=== PATIENT | male | born 1950 | race Caucasian/White ===

== ENCOUNTER 2022-06-01 06:09 | Day surgery (SDC) | payer MEDICARE, BC, SELFPAY ==
[2022-06-01] MEDS: TETRACAINE 0.5% OPHTH 1 DROP EYE-RIGHT ×2 (06:30→06:35)
[2022-06-01] MEDS: KETOROLAC OPHTH 0.5% 1 DROP EYE-RIGHT ×3 (06:30→06:40)
[2022-06-01 06:50] VITALS: BP 130/83; PULSE 60; RESP 16; TEMP 36.6; O2SAT 95; BMI 28.4
[2022-06-01] MEDS: SODIUM CHLORIDE 0.9 % (FLUSH) 10 ML SYRINGE IVF (07:07)
[2022-06-01] MEDS: TETRACAINE 0.5% OPHTH 2 DROP EYE-RIGHT (07:10)
[2022-06-01] MEDS: BALANCED SALT IRRIG SOLN 15 ML EYE-RIGHT (07:21)
[2022-06-01 07:44] VITALS: BP 138/72; PULSE 54; RESP 16; TEMP 36.4; O2SAT 97
--- NOTE | 2022-06-01 07:48 | W.ANESCHARGE ---
Anesthesia Charges Start Date/Time Anesthesia Start Date: 06/01/22 Anesthesia Start Time: 07:12 Stop Date/Time Anesthesia Stop Date: 06/01/22 Anesthesia Stop Time: 07:45 Summary Emergency: No Extremes of Age: Over 69-CPT 40962
--- NOTE | 2022-06-01 08:05 | W.ANESCHARGE ---
Anesthesia Charges Start Date/Time Anesthesia Start Date: 06/01/22 Anesthesia Start Time: 07:12 Stop Date/Time Anesthesia Stop Date: 06/01/22 Anesthesia Stop Time: 07:45 Summary Emergency: No Extremes of Age: Over 69-CPT 24531
--- NOTE | 2022-06-01 08:35 | P.PCN_ITS ---
Procedure Note Date Seen: 06/01/22 Will [facility] bill your pro fee for this procedure?: Yes Procedure Description: SURGEON: Jonelle Puckett MD PREOPERATIVE DIAGNOSIS: Nuclear sclerotic cataract, right eye. POSTOPERATIVE DIAGNOSIS: Nuclear sclerotic cataract, right eye. NAME OF OPERATION: Phacoemulsification of cataract with posterior chamber intraocular lens implantation in the right eye. ANESTHESIA: Topical. ESTIMATED BLOOD LOSS: Less than 2 cc. COMPLICATIONS: None. PATHOLOGY SPECIMEN: None. INDICATIONS: See consult note for details. The risks, benefits and alternatives of the procedure were explained to the patient, who elected to proceed and signed informed consent to do so. PROCEDURE: The patient was brought to the pre-holding area where the right eye was identified as the operative eye. I placed my initials above this eye. The patient received eye drops consisting of 0.5% tetracaine, 1% tropicamide, 10% phenylephrine, and 0.5% ketorolac. The patient was then brought to the operating room where the left eye was again identified as the operative eye. The eye was prepped with Betadine and draped in the usual sterile ophthalmic fashion. A #15 super-sharp blade was used to create a paracentesis site. 1% non-preserved intracameral lidocaine was injected into the anterior chamber. Endocoat was injected into the anterior chamber. A 2.4 mm keratome was used to create a three-plane self-sealing incision 1 mm anterior to the temporal limbus. A cystotome was used to create an anterior capsular leaflet. The Utrata forceps were used to extend this to form a continuous curvilinear capsulorrhexis. Hydrodissection was performed. The cataract was removed with phacoemulsification using the xarwty-rgm-guztfcx technique. The irrigation and aspiration tip was used to remove the remaining cortex. Healon was injected into the capsular bag. An KENYON ZCB00 intraocular lens of 19.5 diopters was injected into the capsular bag. The irrigation and aspiration tip was used to remove the remaining viscoelastic. Balanced salt solution on a cannula was used to hydrate the wound, and the wound was found to be watertight. The pupil was noted to be round. DISPOSITION: The patient was taken to the recovery room and discharged to home in stable condition. The patient was instructed to call me or go to the emergency department with any sudden change, including dramatic loss of vision, severe pain in the eye or eyebrow region, nausea, or vomiting. The patient will follow up in the clinic tomorrow morning. Surgeon: Jonelle Puckett MD
--- NOTE | 2022-06-01 09:38 | SUR.PREOP ---
The eye drops brought by the patient (Ketorolac and Prednisolone) are examined and I have determined they are labeled by the patient's pharmacy for this patient as prescribed by the surgeon. The bottles are intact, recently obtained and appear to be correct prior to administration
== END 2022-06-01 08:13 | disposition home or self-care (01) ==
PROVIDERS: PCP Internal Medicine; Visit Provider Ophthalmology
PROC: (CPT 66984; principal; 2022-06-01 06:15)
DX: H25.11 Age-related nuclear cataract, right eye (principal)
CPT/HCPCS: 66984; 00142; 99100; A9270; J2250; J3010; V2632

== ENCOUNTER 2022-06-15 06:04 | Day surgery (SDC) | payer MEDICARE, BC, SELFPAY ==
[2022-06-15 06:15] VITALS: BP 140/80; PULSE 56; RESP 16; TEMP 36.3; O2SAT 96
[2022-06-15] MEDS: KETOROLAC OPHTH 0.5% 1 DROP EYE-LEFT ×3 (06:18→06:28)
[2022-06-15] MEDS: TETRACAINE 0.5% OPHTH 1 DROP EYE-LEFT ×2 (06:18→06:23)
[2022-06-15] MEDS: SODIUM CHLORIDE 0.9 % (FLUSH) 10 ML SYRINGE IVF (06:34)
[2022-06-15 06:36] VITALS: BMI 28.4
[2022-06-15] MEDS: BALANCED SALT IRRIG SOLN 15 ML EYE-LEFT (06:47)
[2022-06-15] MEDS: TETRACAINE 0.5% OPHTH 2 DROP EYE-LEFT (06:47)
--- NOTE | 2022-06-15 06:59 | SUR.PREOP ---
The eye drops brought by the patient (Ketorolac and Prednisolone) are examined and I have determined they are labeled by the patient's pharmacy for this patient as prescribed by the surgeon. The bottles are intact, recently obtained and appear to be correct.
--- NOTE | 2022-06-15 07:38 | W.ANESCHARGE ---
Anesthesia Charges Start Date/Time Anesthesia Start Date: 06/15/22 Anesthesia Start Time: 07:12 Stop Date/Time Anesthesia Stop Date: 06/15/22 Anesthesia Stop Time: 07:40 Summary Emergency: No Extremes of Age: Over 69-CPT 75744
[2022-06-15 07:39] VITALS: BP 133/74; PULSE 53; RESP 16; TEMP 36.4; O2SAT 97
--- NOTE | 2022-06-15 09:59 | P.PCN_ITS ---
Procedure Note Date Seen: 06/15/22 Will [facility] bill your pro fee for this procedure?: Yes Procedure Description: SURGEON: Jonelle Puckett MD PREOPERATIVE DIAGNOSIS: Nuclear sclerotic cataract, left eye. POSTOPERATIVE DIAGNOSIS: Nuclear sclerotic cataract, left eye. NAME OF OPERATION: Phacoemulsification of cataract with posterior chamber intraocular lens implantation in the left eye. ANESTHESIA: Topical. ESTIMATED BLOOD LOSS: Less than 2 cc. COMPLICATIONS: None. PATHOLOGY SPECIMEN: None. INDICATIONS: See consult note for details. The risks, benefits and alternatives of the procedure were explained to the patient, who elected to proceed and signed informed consent to do so. PROCEDURE: The patient was brought to the pre-holding area where the left eye was identified as the operative eye. I placed my initials above this eye. The patient received eye drops consisting of 0.5% tetracaine, 1% tropicamide, 10% phenylephrine, and 0.5% ketorolac. The patient was then brought to the operating room where the left eye was again identified as the operative eye. The eye was prepped with Betadine and draped in the usual sterile ophthalmic fashion. A #15 super-sharp blade was used to create a paracentesis site. 1% non-preserved intracameral lidocaine was injected into the anterior chamber. Endocoat was injected into the anterior chamber. A 2.4 mm keratome was used to create a three-plane self-sealing incision 1 mm anterior to the temporal limbus. A cystotome was used to create an anterior capsular leaflet. The Utrata forceps were used to extend this to form a continuous curvilinear capsulorrhexis. Hydrodissection was performed. The cataract was removed with phacoemulsification using the bnrqyn-rxa-irwojis technique. The irrigation and aspiration tip was used to remove the remaining cortex. Healon was injected into the capsular bag. An KENYON ZCB00 intraocular lens of 20.0 diopters was injected into the capsular bag. The irrigation and aspiration tip was used to remove the remaining viscoelastic. Balanced salt solution on a cannula was used to hydrate the wound, and the wound was found to be watertight. The pupil was noted to be round. DISPOSITION: The patient was taken to the recovery room and discharged to home in stable condition. The patient was instructed to call me or go to the emergency department with any sudden change, including dramatic loss of vision, severe pain in the eye or eyebrow region, nausea, or vomiting. The patient will follow up in the clinic tomorrow morning. Surgeon: Jonelle Puckett MD
== END 2022-06-15 08:05 | disposition home or self-care (01) ==
PROVIDERS: PCP Internal Medicine; Visit Provider Ophthalmology
PROC: (CPT 66984; principal; 2022-06-15 06:15)
DX: H25.12 Age-related nuclear cataract, left eye (principal)
CPT/HCPCS: 66984; 00142; 99100; A9270; J2250; J3010; V2632

== ENCOUNTER 2022-06-20 12:30 | Outpatient (RCR) | payer MEDICARE, BC, SELFPAY ==
--- NOTE | 2022-05-17 16:32 | PT.OPEX ---
PT [place] Outpatient Eval PT [facility] Outpatient Eval Start: 05/17/22 12:31 Freq: Status: Active Protocol: Document 05/17/22 12:31 MBB (Rec: 05/17/22 13:30 MBB [id number]) E-Signed By Mago Min DPT Physical Therapy Outpatient Evaluation Insurance Information Insurance Name Medicare B Medical Diagnosis low back pain Treating Diagnosis inhibition of lumbar paraspinals Referring MD Mary Johnson MD Subjective Subjective Instructions post back surgery were to walk. He had a complete reconstruction of lumbar spine which required incisions in anterior and lateral abdomin too. Surgery was very successful. Then starting in the spring 2021, the muscles in his back started to feel bruised. When he walks the muscles tighten up and are very uncomfortable. Walks 1 mile 4-5 days per week. Low back feels tender and sore all the times. Secondary issue is left hip lost all sensation after surgery then this spring started to feel a superficial burning sensation with certain hip movements. This sensation comes and goes quickly. PMH: lumbar spinal reconstruction surgery 06/22/20 ; PLOF: walking 1 mile per day without limitations Objective Strength complete inhibition of lumbar paraspinals, trace activation on right, no activation on left Palpation no paraspinal muscle tone Posture flat lumbar spine Assessment Assessment/Impression 72 yo who presents with inhibition of lumbar paraspinals after having a major lumbar spine surgery in 2019. He has low back pain and tightness when walking. This is due to lack of paraspinal muscle support in his back and the accessory muscles being overworked. He will benefit from skilled PT to help facilitate activation and strengthening of the lumbar paraspinals so he can return to walking without limitations . Primary Functional Limitations walking Plan of Care Rehabilitation Potential Good Physical Therapy Goals By 07/26/22 patient will... 1) Walk dog 1 mile without back soreness or tightness. 2) Demonstrate visible muscle activation of the lumbar paraspinals. Coordination/Communication With Referral Source Treatment Plan/Direct Interventions Electrical Stimulation,Manual Therapy,Therapeutic Exercises Frequency/Duration 1 x per week for 6-10 weeks Patient Will Be Discharged From Therapy Completion of LTG(s),Skills Plateau,Independent w/HEP, Independently Progressing Evaluation Billing Complexity Low Certification Information Initial Certification Date 05/17/22 Ending Certification Date 07/26/22
== END 2022-06-23 13:38 | disposition home or self-care (01) ==
PROVIDERS: PCP Internal Medicine; Visit Provider Internal Medicine
DX: M54.50 Low back pain, unspecified (principal); Z51.89 Encounter for other specified aftercare
CPT/HCPCS: 97110; 97140; 97161

== ENCOUNTER 2022-10-10 13:36 | Outpatient (CLI) | payer MEDICARE, BC, SELFPAY ==
--- OUTSIDE RECORDS SUMMARY | 2022-10-10 08:27 | XMS_ITS | Continuity of Care Document ---
:1950 Author Organization [facility] Address [address] [place] [address], [place] [address] Phone Care Team Providers Name Role Phone Jhonatan Jaramillo MD Unavailable Unavailable Allergies, Adverse Reactions, Alerts Substance Reaction Status Criticality DULOXETINE HCL Headache Active No Information ATORVASTATIN CALCIUM Active No Informat ion amoxicillin Active No Information Medications Medication Instructions Dosage Effective Dates Status Comment s (start - stop) ProAir HFA 90 inhale 1 puff by - Active mcg/actuation aerosol inhalation route inhaler every 4 - 6 hours as needed multivitamin tablet take 1 tablet by - Active oral route every day with food aspirin 81 mg chew 1 tablet by 81 MG - Active chewable tablet oral route every day Aspirin Low Dose 81 take 1 tablet by 81 MG - Active mg tablet,delayed oral route every release day flaxseed 1,000 mg - Active capsule Lidoderm 5 % (700 apply 2 patch by 2 patch - Active mg/patch) adhesive transdermal route patch every day (May wear up to 12hours.) tramadol 50 mg tablet - Active METRONIDAZOLE Not Available - Active (unknown strength) Cholestyramine Light - Active 4 gram oral powder tizanidine 4 mg take 1 capsule by 4 MG - Active capsule oral route 2 times every day gabapentin 600 mg take 2 tablet by 1200 MG - Active tablet oral route 2 times every day losartan 25 mg tablet take 1 tablet by 25 MG - Active oral route every day propranolol 40 mg take 1 tablet by 40 MG - Active tablet oral route 2 times every day Crestor 5 mg tablet take 1 Tablet by 5 MG - Active oral route every day Procedures Procedure Date Urinalysis, non-automated, w/scope OFFICE/OUTPATIENT VISIT, EST Cystourethroscopy OFFICE/OUTPATIENT VISIT, EST Urinalysis, non-automated, w/scope PVR Bladder Scan Urinalysis, non-automated, w/scope Office/outpatient visit,new, mod Advance Directives Directive Yes / No Effective Date File Name No Information Encounters Encounter Practice Location Reason(s) Diagnoses Date Provider Provide rs Description For Visit Copied on Encounter [facility] [place] No Information [facility] Jhonatan. [address], [address] [place], [place], [place], [id number], [place], tel: [phone] , [place]. tel: [phone] OFFICE/OUTPA [facility] HYPERTROPHY Clint CAUSEY VISIT, [facility], [facility] frequency (BENIGN) OF 2 Bradle y. Provider: EST [address] (chief PROSTATE WITH [address], complaint) URINARY OBST [address], [place], BPH (chief SE, mas, [id number], complaint) [place], [address] [place], [place], tel: [phone] [place], [id number] , [place]. [id number]. tel: tel: [phone] [place] HIE Default [facility]ERVICAL [facility], Location SPONDYLOSISCERVIC CHS. . [address] DISC DEGENNECK [address], DISORDER/SYMPT [place], [place], NOSCOMN MGRN W [id number], [facility] MGR US STDCHRONIC PAIN tel:[phone] SYNDROMERadiculit [id number] is, Thoracic or LumbarSynovial cyst of lumbar spineMortons neuroma of left footHeadacheLUMB/ LUMBOSAC DISC DEGENMYALGIA AND MYOSITIS NOSLUMBOSACRAL SPONDYLOSIS OFFICE/OUTPA [facility] BPH[facility]inary [facility]illo Re sandra CAUSEY VISIT, [facility]rology PC, [facility]rology PC frequency frequency - Jhonatan. Provider: EST [address] (chief [address], complaint) [address] [facility], [place], BPH (chief SE, mas, 2019 [id number], complaint) [place] [place], [place], tel: [phone] [place], [id number] , [place]. [id number]. tel: tel: [phone] Office/outpa [facility]PH (chief BPHUrinary Jun- [facility] Referring tient [facility], [facility] complaint) frequency - Jhonatan. Pro vider: visit,new, [address] [facility] [facility] [address], [facility], [place], SE, mas, [id number], [place] [place], [place], tel: [phone] [place], [address] , [place]. [id number]. tel: tel: [phone] David Ward Presbycusis of [facility], [facility] both earsDeviated [facility]. . [address] [facility] [address], septumREFRACTIVE [place], [place], ERRORHypertension [id number], , BenignSENILE [place] NUCLEAR SCLEROSIS tel: [phone] David Hernandez No Information [facility], [facility] [address], [address] [place], [place], [place], [id number], [place], tel: [phone] , [place]. tel: [phone] Family History Family Member Type Diagnosis Age At Onset Mother Problem (finding) 85 Father Problem (finding) 85 Problem (finding) Family history of Cancer, colo n Payers Payer name Insurance type Covered green party ID [facility]ization(s ) [id number] Social History Type Description Quantity Date Captured Comments Alcohol Use Details Unknown Caffeine Use Details Unknown Tobacco Use Status No Information Smoking Status No Information Sex Male Chief Complaint And Reason For Visit No Information Plan Of Treatment Date Type Action Status No Information History Of Present Illness Encounter Date Complaint History Of Present I llness Urinary frequency BPH The problem is impr oving. Associated symptoms include slow stream and urinary frequency (every 2 hours). Pertinent ne gatives include dysuria, fever, hematuria, nocturia, urgency and urinary incontinence. Additi onal information: stopped drinking soda. Feels symptoms are marginally improved. Takes slee ping pill and doesn't awaken to void. he has been ta susana Flomax 0.4 mg daily. He never did receive a prescription for Avodart. BPH It occurs daily. Th e problem is with no change. Associated symptoms include urgency and urinary frequency. Pertinent negatives include dysuria, fever, hematuria and nocturia. Urinary frequency BPH BPH (comments) he presents for eval uation of ongoing bladder symptoms for the las t few years worsening over the last several months. He reports urinary frequency about every one to 2 hours. he has intermittently worse and bladder ur gency as well. Urinary frequency effects his ability to travel, dissipated and entertainment and wo rk. He takes sleeping pills at nighttime and only a wakens infrequently to void. He has poor subjective bladder emptying with decreased urinary stream and o ccasional straining to void. He denies any hematuria . He did have a urinary tract infection about 15 y ears ago and saw urology at that time. He had a cysto scopy which reportedly normal at that time. He has no t had any further urinary tract infections. He has c hronic ongoing low back pain for which he has intermi ttent steroid injections which helped somewhat. Reg ards to his bladder symptoms he has tried Avodart year for about 3 months. This seemed to improve hi s symptoms somewhat but insurance would not cover the medication. He also tried Flomax which h e did not feel improved his symptoms. Currently not on any prostate medications. He noted some decrea sed libido while on prostate medications which geronimo s persisted even after stopping the medications. PSA from 01/10/14 was 1.15 Instructions Date Instruction Additional Informati on We discussed medical and surgical Relate d to HYPERTROPHY (BENIGN) OF treatment options. Since his symptoms [place] OSTATE WITH URINARY OBST have improved on flomax he would like to continue with monotherapy, and hold off on addition of Avodart. Patient to return for followup appointment in 6 months. previously failed trial of Flomax and Re lated to Urinary frequency Avodart individually. I would recommend trial combination therapy with Flomax and Avodart. I will see him back in 6 months PARQ discussion held. Patient to Related to Urinary frequency follow-up in 1 week for a cystoscopy. Assessments Type Assessment Date No Information
--- OUTSIDE RECORDS SUMMARY | 2022-10-10 08:27 | XMS_ITS | Continuity of Care Document ---
:1950 Author Organization [facility] Address [facility] [facility] [address] [place] [address] Phone Care Team Providers Name Role Phone Godwin Merchant MD Unavailable Unavailable Allergies, Adverse Reactions, Alerts Substance Reaction Status Criticality amoxicillin unknown Active No Information Medications Medication Instructions Dosage Effective Dates Status Comment s (start - stop) Fish Oil 500 mg - Active capsule aspirin 81 mg take 1 tablet by oral 81 MG - Active tablet,delayed route every day release Avodart 0.5 mg take 1 capsule by oral 0.5 MG - Active capsule route every day tramadol 50 mg tablet take 1 tablet by oral 50 MG - Act suzie route every 6 hours as needed cholestyramine-aspart take 1 scoop by oral 4 G - Acti ve mai 4 gram oral route 3 times every day powder dissolved in 2 to 6 ounces of water or noncarbonated beverage before meals tizanidine 4 mg take 1 tablet by oral - Active tablet route every 8 hours as needed not to exceed 3 doses in 24 hours gabapentin 600 mg take 1 tablet by oral 600 MG - Active tablet route 3 times every day propranolol 40 mg take 1 tablet by oral 40 MG - Active tablet route 2 times every day Procedures Procedure Date Office/outpatient visit,[facility] Comprehensive hearing test Advance Directives Directive Yes / No Effective Date File Name No Information Encounters Encounter Practice Location Reason(s) Diagnoses Date Provider Provide rs Description For Visit Copied on Encounter Office/outpat David Hernandez hearing Presbycusis [place] Referring ient [facility] and loss (chief of both Godwin. Provi yaquelin: visit,new, [facility] complaint) earsDeviated [address] [facility] nasal septum [address], [place], [address] [place], [place], [place], [place], [place], [id number] [place], [id number], , [place]. [id number]. [place] tel: tel: tel: [phone] [place] No [place] and Information Godwin. [facility] [address] [place] [facility] [address] [facility] [address] [place], [place], [place], [place], [id number], , [place]. [place] tel: tel:[phone] Family History Family Member Type Diagnosis Age At Onset Mother, Brother Problem (finding) [place] Payers Payer name Insurance type Covered constitution party ID Authorization(s ) [facility] [id number] Social History Type Description Quantity Date Captured Comments Alcohol Use Details Unknown Caffeine Use Details Unknown Tobacco Use Status No Information Smoking Status No Information Non-Smoking Tobacco : No Details Available : No Details Available J Use Details Sex Male Vital Signs Date / Height Weight BMI Pulse Blood Temperature Respiratory Body Head BMI Pulse Inhaled Time: Rate Pressure Rate Surface Circumference percenti le Ox Ox Area 72.00 82.826 24.7 68 128/82 97.8 in kg 6 /min mm[Hg] 7:52 (182.60 kg/m AM lbs) eter (2) Chief Complaint And Reason For Visit From encounter dated '11/07/2013 08:10'. hearing loss (chief complaint). Description: The patient presents with symptoms that began 6 years ago. The hearing loss is progressive. The hearing loss is worsening. Location includes ears bilaterally. The patient is experiencing headache. The patient denies ear drainage, nausea and vomiting. Additional information: New ptDaniel rashid.--MimiC. Plan Of Treatment Date Type Action Status No Information History Of Present Illness Encounter Date Complaint History Of Present Radha solis hearing loss The patient present s with symptoms that began 6 years ago. The hearing los s is progressive. The hearing loss is worsening. Location includes ears bilaterally. The patient is experienc ing headache. The patient denies ear drainage, nausea and vomiting. Additional information: New ptDaniel WILLIAMSON complete .--MimiC. Instructions Date Instruction Additional Informati on No Information Assessments Type Assessment Date No Information
--- OUTSIDE RECORDS SUMMARY | 2022-10-10 08:27 | XMS_ITS | Continuity of Care Document ---
:1950 Author Organization [facility] Address [address] [facility] [place] [address] Phone Care Team Providers Name Role Phone Jean Pierre Yost MD Unavailable Unavailable Allergies, Adverse Reactions, Alerts Substance Reaction Status Criticality amoxicillin Active No Information Medications Medication Instructions Dosage Effective Dates Status Comment s (start - stop) FLOMAX (unknown strength) Not Available - Active GABAPENTIN (unknown Not Available - Active strength) HYDROCHLOROTHIAZIDE Not Available - Active (unknown strength) LOSARTAN POTASSIUM Not Available - Active (unknown strength) QUESTRAN (unknown Not Available - Active strength) PROPRANOLOL HCL ER Not Available - Active (unknown strength) Procedures Procedure Date COMPREHENSIVE EYE EXAM, NEW PATIENT REFRACTION Advance Directives Directive Yes / No Effective Date File Name No Information Encounters Encounter Practice Location Reason(s) Diagnoses Date Provider Provide rs Description For Visit Copied on Encounter [facility] REFRACTIVE Priyank Referring Physicians Wendi Quintero -2013 Jean Pierre. Provi yaquelin: and ion, [address], BenignSENILE [address]- [address], [place], [address], [place]CL[place]IS [place] [place], [place], [id number], [id number] [place], [place] , [place]. [id number]. tel:[phone] tel: tel: [phone] Family History Family Member Type Diagnosis Age At Onset No Information Payers Payer name Insurance type Covered green party ID Authorization(s ) [facility] [id number] Social History Type Description Quantity Date Captured Comments Alcohol Use Details Unknown Caffeine Use Details Unknown Tobacco Use Status No Information Smoking Status Never smoker Sex Male Chief Complaint And Reason For Visit No Information Plan Of Treatment Date Type Action Status No Information History Of Present Illness Encounter Date Complaint History Of Present I llness No Information Instructions Date Instruction Additional Informati on Refractive Error OU - Refractive Related to Refractive Error Error. Patient given written spectacle Rx. Hypertension w/o Retinopathy - HTN Relat ed to Hypertension w/o without HTN Retinopathy: Educational Ret inopathy materials provided: verbal description & instruction of condition and its approach. Discussed risk of retinopathy in patients with hypertension. Nuclear Cataract OU - Cataract, mild. Re lated to Nuclear Cataract Current vision is adequate. Lens Rx optional. Educational materials provided: cataracts and surgery discussion. Assessments Type Assessment Date No Information
--- OUTSIDE RECORDS SUMMARY | 2022-10-10 08:27 | XMS_ITS ---
:1950 Author Care Team Providers Name Role Phone BETO HICKMAN MD Primary Care Provider [phone] Allergies Code Code System Name Reaction Severity Status Onset 723 RxNorm Amoxicillin ? ? Active 07/28/20 16 Medications Name Status Start Date Stop Date ? ? cholestyramine (bulk) Active ? Not availa ble gabapentin 600 mg tablet Active ? Not rakesh ilable TAKE 1 AND 1/2 TABLETS BY MOUTH THREE TIMES DAILY methylprednisolone 4 mg tablets in a dose pack Completed ? 03/17/2022 FOLLOW PACKAGE DIRECTIONS propranolol 40 mg tablet Active ? Not rakesh ilable TAKE 1 TABLET BY MOUTH TWICE DAILY rizatriptan 10 mg disintegrating tablet Completed ? 03/17/2022 sildenafil 25 mg tablet Completed ? 03/17/20 22 TAKE ONE TABLET BY MOUTH EVERY DAY tizanidine 2 mg capsule Active ? Not avai lable Take 1 capsule every 6 hours by oral route. triamcinolone acetonide 0.1 % topical cream Active ? Not available APPLY TOPICALLY TO THE AFFECTED AREA TWICE DAILY Problems Name Status Onset Date Source ? Malignant Tumor of Prostate Active 07/28/2016 Hist ory Procedures Date Name Performed by ? 06/22/2020 Lumbar Spinal Fusion Information not rakesh ilable 09/29/2018 Colonoscopy Information not avai lable Results Lab Results Date Name Specimen Result Interpretation Description Value Range Status Address ? 03/01/2022 PSA, Total, Serum or ? No observation recor ded. ? ? ? Plasma 05/05/2020 PSA, Serum or Plasma ? No observation recor ded. ? ? ? Past Encounters Encounter Date Diagnosis Provider 03/17/2022 Malignant Tumor of Prostate; Nikita Foote MD: [address]; Skin Tag Stefanie Echeverria, [place] [address], Ph. [phone] Social History Tobacco Smoking Status Never Smoker Vaccine List Vaccine Type pneumococcal polysaccharide PPV23 08/05/2020 Plan of Care Reminders Provider Appointments None recorded. ? ? Lab None recorded. ? ? Referral None recorded. ? ? Procedures None recorded. ? ? Surgeries None recorded. ? ? Imaging None recorded. ? ? Vitals 03/17/2022 11:30AM ESTABLISHED 10 Height Weight BMI 5 ft 11 in 195 lbs 27.2 kg/m2 05/13/2020 09:50AM ESTABLISHED VIDEO VISIT 20 Height Weight BMI 5 ft 11 in 195 lbs 27.2 kg/m2
[2022-10-10 10:51] LABS: Albumin* 4.3 g/dL (3.3-5.0); Chloride* 104 mmol/L (96-114); Sodium* 139 mmol/L (135-149)
[2022-10-10 10:52] LABS: Potassium* 4.7 mmol/L (3.6-5.1)
[2022-10-10 10:53] LABS: Cholesterol* 225 mg/dL (90-199)
[2022-10-10 10:54] LABS: Alkaline Phosphatase* 92 U/L (40-150); Aspartate Amino Transferase* 19 U/L (12-35); Bilirubin Total* 0.8 mg/dL (0.1-1.5); Blood Urea Nitrogen* 21 mg/dL (7-30); Carbon Dioxide* 29 mmol/L (20-32); Creatinine* 0.9 mg/dL (0.5-1.5); Estimated Glomerular Filt Rate 90 ml/min; Glucose* 86 mg/dL (60-115); Total Protein* 6.9 g/dL (6.0-8.3)
[2022-10-10 10:55] LABS: Alanine Aminotransferase* 15 U/L (4-50); Calcium* 9.4 mg/dL (8.4-10.6); HDL Cholesterol* 46 mg/dL (>=40); LDL Cholesterol Calculated 136 mg/dL (<100); Triglycerides* 214 mg/dL (40-149)
[2022-10-10 11:36] LABS: PSA Diagnostic* < 0.06 ng/mL (0.10-4.00)
== END 2022-10-10 13:37 | disposition home or self-care (01) ==
PROVIDERS: PCP Internal Medicine; Visit Provider Internal Medicine
DX: Z00.00 Encounter for general adult medical examination without abnormal findings (principal); I10 Essential (primary) hypertension; C61 Malignant neoplasm of prostate; Z13.6 Encounter for screening for cardiovascular disorders
CPT/HCPCS: 80053; 80061; 84153; 86316

== ENCOUNTER 2022-10-21 10:24 | Outpatient (CLI) | payer MEDICARE, BC, SELFPAY ==
--- OUTSIDE RECORDS SUMMARY | 2022-10-21 10:26 | XMS_ITS | Continuity of Care Document ---
:1950 Author Organization [facility] Address [address] [facility] [place] [address] Phone Care Team Providers Name Role Phone Jean Pierre Yost MD Unavailable Unavailable Allergies, Adverse Reactions, Alerts Substance Reaction Status Criticality amoxicillin Active No Information Medications Medication Instructions Dosage Effective Dates Status Comment s (start - stop) PROPRANOLOL HCL ER Not Available - Active (unknown strength) QUESTRAN (unknown Not Available - Active strength) LOSARTAN POTASSIUM Not Available - Active (unknown strength) HYDROCHLOROTHIAZIDE Not Available - Active (unknown strength) GABAPENTIN (unknown Not Available - Active strength) FLOMAX (unknown strength) Not Available - Active Procedures Procedure Date COMPREHENSIVE EYE EXAM, NEW PATIENT REFRACTION Advance Directives Directive Yes / No Effective Date File Name No Information Encounters Encounter Practice Location Reason(s) Diagnoses Date Provider Provide rs Description For Visit Copied on Encounter [facility] - REFRACTIVE Priyank Referring Physicians Wendi Quintero -2013 Jean Pierre. Provi yaquelin: and ion, [address] [facility], BenignSENILE [place] Stephanie- o [address], mas, [address], SCLEROSIS [place] [place], [place], [place], [id number], [id number] [place], [place] , [place]. [id number]. tel:[phone] tel: tel: [phone] Family History Family Member Type Diagnosis Age At Onset No Information Payers Payer name Insurance type Covered democrat ID Authorization(s ) [facility] [id number] Social History Type Description Quantity Date Captured [...]
--- OUTSIDE RECORDS SUMMARY | 2022-10-21 10:26 | XMS_ITS | Continuity of Care Document ---
:1950 Author Organization [facility] Address [address] [place] [address], [place] [address] Phone Care Team Providers Name Role Phone [...] 12th [address], [address] [place], [place], [place], [id number], [place], tel: [phone] , [place]. tel: [phone] OFFICE/OUTPA [facility] HYPERTROPHY Clint CAUSEY VISIT, [facility], [facility] frequency (BENIGN) OF 2 Bradle y. Provider: EST [address] (chief PROSTATE WITH [address], complaint) URINARY OBST [address] [facility] [facility] [place], [place], BPH (chief SE, mas, 2019 [id number], complaint) [place], [address] [place], [place], tel: [phone] [place], [address] , [place]. [id number]. tel: tel: [phone] [place] [facility] Default CERVICAL [facility]ER [facility], Location SPONDYLOSISCERVIC [facility]. . [address] DISC DEGENNECK [address], DISORDER/SYMPT [place], [place], NOSCOMN MGRN W [id number], [facility] MGR US STDCHRONIC PAIN tel:[phone] SYNDROMERadiculit [id number] is, Thoracic or LumbarSynovial cyst of lumbar spineMortons neuroma of left footHeadacheLUMB/ LUMBOSAC DISC DEGENMYALGIA AND MYOSITIS NOSLUMBOSACRAL SPONDYLOSIS OFFICE/OUTPA [facility] BPHUrinary Jaramillo Re sandra CAUSEY VISIT, Urology PC, Urology PC frequency frequency - Jhonatan. Provider: EST [address] (chief [address], complaint) Street [facility], [place], BPH (chief SE, mas, 2019 [id number], complaint) [place], [address] [place], [place], tel: [phone] [place], [id number] , [place]. [id number]. tel: tel: [phone] Office/outpa [place] [facility] BPH (chief BPHUrinary Jun- Jaramillo Referring tient [facility]rology [facility], Urology PC complaint) frequency 4- Jhonatan. Pro vider: visit,new, [address] [facility] [address] SE, Street [facility], [place], SE, mas, 2019 [id number], [place], [address] [place], [place], tel: [phone] [place], [id number] , [place]. [id number]. tel: tel: [phone] David Ward Presbycusis of PROVIDER [facility], [facility] both earsDeviated [facility]. . [address] [facility] nasal [address], septumREFRACTIVE [place], [place], ERRORHypertension [id number], , BenignSENILE [place] NUCLEAR SCLEROSIS tel: [phone] David Hernandez No Information [facility], [facility] [address], [address] [place], [place], [place], [id number], [place], tel: [phone] , [place]. tel: [phone] Family History Family Member Type Diagnosis Age At Onset Father Problem (finding) 85 Mother Problem (finding) 85 Problem (finding) Family history of Cancer, colo n Payers Payer name Insurance type Covered republican ID Authorization(s ) [id number] Social History Type Description Quantity Date Captured Comments Alcohol Use Details Unknown Caffeine Use Details Unknown Tobacco Use Status No Information Smoking Status No Information Sex Male Chief Complaint And Reason For Visit No Information Plan Of Treatment Date Type Action Status No Information History Of Present Illness Encounter Date Complaint History Of Present I llness BPH The problem is impr oving. Associated [...] never did receive a prescription for Avodart. Urinary frequency BPH It occurs daily. Th e problem [...] (BENIGN) OF treatment options. Since his symptoms [place] WITH URINARY OBST have improved on [...]
--- OUTSIDE RECORDS SUMMARY | 2022-10-21 10:26 | XMS_ITS | Continuity of Care Document ---
:1950 Author Organization [facility] Address [facility] [facility] [address] [place] [address] Phone Care Team Providers Name Role Phone Godwin Merchant MD Unavailable Unavailable Allergies, Adverse Reactions, Alerts Substance Reaction Status Criticality amoxicillin unknown Active No Information Medications Medication Instructions Dosage Effective Dates Status Comment s (start - stop) propranolol 40 mg take 1 tablet by oral 40 MG - Active tablet route 2 times every day gabapentin 600 mg take 1 tablet by oral 600 MG - Active tablet route 3 times every day tizanidine 4 mg take 1 tablet by oral - Active tablet route every 8 hours as needed not to exceed 3 doses in 24 hours cholestyramine-aspart take 1 scoop by oral 4 G - Acti ve mai 4 gram oral route 3 times every day powder dissolved in 2 to 6 ounces of water or noncarbonated beverage before meals tramadol 50 mg tablet take 1 tablet by oral 50 MG - Act suzie route every 6 hours as needed Avodart 0.5 mg take 1 capsule by oral 0.5 MG - Active capsule route every day aspirin 81 mg take 1 tablet by oral 81 MG - Active tablet,delayed route every day release Fish Oil 500 mg - Active capsule Procedures Procedure Date Office/outpatient visit,[facility] Comprehensive hearing test Advance Directives Directive Yes [...] [address] [place], [place], [place], [place], [place], [place], [id number] [place], [id number], , [place]. [id number]. [place] tel: tel: tel: [phone] [place] [facility] No [facility] Information [facility]. [facility] [address] [place] [facility], [facility] [address] [facility] [address] [place], [place], [place], [place], [id number], , [place]. [place] tel: tel:[phone] Family History Family Member Type Diagnosis Age At Onset Mother, Brother Problem (finding) [place] Payers Payer name Insurance type Covered green party ID Authorization(s ) [facility] CI [id number] Social History Type Description Quantity Date Captured [...]
--- NOTE | 2022-10-21 11:00 | CRLHL7_ITS ---
For Patients: As a result of the Century Cures Act, medical imaging exams and procedure reports are released immediately into your electronic medical record. You may view this report before your referring provider. If you have questions, please contact your health care provider. Indication: Carcinoid tumor Technique: Postcontrast CT abdomen and pelvis. 99 cc Isovue 370 intravenous contrast. Please note that all CT scans at this facility use dose modulation, iterative reconstruction, and/or weight-based dosing when appropriate to reduce radiation dose to as low as reasonably achievable. Comparison: 09/15/2021, 09/08/2020 Findings: The lung bases are clear. No pleural effusion or infiltrate. 2.3 x 2.2 cm lesion within the dome of the liver appears larger and more conspicuous when compared to prior studies. Multiple noncalcified gallstones in the gallbladder. Spleen is normal. Adrenal glands unremarkable. Exophytic cyst arises from the lower pole of the right kidney posteriorly. Small exophytic cyst posterior left kidney. No hydronephrosis. 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 Underlying fatty liver. Pancreas normal. No adenopathy. No bowel obstruction or free air. Postop changes to the right colon. Stable lymphocele along the right pelvic sidewall. This measures 2.9 cm. No suspicious lymph nodes. Ureters are normal. Postoperative changes of lumbar fusion with intact hardware. Degenerative joint disease of both hips. Impression: Subtle hypodense lesion in the dome of the liver appears more conspicuous when compared to prior studies and has increased in size now measuring 2.3 x 2.2 cm compared to 1.9 cm on the most recent exam. Dynamic MRI recommended for further evaluation. Stable right pelvic sidewall lymphocele. Chronic cholelithiasis. Please note that all CT scans at this facility use dose modulation, iterative reconstruction, and/or weight-based dosing when appropriate to reduce radiation dose to as low as reasonably achievable. Dictated by Bob Crooks MD @ 10/21/2022 12:46:45 PM (Electronically Signed)
== END 2022-10-21 10:25 | disposition home or self-care (01) ==
LOC: CT 10:25
PROVIDERS: PCP Internal Medicine; Visit Provider Internal Medicine
DX: D3A.00 Benign carcinoid tumor of unspecified site (principal); K76.9 Liver disease, unspecified; K80.20 Calculus of gallbladder without cholecystitis without obstruction; I89.8 Other specified noninfective disorders of lymphatic vessels and lymph nodes
CPT/HCPCS: 74177; Q9967

== ENCOUNTER 2022-11-09 11:40 | Outpatient (CLI) | payer MEDICARE, BC, SELFPAY ==
--- NOTE | 2022-11-09 13:00 | CRLHL7_ITS ---
For Patients: As a result of the Century Cures Act, medical imaging exams and procedure reports are released immediately into your electronic medical record. You may view this report before your referring provider. If you have questions, please contact your health care provider. Indication: Carcinoid tumor, indeterminate liver lesion. Comparison: CT abdomen and pelvis 10/21/2022, 09/15/2021, 08/28/2020 Technique: MRI/MRCP of the abdomen was performed with the following sequences: axial and coronal T2 weighted, axial T2 fat saturated, axial diffusion, axial T1 in and out of phase, axial and coronal 3D T1 weighted before and after intravenous contrast administration. Contrast: 20 mL Dotarem Findings: Liver: Noncirrhotic morphology. No steatosis or iron deposition. 2.6 cm lesion dome lesion at segment 4A/8 which demonstrates diffusion restriction as well as arterial phase enhancement and washout on portal venous phase imaging. This lesion was noted to measure 1.[address] of 08/28/2020. Gallbladder: Contains multiple stones. Biliary system: No biliary distention, filling defect, mass or stricture. Pancreas: Normal caliber main pancreatic duct.No suspicious pancreatic lesions. Other abdominal organs: Small bilateral renal cortical cysts. Spleen and adrenal glands are without focal nodule. Bone marrow signal: Susceptibility artifact from lumbosacral fixation hardware. Other findings: No lymphadenopathy or ascites Impression: 1. 2.6 cm right hepatic dome enhancing right hepatic lobe lesion concerning for metastasis in the provided history of carcinoid tumor. Dictated by Emmett Fulton MD @ 11/13/2022 12:39:11 PM (Electronically Signed)
--- NOTE | 2022-11-23 10:38 | ONC.NURNOTE ---
[employer] called patient to see when his biopsy is scheduled for. It is scheduled for tomorrow. Patient notes that he does not want to see a [place] provider, and wants to go to [facility]. Message left for Dr. Mejia to send to them instead.
== END 2022-11-09 11:41 | disposition home or self-care (01) ==
LOC: MRI 11:41
PROVIDERS: PCP Internal Medicine; Visit Provider Internal Medicine
DX: D3A.00 Benign carcinoid tumor of unspecified site (principal); K76.9 Liver disease, unspecified
CPT/HCPCS: 74183; A9575

== ENCOUNTER 2023-02-20 10:40 | Outpatient (CLI) | payer MEDICARE, BC, SELFPAY ==
--- OUTSIDE RECORDS SUMMARY | 2023-02-20 10:46 | XMS_ITS | Continuity of Care Document ---
Author Name Unknown Organization [facility] Address [address] [place] [address], [place] [address] Phone Care Team Providers Care Sas Architect Name Role Phone Jhonatan Jaramillo MD Unavailable Unavailable Allergies, Adverse Reactions, Alerts Substance Reaction Status Criticality DULOXETINE HCL Headache Active No Informatio n ATORVASTATIN CALCIUM Active No Info rmation amoxicillin Active No Information Medications Medication Instructions Dosage Effective Dates (start - stop) Status Comments aspirin 81 mg chewable tablet chew 1 tablet by oral route every day 81 MG - Active multivitamin tablet take 1 tablet by oral route every day with food - Active ProAir HFA 90 mcg/actuation aerosol inhaler inhale 1 puff by inhalation route every 4 - 6 hours as needed - Active Crestor 5 mg tablet take 1 Tablet by oral route every day 5 MG - Active propranolol 40 mg tablet take 1 tablet by oral route 2 times every day 40 MG - Active losartan 25 mg tablet take 1 tablet by oral route every day 25 MG - Active gabapentin 600 mg tablet take 2 tablet by oral route 2 times every day 1200 MG - Active tizanidine 4 mg capsule take 1 capsule by oral route 2 times every day 4 MG - Active Cholestyramine Light 4 gram oral powder - Active METRONIDAZOLE (unknown strength) Not Available - Active tramadol 50 mg tablet - Active Lidoderm 5 % (700 mg/patch) adhesive patch apply 2 patch by transdermal route every day (May wear up to 12hours.) 2 patch - Active flaxseed 1,000 mg capsule - Active Aspirin Low Dose 81 mg tablet,delayed release take 1 tablet by oral route every day 81 MG - Active Procedures Procedure Date Urinalysis, non-automated, w/scope OFFICE/OUTPATIENT VISIT, EST Cystourethroscopy OFFICE/OUTPATIENT VISIT, EST Urinalysis, non-automated, w/scope PVR Bladder Scan Urinalysis, non-automated, w/scope Office/outpatient visit,[facility] Advance Directives Directive Yes / No Effective Date File Name No Information Encounters Encounter Description Practice Location Reason(s) For Visit Diagnoses Date Provider Providers Copied on Encounter [facility], [address] [place] [address], [id number], [place] tel:[phone] [facility] No Information 5 Clint Israel. [address] [place] [address], [id number] , . tel:[phone] OFFICE/OUTPA TIENT VISIT, EST [facility], [address] [place] [address], [id number], [place] tel:[phone] [facility] Urinary frequency (chief complaint) BPH (chief complaint) HYPERTROPHY (BENIGN) OF PROSTATE WITH URINARY OBST 5 Clint Israel. [address] [place] [address], [id number] , [place]. tel:[phone] Referring Provider: Sanjeev perdomo, [address] [place] [address], [id number]. tel:[phone] [facility], [address] [place] [address], [id number], [place] tel:[phone] HIE Default Location CERVICAL SPONDYLOSISCERVIC AL DISC DEGENNECK DISORDER/SYMPT NOSCOMN MGRN W NTRC MGR STDCHRONIC PAIN SYNDROMERadiculit is, Thoracic or LumbarSynovial cyst of lumbar spineMortons neuroma of left footHeadacheLUMB/ LUMBOSAC DISC DEGENMYALGIA AND MYOSITIS NOSLUMBOSACRAL SPONDYLOSIS 5 PROVIDER [facility]. . OFFICE/OUTPA TIENT VISIT, EST [facility], [address] [place] [address], [id number], [place] tel:[phone] [facility] Urinary frequency (chief complaint) BPH (chief complaint) BPHUrinary frequency 4 Clint Israel. [address] [place] [address], [id number] , . tel: [phone] Referring Provider: Sanjeev perdomo, [address] [place], [place], [id number]. tel:[phone] Office/outpa tient visit,new, mod [facility], [address] [place] [address], [id number], tel:[phone] [facility] BPH (chief complaint) BPHUrinary frequency 4 Clint Israel. [address] [place] [address], [id number] , . tel: [phone] Referring Provider: Sanjeev perdomo, [address] [place], [place], [id number]. tel:[phone] [facility], [address] [place] [address], [id number], [place] tel:[phone] [facility] Presbycusis of both earsDeviated nasal septumREFRACTIVE ERRORHypertension , BenignSENILE NUCLEAR SCLEROSIS 4 PROVIDER [facility]. . [facility], [address] [place] [address], [id number], [place] tel:[phone] [facility] No Information 7 Roselia Magdaleno. [address] [place] [address], [id number] , [place]. [phone] Family History Family Member Type Diagnosis Age At Onset Father Problem (finding) 85 Problem (finding) Family history of Cance r, colon Mother Problem (finding) 85 Payers Payer name Insurance type Covered green party ID Authoriza tion(s) [place] [id number] Social History Type Description Quantity Date Captured Comments Alcohol Use Details Unknown Caffeine Use Details Unknown Tobacco Use Status No Information Smoking Status No Information Sex Male Chief Complaint And Reason For Visit No Information Plan Of Treatment Date Type Action Status No Information History Of Present Illness Encounter Date Complaint History Of Prese nt Illness BPH The problem is i mproving. Associated symptoms include slow stream and urinary frequency (every 2 hours). Pertinent negatives include dysuria, fever, hematuria, nocturia, urgency and urinary incontinence. Additional information: stopped drinking soda. Feels symptoms are marginally improved. Takes sleeping pill and doesn't awaken to void. he has been taking Flomax 0.4 mg daily. He never did receive a prescription for Avodart. Urinary frequency Urinary frequency BPH It occurs daily. The problem is with no change. Associated symptoms include urgency and urinary frequency. Pertinent negatives include dysuria, fever, hematuria and nocturia. BPH (comments) he presents for evaluation of ongoing bladder symptoms for the last few years worsening over the last several months. He reports urinary frequency about every one to 2 hours. he has intermittently worse and bladder urgency as well. Urinary frequency effects his ability to travel, dissipated and entertainment and work. He takes sleeping pills at nighttime and only awakens infrequently to void. He has poor subjective bladder emptying with decreased urinary stream and occasional straining to void. He denies any hematuria. He did have a urinary tract infection about 15 years ago and saw urology at that time. He had a cystoscopy which reportedly normal at that time. He has not had any further urinary tract infections. He has chronic ongoing low back pain for which he has intermittent steroid injections which helped somewhat. Regards to his bladder symptoms he has tried Avodart last year for about 3 months. This seemed to improve his symptoms somewhat but insurance would not cover the medication. He also tried Flomax which he did not feel improved his symptoms. Currently not on any prostate medications. He noted some decreased libido while on prostate medications which has persisted even after stopping the medications. PSA from 01/10/14 was 1.15 BPH Instructions Date Instruction Additional Infor rosa We discussed medical and surgical treatment options. Since his symptoms have improved on flomax he would like to continue with monotherapy, and hold off on addition of Avodart. Patient to return for followup appointment in 6 months. Related to HYPERTROPHY (BENIGN) OF PROSTATE WITH URINARY OBST previously failed tr ial of Flomax and Avodart individually. I would recommend trial combination therapy with Flomax and Avodart. I will see him back in 6 months Related to Urinary frequency PARQ discussion held . Patient to follow-up in 1 week for a cystoscopy. Related to Urinary frequency Assessments Type Assessment Date No Information
--- OUTSIDE RECORDS SUMMARY | 2023-02-20 10:46 | XMS_ITS | Continuity of Care Document ---
Author Name Unknown Organization [facility] Address [address] [place] [address] Phone Care Team Providers Care Head Insulation Board Saw Operator Name Role Phone Jean Pierre Yost MD Unavailable Unavailable Allergies, Adverse Reactions, Alerts Substance Reaction Status Criticality amoxicillin Active No Information Medications Medication Instructions Dosage Effective Dates (start - stop) Status Comments PROPRANOLOL HCL ER (unknown strength) Not Available - Active QUESTRAN (unknown strength) Not Available - Active LOSARTAN POTASSIUM (unknown strength) Not Available - Active HYDROCHLOROTHIAZIDE (unknown strength) Not Available - Active GABAPENTIN (unknown strength) Not Available - Active FLOMAX (unknown strength) Not Available - Active Procedures Procedure Date COMPREHENSIVE EYE EXAM, NEW PATIENT REFRACTION Advance Directives Directive Yes / No Effective Date File Name No Information Encounters Encounter Description Practice Location Reason(s) For Visit Diagnoses Date Provider Providers Copied on Encounter [facility], [address] [place], [place], [id number], tel:[phone] [facility] REFRACTIVE ERRORHypertens ion, BenignSENILE NUCLEAR SCLEROSIS Priyank Greenfield. [address] [place], [place], [id number] , [place]. tel:[phone] Referring Provider: Sanjeev perdomo, [address] [place], [id number]. tel:[phone] Family History Family Member Type Diagnosis Age At Onset No Information Payers Payer name Insurance type Covered democrat ID Authoriza tion(s) VSP CI [id number] Social History Type Description Quantity Date Captured Comments Alcohol Use Details Unknown Caffeine Use Details Unknown Tobacco Use Status No Information Smoking Status Never smoker Sex Male Chief Complaint And Reason For Visit No Information Plan Of Treatment Date Type Action Status No Information History Of Present Illness Encounter Date Complaint History Of Prese nt Illness No Information Instructions Date Instruction Additional Infor mation Refractive Error OU - Refractive Error. Patient given written spectacle Rx. Related to Refractive Error Hypertension w/o Ret inopathy - HTN without HTN Retinopathy: Educational materials provided: verbal description & instruction of condition and its approach. Discussed risk of retinopathy in patients with hypertension. Related to Hypertension w/o Retinopathy Nuclear Cataract OU - Cataract, mild. Current vision is adequate. Lens Rx optional. Educational materials provided: cataracts and surgery discussion. Related to Nuclear Cataract Assessments Type Assessment Date No Information
== END 2023-02-20 10:41 | disposition home or self-care (01) ==
PROVIDERS: PCP Internal Medicine; Visit Provider Internal Medicine
DX: I10 Essential (primary) hypertension (principal)
CPT/HCPCS: 80053; 85610

== ENCOUNTER 2023-04-06 11:04 | Outpatient (REF) | payer MEDICARE, BC, SELFPAY ==
[2023-04-06 13:32] LABS: Basophils Absolute Auto 0.07 K/uL (0.00-0.30); Basophils Percent Auto 0.7 % (0.0-3.0); Hematocrit 35.8 % (37.0-53.0); Hemoglobin* 10.9 gm/dL (13.5-17.5); Immature Granulocytes Abs Auto 0.02 K/uL (0.00-0.30); Immature Granulocytes Pct Auto 0.2 %; Lymphocytes Percent Auto 12.2 % (20-44); Mean Corpuscular HGB Conc 30 gm/dL (32-36); Mean Corpuscular Hemoglobin 28 pg (26-34); Mean Corpuscular Volume 93 fL (80-100); Monocytes Percent Auto 7.2 % (0.0-11.0); Neutrophils Absolute Auto 6.81 K/uL (1.7-7.0); Neutrophils Percent Auto 71.7 % (42.0-72.0); RDW Coefficient of Variation % 13.2 % (11.5-15.5); Red Blood Count 3.84 m/uL (4.30-5.90)
[2023-04-06 13:55] LABS: Platelet Count* 1210 K/uL (140-440); Slide Review Reflex Yes
[2023-04-06 13:56] LABS: Slide Review Acceptable Review (Acceptable)
== END 2023-04-06 11:05 | disposition home or self-care (01) ==
LOC: NPINS 11:04
PROVIDERS: PCP Internal Medicine
DX: D3A.8 Other benign neuroendocrine tumors (principal); R79.89 Other specified abnormal findings of blood chemistry
CPT/HCPCS: 85025

== ENCOUNTER 2023-04-18 20:26 | Outpatient (REF) | payer MEDICARE, BC, SELFPAY ==
--- OUTSIDE RECORDS SUMMARY | 2023-04-18 20:28 | XMS_ITS | Continuity of Care Document ---
Author Name Unknown Organization [facility] Address [address] [place] [address], [place] [address] Phone Care Team Providers Care Hydraulic Elevator Constructor Name Role Phone Jhonatan Jaramillo MD Unavailable [...] Bladder Scan Urinalysis, non-automated, w/scope [facility] [place] Advance Directives Directive Yes / No Effective Date File Name No Information Encounters Encounter Description Practice Location Reason(s) For Visit Diagnoses Date Provider Providers Copied on Encounter [facility], [address] [place] [address], [id number], [place] tel:[phone] [facility] No Information 5 Clint Israel. [address] [place] [address], [id number] , . tel:[phone] OFFICE/OUTPA TIENT VISIT, EST [facility], [address] [place] [address], [id number], [place] tel:[phone] [facility] Urinary frequency (chief complaint) BPH (chief complaint) HYPERTROPHY (BENIGN) OF PROSTATE WITH URINARY OBST 5 Clint Israel. [address] [place] [address], [id number] , [place]. tel:[phone] Referring Provider: Sanjeev perdomo, [address] [place] [address], [id number]. tel:[phone] [facility], [address] [place] [address], [id number], [place] tel:[phone] [facility] Default Location CERVICAL SPONDYLOSISCERVIC AL DISC DEGENNECK DISORDER/SYMPT NOSCOMN MGRN W NTRC MGR STDCHRONIC PAIN SYNDROMERadiculit is, Thoracic or LumbarSynovial cyst of lumbar spineMortons neuroma of left footHeadacheLUMB/ LUMBOSAC DISC DEGENMYALGIA AND MYOSITIS NOSLUMBOSACRAL SPONDYLOSIS 5 PROVIDER CHS. . OFFICE/OUTPA TIENT VISIT, EST [facility], [address] [place] [address], [id number], tel:[phone] [facility] Urinary frequency (chief complaint) BPH (chief complaint) BPHUrinary frequency 4 Clint Israel. [address] [place] [address], [id number] , . tel: [phone] Referring Provider: Sanjeev perdomo, [address] [place], [id number]. tel:[phone] Office/outpa tient visit,new, mod [facility], [address] [place] [address], [id number], tel:[phone] [facility] BPH (chief complaint) BPHUrinary frequency 4 Clint Israel. [address] [place] [address], [id number] , . tel: [phone] Referring Provider: Sanjeev perdomo, [address] [place], [id number]. tel:[phone] [facility], [address] [place] [address], [id number], [place] tel:[phone] [facility] Presbycusis of both earsDeviated nasal septumREFRACTIVE ERRORHypertension , BenignSENILE NUCLEAR SCLEROSIS 4 PROVIDER CHS. . [facility], [address] [place] [address], [id number], [place] tel:[phone] [facility] No Information 7 Roselia Magdaleno. [address] [place] [address], [id number] , [place]. tel:[phone] Family History Family Member Type Diagnosis Age At Onset Problem (finding) Family history of Cance r, colon Mother Problem (finding) 85 Father Problem (finding) 85 Payers Payer name Insurance type Covered republican ID Authoriza tion(s) Thu Solano [id number] Social History Type Description Quantity Date Captured [...]
--- OUTSIDE RECORDS SUMMARY | 2023-04-18 20:28 | XMS_ITS | Continuity of Care Document ---
Author Name Unknown Organization [facility] Address [address] [address] [place] [address] Phone Care Team Providers Care Information Systems Security Analyst Name Role Phone Sally ARCHULETA, Justo Unavailable Unavaila ble Allergies, Adverse Reactions, Alerts Substance Reaction Status Criticality No Known Allergies Active No Inform ation amoxicillin Unknown Active No Information onion NauseaHeadache Active No Informatio n Medications Medication Instructions Dosage Effective Dates (start - stop) Status Comments Imodium A-D 2 mg capsule take 2 capsule by oral route after 1st loose stool, followed by 1 capsule after each subsequent loose stool not to exceed 16 mg/day 4 MG - Active Excedrin Extra Strength 250 mg-250 mg-65 mg tablet take 2 by Oral route as needed as needed 2 - Active propranolol 40 mg tablet take 2 Tablet by oral route every day 80 MG - Active gabapentin 600 mg tablet take 1 tablet by ORAL route 3 times every day 600 MG - Active tizanidine 4 mg capsule take 2 capsule b y ORAL route every day 8 MG - Active cholestyramine (bulk) powder take 1 by Oral route 4 times every day 1 - Active hyoscyamine 0.125 mg sublingual tablet take as needed - Active tramadol 50 mg tablet take 1 - 2 tablet by oral route 4 times every day as needed 50 MG - Active hydrocodone 5 mg-acetaminophen 325 mg tablet take as needed - Active Lidoderm 5 % topical patch take as needed - Active Procedures Procedure Date Ugi Endo; W/us Guid Asp/bx Ugi Endo; W/us Guid Asp/bx Colonoscopy Flex; W/bx 1/mx Level Iv-surg Path Gross/micro 23 Colonoscopy Flex; W/bx 1/mx Level Iv-surg Path Gross/micro 18 Offic/outpt E&m New Mod-[facility] Advance Directives Directive Yes / No Effective Date File Name No Information Encounters Encounter Description Practice Location Reason(s) For Visit Diagnoses Date Provider Providers Copied on Encounter [facility], [address] [address], [place], [place], [id number], [place] tel:[phone] [facility] No Information 3 Sally Kemp. [address] [place] [address], [id number], [place]. tel:[phone] Bereket Garduno MD. tel:[phone] [facility], [address] [address], [place], [id number], [place] tel:[phone] [facility] No Information 3 Sally Kemp. [address] [place] [address], [id number], [place]. tel:[phone] Referring Provider: Justo Omer, [address] [place] [address], [id number]. tel:[phone] [facility], [address] [address], [place], [id number], [place] tel:[phone] [facility] No Information 3 Sally Kemp. [address] [place] [address], [id number], [place]. tel:[phone] [facility], [address] [address], [place], [id number], tel:[phone] [facility] No Information 3 Sally Kemp. [address] [place] [address], [address], [id number], . tel:[phone] Referring Provider: Justo Omer, [facility] [address], [address]. tel:[phone] [facility], [address] [address], [place], [place], [id number], tel:[phone] [facility] GI Symptoms or Concerns (chief complaint) Personal history of malignant carcinoid tumorNeuroend ocrine tumor of liverColorect al polypsOther specified diseases of intestinePers onal history of malignant neoplasm, unspecifiedOt her specified diseases of intestine 3 Saundra Charles. [address] [place] [address], [id number], . tel:[phone] Bereket Garduno MD. tel:[phone] ring Provider: Bereket Garduno MD E, [address], [place], [address]. tel:[phone] [facility], [address] [address], [place], [place], [id number], tel:[phone] No Information 3 No Information Referring Provider: Bereket Garduno MD E, [address], [place], [address]. tel:[phone] [facility], [address] [address], [place], [place], [id number], [place] tel:[phone] [facility] Change in bowel habitsPersona l history of colonic polypsPersona l history of malignant neoplasm, unspecifiedCh levon in bowel habit 0[address] [facility] [address], [place], [place], [id number], . tel:[phone] Referring Provider: Referral Self. Offic/outpt E&m [facility] [address] [address], [place], [place], [id number], [place] tel:[phone] [facility] GI Symptoms or Concerns (chief complaint) History of malignant carcinoid tumorDiarrhea due to malabsorption Diarrhea, unspecifiedDi etary counseling and surveillanceE ssential (primary) hypertension [address] [facility] [address], [place], [place], [id number], [place]. tel:[phone] Referring Provider: Referral Self. Family History Family Member Type Diagnosis Age At Onset Daughter Problem (finding) Alive and well Brother Problem (finding) brain tumor Father Problem (finding) Alcoholism Sister Problem (finding) Alive and well Brother Problem (finding) Alive and well Mother Problem (finding) cancer of colon Immunizations Vaccine Date Status Comments Haemophilus influenzae type b vaccine, PRP-OMP conjugate administered Note: [facility] bi -directional interface ; Source: Other Registry meningococcal polysaccharide (groups A, C, Y, W-135) tetanus toxoid conjugate vaccine 0.5mL dose, preservative free administered Note: [facility] bi-di rectional interface ; Source: Other Registry influenza, seasonal vaccine, quadrivalent, adjuvanted, 0.5mL dose, preservative free administered Note: [facility] bi-di rectional interface ; Source: Other Registry influenza, seasonal vaccine, quadrivalent, adjuvanted, .5mL dose, preservative free administered Note: [facility] bi-di rectional interface ; Source: Other Registry SARS-COV-2 (COVID-19) vaccin e, mRNA, spike protein, LNP, bivalent booster, preservative free, 50 mcg/0.5 mL or 25 mcg/0.25 mL dose administered Note: [facility] bi-direct ional interface ; Source: Other Registry SARS-COV-2 (COVID-19) vaccin e, mRNA, spike protein, LNP, preservative free, 100 mcg/0.5mL dose or 50 mcg/0.25mL dose administered Note: [facility] bi -directional interface ; Source: Other Registry SARS-COV-2 (COVID-19) vaccin e, mRNA, spike protein, LNP, preservative free, 100 mcg/0.5mL dose or 50 mcg/0.25mL dose administered Note: [facility] bi -directional interface ; Source: Other Registry influenza, seasonal vaccine, quadrivalent, adjuvanted, 0.5mL dose, preservative free administered Note: [facility] bi-di rectional interface ; Source: Other Registry influenza, seasonal vaccine, quadrivalent, adjuvanted, .5mL dose, preservative free administered Note: [facility] bi-di rectional interface ; Source: Other Registry SARS-COV-2 (COVID-19) vaccin e, mRNA, spike protein, LNP, preservative free, 100 mcg/0.5mL dose or 50 mcg/0.25mL dose administered Note: [facility] bi -directional interface ; Source: Other Registry SARS-COV-2 (COVID-19) vaccin e, mRNA, spike protein, LNP, preservative free, 100 mcg/0.5mL dose or 50 mcg/0.25mL dose administered Note: [facility] bi -directional interface ; Source: Other Registry Pneumovax 23 administered Note: [facility] bi-d irectional interface ; Source: Other Registry influenza, high-dose seasona l, quadrivalent, 0.7mL dose, preservative free administered Note: [facility] bi-direct ional interface ; Source: Other Registry influenza, high-dose seasona l, quadrivalent, .7mL dose, preservative free administered Note: [facility] bi-direct ional interface ; Source: Other Registry influenza, high dose seasona l, preservative-free administered Note: [facility] bi-direct ional interface ; Source: Other Registry influenza, high dose seasona l, preservative-free administered Note: [facility] bi-direct ional interface ; Source: Other Registry Influenza, injectable, quadrivalent, preservative free, 3 yrs or older administered Source: Other Provid er influenza, high dose seasona l, preservative-free administered Note: [facility] bi-direct ional interface ; Source: Other Registry tetanus toxoid, reduced diphtheria toxoid, and acellular pertussis vaccine, adsorbed administered Note: [facility] b i-directional interface ; Source: Other Registry influenza, high dose seasona l, preservative-free administered Note: [facility] bi-direct ional interface ; Source: Other Registry Influenza, injectable, quadrivalent, preservative free, 3 yrs or older administered Source: Other Provid er Prevnar administered Note: [facility] bi-d irectional interface ; Source: Other Registry Pneumococcal conjugate PCV administere d Source: Other Provider influenza, high dose seasona l, preservative-free administered Note: [facility] bi-direct ional interface ; Source: Other Registry Influenza, injectable, quadrivalent, preservative free, 3 yrs or older administered Source: Other Provid er zoster vaccine, live administered Note: [facility] bi-directional interface ; Source: Other Registry Zoster administered Source: Other P rovider seasonal influenza, intrader mal, preservative free administered Note: [facility] bi-direct ional interface ; Source: Other Registry Influenza, seasonal, injecta ble, preservative free administered Note: [facility] bi-direct ional interface ; Source: Other Registry Payers Payer name Insurance type Covered constitution party ID Authoriza tion(s) [employer] BL [id number] Social History Type Description Quantity Date Captured Comments Sex Male Smoking Status No Information Chief Complaint And Reason For Visit No Information Reason For Referral Reason For Referral No Information Plan Of Treatment Date Type Action Status Goal Lifestyle education regardin g diet completed Referral Ordered: Colonoscopy Appointment date/timeframe: 10/18/2018 ordered History Of Present Illness Encounter Date Complaint History Of Prese nt Illness GI Symptoms or Concerns GI Symptoms or Concerns This is a 68-year-old male who presents for consultation from Dr. Mejia for changes in bowel habits. 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 He has been having GI trouble ever since, but actually says that he had irregular bowel movements before the surgery and has always had some GI issues.Immediately after his surgery 1997, he began to have explosive diarrhea. He was placed on Questran and that definitely helped and he was no longer having explosive diarrhea, but would still have loose watery urgent stools after any food consumption. He says that for the past 5 years, he has not had a regular bowel movement. In the past, he was having constipation for 3 to 4 days and then 3 or 4 days of diarrhea. During the constipation, he would not have any bowel movements for several days. Then during days with diarrhea, he will have loose urgent small semi-liquid stools after every food or liquid intake. It vin Functional Status Date Functional Assessmen t No Information Instructions Date Instruction Additional Infor rosa Colon Cancer Prevention Related to Colorectal polyps Colon Polyps Related to Color ectal polyps Colon Cancer Prevention Related to Change in bowel habits If the cholestyramin e is not helping, he had tried stopping it and using fiber supplementation instead. I think he would benefit greatly from very small amounts of Imodium scheduled 1 to 3 times per day. He may have to play around with his dose as he is prone to constipation. We will then schedule his followup colonoscopy in the next few months and he can return to clinic as needed. Related to History of malignant carcinoid tumor Lifestyle education regarding di et Related to Dietary counseling and surveillance Assessments Type Assessment Date No Information Patient Care Teams Name Effective Dates (start - stop) Status Members No Information
--- OUTSIDE RECORDS SUMMARY | 2023-04-18 20:28 | XMS_ITS | Continuity of Care Document ---
Author Name Unknown Organization [facility] Address [address] [place] [address] Phone Care Team Providers Care Stripe Matcher Name Role Phone Jean Pierre Yost MD [...] Encounter [facility], [address] [place], [place], [id number], tel:[phone] [facility] REFRACTIVE ERRORHypertens ion, BenignSENILE NUCLEAR SCLEROSIS Priyank Greenfield. [address], [place], [id number] , [place]. tel:[phone] Referring Provider: Sanjeev perdomo, [address] [place], [place], [id number]. tel:[phone] Family History Family Member Type Diagnosis Age At Onset No Information Payers Payer name Insurance type Covered alliance party ID Authoriza tion(s) VSP CI [id number] Social History Type Description Quantity Date Captured [...]
--- OUTSIDE RECORDS SUMMARY | 2023-04-18 20:28 | XMS_ITS | Continuity of Care Document ---
Author Name Unknown Organization [facility] Address [address] [place] [address] Phone Care Team Providers Care Display Artist Name Role Phone Adan ARCHULETA, PhD, Joo Unavailable Unavai lable Allergies, Adverse Reactions, Alerts Substance Reaction Status Criticality amoxicillin Active No Information Medications Medication Instructions Dosage Effective Dates (start - stop) Status Comments TIZANIDINE HCL (unknown strength) Not Available - Active NORTRIPTYLINE HCL (unknown strength) Not Available - Active PROPRANOLOL HCL (unknown strength) Not Available - Active GABAPENTIN (unknown strength) Not Available - Active CHOLESTYRAMINE RESIN (unknown strength) Not Available - Active AMBIEN (unknown strength) Not Available - No Longer Active Procedures Procedure Date Office/Outpatient Visit,Est, Low 2022 X-Ray Exam Lower Spine 2-3 Views 2022 Office/Outpatient Visit,Est, Mod 2020 Office/Outpatient Visit,Est, Mod 2019 Postop Followup Visit PSF, Lumbar - PA PSF - Additional Level(s) - PA 20 Deirdre / Dewitt-Hdz Osteotomy, Lumbar - PA Deirdre / Dewitt-Hdz Osteotomy - Addit ional Level(s) - PA Posterior Instrumentation, 3-6 Segments - PA Iliac Bolts / Pelvic Fixation - PA PEEK/ Cage/ Implant, For Interbody Fusio n - PA PSF, Lumbar PSF - Additional Level(s) ALIF / OLIF Anterior Lumbar Interbody Fu charlotte - Cosurgeon Anterior Interbody Fusion - Additional L evel(s) Deirdre / Dewitt-Hdz Osteotomy, Lumbar Deirdre / Dewitt-Hdz Osteotomy - Addit ional Level(s) Posterior Instrumentation, 3-6 Segments Iliac Bolts / Pelvic Fixation 0 PEEK/ Cage/ Implant, For Interbody Fusio n Office/Outpatient Visit,Est, Mod 2019 X Ray Exam Entire Spine 2/3 VW 20 Office/Outpatient Visit,New, Mod 2019 X-Ray Exam Lwr Spine, Min 4 Views Advance Directives Directive Yes / No Effective Date File Name No Information Encounters Encounter Description Practice Location Reason(s) For Visit Diagnoses Date Provider Providers Copied on Encounter Office/Outpat ient Visit,Est, Low [facility], [address], [place], [id number], [place] tel:[phone] [facility] [place] Arthrodesis status 3 Adan Ge. [facility], [address], [place], [address], [place]. tel:[phone] Referring Provider: Joo Arellano, [facility] [address], [place], [address]. tel:[phone] Office/Outpat ient Visit,Est, Mod [facility], [address], [place], [place], [id number], [place] tel:[phone] [facility] [place] Spinal stenosis, cervical region 1 Adan Ge. [facility], [address], [place], [address], [place]. tel:[phone] Referring Provider: Joo Arellano, [facility] [address], [place], [address]. tel:[phone] Office/Outpat ient Visit,Est, Mod [facility], [address], [place], [id number], [place] tel:[phone] [facility] [place] Arthrodesis status 0 Adan Ge. [facility], [address], [place], [address], [place]. tel: [phone] Referring Provider: Joo Arellano, [facility] [address], [place], [address]. tel:[phone] [facility], [address], [place], [place], [id number], [place] tel:[phone] [facility] Arthrodesis status 0 Adan Ge. [facility] [place], [address], [place], [address], [place]. tel: [phone] Referring Provider: Joo Arellano, [facility] [place] [address], [place], [address]. tel:[phone] [facility], [address], [place], [id number], [place] tel:[phone] [facility] Arthrodesis status 0 Adan Ge. [facility] [place], [address], [place], [address], [place]. tel: [phone] [facility], [address], [place], [id number], [place] tel:[phone] [facility] No Information 0 Ramana Crane. [facility], [address], [place], [place], [id number] , [place]. tel: [phone] Referring Provider: Joo Arellano, [facility] [address], [place], [address]. tel:[phone] [facility], [address], [place], [id number], [place] tel:[phone] [facility] No Information 0 Adan Ge. [facility], [address], [place], [address], [place]. [phone] Referring Provider: Joo Arellano, [facility] [address], [place], [address]. tel:[phone] Office/Outpat ient Visit,Est, Mod [facility], [address], [place], [id number], [place] tel:[phone] [facility] [place] Spinal stenosis, lumbar region with neurogenic claudication 0 Adan Ge. [facility], [address], [place], [address], [place]. [phone] Referring Provider: Joo Arellano, [facility] [address], [facility] [place], [address]. tel:[phone] Office/Outpat ient Visit,New, Mod [facility], [address], [place], [place], [id number], [place] tel:[phone] [facility] [place] Deforming dorsopathy, unspecified Dec-0 0 Adan Ge. [facility], [address], [place], [address], [place]. [phone] Referring Provider: Joo Arellano, [facility] [address], [place], [address]. tel:[phone] Family History Family Member Type Diagnosis Age At Onset No Information Payers Payer name Insurance type Covered democrat ID Sanjuanita cole(s) [facility] [id number] Medicare [facility] [id number] 1 Social History Type Description Quantity Date Captured Comments Alcohol Use Details Unknown Caffeine Use Details Unknown Tobacco Use Status No Information Smoking Status No Information Sex Male Vital Signs Date / Time: Height Weight BMI Pulse Rate Blood Pressure Temperature Respiratory Rate Body Surface Area Head Circumference Head Circ. Percentile Wt./Dequan. Percentile BMI percentile Pulse Ox Inhaled Ox 11:33 AM 69.75 in 87.090 kg (192.00 lbs) 27.7 5 kg/m eter (2) Chief Complaint And Reason For Visit No Information Reason For Referral Reason For Referral No Information Plan Of Treatment Date Type Action Status Future Order: Radiology Order PA /Lateral Full Spine (PALatFS), Ordered on: Ordered History Of Present Illness Encounter Date Complaint History Of Prese nt Illness No Information Functional Status Date Functional Assessmen t No Information Instructions Date Instruction Additional Infor mation No Information Assessments Type Assessment Date No Information Patient Care Teams Name Effective Dates (start - stop) Status Members No Information
[2023-04-18 20:35] LABS: Basophils Absolute Auto 0.05 K/uL (0.00-0.30); Basophils Percent Auto 0.5 % (0.0-3.0); Eosinophils Absolute Auto 0.44 K/uL (0.00-0.50); Eosinophils Percent Auto 4.8 % (0.0-7.0); Hematocrit 36.8 % (37.0-53.0); Hemoglobin* 11.2 gm/dL (13.5-17.5); Immature Granulocytes Abs Auto 0.04 K/uL (0.00-0.30); Immature Granulocytes Pct Auto 0.4 %; Lymphocytes Percent Auto 14.5 % (20-44); Mean Corpuscular HGB Conc 30 gm/dL (32-36); Mean Corpuscular Hemoglobin 28 pg (26-34); Mean Corpuscular Volume 91 fL (80-100); Monocytes Percent Auto 8.1 % (0.0-11.0); Neutrophils Absolute Auto 6.61 K/uL (1.7-7.0); Neutrophils Percent Auto 71.7 % (42.0-72.0); Platelet Count* 828 K/uL (140-440); RDW Coefficient of Variation % 13.6 % (11.5-15.5); Red Blood Count 4.06 m/uL (4.30-5.90); White Blood Count* 9.23 K/uL (4.50-11.00)
[2023-04-18 20:36] LABS: Slide Review Reflex No
== END 2023-04-18 20:27 | disposition home or self-care (01) ==
LOC: NPINS 20:26
PROVIDERS: PCP Internal Medicine
DX: R53.83 Other fatigue (principal)
CPT/HCPCS: 85025

== ENCOUNTER 2023-05-03 11:51 | Outpatient (REF) | payer MEDICARE, BC, SELFPAY ==
--- OUTSIDE RECORDS SUMMARY | 2023-05-03 12:00 | XMS_ITS | Continuity of Care Document ---
Author Name Unknown Organization [facility] Address [address] [place] [address] Phone Care Team Providers Care Junior Accountant Bookkeeper Name Role Phone Jean Pierre Yost MD [...] Encounter [facility], [address] [place], [place], [id number], tel:[phone] [facility] REFRACTIVE ERRORHypertens ion, BenignSENILE NUCLEAR SCLEROSIS Priyank Greenfield. [address] [place], [place], [id number] , [place]. tel:[phone] Referring Provider: Sanjeev perdomo, [address] [place], [place], [id number]. tel:[phone] Family History Family Member Type Diagnosis Age At Onset No Information Payers Payer name Insurance type Covered green party ID Authoriza tion(s) VSP CI [id number] Social History Type Description Quantity Date Captured Comments Alcohol Use Details Unknown Caffeine Use Details Unknown Tobacco Use Status No Information Smoking Status Never smoker Sex Male Chief Complaint And Reason For Visit No Information Plan Of Treatment Date Type Action Status No Information History Of Present Illness Encounter Date Complaint History Of Prese nt Illness No Information Instructions Date Instruction Additional Infor crision Hypertension w/o Ret inopathy - HTN without HTN Retinopathy: Educational materials provided: verbal description & instruction of condition and its approach. Discussed risk of retinopathy in patients with hypertension. Related to Hypertension w/o Retinopathy Nuclear Cataract OU - Cataract, mild. Current vision is adequate. Lens Rx optional. Educational materials provided: cataracts and surgery discussion. Related to Nuclear Cataract Refractive Error OU - Refractive Error. Patient given written spectacle Rx. Related to Refractive Error Assessments Type Assessment Date No Information
--- OUTSIDE RECORDS SUMMARY | 2023-05-03 12:00 | XMS_ITS | Continuity of Care Document ---
Author Name Unknown Organization [facility] Address [address] [place] [address], [place] [address] Phone Care Team Providers Care Server Engineer Name Role Phone Jhonatan Jaramillo MD Unavailable [...] PVR Bladder Scan Urinalysis, non-automated, w/scope [facility] Advance Directives Directive Yes / No Effective Date File Name No Information Encounters Encounter Description Practice Location Reason(s) For Visit Diagnoses Date Provider Providers Copied on Encounter [facility], [address] [place] [address], [id number], [place] tel:[phone] [facility] No Information 5 Clint Israel. [address] [place] [address], [id number] , . tel:[phone] OFFICE/OUTPA TIENT VISIT, EST [facility], [address] [place] [address], [id number], [place] tel:[phone] [facility] Urinary frequency (chief complaint) BPH (chief complaint) HYPERTROPHY (BENIGN) OF PROSTATE WITH URINARY OBST 5 Clint Israel. [address] [place] [address], [id number] , [place]. tel:[phone] Referring Provider: Sanjeev perdomo, [address] [place] [address], [id number]. tel:[phone] [facility], [address] [place] [address], [id number], [place] tel:[phone] H[facility] Default Location CERVICAL SPONDYLOSISCERVIC AL DISC DEGENNECK DISORDER/SYMPT NOSCOMN MGRN W NTRC MGR STDCHRONIC PAIN SYNDROMERadiculit is, Thoracic or LumbarSynovial cyst of lumbar spineMortons neuroma of left footHeadacheLUMB/ LUMBOSAC DISC DEGENMYALGIA AND MYOSITIS NOSLUMBOSACRAL SPONDYLOSIS 5 PROVIDER CHS. . OFFICE/OUTPA TIENT VISIT, EST [facility], [address] [place] [address], [id number], [place] tel:[phone] [facility] Urinary frequency (chief complaint) BPH (chief complaint) BPHUrinary frequency 4 Clint Israel. [address] [place] [address], [id number] , . tel: [phone] Referring Provider: Sanjeev perdomo, [address] [place], [id number]. tel:[phone] Office/outpa tient visit,new, mod [facility], [address] [place] [address], [id number], tel:[phone] [facility] BPH (chief complaint) BPHUrinary frequency 4 Clint Israel. [address] [place] [address], [id number] , . tel: [phone] Referring Provider: Sanjeev perdomo, [address] [place], [id number]. tel:[phone] [facility], [address] [place] [address], [id number], [place] tel:[phone] [facility] Deviated nasal septumPresbycusis of both earsREFRACTIVE ERRORHypertension , BenignSENILE NUCLEAR SCLEROSIS 4 PROVIDER CHS. . [facility], [address] [place] [address], [id number], [place] tel:[phone] [facility] No Information 7 Roselia Magdaleno. [address] [place] [address], [id number] , [place]. tel:[phone] Family History Family Member Type Diagnosis Age At Onset Father Problem (finding) 85 Problem (finding) Family history of Cance r, colon Mother Problem (finding) 85 Payers Payer name Insurance type Covered republican ID Authoriza tion(s) Thu Solano [id number] Social History Type Description Quantity Date Captured [...]
--- OUTSIDE RECORDS SUMMARY | 2023-05-03 12:00 | XMS_ITS | Continuity of Care Document ---
Author Name Unknown Organization [facility] Address [address] [place] [address] Phone Care Team Providers Care Mainspring Former Arbor End Name Role Phone Adan ARCHULETA, PhD, Joo [...] Anterior Interbody Fusion - Additional L evel(s) Dierdre / Dewitt-Hdz Osteotomy, Lumbar Deirdre / Dewitt-Hdz [...] C, [address], [place], [place], [id number], [place] tel:[phone] [facility] [place] Arthrodesis status 3 Adan Ge. [facility], [address], [place], [address], [place]. tel:[phone] Referring Provider: Joo Arellano, [facility] [address], [place], [address]. tel:[phone] Office/Outpat ient Visit,Est, Mod [facility], [address], [place], [place], [id number], [place] tel:[phone] [facility] [place] Spinal stenosis, cervical region 1 Adan Ge. [facility], [address], [place], [address], [place]. tel:[phone] Referring Provider: Joo Arellano, [facility] [address], [place], [address]. tel:[phone] Office/Outpat ient Visit,Est, Mod [facility], [address], [place], [place], [id number], [place] tel:[phone] [facility] [place] Arthrodesis status 0 Adan Ge. [facility], [address], [place], [address], [place]. tel: [phone] Referring Provider: Joo Arellano, [facility] [address], [place], [address]. tel:[phone] [facility], [address], [place], [place], [id number], [place] tel:[phone] [facility] Arthrodesis status 0 Adan Ge. [facility] [place], [address], [place], [address], [place]. tel: [phone] Referring Provider: Joo Arellano, [facility] [place] [address], [place], [address]. tel:[phone] [facility], [address], [place], [id number], [place] tel:[phone] [facility] Arthrodesis status 0 Adan Ge. [facility] [place], [address], [place], [address], [place]. tel: [phone] [facility], [address], [place], [id number], [place] tel:[phone] [facility] No Information 0 Ramana Crane. [facility], [address], [place], [place], [id number] , [place]. tel: [phone] Referring Provider: Joo Arellano, [facility] [address], [place], [address]. tel:[phone] [facility], [address], [place], [place], [id number], [place] tel:[phone] [facility] No Information 0 Adan Ge. [facility], [address], [place], [address], [place]. [phone] Referring Provider: Joo Arellano, [facility] [address], [place], [address]. tel:[phone] Office/Outpat ient Visit,Est, Mod [facility], [address], [place], [id number], [place] tel:[phone] [facility] [place] Spinal stenosis, lumbar region with neurogenic claudication 0 Adan Ge. [facility], [address], [place], [address], [place]. [phone] Referring Provider: Joo Arellano, [facility] [address], [place], [address]. tel:[phone] Office/Outpat ient Visit,New, Mod [facility], [address], [place], [id number], [place] tel:[phone] [facility] [place] Deforming dorsopathy, unspecified Dec-0 0 Adan Ge. [facility], [address], [place], [address], [place]. [phone] Referring Provider: Joo Arellano, [facility] [address], [place], [address]. tel:[phone] Family History Family Member Type Diagnosis Age At Onset No Information Payers Payer name Insurance type Covered republican ID Sanjuanita cole(s) [facility] [id number] Medicare [facility] [id number] Social History Type Description Quantity Date [...]
[2023-05-03 13:09] LABS: Hematocrit 36.7 % (37.0-53.0); Mean Corpuscular HGB Conc 30 gm/dL (32-36); Mean Corpuscular Hemoglobin 27 pg (26-34); Mean Corpuscular Volume 89 fL (80-100); Platelet Count* 934 K/uL (140-440); Red Blood Count 4.14 m/uL (4.30-5.90); White Blood Count* 8.96 K/uL (4.50-11.00)
[2023-05-03 13:11] LABS: Slide Review Reflex No
== END 2023-05-03 11:52 | disposition home or self-care (01) ==
LOC: NPINS 11:51
PROVIDERS: PCP Internal Medicine
DX: R79.89 Other specified abnormal findings of blood chemistry (principal)
CPT/HCPCS: 85027

== ENCOUNTER 2023-05-04 15:38 | Emergency (ER) | payer MEDICARE, BC, SELFPAY ==
[2023-05-04 15:49] VITALS: BP 106/69; PULSE 90; RESP 22; TEMP 36.9; O2SAT 99; BMI 24.4
--- NOTE | 2023-05-04 15:53 | ED_ITS ---
HPI - General Adult General Time Seen by Provider: 15:53 Date Seen: 05/04/23 Chief complaint: Abdominal Pain Stated complaint: Needs CT for pancreas--vomiting, abdominal pain Time Seen by Provider: 05/04/23 15:40 Source: patient and RN notes reviewed Mode of arrival: ambulatory Limitations: no limitations History of Present Illness HPI narrative: Patient is a 73-year-old male coming in with significant abdominal cramping/abdominal pain associated with nausea vomiting. He started with abdominal cramping yesterday. Nausea vomiting did not start until today. He had a bowel movement about 9:00 a.m. this morning but that is the 1st 1 in about a week. He has been taking MiraLax and other [id number] medicines to try to treat constipation. He ate toast for breakfast in did keep that down. Had some lunch and actually started with the vomiting after that. Patient has had a history of prostate cancer and is status post robotic assisted laparoscopic rad ical prostatectomy. He has had a right hemicolectomy. He had a somewhat recent complex hepatobiliary surgery with partial liver and pancreas resection cholecystectomy and splenectomy. There are postoperative fever and infection complications reportedly with the OUMOU drain. He was actually even hospitalized here towards the end of February. They were wondering of about pancreatitis, did discuss with them concerns of bowel obstruction given his history, they state that the cancer facility also were concerned potentially about that. He denies any fevers or urinary symptoms. Related Data Home Medications Medication Instructions Recorded Confirmed cholestyramine (with sugar) 4 gram 1 ea PO DAILY PRN 05/10/22 04/18/23 oral powder acetaminophen 500 mg tablet 1,000 mg PO Q6H PRN 03/23/23 04/18/23 loperamide 2 mg capsule (Imodium 2 - 4 mg PO PRN 03/23/23 04/18/23 A-D) psyllium husk 3.4 gram/5.4 gram 1 tbsp PO DAILY PRN 03/23/23 04/18/23 oral powder (Metamucil) triamcinolone acetonide 0.1 % 1 applic topical BID PRN 03/23/23 04/18/23 topical cream aspirin 81 mg tablet,delayed 81 mg PO QDAY 04/18/23 04/18/23 release (Adult Low Dose Aspirin) Previous Rx's Medication Instructions Recorded gabapentin 600 mg tablet 900 mg (1.5 x 600 mg) PO TID 10/12/22 Occipital Neuralgia #250 tabs tramadol 50 mg tablet 50 mg PO Q8H PRN pain #30 tabs 10/12/22 propranolol 40 mg tablet 60 mg (1.5 x 40 mg) PO BID #270 04/07/23 tabs ondansetron 4 mg disintegrating 4 mg PO Q8H Nausea 5 days #30 tabs 04/18/23 tablet tizanidine 4 mg tablet 4 mg PO QHS PRN muscle spasticity 04/18/23 #30 tabs ondansetron 4 mg disintegrating 4 mg PO Q8H PRN nausea and 05/04/23 tablet vomiting #10 tabs Allergies Allergy/AdvReac Type Severity Reaction Status Date / Time amoxicillin Allergy Intermediate Unknown Verified 05/04/23 15:49 Review of Systems Status of ROS: Reports: 6 or more systems reviewed and unremarkable except as noted in History and below PFSH [facility] Medical History Fatigue ?R53.83 - Other fatigue (ICD-10) Nausea ?R11.0 - Nausea (ICD-10) Muscle pain ?M79.10 - Myalgia, unspecified site (ICD-10) Hypertension (1979) ?I10 - Essential (primary) hypertension (ICD-10) Chronic headaches ?R51.9 - Headache, unspecified (ICD-10) ?G89.29 - Other chronic pain (ICD-10) Rosacea (04/03/17) ?L71.9 - Rosacea, unspecified (ICD-10) Occipital neuralgia (2002) ?M54.81 - Occipital neuralgia (ICD-10) Chronic low back pain ?M54.50 - Low back pain, unspecified (ICD-10) ?G89.29 - Other chronic pain (ICD-10) Carcinoid tumor (1997) ?D3A.00 - Benign carcinoid tumor of unspecified site (ICD-10) Renal cyst ?N28.1 - Cyst of kidney, acquired (ICD-10) Malignant neoplasm of prostate (2015) ?C61 - Malignant neoplasm of prostate (ICD-10) Surgical History H/O resection of liver ?Z90.49 - Acquired absence of other specified parts of digestive tract (ICD- 10) 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) History of cholecystectomy ?Z90.49 - Acquired absence of other specified parts of digestive tract (ICD- 10) History of hip replacement ?Z96.649 - Presence of unspecified artificial hip joint (ICD-10) History of right hemicolectomy (1997) ?Z90.49 - Acquired absence of other specified parts of digestive tract (ICD- 10) History of SCC (squamous cell carcinoma) of skin (2017) ?Z85.828 - Personal history of other malignant neoplasm of skin (ICD-10) History of robot-assisted laparoscopic radical prostatectomy (09/27/16) ?Z90.79 - Acquired absence of other genital organ(s) (ICD-10) History of tonsillectomy ?Z90.89 - Acquired absence of other organs (ICD-10) History of knee surgery (1980) ?Z98.890 - Other specified postprocedural states (ICD-10) Social History Narrative: 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 Lives with locally. Nonsmoker, rare ETOH. Smoking Status: Never smoker How often do you have a drink containing alcohol: monthly or less How many standard drinks containing alcohol do you have on a typical day: 1 or 2 How often do you have six or more drinks on one occasion: Never AUDIT-C Alcohol total score: 1 Non-prescribed substance use: denies use Caffeine: Yes (3-4 xweek) Little interest or pleasure in doing things: not at all Feeling down, depressed, or hopeless: not at all Exam Const: Vital Signs, click to edit/add: Vital Signs - 24 hr 05/04/23 15:49 05/04/23 16:01 05/04/23 16:18 Temperature 98.4 F Pulse Rate 79 Pulse Rate [Pulse Oximeter] 90 Respiratory Rate 22 Blood Pressure 138/79 Blood Pressure [Le ft Upper Arm] 106/69 Pulse Oximetry 99 98 99 Oxygen Delivery Me thod Room Air 05/04/23 16:32 Temperature Pulse Rate 75 Pulse Rate [Pulse Oximeter] Respiratory Rate Blood Pressure 138/72 Blood Pressure [Le ft Upper Arm] Pulse Oximetry 96 Oxygen Delivery Me thod Documenting provider has reviewed patient's vital signs: yes Common normals: oriented x3 and alert General appearance: cooperative, well kempt, well developed, in distress and ill appearing Other: Appears pale, uncomfortable but certainly still attempting to be pleasant. HENMT: Common normals: normocephalic, head/scalp atraumatic, hearing grossly normal bilaterally, external ears normal, external nose normal, moist oral mucous membranes, oropharynx normal, dentition normal and gingiva normal Head and scalp: normocephalic and atraumatic Nose: external nose normal External ear: external ears normal Eye: Common normals: PERRL, EOMs intact bilaterally, conjunctivae normal and no scleral icterus Conjunctiva: conjunctiva(e) normal Pupil: PERRL Neck & C-Spine: Common normals: full ROM, no lymphadenopathy and supple Resp: Common normals: normal respiratory effort, no retractions, no use of accessory muscles and clear to auscultation bilaterally Effort & inspection: able to speak in complete sentences Auscultation: clear to auscultation bilaterally Cardio: Common normals: regular rate, regular rhythm, S1 normal heart sound, S2 normal heart sound, no gallops, no clicks and no murmurs Rate: regular rate Rhythm: regular rhythm Heart sounds: S1 normal and S2 normal GI: Other: Abdomen seems mildly distended, bowel sounds are present but more hypoactive. Has more left-sided abdominal tenderness without rebound or guarding. No specific central area of tenderness on examination. Neuro: Common normals: oriented x3 Sensorium/orientation: alert Psych: Appearance: well kempt Course Course Hospital Course: Patient certainly could have complications from recent surgery which does include potential for bowel obstruction. We will obtain a lipase to ensure no pancreatitis. There could be postoperative fluid collections/infections. Full complement of labs and CT imaging will be obtained. Will have patient monitored on pulse oximetry and start IV fluids with normal saline bolus, 1 L over 2 hours, 4 mg IV Zofran, 4 mg IV morphine. Reevaluation(s) Time of Reevaluation #1: 16:31 Reevaluation #1: Nursing staff reported patient complained of some chest heaviness or pressure after the morphine, very likely reaction of the morphine but will have EKG and point of care troponin done. Vital Signs Vital signs: Initial Vital Signs Temperature 98.4 F 05/04/23 15:49 Temperature Source Temporal Artery Scan 05/04/23 15:49 Pulse Rate 90 05/04/23 15:49 Respiratory Rate 22 05/04/23 15:49 Blood Pressure 106/69 05/04/23 15:49 Blood Pressure Mean 81 05/04/23 15:49 Blood Pressure Position Sitting 05/04/23 15:49 Pulse Oximetry 99 05/04/23 15:49 Oxygen Delivery Method Room Air 05/04/23 15:49 Vital Signs Temperature 98.4 F 05/04/23 15:49 Pulse Rate 90 05/04/23 15:49 Respiratory Rate 22 05/04/23 15:49 Blood Pressure 106/69 05/04/23 15:49 Pulse Oximetry 99 05/04/23 15:49 Oxygen Delivery Method Room Air 05/04/23 15:49 Temperature 98.4 F 05/04/23 15:49 Pulse Rate 75 05/04/23 16:32 Respiratory Rate 22 05/04/23 15:49 Blood Pressure 138/72 05/04/23 16:32 Pulse Oximetry 96 05/04/23 16:32 Oxygen Delivery Method Room Air 05/04/23 15:49 Medical Decision Making Lab Data Lab results reviewed: Yes I reviewed the patient's lab results Labs: Lab Results 05/04/23 05/04/23 Range/Units 16:00 16:25 WBC 9.44 (4.50-11.00) K/uL RBC 4.15 L (4.30-5.90) m/uL Hgb 11.1 L (13.5-17.5) gm/dL Hct 36.0 L (37.0-53.0) % MCV 87 (80-100) fL MCH 27 (26-34) pg MCHC 31 L (32-36) gm/dL RDW Coeff of Annika 14.2 (11.5-15.5) % Plt Count 890 H (140-440) K/uL Neut % (Auto) 79.5 H (42.0-72.0) % Lymph % (Auto) 11.8 L (20-44) % [place] % (Auto) 5.5 (0.0-11.0) % Eos % (Auto) 2.6 (0.0-7.0) % Baso % (Auto) 0.4 (0.0-3.0) % Neut # (Auto) 7.50 H (1.7-7.0) K/uL Lymph # (Auto) 1.10 (0.90-2.90) K/uL [place] # (Auto) 0.50 (0.00-0.90) K/UL Eos # (Auto) 0.25 (0.00-0.50) K/uL Baso # (Auto) 0.04 (0.00-0.30) K/uL Abs Immat Gran (auto) 0.02 (0.00-0.30) K/uL Imm/Tot Granulo (auto) 0.2 % Sodium 137 (135-149) mmol/L Potassium 3.6 (3.6-5.1) mmol/L Chloride 100 (96-114) mmol/L Carbon Dioxide 26 (20-32) mmol/L BUN 14 (7-30) mg/dL Creatinine 0.7 (0.5-1.5) mg/dL Estimated Creat Clear 69.03 Estimated GFR 97 ml/min Glucose 138 H (60-115) mg/dL Lactate 2.3 H (0.5-1.9) mmol/L Calcium 9.1 (8.4-10.6) mg/dL Total Bilirubin 0.5 (0.1-1.5) mg/dL AST 38 H (12-35) U/L ALT 37 (4-50) U/L Alkaline Phosphatase 142 (40-150) U/L C-Reactive Protein 2.9 H (0.5-1.0) mg/dL Total Protein 8.4 H (6.0-8.3) g/dL Albumin 3.6 (3.3-5.0) g/dL Lipase 143 (23-300) U/L POC Troponin I 0.00 L (0.01-0.04) ng/ml Imaging Data CT scan - abdomen: Attestation: I have reviewed the pertinent imaging results. Radiologist's impression: Patient: MUSTAPHA BRISCOE Facility:?[facility] Patient ID:?[id number] Site Patient ID:?[id number]. Site :?[id number] Study:?CT Abdomen/Pelvis W/ISOVUE 370 85CC-05/04/2023 5:04:26 PM Ordering Physician:Frederic Barnhart Final Report: INDICATION: Lower abdominal pain, vomiting. TECHNIQUE: CT abdomen and pelvis acquired with 85 cc Isovue 370 IV contrast. COMPARISON: April 07, 2023. FINDINGS: Lower chest: Trace left pleural effusion with compressive atelectasis. Liver: Similar resection cavity in the dome of the liver. Similar scattered areas of perihepatic fluid. Gallbladder and bile ducts: Surgically absent. Pancreas: Similar pancreatic tail resection. Tiny fluid collection about the pancreatic tail, not amenable for drain. Spleen: Splenectomy. Adrenal glands: Unremarkable. No nodules. Kidneys: Tiny hypodensities, too small to characterize. No hydronephrosis. GI tract: Moderate colonic stool burden. No bowel obstruction. Vasculature: Abdominal aorta is normal in caliber. Mesenteric arteries are patent. Lymph nodes: No lymphadenopathy. Peritoneum/Abdominal Wall: Unremarkable. No sign of mass or infiltration. No free air or significant free fluid. Pelvis: Prostatectomy. Bones: L2-S1 hardware fixation. Right hip arthroplasty causing streak artifact. Degenerative changes. IMPRESSION: No acute intra-abdominal/pelvic abnormality. Moderate colonic stool burden. Postsurgical changes of splenectomy and pancreatic tail resection with tiny pseudocyst, not amenable for drainage. Overall, similar appearance of the liver. Trace left pleural effusion with compressive atelectasis. Please note that all CT scans at this facility use dose modulation, iterative reconstruction, and/or weight-based dosing when appropriate to reduce radiation dose to as low as reasonably achievable. Dictated by Sammy Yao MD @ 05/04/2023 5:47:39 PM (Electronic Signature) ECG Data Attestation: I personally reviewed and interpreted this ECG as follows: (Left bundle branch block, sinus rhythm with first-degree AV block, 81 beats per minute.) Prior ECG tracings: available for review (Compared to 03/23/2023) Critical Care Time Critical Care Time Critical Care Time: No Discharge Plan Discharge Clinical Impression: Constipation Patient Disposition: Home, Self-Care Condition: Stable Instructions: Constipation (ED), High Fiber Diet (ED) Additional Instructions: Get GoLYTELY as soon you are able to, complete bottle as he would colonoscopy prep. Can resume MiraLax 1/2 capful to 1 capful daily to titrate to a formed but soft stool daily. Can use Zofran as prescribed to help with nausea so that you can get the GoLYTELY down and start moving the stool through the bowel. You may try 1 or 2 enemas but a lot of the stool seems to be in the more proximal colon. Expect cramping through this but if you have 2 severe of pain that you cannot tolerate or are unable to get the GoLYTELY down due to nausea vomiting and Zofran is not working, please seek re-evaluation. There is no CT evidence of any bowel obstruction at this time, no evidence of pancreatitis or complications from your surgery. I would recommend clear liquids until you start having stool production that is decent. Then you may start to resume a normal diet but would try to really increase the fiber and fluids in your diet. It is important with constipation that people are drinking enough so that the stool does not become to solid or firm. Activity Level: Activity as Tolerated Prescriptions: New ondansetron 4 mg tablet,disintegrating 4 mg PO Q8H PRN (Reason: nausea and vomiting) Qty: 10 0RF No Action gabapentin 600 mg tablet 900 mg PO TID Qty: 250 5RF tramadol 50 mg tablet 50 mg PO Q8H PRN (Reason: pain) Qty: 30 0RF cholestyramine (with sugar) 4 gram powder 1 ea PO DAILY PRN aspirin [Adult Low Dose Aspirin] 81 mg tablet,delayed release (DR/EC) 81 mg PO QDAY tizanidine 4 mg tablet 4 mg PO QHS PRN (Reason: muscle spasticity) Qty: 30 0RF ondansetron 4 mg tablet,disintegrating 4 mg PO Q8H 5 Days Qty: 30 3RF triamcinolone acetonide 0.1 % cream 1 applic topical BID PRN acetaminophen 500 mg tablet 1,000 mg PO Q6H PRN loperamide [Imodium A-D] 2 mg capsule 2 - 4 mg PO PRN Rx Instructions: take 2 capsule by oral route after 1st loose stool, followed by 1 capsule after each subsequent loose stool not to exceed 16 mg/day Metamucil 3.4 gram/5.4 gram powder 1 tbsp PO DAILY PRN Rx Instructions: mix into at least 8 oz of water or juice before administering propranolol 40 mg tablet 60 mg PO BID Qty: 270 0RF Follow Up/Referrals: Isrrael Mejia MD [Primary Care Provider] - Stand Alone Forms: [employer] Info Instructions
[2023-05-04 16:01] VITALS: O2SAT 98
--- NOTE | 2023-05-04 16:01 | CRLHL7_ITS ---
For Patients: As a result of the Century Cures Act, medical imaging exams and procedure reports are released immediately into your electronic medical record. You may view this report before your referring provider. If you have questions, please contact your health care provider. INDICATION: Lower abdominal pain, vomiting. TECHNIQUE: CT abdomen and pelvis acquired with 85 cc Isovue 370 IV contrast. COMPARISON: April 07, 2023. FINDINGS: Lower chest: Trace left pleural effusion with compressive atelectasis. Liver: Similar resection cavity in the dome of the liver. Similar scattered areas of perihepatic fluid. Gallbladder and bile ducts: Surgically absent. Pancreas: Similar pancreatic tail resection. Tiny fluid collection about the pancreatic tail, not amenable for drain. Spleen: Splenectomy. Adrenal glands: Unremarkable. No nodules. Kidneys: Tiny hypodensities, too small to characterize. No hydronephrosis. GI tract: Moderate colonic stool burden. No bowel obstruction. Vasculature: Abdominal aorta is normal in caliber. Mesenteric arteries are patent. Lymph nodes: No lymphadenopathy. Peritoneum/Abdominal Wall: Unremarkable. No sign of mass or infiltration. No free air or significant free fluid. Pelvis: Prostatectomy. Bones: L2-S1 hardware fixation. Right hip arthroplasty causing streak artifact. Degenerative changes. IMPRESSION: No acute intra-abdominal/pelvic abnormality. Moderate colonic stool burden. Postsurgical changes of splenectomy and pancreatic tail resection with tiny pseudocyst, not amenable for drainage. Overall, similar appearance of the liver. Trace left pleural effusion with compressive atelectasis. Please note that all CT scans at this facility use dose modulation, iterative reconstruction, and/or weight-based dosing when appropriate to reduce radiation dose to as low as reasonably achievable. Dictated by Sammy Yao MD @ 05/04/2023 5:47:39 PM (Electronically Signed)
[2023-05-04 16:09] LABS: Lactate* 2.3 mmol/L (0.5-1.9)
[2023-05-04 16:11] LABS: Basophils Absolute Auto 0.04 K/uL (0.00-0.30); Basophils Percent Auto 0.4 % (0.0-3.0); Eosinophils Absolute Auto 0.25 K/uL (0.00-0.50); Eosinophils Percent Auto 2.6 % (0.0-7.0); Hemoglobin* 11.1 gm/dL (13.5-17.5); Immature Granulocytes Abs Auto 0.02 K/uL (0.00-0.30); Immature Granulocytes Pct Auto 0.2 %; Lymphocytes Percent Auto 11.8 % (20-44); Mean Corpuscular HGB Conc 31 gm/dL (32-36); Mean Corpuscular Hemoglobin 27 pg (26-34); Mean Corpuscular Volume 87 fL (80-100); Monocytes Percent Auto 5.5 % (0.0-11.0); Neutrophils Percent Auto 79.5 % (42.0-72.0); Platelet Count* 890 K/uL (140-440); RDW Coefficient of Variation % 14.2 % (11.5-15.5); Red Blood Count 4.15 m/uL (4.30-5.90); White Blood Count* 9.44 K/uL (4.50-11.00)
[2023-05-04 16:12] LABS: Slide Review Reflex No
[2023-05-04] MEDS: 0.9 % SODIUM CHLORIDE 1000 ml 1,000 ML 500 ML IV (16:14)
[2023-05-04] MEDS: ONDANSETRON 2 MG/ML inj 4 MG IVP (16:14)
[2023-05-04] MEDS: MORPHINE 4 MG/ML INJ IVP (16:14)
[2023-05-04 16:18] VITALS: BP 138/79; PULSE 79; O2SAT 99
[2023-05-04 16:31] LABS: Albumin* 3.6 g/dL (3.3-5.0); Chloride* 100 mmol/L (96-114)
[2023-05-04 16:32] VITALS: BP 138/72; PULSE 75; O2SAT 96
[2023-05-04 16:32] LABS: Potassium* 3.6 mmol/L (3.6-5.1); Sodium* 137 mmol/L (135-149)
[2023-05-04 16:34] LABS: Creatinine* 0.7 mg/dL (0.5-1.5); Est. Creatinine Clearance* 69.03; Estimated Glomerular Filt Rate 97 ml/min
[2023-05-04 16:35] LABS: Alanine Aminotransferase* 37 U/L (4-50); Alkaline Phosphatase* 142 U/L (40-150); Aspartate Amino Transferase* 38 U/L (12-35); Bilirubin Total* 0.5 mg/dL (0.1-1.5); Blood Urea Nitrogen* 14 mg/dL (7-30); Calcium* 9.1 mg/dL (8.4-10.6); Carbon Dioxide* 26 mmol/L (20-32); Glucose* 138 mg/dL (60-115); Lipase* 143 U/L (23-300); Total Protein* 8.4 g/dL (6.0-8.3)
[2023-05-04 16:37] LABS: C Reactive Protein* 2.9 mg/dL (0.5-1.0)
[2023-05-04 19:02] VITALS: BP 106/69; PULSE 90; RESP 22; TEMP 36.9
--- NOTE | 2023-05-05 09:51 | ED.NURSE ---
called rx [facility] to [facility] pharmacy as this was needed to have it dispensed. had called and pharmacist would not dispense without an order. To take as he would if having a colonoscopy prep.
== END 2023-05-04 19:02 | disposition home or self-care (01) ==
PROVIDERS: Emergency Provider Family Medicine; PCP Internal Medicine
DX: K59.00 Constipation, unspecified (principal)
CPT/HCPCS: 36415; 74177; 80053; 83605; 83690; 84484; 85025; 86140; 93005; 94761; 96374; 96375; 99284; 99285; J2270; J2405; J7030; Q9967

== ENCOUNTER 2023-05-05 18:35 | Emergency (ER) | payer MEDICARE, BC, SELFPAY ==
[2023-05-05 18:50] VITALS: BP 125/78; PULSE 100; RESP 18; TEMP 36.4; O2SAT 100; BMI 24.4
[2023-05-05 19:40] LABS: Lactate* 2.4 mmol/L (0.5-1.9)
[2023-05-05 19:41] LABS: Basophils Absolute Auto 0.03 K/uL (0.00-0.30); Basophils Percent Auto 0.4 % (0.0-3.0); Eosinophils Absolute Auto 0.16 K/uL (0.00-0.50); Eosinophils Percent Auto 2.3 % (0.0-7.0); Hematocrit 35.5 % (37.0-53.0); Hemoglobin* 11.1 gm/dL (13.5-17.5); Immature Granulocytes Abs Auto 0.02 K/uL (0.00-0.30); Immature Granulocytes Pct Auto 0.3 %; Lymphocytes Absolute Auto 1.51 K/uL (0.90-2.90); Lymphocytes Percent Auto 21.5 % (20-44); Mean Corpuscular HGB Conc 31 gm/dL (32-36); Mean Corpuscular Hemoglobin 27 pg (26-34); Mean Corpuscular Volume 86 fL (80-100); Neutrophils Absolute Auto 4.66 K/uL (1.7-7.0); Neutrophils Percent Auto 66.5 % (42.0-72.0); Platelet Count* 817 K/uL (140-440); RDW Coefficient of Variation % 14.1 % (11.5-15.5); Red Blood Count 4.15 m/uL (4.30-5.90); White Blood Count* 7.01 K/uL (4.50-11.00)
[2023-05-05] MEDS: 0.9 % SODIUM CHLORIDE 1000 ml 1,000 ML IV (19:42)
[2023-05-05 19:47] LABS: Slide Review Reflex No
[2023-05-05] MEDS: ONDANSETRON 2 MG/ML inj 4 MG IVP (19:47)
[2023-05-05] MEDS: MORPHINE 2 MG/ML inj 4 MG IVP (19:47)
[2023-05-05 19:54] LABS: Albumin* 3.6 g/dL (3.3-5.0); Chloride* 102 mmol/L (96-114)
[2023-05-05 19:55] LABS: Potassium* 3.2 mmol/L (3.6-5.1); Sodium* 136 mmol/L (135-149)
[2023-05-05 19:57] LABS: Alkaline Phosphatase* 147 U/L (40-150); Aspartate Amino Transferase* 31 U/L (12-35); Bilirubin Direct* 0.2 mg/dL (0.0-0.5); Bilirubin Total* 0.8 mg/dL (0.1-1.5); Blood Urea Nitrogen* 13 mg/dL (7-30); Carbon Dioxide* 22 mmol/L (20-32); Creatinine* 0.7 mg/dL (0.5-1.5); Est. Creatinine Clearance* 69.03; Estimated Glomerular Filt Rate 97 ml/min; Glucose* 126 mg/dL (60-115); Lipase* 76 U/L (23-300)
[2023-05-05 19:58] LABS: Alanine Aminotransferase* 30 U/L (4-50); Calcium* 9.2 mg/dL (8.4-10.6)
--- NOTE | 2023-05-05 20:31 | ED_ITS ---
HPI - General Adult General Chief complaint: Abdominal Pain Stated complaint: Severe abdominal cramping Time Seen by Provider: 05/05/23 18:43 Source: patient and family Mode of arrival: ambulatory Limitations: no limitations History of Present Illness HPI narrative: Patient is a 73-year-old male coming in today concerned about abdominal cramping constipation. Patient was seen yesterday in the ER-please see yesterday's note for full past medical history details. He comes in today because he has not felt any relief as far as his abdominal discomfort. He started the day with an enema which did produce a bowel movement that was ?normal in size for him. However he continued having abdominal cramping throughout the day. He was instructed to drink GoLYTELY, he only got half of the GoLYTELY down before he s tarted having significant cramping again. He has not vomited but has felt significantly nauseated all day long with decreased p.o. intake. He returns today because of continuing cramping and what he feels is inadequate stool output. Denies fevers or chills. Related Data Home Medications Medication Instructions Recorded Confirmed cholestyramine (with sugar) 4 gram 1 ea PO DAILY PRN 05/10/22 04/18/23 oral powder acetaminophen 500 mg tablet 1,000 mg PO Q6H PRN 03/23/23 04/18/23 loperamide 2 mg capsule (Imodium 2 - 4 mg PO PRN 03/23/23 04/18/23 A-D) psyllium husk 3.4 gram/5.4 gram 1 tbsp PO DAILY PRN 03/23/23 04/18/23 oral powder (Metamucil) triamcinolone acetonide 0.1 % 1 applic topical BID PRN 03/23/23 04/18/23 topical cream aspirin 81 mg tablet,delayed 81 mg PO QDAY 04/18/23 04/18/23 release (Adult Low Dose Aspirin) Previous Rx's Medication Instructions Recorded gabapentin 600 mg tablet 900 mg (1.5 x 600 mg) PO TID 10/12/22 Occipital Neuralgia #250 tabs tramadol 50 mg tablet 50 mg PO Q8H PRN pain #30 tabs 10/12/22 propranolol 40 mg tablet 60 mg (1.5 x 40 mg) PO BID #270 04/07/23 tabs ondansetron 4 mg disintegrating 4 mg PO Q8H Nausea 5 days #30 tabs 04/18/23 tablet tizanidine 4 mg tablet 4 mg PO QHS PRN muscle spasticity 04/18/23 #30 tabs ondansetron 4 mg disintegrating 4 mg PO Q8H PRN nausea and 05/04/23 tablet vomiting #10 tabs Allergies Allergy/AdvReac Type Severity Reaction Status Date / Time amoxicillin Allergy Intermediate Unknown Verified 05/04/23 15:49 Review of Systems Status of ROS: Reports: 10 or more systems reviewed and unremarkable except as noted in History and below [facility] Medical History Fatigue ?R53.83 - Other fatigue (ICD-10) Nausea ?R11.0 - Nausea (ICD-10) Muscle pain ?M79.10 - Myalgia, unspecified site (ICD-10) Hypertension (1979) ?I10 - Essential (primary) hypertension (ICD-10) Chronic headaches ?R51.9 - Headache, unspecified (ICD-10) ?G89.29 - Other chronic pain (ICD-10) Rosacea (04/03/17) ?L71.9 - Rosacea, unspecified (ICD-10) Occipital neuralgia (2002) ?M54.81 - Occipital neuralgia (ICD-10) Chronic low back pain ?M54.50 - Low back pain, unspecified (ICD-10) ?G89.29 - Other chronic pain (ICD-10) Carcinoid tumor (1997) ?D3A.00 - Benign carcinoid tumor of unspecified site (ICD-10) Renal cyst ?N28.1 - Cyst of kidney, acquired (ICD-10) Malignant neoplasm of prostate (2016) ?C61 - Malignant neoplasm of prostate (ICD-10) Surgical History H/O resection of liver ?Z90.49 - Acquired absence of other specified parts of digestive tract (ICD- 10) 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) History of cholecystectomy ?Z90.49 - Acquired absence of other specified parts of digestive tract (ICD- 10) History of hip replacement ?Z96.649 - Presence of unspecified artificial hip joint (ICD-10) History of right hemicolectomy (1997) ?Z90.49 - Acquired absence of other specified parts of digestive tract (ICD-10) History of SCC (squamous cell carcinoma) of skin (2017) ?Z85.828 - Personal history of other malignant neoplasm of skin (ICD-10) History of robot-assisted laparoscopic radical prostatectomy (09/27/16) ?Z90.79 - Acquired absence of other genital organ(s) (ICD-10) History of tonsillectomy ?Z90.89 - Acquired absence of other organs (ICD-10) History of knee surgery (1980) ?Z98.890 - Other specified postprocedural states (ICD-10) Social History Narrative: 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 Lives with locally. Nonsmoker, rare ETOH. Smoking Status: Never smoker How often do you have a drink containing alcohol: monthly or less How many standard drinks containing alcohol do you have on a typical day: 1 or 2 How often do you have six or more drinks on one occasion: Never AUDIT-C Alcohol total score: 1 Non-prescribed substance use: denies use Caffeine: Yes (3-4 xweek) Little interest or pleasure in doing things: not at all Feeling down, depressed, or hopeless: not at all Exam Narrative: Exam Narrative: Well-nourished well-developed patient, appears uncomfortable. Alert and oriented x3. Answers questions appropriately. Mood and affect are appropriate. Thoughts are goal oriented and rational. No tangential or magical thinking noted. Patient speaks in full sentences without needing to catch his breath. HEENT: Normocephalic atraumatic. Pupils are equally round reactive to light. Extraocular muscles are intact. Conjunctivae are moist without any icterus noted. Dry mucous membranes. Cardiovascular: Heart is regular rate and rhythm S1 and S2 are present without any murmurs. Lungs: Clear to auscultation bilaterally no wheezes rhonchi or rales are appreciated. Patient takes deep breaths without any discomfort. Abdomen: Slightly distended but soft. He has diffuse abdominal discomfort on palpation but no obvious masses. He has normoactive bowel sounds. Extremities: Bilateral lower extremities are without edema. Normal DP and PT pulses. Skin: Well perfused without any obvious rashes. Const: Vital Signs, click to edit/add: Vital Signs - 24 hr 05/05/23 18:50 Temperature 97.5 F L Pulse Rate [Right Pulse Oximeter] 100 Respiratory Rate 18 Blood Pressure [Ri ght Upper Arm] 125/78 Pulse Oximetry 100 Oxygen Delivery Me thod Room Air Course Course Hospital Course: Recheck the lactate and CBC which were unchanged from yesterday. Lactate remained slightly elevated and patient continues to have thrombocytosis. Fleets enema was attempted the patient was not able to hold it in secondary to pain. He received IV morphine, 1 L of normal saline, Zofran. This was followed by IV Toradol. Enema was attempted again. Vital Signs Vital signs: Initial Vital Signs Temperature 97.5 F L 05/05/23 18:50 Temperature Source Temporal Artery Scan 05/05/23 18:50 Pulse Rate 100 05/05/23 18:50 Respiratory Rate 18 05/05/23 18:50 Blood Pressure 125/78 05/05/23 18:50 Blood Pressure Mean 93 05/05/23 18:50 Blood Pressure Position Sitting 05/05/23 18:50 Pulse Oximetry 100 05/05/23 18:50 Oxygen Delivery Method Room Air 05/05/23 18:50 Vital Signs Temperature 97.5 F L 05/05/23 18:50 Pulse Rate 100 05/05/23 18:50 Respiratory Rate 18 05/05/23 18:50 Blood Pressure 125/78 05/05/23 18:50 Pulse Oximetry 100 05/05/23 18:50 Oxygen Delivery Method Room Air 05/05/23 18:50 Temperature 97.5 F L 05/05/23 18:50 Pulse Rate 100 05/05/23 18:50 Respiratory Rate 18 05/05/23 18:50 Blood Pressure 125/78 05/05/23 18:50 Pulse Oximetry 100 05/05/23 18:50 Oxygen Delivery Method Room Air 05/05/23 18:50 Medical Decision Making MDM Narrative Medical decision making narrative: 73-year-old male with constipation. Recommend another enema in the morning. Recommend MiraLax 3 scoop full daily until bowel movements are regular then titrate down to 1 scoop per day for the next 3-4 weeks. Recommend Colace daily also. Medical Records Medical records reviewed: Yes I reviewed the patient's medical records Lab Data Lab results reviewed: Yes I reviewed the patient's lab results Labs: Lab Results 05/05/23 Range/Units 19:37 WBC 7.01 (4.50-11.00) K/uL RBC 4.15 L (4.30-5.90) m/uL Hgb 11.1 L (13.5-17.5) gm/dL Hct 35.5 L (37.0-53.0) % MCV 86 (80-100) fL MCH 27 (26-34) pg MCHC 31 L (32-36) gm/dL RDW Coeff of Annika 14.1 (11.5-15.5) % Plt Count 817 H (140-440) K/uL Neut % (Auto) 66.5 (42.0-72.0) % Lymph % (Auto) 21.5 (20-44) % Mcdonough % (Auto) 9.0 (0.0-11.0) % Eos % (Auto) 2.3 (0.0-7.0) % Baso % (Auto) 0.4 (0.0-3.0) % Neut # (Auto) 4.66 (1.7-7.0) K/uL Lymph # (Auto) 1.51 (0.90-2.90) K/uL Mcdonough # (Auto) 0.60 (0.00-0.90) K/UL Eos # (Auto) 0.16 (0.00-0.50) K/uL Baso # (Auto) 0.03 (0.00-0.30) K/uL Abs Immat Gran (auto) 0.02 (0.00-0.30) K/uL Imm/Tot Granulo (auto) 0.3 % Sodium 136 (135-149) mmol/L Potassium 3.2 L (3.6-5.1) mmol/L Chloride 102 (96-114) mmol/L Carbon Dioxide 22 (20-32) mmol/L BUN 13 (7-30) mg/dL Creatinine 0.7 (0.5-1.5) mg/dL Estimated Creat Clear 69.03 Estimated GFR 97 ml/min Glucose 126 H (60-115) mg/dL Lactate 2.4 H (0.5-1.9) mmol/L Calcium 9.2 (8.4-10.6) mg/dL Total Bilirubin 0.8 (0.1-1.5) mg/dL Direct Bilirubin 0.2 (0.0-0.5) mg/dL AST 31 (12-35) U/L ALT 30 (4-50) U/L Alkaline Phosphatase 147 (40-150) U/L Total Protein 8.0 (6.0-8.3) g/dL Albumin 3.6 (3.3-5.0) g/dL Lipase 76 (23-300) U/L Discharge Plan Discharge Clinical Impression: Constipation Patient Disposition: Home, Self-Care Condition: Stable Additional Instructions: Repeat enema in the morning. Recommend MiraLax 3 scoop fulls daily until bowel movements are regular then titrate down to 1 scoop per day for the next 3-4 weeks. Recommend Colace or Senna daily as directed. Both MiraLax and Colace can be picked up [id number]. Increase water intake. Prescriptions: No Action gabapentin 600 mg tablet 900 mg PO TID Qty: 250 5RF tramadol 50 mg tablet 50 mg PO Q8H PRN (Reason: pain) Qty: 30 0RF cholestyramine (with sugar) 4 gram powder 1 ea PO DAILY PRN aspirin [Adult Low Dose Aspirin] 81 mg tablet,delayed release (DR/EC) 81 mg PO QDAY tizanidine 4 mg tablet 4 mg PO QHS PRN (Reason: muscle spasticity) Qty: 30 0RF ondansetron 4 mg tablet,disintegrating 4 mg PO Q8H 5 Days Qty: 30 3RF triamcinolone acetonide 0.1 % cream 1 applic topical BID PRN acetaminophen 500 mg tablet 1,000 mg PO Q6H PRN loperamide [Imodium A-D] 2 mg capsule 2 - 4 mg PO PRN Rx Instructions: take 2 capsule by oral route after 1st loose stool, followed by 1 capsule after each subsequent loose stool not to exceed 16 mg/day Metamucil 3.4 gram/5.4 gram powder 1 tbsp PO DAILY PRN Rx Instructions: mix into at least 8 oz of water or juice before administering ondansetron 4 mg tablet,disintegrating 4 mg PO Q8H PRN (Reason: nausea and vomiting) Qty: 10 0RF propranolol 40 mg tablet 60 mg PO BID Qty: 270 0RF Follow Up/Referrals: Reister,Arcos J, MD [Primary Care Provider] - Stand Alone Forms: ESTmob Info Instructions
[2023-05-05] MEDS: KETOROLAC 30 MG/ML inj IVP (20:32)
== END 2023-05-05 22:01 | disposition home or self-care (01) ==
PROVIDERS: Emergency Provider Family Medicine; PCP Internal Medicine
DX: K59.00 Constipation, unspecified (principal)
CPT/HCPCS: 36415; 80048; 80076; 83605; 83690; 85025; 96374; 96375; 99283; 99284; J1885; J2270; J2405; J7030

== ENCOUNTER 2023-06-13 11:52 | Outpatient (REF) | payer MEDICARE, BC, SELFPAY ==
[2023-06-13 12:40] LABS: Hematocrit 39.8 % (37.0-53.0); Hemoglobin* 12.2 gm/dL (13.5-17.5); Mean Corpuscular HGB Conc 31 gm/dL (32-36); Mean Corpuscular Hemoglobin 27 pg (26-34); Mean Corpuscular Volume 89 fL (80-100); Platelet Count* 540 K/uL (140-440); Red Blood Count 4.46 m/uL (4.30-5.90); White Blood Count* 7.04 K/uL (4.50-11.00)
[2023-06-13 13:10] LABS: Slide Review Reflex No
== END 2023-06-13 11:53 | disposition home or self-care (01) ==
LOC: NPINS 11:52
PROVIDERS: PCP Internal Medicine; Visit Provider Physician Assistant Surgical
DX: R79.89 Other specified abnormal findings of blood chemistry (principal)
CPT/HCPCS: 85027

== ENCOUNTER 2023-06-23 13:30 | Outpatient (RCR) | payer MEDICARE, BC, SELFPAY ==
--- NOTE | 2023-06-09 16:03 | PT.OPEX ---
PT [place] Outpatient Eval PT [facility] Outpatient Eval Start: 06/07/23 16:17 Freq: Status: Active Protocol: Document 06/09/23 11:16 HAYDEE (Rec: 06/09/23 16:00 HAYDEE [id number]) E-signed By Christi Washington PT Physical Therapy Outpatient Evaluation Insurance Information Recert Due Date 09/04/23 Insurance Name Medicare B,Blue Cross/Blue Shield Medical Diagnosis LOW BACK PAIN M54.50 Treating Diagnosis BACK WEAKNESS M62.81 Referring MD BETO HICKMAN Subjective Subjective PATIENT REPORTS LONGSTANDING BACK PAIN THAT HAS BEEN PUT ON THE BACKBURNER FOR QUITE SOME D/T OTHER MEDICAL ISSUES INVOLVING ABDOMINAL SURGERY AND R ASCENCION. HE STATES, I HAVE HAD MY BACK BASICALLY RECONSTRUCTED AND NEVER REALLY GOT THERAPY EXCEPT TO BE TOLD TO WALK, ALOT. HE REPORTS PAIN TO THE MID->LOWER THORACIC, UPPER LUMBAR REGION THAT JUST TWISTS HE USES HIS HANDS IN A WRINGING MOTION . HE STATES, I CAN ONLY WALK ABOUT 2.5 BLOCKS BEFORE I HAVE TO RETURN D/T BACK PAIN. I WANT TO BE ABLE TO WALK LONGER THAN THAT AND WALK MY DOGS WITH MY . Pain Comments VARIES RANGING FROM 4-8/10 DEPENDING ON THE DURATION AND TYPE OF ACTIVITY Date of Last Physician Visit 05/16/23 Current Work Status Retired Occupation RETIRED Preferred Name [employer] Precautions Treatment Precautions/Contraindications RECENT ABDOMINAL SURGERY D/T MALIGNANT ENDOCRINE/ PANCREAS / PROSTATE CANCER Therapy Limitations/Systems Review Not Limited Objective Other/Pertinent Objective Posture Assessment: MIN FWD HEAD POSTURING, DECREAESED THORACIC AND LORDOTIC CURVATURE LUMBAR ROM Flexion:25% *PAIN repeated flexion: *PAIN Extension: %50 repeated ext: STIFF Right Sidebend: WFL Left Sidebend: WFL LE MMT Hip flexion: R/L 4+/5 Hip Extension: R/L 3+/5 Hip abduction: R/L 3+/5 knee extension: R/L 4+/5 Knee Flexion: R/L 4+/5 Dorsiflexion/heel walk: WFL Plantarflexion/toe walk: WFL JOINT MOBILITY/PALPATION: RIGHT LOWER THORACIC/UPPER LUMBAR POINT TENDERNESS SPECIAL TESTS Straight leg raise: (-) Crossed straight leg raise: (- ) Slump test: (-) SI/HIPI tests NEO (+) FADIR (+) SCOUR (-) Gillet Test: (-) Standing forward bend Test: (- ) Gapping and Compression test: (-) TX: PRONE ALT R/L HIP EXT X 10 HOLD 3 ALT UE/LE X 10 3 SEC SUPINE TRUNK ROTATION 3 X 15 SUPINE DKTC 3 X 15 SUPINE FIGURE 4 3 X 15 Assessment Assessment/Impression PATIENT IS A 73 YO REFERRED TO PHYSICAL THERAPY BY DR. HICKMAN FOR LOW BACK PAIN TO EVAL AND TX. PATIENT IS S/P ABDOMINAL EXPLORATION (02/2023) W/EXTENSIVE LYSIS OF ADHESIONS AND SEVERAL LESIONS REMOVED, CHOLECYSTECTOMY, EXCISION OF RIGHT UPPER ABDOMEN RETROPERITONEAL MASS, DISTAL PANCREATECTOMY AND SPLENECTOMY. HIS SURGERY WAS COMPLICATED BY DRAINAGE AND SENT HOME WITH A J TUBE. HIS INCISION HAS HEALED COMPLETELY ALONG WITH HEALED INCISION FOR DRAIN TUBE. ADDITIONALLY, HE HAS HAD EXTENSIVE BACK RECONSTRUCTION SURGERY (05/2020 ) INCLUDING MULTILEVEL FUSION FROM LOWER THORACIC TO LOWER LUMBAR. HE C/O R>L LOWER THORACIC/UPPER BACK PAIN THAT IS WORSE WHEN AMB >2.5 BLOCKS AND BETTER WITH REST IN SUPINE POSITION. HE HAS LIMITED TRUNK EXT AND FLEX LACKING 75% FLEX AND 50% EXT WITH RIGHT/ LEFT SB WFL. HE HAS LIMITED RIGHT >LEFT HIP IR<ER ROTATION WITH PAIN. UPON VISUAL AND MANUAL MUSCLE ASSESSMENT HE LACKS SIGNIFICANT AMOUNT PARASPINAL MUSCLE STRENGTH WITH SIGNIFICANT DIFFICULT RAISING HIS LEGS IN PRONE POSITION. HIS PATIENT CENTERED GOAL IS TO BE ABLE TO RETURN TO WALKING 30-40 MIN / DAY TO WALK HIS DOG AND FOR EXERCISE W/ HIS . HE IS APPROPRIATE FOR SKILLED PHYSICAL THERAPY TO ADDRESS SYMPTOM MGMT, CORE/ BLE STRENGTHENING, AND ENDURANCE TRAINING. PATIENT PROVIDED AN INITIAL HEP FOR PRONE STRENGTHENING AND SUPINE STRETCHING OF HIS TRUNK AND POSTERIOR HIP. HE VERBALIZED UNDERSTANDING OF ALL SKILLED INSTRUCTION AND AGREEABLE TO POC AND FREQ. Primary Functional Limitations PROLONGED POSITIONS PROLONG AMB SQUATTING PAIN WITH STDG >5 MIN Plan of Care Rehabilitation Potential Good Physical Therapy Goals IN 8-10 VISIT: 1. PATIENT WILL BE ABLE TO AMB 1MILE INDEPENDENTLY WITH MIN (<3/10) PAIN 2. 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 PATIENT WILL BE INDEPENDENT WITH HIS HEP AND THE ABILITY TO PROGRESS. Coordination/Communication With Referral Source Treatment Plan/Direct Interventions Gait Training,Joint Mobilization,Manual Therapy, Neuromuscular Re-ed,Self-Care/ Home Management,Therapeutic Activities Frequency/Duration [id number] Patient Will Be Discharged From Therapy Completion of LTG(s), Independently Progressing Discharge Plan Comments DC TO SELF WHEN GOALS MET OR MAX POTENTIAL ACHIEVED Evaluation Billing Untimed Code Treatment Minutes 20 PT Eval No Charge No Complexity Moderate Certification Information Initial Certification Date 06/07/23 Ending Certification Date 09/04/23 Provider Signature Shows Agreement With POC & Medical Necessity Physician Signature & Date Requested Please Sign/Date Here Physician Comment/Change : Physician NPI Number #
== END 2023-08-07 09:14 | disposition home or self-care (01) ==
PROVIDERS: PCP Internal Medicine; Visit Provider Internal Medicine
DX: M54.50 Low back pain, unspecified (principal); M62.81 Muscle weakness (generalized); Z51.89 Encounter for other specified aftercare
CPT/HCPCS: 97110; 97140; 97162; 97163

== ENCOUNTER 2023-09-06 10:07 | Outpatient (CLI) | payer MEDICARE, BC, SELFPAY ==
--- OUTSIDE RECORDS SUMMARY | 2023-09-06 10:09 | XMS_ITS | Continuity of Care Document ---
Author Name Unknown Organization [facility] Address [address] [place] [address] Phone Care Team Providers Care Children'S Aide Name Role Phone Adan ARCHULETA, PhD, Joo [...] C, [address], [place], [place], [id number], [place] tel:[phone] [facility] [place]per Arthrodesis status 3 Adan Ge. [facility], [address], [place], [address], [place]. tel:[phone] Referring Provider: Joo Arellano, [facility] [address], [place], [address]. tel:[phone] Office/Outpat ient Visit,Est, Mod [facility], [address], [place], [place], [id number], [place] tel:[phone] [facility] [place] Spinal stenosis, cervical region 1 Adan Ge. [facility], [address], [place], [address], [place]. tel:[phone] Referring Provider: Joo Arellano, [facility] [address], [place], [address]. tel:[phone] Office/Outpat ient Visit,Est, Mod [facility], [address], [place], [place], [id number], [place] tel:[phone] [facility] [place] Arthrodesis status 0 Adan Ge. [facility], [address], [place], [address], [place]. tel: [phone] Referring Provider: Joo Arellano, [facility] [address], [place], [address]. tel:[phone] [facility], [address], [place], [place], [id number], [place] tel:[phone] [facility] Arthrodesis status 0 Adan Ge. [facility], [address], [place], [address], [place]. tel: [phone] Referring Provider: Joo Arellano, [facility] [address], [place], [address]. tel:[phone] [facility], [address], [place], [place], [id number], [place] tel:[phone] [facility] Arthrodesis status 0 Adan Ge. [facility], [address], [place], [address], [place]. tel: [phone] [facility], [address], [place], [place], [id number], [place] tel:[phone] [facility] No Information 0 Ramana Crane. [facility], [address], [place], [place], [id number] , [place]. tel: [phone] Referring Provider: Joo Arellano, [facility] [address], [place], [address]. tel:[phone] [facility], [address], [place], [place], [id number], [place] tel:[phone] [facility] No Information 0 Adan Ge. [facility], [address], [place], [address], [place]. [phone] Referring Provider: Joo Arellano, [facility] [address], [place], [address]. tel:[phone] Office/Outpat ient Visit,Est, Mod [facility], [address], [place], [place], [id number], [place] tel:[phone] [facility] [place] Spinal stenosis, lumbar region with neurogenic claudication 0 Adan Ge. [facility], [address], [place], [address], [place]. [phone] Referring Provider: Joo Arellano, [facility] [address], [place], [address]. tel:[phone] Office/Outpat ient Visit,New, Mod [facility], [address], [place], [place], [id number], [place] tel:[phone] [facility] [place] Deforming dorsopathy, unspecified Dec-0 0 Adan Ge. [facility], [address], [place], [address], [place]. [phone] Referring Provider: Joo Arellano, [facility] [address], [place], [address]. tel:[phone] Family History Family Member Type Diagnosis Age At Onset No Information Payers Payer name Insurance type Covered republican ID Sanjuanita cole(s) [facility] [id number] Medicare [facility] [id number] 1 Social History Type Description Quantity Date [...]
--- OUTSIDE RECORDS SUMMARY | 2023-09-06 10:10 | XMS_ITS | Continuity of Care Document ---
Author Name Unknown Organization [facility] Address [address] [place] [address], [place] [address] Phone Care Team Providers Care Market Research Interviewer Name Role Phone Jhonatan Jaramillo MD Unavailable Unavailable Allergies, Adverse Reactions, Alerts Substance Reaction Status Criticality DULOXETINE HCL Headache Active No Informatio n ATORVASTATIN CALCIUM Active No Info rmation amoxicillin Active No Information Medications Medication Instructions Dosage Effective Dates (start - stop) Status Comments ProAir HFA 90 mcg/actuation aerosol inhaler inhale 1 puff by inhalation route every 4 - 6 hours as needed - Active multivitamin tablet take 1 tablet by oral route every day with food - Active aspirin 81 mg chewable tablet chew 1 tablet by oral route every day 81 MG - Active gabapentin 600 mg tablet take 2 tablet by oral route 2 times every day 1200 MG - Active tizanidine 4 mg capsule take 1 capsule by oral route 2 times every day 4 MG - Active Aspirin Low Dose 81 mg tablet,delayed release take 1 tablet by oral route every day 81 MG - Active flaxseed 1,000 mg capsule - Active Lidoderm 5 % (700 mg/patch) adhesive patch apply 2 patch by transdermal route every day (May wear up to 12hours.) 2 patch - Active tramadol 50 mg tablet - Active METRONIDAZOLE (unknown strength) Not Available - Active Cholestyramine Light 4 gram oral powder - Active losartan 25 mg tablet take 1 tablet by oral route every day 25 MG - Active propranolol 40 mg tablet take 1 tablet by oral route 2 times every day 40 MG - Active Crestor 5 mg tablet take 1 Tablet by oral route every day 5 MG - Active Procedures Procedure Date Urinalysis, non-automated, w/scope OFFICE/OUTPATIENT VISIT, EST Cystourethroscopy OFFICE/OUTPATIENT VISIT, EST Urinalysis, non-automated, w/scope PVR Bladder Scan Urinalysis, non-automated, w/scope Office/outpatient visit,[facility] [place] Advance Directives Directive Yes / No Effective Date File Name No Information Encounters Encounter Description Practice Location Reason(s) For Visit Diagnoses Date Provider [facility], [address] [place] [address], [id number], tel:[phone] [facility] No Information Clint Israel. [address] [place] [address], [id number], [place]. tel:[phone] OFFICE/OUTPAT IENT VISIT, EST [facility], [address] [place] [address], [id number], tel:[phone] [facility] Urinary frequency (chief complaint)B PH (chief complaint) HYPERTROPHY (BENIGN) OF PROSTATE WITH URINARY OBST Clint Israel. [address] [place] [address], [id number], [place]. tel:[phone] [facility], [address] [place] [address], [id number], tel:[phone] HIE Default Location CERVICAL SPONDYLOSISCERVICAL DISC DEGENNECK DISORDER/SYMPT NOSCOMN MGRN W NTRC MGR STDCHRONIC PAIN SYNDROMERadiculitis, Thoracic or LumbarSynovial cyst of lumbar spineMortons neuroma of left footHeadacheLUMB/LUMB OSAC DISC DEGENMYALGIA AND MYOSITIS NOSLUMBOSACRAL SPONDYLOSIS PROVIDER CHS. . OFFICE/OUTPAT IENT VISIT, EST [facility], [address] [place] [address], [id number], [place] tel:[phone] [facility] Urinary frequency (chief complaint)B PH (chief complaint) BPHUrinary frequency Clint Israel. [address] [place] [address] [place], [id number], [place]. tel:[phone] Office/outpat ient visit,new, mod [facility], [address] [place] [address] [place], [id number], [place] tel:[phone] [facility] BPH (chief complaint) BPHUrinary frequency Clint Israel. [address] [place] [address], [id number], [place]. tel:[phone] [facility], [address] [place] [address], [id number], tel:[phone] [facility] Presbycusis of both earsDeviated nasal septumREFRACTIVE ERRORHypertension, BenignSENILE NUCLEAR SCLEROSIS PROVIDER CHS. . [facility], [address] [place] [address], [id number], [place] tel:[phone] [facility] No Information Roselia Magdaleno. [address] [place] [address], [id number], . tel:[phone] Family History Family Member Type Diagnosis Age At Onset Mother Problem (finding) 85 Father Problem (finding) 85 Problem (finding) Family history of cance r of colon Payers Payer name Insurance type Covered constitution party ID Authorwendya tisandra(s) [facility]iroslava [facility] [id number] Social History Type Description Quantity Date Captured Comments Alcohol Use Details Unknown Caffeine Use Details Unknown Tobacco Use Status No Information Smoking Status No Information Sex Male Chief Complaint And Reason For Visit No Information History Of Present Illness Encounter Date Complaint History Of Prese nt Illness Urinary frequency BPH The problem is i mproving. Associated [...] prescription for Avodart. BPH It occurs daily. The problem is with no change. Associated symptoms include urgency and urinary frequency. Pertinent negatives include dysuria, fever, hematuria and nocturia. Urinary frequency BPH BPH (comments) he presents for evaluation of [...] 01/10/14 was 1.15 Instructions Date Instruction Additional Infor rosa We [...]
--- OUTSIDE RECORDS SUMMARY | 2023-09-06 10:10 | XMS_ITS | Continuity of Care Document ---
Author Name Unknown Organization [facility] Address [address] [place] [address] Phone Care Team Providers Care Process Helper Name Role Phone Jean Pierre Yost MD Unavailable Unavailable Allergies, Adverse Reactions, Alerts Substance Reaction Status Criticality amoxicillin Active No Information Medications Medication Instructions Dosage Effective Dates (start - stop) Status Comments FLOMAX (unknown strength) Not Available - Active GABAPENTIN (unknown strength) Not Available - Active HYDROCHLOROTHIAZIDE (unknown strength) Not Available - Active LOSARTAN POTASSIUM (unknown strength) Not Available - Active QUESTRAN (unknown strength) Not Available - Active PROPRANOLOL HCL ER (unknown strength) Not Available - Active Procedures Procedure Date COMPREHENSIVE EYE EXAM, NEW PATIENT REFRACTION Advance Directives Directive Yes / No Effective Date File Name No Information Encounters Encounter Description Practice Location Reason(s) For Visit Diagnoses Date Provider [facility], [address] [facility], [place], [id number], [place] tel:[phone] [facility] [place] REFRACTIVE ERRORHypertensi on, BenignSENILE NUCLEAR SCLEROSIS 2013 Priyank Greenfield. [address] [facility], [place], [id number], [place]. tel:[phone] Family History Family Member Type Diagnosis Age At Onset No Information Payers Payer name Insurance type Covered democrat ID Authoriza tion(s) [facility] [id number] Social History Type Description Quantity Date Captured [...]
[2023-09-06 10:52] LABS: Creatinine* 0.8 mg/dL (0.5-1.5); Estimated Glomerular Filt Rate 93 ml/min
[2023-09-06 10:56] LABS: Basophils Absolute Auto 0.07 K/uL (0.00-0.30); Basophils Percent Auto 1.1 % (0.0-3.0); Eosinophils Absolute Auto 0.16 K/uL (0.00-0.50); Eosinophils Percent Auto 2.5 % (0.0-7.0); Hematocrit 44.4 % (37.0-53.0); Hemoglobin* 14.1 gm/dL (13.5-17.5); Lymphocytes Percent Auto 28.1 % (20-44); Mean Corpuscular HGB Conc 32 gm/dL (32-36); Mean Corpuscular Hemoglobin 29 pg (26-34); Mean Corpuscular Volume 92 fL (80-100); Monocytes Percent Auto 9.2 % (0.0-11.0); Neutrophils Absolute Auto 3.78 K/uL (1.7-7.0); Neutrophils Percent Auto 59.1 % (42.0-72.0); Platelet Count* 409 K/uL (140-440); RDW Coefficient of Variation % 14.2 % (11.5-15.5); Red Blood Count 4.82 m/uL (4.30-5.90)
--- NOTE | 2023-09-06 11:00 | CRLHL7_ITS ---
For Patients: As a result of the Century Cures Act, medical imaging exams and procedure reports are released immediately into your electronic medical record. You may view this report before your referring provider. If you have questions, please contact your health care provider. 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 According to the prior CT report dated 03/22/2023, a right hepatic dome mass was resected which is presumably the metastatic lesion referenced in the indication for this study. TECHNIQUE: CT abdomen and pelvis acquired with 88 cc Isovue 370 IV contrast. COMPARISON: 05/04/2023, 04/07/2023 and 03/22/2023. The abdominal CT dated 10/21/2022 is not available for comparison. FINDINGS: Lower chest: Unremarkable. Liver: Interval decrease in the greatest dimension of a circumscribed homogeneous low-density focus in the surgical bed of the right hepatic dome which measures 2.7 cm (series 2; image 19) on the current study compared to 3.9 cm on the most recent prior exam dated 05/04/2023. 1.4 cm anterior subcapsular right hepatic lobe lesion (2; 33), previously measuring 1.6 cm on 05/04/2023 and 3.0 cm on 03/22/2023. There are 2 hypoattenuating lesions close to one another in the central right hepatic/caudate lobe (series 2; image 34), both measuring 1.5 cm in greatest dimension, decreased in size compared to the most recent prior study where the larger measured 2.1 cm and the smaller 1.6 cm (series 2; image 32 of that exam). The more anterior lesion, which was larger on the most recent prior exam, is notable for peripheral hemostatic surgical clips. Gallbladder and bile ducts: Cholecystectomy. Pancreas: Unremarkable. No mass or inflammation. Spleen: Splenectomy. Adrenal glands: Unremarkable. No nodules. Kidneys: No significant interval findings. Bilateral circumscribed homogeneous low-attenuation findings consistent with uncomplicated renal cortical cysts. GI tract: Partial right colectomy. Right upper quadrant enterocolic anastomosis. Apparent short segmental narrowing of the proximal transverse colon in the right upper quadrant is most likely due to normal large bowel peristalsis. No wall thickening/focal lesion is seen in this region. Vasculature: Abdominal aorta is normal in caliber. Mesenteric arteries are patent. Lymph nodes: No lymphadenopathy. Peritoneum/Abdominal Wall: Small left paramedian supraumbilical anterior abdominal wall fat containing hernia (2; 53). Pelvis: Unremarkable. Bones: Bilateral pedicle screws and vertical rods from L2 through S1. Streak artifact associated with the surgical hardware limits interpretation of the regional anatomy about the lumbosacral spine. A screw traverses the right sacroiliac joint. Moderate L1-L2 disc degeneration. The patient is status post right hip arthroplasty. IMPRESSION: There are no new findings to indicate progression of disease compared to recent prior examinations from February, March in April of this year. Multiple hypoattenuating liver findings described in the body of the report, two of which are clearly postsurgical in nature as they are associated with peripheral hemostatic surgical clips, are all smaller in the interval since the recent prior study of 05/04/2023. Incidental findings described above. Ongoing imaging surveillance according to the oncologic protocol is recommended. Please note that all CT scans at this facility use dose modulation, iterative reconstruction, and/or weight-based dosing when appropriate to reduce radiation dose to as low as reasonably achievable. Dictated by Estrada Nazario MD @ 09/07/2023 10:10:40 AM (Electronically Signed)
[2023-09-06 11:01] LABS: Albumin* 4.4 g/dL (3.3-5.0); Chloride* 105 mmol/L (96-114); Potassium* 4.5 mmol/L (3.6-5.1); Sodium* 138 mmol/L (135-149)
[2023-09-06 11:03] LABS: Anion Gap 6 mEq/L (7-15); Aspartate Amino Transferase* 29 U/L (12-35); Bilirubin Total* 1.3 mg/dL (0.1-1.5); Carbon Dioxide* 27 mmol/L (20-32); Slide Review Reflex No
[2023-09-06 11:04] LABS: Alanine Aminotransferase* 23 U/L (4-50); Alkaline Phosphatase* 138 U/L (40-150); Blood Urea Nitrogen* 14 mg/dL (7-30); Calcium* 9.4 mg/dL (8.4-10.6); Glucose* 96 mg/dL (60-115)
[2023-09-09 11:13] LABS: Serotonin, Serum 122 ng/mL (50-220)
== END 2023-09-06 10:08 | disposition home or self-care (01) ==
LOC: CT 10:07
PROVIDERS: PCP Internal Medicine; Visit Provider Internal Medicine Hematology & Oncology
DX: C78.02 Secondary malignant neoplasm of left lung; C7B.02 Secondary carcinoid tumors of liver
CPT/HCPCS: 36415; 74177; 80053; 82565; 84260; 85025; 86316; Q9967

== ENCOUNTER 2023-10-12 09:00 | Outpatient (CLI) | payer MEDICARE, BC, SELFPAY ==
--- OUTSIDE RECORDS SUMMARY | 2023-10-13 14:49 | XMS_ITS | Continuity of Care Document ---
Author Name Unknown Organization [facility] Address [address] [place] [address] Phone Care Team Providers Care Court Administrator Name Role Phone Adan ARCHULETA, PhD, Joo Unavailable Unavai lable Allergies, Adverse Reactions, Alerts Substance Reaction Status Criticality amoxicillin Active No Information Medications Medication Instructions Dosage Effective Dates (start - stop) Status Comments TIZANIDINE HCL (unknown strength) Not Available - Active NORTRIPTYLINE HCL (unknown strength) Not Available - Active CHOLESTYRAMINE RESIN (unknown strength) Not Available - Active GABAPENTIN (unknown strength) Not Available - Active PROPRANOLOL HCL (unknown strength) Not Available - Active AMBIEN [...] C, [address], [place], [place], [id number], [place] tel:[phone] [facility] [place] Arthrodesis status 3 Adan Ge. [facility], [address], [place], [address], [place]. tel:[phone] Referring Provider: Joo Arellano, [facility] [address], [place], [address]. tel:[phone] Office/Outpat ient Visit,Est, Mod [facility], [address], [place], [place], [id number], [place] tel:[phone] [facility] [place] Spinal stenosis, cervical region 1 Adan Ge. [facility], [address], [place], [address], [place]. tel:[phone] Referring Provider: Joo Arellano, [facility] [address], [place], [address]. tel:[phone] Office/Outpat ient Visit,Est, Mod [facility], [address], [place], [id number], [place] tel:[phone] [facility] [place] Arthrodesis status 0 Adan Ge. [facility], [address], [place], [address], [place]. tel: [phone] Referring Provider: Joo Arellano, [facility] [address], [place], [address]. tel:[phone] [facility], [address], [place], [place], [id number], [place] tel:[phone] [facility] Arthrodesis status 0 Adan Ge. [facility] [place], [address], [place], [address], [place]. tel: [phone] Referring Provider: Joo Arellano, [facility] [address], [place], [address]. tel:[phone] [facility], [address], [place], [place], [id number], [place] tel:[phone] [facility] Arthrodesis status 0 Adan Ge. [facility] [place], [address], [place], [address], [place]. tel: [phone] [facility], [address], [place], [place], [id number], [place] tel:[phone] [facility] No Information 0 Ramana Crane. [facility], [address], [place], [place], [id number] , [place]. tel: [phone] Referring Provider: Joo Arellano, [facility] [address], [place], [address]. tel:[phone] [facility], [address], [place], [place], [id number], [place] tel:[phone] [facility] No Information 0 Adan Ge. [facility], [address], [place], [address], [place]. [phone] Referring Provider: Joo Arellano, [facility] [address], [place], [address]. tel:[phone] Office/Outpat ient Visit,Est, Mod [facility], [address], [place], [id number], [place] tel:[phone] [facility] [place] Spinal stenosis, lumbar region with neurogenic claudication 0 Adan Ge. [facility], [address], [place], [address], [place]. [phone] Referring Provider: Joo Arellano, [facility] [address], [place], [address]. tel:[phone] Office/Outpat ient Visit,New, Mod [facility], [address], [place], [place], [id number], [place] tel:[phone] [facility] [place] Deforming dorsopathy, unspecified Dec-0 0 Adan Ge. [facility], [address], [place], [address], [place]. [phone] Referring Provider: Joo Arellano, [facility] [address], [place], [address]. tel:[phone] Family History Family Member Type Diagnosis Age At Onset No Information Payers Payer name Insurance type Covered libertarian ID Sanjuanita cole(s) [facility] [id number] Medicare [facility] [id number] Social History Type Description Quantity Date [...]
--- OUTSIDE RECORDS SUMMARY | 2023-10-13 14:49 | XMS_ITS | Continuity of Care Document ---
Author Name Unknown Organization [facility] Address [address] [place] [address], [place] [address] Phone Care Team Providers Care Reading Efficiency Course Director Name Role Phone Jhonatan Jaramillo MD Unavailable [...] PVR Bladder Scan Urinalysis, non-automated, w/scope [facility]patient [facility] [place] Advance Directives Directive Yes / No Effective Date File Name No Information Encounters Encounter Description Practice Location Reason(s) For Visit Diagnoses Date Provider [facility], [address] [place] [address], [id number], tel:[phone] [facility] No Information Clint Israel. [address] [place] [address], [id number], [place]. tel:[phone] OFFICE/OUTPAT IENT VISIT, EST [facility], [address] [place] [address], [id number], tel:[phone] [facility] Urinary frequency (chief complaint)B PH (chief complaint) HYPERTROPHY (BENIGN) OF PROSTATE WITH URINARY OBST Clint Israel. [address] [place] [address], [id number], [place]. tel:[phone] [facility], [address] [place] [address], [id number], tel:[phone] HIE Default Location CERVICAL SPONDYLOSISCERVICAL DISC DEGENNECK DISORDER/SYMPT NOSCOMN MGRN W NTRC MGR STDCHRONIC PAIN SYNDROMERadiculitis, Thoracic or LumbarSynovial cyst of lumbar spineMortons neuroma of left footHeadacheLUMB/LUMB OSAC DISC DEGENMYALGIA AND MYOSITIS NOSLUMBOSACRAL SPONDYLOSIS PROVIDER CHS. . OFFICE/OUTPAT IENT VISIT, EST [facility], [address] [place] [address], [id number], [place] tel:[phone] [facility] Urinary frequency (chief complaint)B PH (chief complaint) BPHUrinary frequency Clint Israel. [address] [place] [address] [place], [id number], [place]. tel:[phone] Office/outpat ient visit,new, mod [facility], [address] [place] [address] [place], [id number], [place] tel:[phone] [facility] BPH (chief complaint) BPHUrinary frequency Clint Israel. [address] [place] [address], [id number], [place]. tel:[phone] [facility], [address] [place] [address], [id number], tel:[phone] [facility] Deviated nasal septumPresbycusis of both earsHypertension, BenignREFRACTIVE ERRORSENILE NUCLEAR SCLEROSIS PROVIDER CHS. . [facility], [address] [place] [address], [id number], [place] tel:[phone] [facility] No Information Roselia Magdaleno. [address] [place] [address], [id number], . tel:[phone] Family History Family Member Type Diagnosis Age At Onset Problem (finding) Family history of cance r of colon Mother Problem (finding) 85 Father Problem (finding) 85 Payers Payer name Insurance type Covered libertarian ID Authorwendya tisandra(s) [facility]ormiroslava [facility] [id number] Social History Type Description Quantity Date Captured [...]
--- OUTSIDE RECORDS SUMMARY | 2023-10-13 14:49 | XMS_ITS | Continuity of Care Document ---
Author Name Unknown Organization [facility] Address [address] [facility] [place] [address] Phone Care Team Providers Care Vice President Quality Assurance Name Role Phone Jean Pierre Yost MD [...] Provider [facility], [address] [facility], [place], [id number], [place] tel:[phone] [facility] [place] REFRACTIVE ERRORHypertensi on, BenignSENILE NUCLEAR SCLEROSIS 2013 Priyank [place]. [address] [facility], [place], [id number], [place]. tel:[phone] Family History Family Member Type Diagnosis Age At Onset No Information Payers Payer name Insurance type Covered alliance party ID Authoriza tion(s) [facility] [id number] Social History Type Description Quantity Date Captured [...]
== END 2023-10-12 09:01 | disposition home or self-care (01) ==
LOC: NFLDREF 10-13 14:46
PROVIDERS: PCP Internal Medicine; Referring Provider Internal Medicine; Visit Provider Internal Medicine
DX: Z00.00 Encounter for general adult medical examination without abnormal findings (principal); I10 Essential (primary) hypertension; R53.83 Other fatigue; Z12.5 Encounter for screening for malignant neoplasm of prostate; M79.10 Myalgia, unspecified site; C61 Malignant neoplasm of prostate
CPT/HCPCS: 80053; 80061; 84153

== ENCOUNTER 2024-03-20 09:32 | Outpatient (CLI) | payer MEDICARE, BC, SELFPAY ==
--- OUTSIDE RECORDS SUMMARY | 2024-03-20 09:36 | XMS_ITS | Data Portability ---
Author Organization [facility], [facility] Address [address] [place] [address] Care Team Providers Care Hairspring Vibrator Name Role Phone PREMBETO MONTOYA Primary Care Provider Assessment Encounter Date Assessment Date Assessment LastModified by Organization Details LastModified Time 05/13/2020 05/13/2020 Of note a total of 25 minutes was spent reviewing records and in discussion with patient, >50 % of which was in coordination and counseling. [email or web address] Not available 05/13/2020 12:10:46 Plan of Treatment Reminders Order Date Submit Date Provider Last Modified By Organization Details Last Modified Time Details Appointments None record ed. Lab None record ed. Referral None record ed. Procedures None record ed. Surgeries None record ed. Imaging None record ed. Medication Orders None record ed. Patient TargetsNo targets recorded. Patient Instructions Encounter Date Encounter Id Patient Instructions Last Modified By Organization Details Last Modified Time 05/13/2020 [id number] PSA remains undetectable as he approaches 3 yrs s/p RALP for intermediate risk disease. He is dry. No erectile function and NOT a concern re: a remedy. Not interested in pursuing. Patient does mention nocturia 3-4 times at night; we discussed possible etiologies of this problem for him. I have asked Hector to record the volumes voided, per void, at night and will [place] back with him regarding the nocturia once he has this information available. [email or web address] Not available 05/13/2020 12:10:31 Reason for Referral None Reported. Results Created Date Observation Date Name Description Value Unit Range Abnormal Flag LastModifiedBy Organization Detail LastModifiedTime Result Notes None recorded. Problems Name Status Onset Date Resolution Date Notes Provider Name and Address Organization Details Recorded Time Malignant tumor of prostate Active 07/28/20 16 09-27-16 s/p RALP for pT2c 3/4 Most recent PSA = <0.06 He is dry and wears NO pads. Has noted some occ drips; Nikita Foote MD [address] [place] [address],[address], [phone], [facility] 03/17/2022 12:24:31 Problem Notes None recorded. Procedures Surgical History Date Name Laterality Status Provider Name and Address Organization Details Recorded Time 0 lumbar spinal fusion completed Nikita Foote MD [address] [place] [address],[address], [phone], [facility] 03/17/2022 12:21:32 8 Colonoscopy completed Nikita Foote MD [address] [place] [address], [phone], [facility] 03/17/2022 12:20:07 Imaging Results None recorded. Procedure Notes None recorded. Medical Equipment None Reported. Allergies Allergen ID Allergen Name Allergen Category Reaction Reaction Severity Criticality Documentation Date Start Date Code Code System Note Provider Name and Address Organization Details Recorded Time 481108 amoxicill in medicatio n Not available Not available Not available 04/16/20202015 723 RxNorm Not Available [facility] 0 00:47:35 Medications Name Sig Start Date Stop Date Status Note LastModified by Organization Details LastModified Time gabapentin 600 mg tablet TAKE 1 AND 1/2 TABLETS BY MOUTH THREE TIMES DAILY active Not Available Not Available No t Available sildenafil 25 mg tablet TAKE ONE TABLET BY MOUTH EVERY DAY 03/17 completed Not Available Not Available Not Available triamcinolo ne acetonide 0.1 % topical cream APPLY TOPICALLY TO THE AFFECTED AREA TWICE DAILY active Not Available Not Available No t Available propranolol 40 mg tablet TAKE 1 TABLET BY MOUTH TWICE DAILY active Not Available Not Available No t Available rizatriptan 10 mg disintegrat ing tablet 03/17 completed Not Available Not Available Not Available methylpredn isolone 4 mg tablets in a dose pack FOLLOW PACKAGE DIRECTION S 03/17 completed Not Available Not Available Not Available tizanidine 2 mg capsule Take 1 capsule every 6 hours by oral route. active Not Available Not Available No t Available cholestyram ine (bulk) active Not Available Not Available N ot Available Vitals Date Recorded Body height Body mass index (BMI) Body weight Provider Name and Address Organization Details Last Updated DateTime 05/13/2020 180.34 cm 27.2 kg/m2 61325.51 g Joyce Weaver [facility] 05/13/2020 10:07:37 Date Recorded Body height Body mass index (BMI) Body weight Provider Name and Address Organization Details Last Updated DateTime 03/17/2022 180.34 cm 27.2 kg/m2 89323.51 g Nikita Foote MD [address] [facility] [address], [place], [address] 03/17/2022 12:18:26 Social History Question Answer Notes LastModified by Organizat ion Details LastModified Time Tobacco Smoking Status Never Smoker Joyce mederos [facility] 05/13/2020 09:45:00 What Was The Date Of Your Most Recent Tobacco Screening? 03/17/2022 [email or web address] Information not available 03/17/2022 Sex: Male Functional Status None recorded. Mental Status None recorded. Family History Relationship Description Onset Age of this Age Resolved Age Notes Mother Malignant tumor of colon Medical History Condition Response Diabetes N High Blood Pressure Y Cancer Y Kidney Stones N Immunizations Vaccine Type Date Status Provider Name and Address Organization Details Recorded Time pneumococcal polysaccharide PPV23 08/05/2020 completed Nena mederos [facility] 10/26/2020 16:18:41 Past Encounters Encounter ID Performer Location Encounter Start Date Encounter Closed Date Diagnosis/Indication Diagnosis SNOMED-CT Code [id number] [facility] [address] [id number] 05/13/2020 09:31:49 05/14/2020 13:31:10 Malignant tumor of prostate [id number] Nocturia [id number] Nikita Foote MD [facility] [address] [id number] 03/17/2022 11:47:05 03/18/2022 10:45:37 Malignant tumor of prostate 569536793 Nocturia [id number] Skin tag [id number] Health Concerns Section Related Observation LastModified by Organization Detai ls LastModified Time None Recorded Concern Status LastModified by Organization Details LastModified Time None Recorded Advance Directives Directive None Recorded Payers Encounter Date Sequence Insurance Name Policy Number Policy Hay Covered Member ID Hay Member ID Guarantor Name 03/17/2022 1 [facility] [id number] Hector Nathan [id number] Hector Nathan 05/13/2020 1 [facility] [id number] Hector Nathan [id number] Hector Nathan Notes Date Note Type Note Provider Name and Address Organization Details Recorded Time 05/13/2020 text/html HPI Notes: 09-27 s/p RALP for pT2c 3/4 Most recent PSA = <0.06 He is dry and wears NO pads. Has noted some occ drips; nocturia 3-4x; not sure what the volumes of urine he is producing No erections, not interested in pursuing. Having back surgery in 30 days at [facility] This visit was conducted using [employer] video conferencing technology due to the COVID-19 crisis. Prior to conducting our video e-health visit, the patient was apprised of the risks, benefits and alternatives to video visits including but not limited to inadequate image resolution, interrupted video visits due to technological limitations, delays in medical evaluation and treatment due to deficiencies or failures of equipment, failure of security protocols resulting in a breach of privacy of personal medical information and a lack of access to complete medical records resulting in not fully informed decisions. Also, because of the COVID-19 pandemic, it was not possible for the patient to sign the privacy regulations, HIPAA release and assignment of benefits forms. The patient was given the opportunity to ask questions about these policies and gave verbal acknowledgement and approval of these policies as well as to hold this meeting using video technology. Lastly, the patient agreed to allowing their medication history to be pulled from a national pharmacy database to facilitate and coordinate their care. URI[place] Carlson - [facility] 05/13/2020 12:11:08 03/17/2022 text/html HPI Notes: 1) 5 years s/p prostatectomy; PSA in Feb, 2022 was 0.06ng/ml. This has been stable the entire time and likely represents some residual BPH cells. Sexual health is poor. This stems from low libido. 2) Nocturia: He does wake 2-3x to void. 3) Intermittent irritable abd pains. This can be low and testicular. It is associated with burning. This led to dysuria. 4) small skin lesion at the base of the penis. Nikita Foote MD [address] [facility] [address], [place], [address], [facility] 03/17/2022 12:38:26
--- OUTSIDE RECORDS SUMMARY | 2024-03-20 09:36 | XMS_ITS | Clinical Summary ---
Author Organization [email or web address] Address [place], [place] [address] Care Team Providers Care Wireless Internet Installer Name Role Phone Isrrael Mejia MD Primary Care Provider [facility] Care, Munday Unavailable February, Traci Sneed RN, BSN Unavailable [phone] Allergies Active Allergy Reactions Criticality Noted Date Comments Amoxicillin *Unknown - Childhood Rxn,Other - Describe In Comment Field,*Unknown - Follow up needed High 07/10/2009 ##No similarities in side chains, very low to no risk of cross-sensitivity to ANCEF. ANW Antimicrobial Stewardship Team 07/2019 Other reaction(s): Unknown Clavulanic Acid Other - Describe In Comment Field 06/01/2017 Other reaction(s): Unknown Other reaction(s): Unknown Medications Medication Sig Dispensed Refills Start Date End Date Status gabapentin (NEURONTIN) 600 mg tablet Take 900 mg by mouth three times daily. Active cholestyramine-aspar tame (CHOLESTYRAMINE LIGHT) 4 gram powder Take 4 g by mouth once daily if needed for Other (Specify). Active tiZANidine (ZANAFLEX) 4 mg tablet Take 4 mg by mouth at bedtime if needed for Muscle Spasm. Active loperamide (IMODIUM) 2 mg tablet Take 2 mg by mouth 2 times daily if needed for Diarrhea. Active psyllium husk, with sugar, (METAMUCIL) 3.4 gram packet Mix 1 Packet in liquid then take by mouth once daily if needed. Active ketoconazole 2% topical (NIZORAL) cream Apply topically to affected area(s) once daily if needed. Active multivitamin (MVI) tablet Take 1 Tablet by mouth once daily. 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 Max acetaminophen dose: 4000mg in 24 hrs. Use home supply. OTC medication. 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 Don't take if using oxycodone 03/17/2023 Active propranoloL (INDERAL) 10 mg tabletIndications:HT N (hypertension) Take 1 Tablet (10 mg) by mouth two times daily. 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 30 Tablet 03/17/2023 Active ondansetron (ZOFRAN ODT) 4 mg disintegrating tabletIndications:Na usea and vomiting, unspecified vomiting type Place 1 Tablet (4 mg) on the tongue every 8 hours if needed for Nausea/Vomiting. 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 03/14/2023 Cancer Staging:Pathologic: Unsigned Neuroendocrine carcinoma of pancreas 03/14/2023 Cancer Staging:Pathologic stage from 03/14/2023:Stage IV(pT2, pN0, pM1a) - Signed by Soraya Bonilla PA on 03/31/2023 Left bundle branch block (LBBB) 06/26/2020 Overview: Intermittent HTN (hypertension) 06/24/2020 Flat back syndrome 06/22/2020 Spinal stenosis of lumbar region with radiculopa thy DDD (degenerative disc disease), lumbosacral Urethral stricture Resolved Problems Problem Noted Date Diagnosed Date Resolved Date 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 03/28/2023 Neuroendocrine tumor of pancreas 03/14/2023 03/28/2023 Delirium 06/24/2020 06/24/2020 Agitation 06/24/2020 06/24/2020 Encounters Date Type Department Care Team Description 12/28/2023 Lab Requisition [facility] [phone] Marito Cabrera MD from Last 3 Months Immunizations Name Administration Dates Next Due COVID-19 vaccine (Moderna 100mcg/0.5mL) DEIDRE COONEY 02/02/2022,08/20/2021,01/12/2021, 0 21 COVID-19 vaccine (Moderna 50mcg/0.5mL) 12YO+ BIVALENT DEIDRE COONEY 07/18/2022 HIB PRP-OMP (PedvaxHIB) 02/23/2023 Family History Medical History Relation Name Comments Cancer Mother Relation Name Status Comments Mother Social History Tobacco Use Types Packs/Day Years Used Date Smoking Tobacco: Never Smokeless Tobacco: Never Alcohol Use Standard Drinks/Week Comments Yes 0 (1 standard drink = 0.6 oz pur e alcohol) 1 beer a month Social Connections Answer Date Recorded Frequency of Communication with Friends and Fami ly Not on file 03/14/2023 Financial Resource Strain Answer Date R ecorded Difficulty of Paying Living Expenses Not on file 10/30/2021 Difficulty of Paying Living Expenses Not on file 10/30/2021 Sex and Gender Information Value Date Recorded Sex Assigned at Not on file Gender Identity Not on file Sexual Orientation Not on file Obstetrics History Last Filed Vital Signs Vital Sign Reading Time Taken Comments Blood Pressure 103/65 03/30/2023 12:30 PM CDT Pulse 78 03/30/2023 12:30 PM CDT Temperature 36.4 ??C (97.6 ??F) 03/30/2023 1 2:30 PM CDT Respiratory Rate 18 03/30/2023 12:3 0 PM CDT Oxygen Saturation 95% 03/30/2023 12: 30 PM CDT Inhaled Oxygen Concentration - - Weight 87.5 kg (192 lb 12.8 oz) 023 12:30 PM CDT Height 180.3 cm (5' 11) 03/30/2023 12: 30 PM CDT Body Mass Index 26.89 03/30/2023 12:30 PM CDT Plan of Treatment Health Maintenance Due Date Last Done Comments Pneumococcal series for age 65+ (1 of 2 - PCV) 1955 Tdap 1960 Depression screening for age 12+ 1961 Hepatitis C screening for ag e 18-79 1967 Zoster (shingles) series for age 50+ (1 of 2) 1968 Tetanus booster 1969 Colonoscopy through age 75 1994 Lipids for age 45-75 1994 Medicare Wellness for age 65+ 2014 COVID-19 vaccine series ( season) 2023 07/18/2022, 02/02/2022, 08/20/2021, Additional history exists BMI (ht and wt on same day) for age 18+ 03/30/2024 03/30/2023, 03/20/2023, 02/09/2023, Additional history exists Influenza for age 65+ 06/30/2024 Medical Devices Implanted Type Area Professional Driver Device Identifier Shelf Expiration Date Model / Serial / Lot [id number] 1-4mm 60cc Medtronic Fine Canclls Freeze Dried Implanted:Qty: 1 on 06/22/2020 by Joo Arellano MD at [facility] Explanted:at [facility] (Quantity not on file) Spine Medtronic Spine/Ortho 11/06/2024 [id number] / [id number] / Screw Lmbr Post 7.5x45mm Solera 5.5/6 Va Cocr - [id number] Implanted:Qty: 3 on 06/22/2020 by Joo Arellano MD at [facility] Spine Medtronic Spine/Ortho [id number] 45# / / Screw Lmbr Post 7.5x50mm Solera 5.5/6 Va Cocr - [id number] Implanted:Qty: 4 on 06/22/2020 by Joo Arellano MD at [facility] Spine Medtronic Spine/Ortho [id number] 50# / / Screw Lmbr Post 7.5x55mm Solera 5.5/6 Va Cocr - [id number] Implanted:Qty: 3 on 06/22/2020 by Joo Arellano MD at [facility] Spine Medtronic Spine/Ortho [id number] 55# / / Adan Lmbr 500x5.5mm Solera 5.5/6 Cvd Co Cr - [id number] Implanted:Qty: 1 on 06/22/2020 by Joo Arellano MD at [facility] Spine Medtronic Spine/Ortho [id number]# / / Screw Lmbr 8.5x90mm Cd Horizon - [id number] Implanted:Qty: 1 on 06/22/2020 by Joo Arellano MD at [facility] Spine Medtronic Spine/Ortho [id number] 90# / / [id number] 1-4mm 60cc Medtronic Fine Canclls Freeze Dried Implanted:Qty: 1 on 06/22/2020 by Joo Arellano MD at [facility] Explanted:at [facility] (Quantity not on file) Spine Medtronic Spine/Ortho 11/07/2024 [id number]# / [id number] / [id number] 1-4mm 90cc Medtronic Chips Canclls Freeze Dried Implanted:Qty: 1 on 06/22/2020 by Joo Arellano MD at [facility] Explanted:at [facility] (Quantity not on file) Spine Medtronic Spine/Ortho 10/28/2024 [id number]# / [id number] / [id number] 6cc Rosas Dbf Putty Dbm Implanted:Qty: 1 on 06/22/2020 by Joo Arellano MD at [facility] Explanted:at [facility] (Quantity not on file) N/A: Spine Medtronic Spine/Ortho 09/17/2021 [id number] / [id number] / Spacer Lmbr Lg 14mm 8deg Perimeter Alif Peek - [id number] Implanted:Qty: 1 on 06/22/2020 by Joo Arellano MD at [facility] Spine Medtronic Spine/Ortho 04/15/2027 [id number]# / / 26JG Washer 17mm - [id number] Implanted:Qty: 1 on 06/22/2020 by Joo Arellano MD at [facility] Spine Medtronic Spine/Ortho [id number]# / / Screw Lmbr Ant 6.5x20mm Pyramid Plus Va - [id number] Implanted:Qty: 1 on 06/22/2020 by Joo Arellano MD at [facility] Spine Medtronic Spine/Ortho [id number]# / / Spacer Lmbr Md 35iv86tnw 10deg [employer]ental - [id number] Implanted:Qty: 3 on 06/22/2020 by Joo Arellano MD at [facility] Spine [employer] [id number]# / / Set Screw Lmbr Ant 5.5mm Solera Break Off - [id number] Implanted:Qty: 11 on 06/22/2020 by Joo Arellano MD at [facility] Spine Medtronic Spine/Ortho [id number]# / / Adhesion Barrier 5x6in Seprafilm Absorb - [id number] Implanted:Qty: 1 on 03/14/2023 by Wilber Zhang MBBS at [facility] N/A: Abdomen [employer] 04/30/2025 [id number] / / [id number] Adhesion Barrier 3x5in Seprafilm Absorb Procedure Packs - [id number] Implanted:Qty: 2 on 03/14/2023 by Wilber Zhang MBBS at [facility] N/A: Abdomen [employer] 07/26/2025 [id number] / / [id number] Mesh Ventral 60 Seamguard Endo Meri Tri Blk - [id number] Implanted:Qty: 1 on 03/14/2023 by Wilber Zhang MBBS at [facility] N/A: Abdomen [employer] 01/17/2025 [id number] / / [id number] Procedures Procedure Name Priority Date/Time Associated Diagnosis Comments LAB TRACKING EVENT Routine 12/28/2023 12 :05 PM MIXER OPERATOR RAW SALT PATH TISSUE EXAM Routine 12/28/2023 12:0 5 PM MIXER OPERATOR RAW SALT from Last 3 Months Results * LAB TRACKING EVENT (12/28/2023 12:05 PM MIXER OPERATOR RAW SALT) Other (Other) Client Collect / Unknown 12/28/2023 12:05 PM MIXER OPERATOR RAW SALT 12/28/2023 5:00 PM MIXER OPERATOR RAW SALT Marito Cabrera MD LAB BILL ONLY [facility] [address] [place] [address], * PATH TISSUE EXAM (12/28/2023 12:05 PM MIXER OPERATOR RAW SALT) Case Report Pathology Report ?Case: [id number] ? Authorizing Provider: ??Marito Cabrera MD ?? Collected: ? 12/28/2023 1205 ? Ordering Location: ? [facility] ?Received: ?12/28/2023 1817 ? Pathologist: ? Karlos Merino MD ? Specimen: ?Left Arm ? 01/01/2024 9:[address] [facility] Final Diagnosis A) SKIN, LEFT TRICEPS, RE-SHAVE: 1. Biopsy site change consistent with prior procedure 2. No residual atypical nevus identified in the planes examined 01/01/2024 9:[address] [facility] Clinical Information Reshave of atypical mphng-njibky-p eed negative margins 01/01/2024 9:[address] [facility] Gross Description A) Received in formalin, labeled with the patient's name and left tricep, is a 1.1 x 0.8 ??cm skin biopsy. There is a 0.7 x 0.6 cm flat brown-hurst lesion. The specimen is inked red, serially sectioned and entirely submitted in one cassette. TMO 12/28/2023 ?? 01/01/2024 9:[address] [facility] Microscopic Description The final diagnosis is based on microscopic examination of appropriate sections of all specimens. A) Sections reveal skin with central biopsy site change. No residual atypical nevus identified. The presence of ??red ink is confirmed on tissue sections. 01/01/2024 9:[address] [facility] Additional Information Interpreted at [facility] - [address] [facility] [address] [address] 01/01/2024 9:[address] [facility] Other (Left Arm) 12/28/2023 12:05 PM MIXER OPERATOR RAW SALT 12/28/2023 6:17 PM MIXER OPERATOR RAW SALT Marito Cabrera MD PATHOLOGY/CYTOLOG Y [facility] [address] [place] [address], from Last 3 Months Advance Directives * Full Code (Latest Code Status on File) Date Activated Date Inactivated Comments 03/14/2023 5:53 AM 03/18/2023 6:15 PM Question Answer Comments Code Status Discussion: Reviewed Preferences * Full Code Date Activated Date Inactivated Comments 02/28/2023 7:32 AM 02/28/2023 12:38 PM Question Answer Comments Code Status Discussion: Reviewed Preferences * Full Code Date Activated Date Inactivated Comments 01/05/2023 10:29 AM 01/05/2023 5:17 PM Question Answer Comments Code Status Discussion: Reviewed Preferences * Full Code Date Activated Date Inactivated Comments 06/23/2020 12:12 AM 06/27/2020 2:46 PM Question Answer Comments Code Status Discussion: Not Discussed Care Teams Wireless Internet Installer Relationship Specialty Start Date End Date Isrrael Mejia MD [address] [place] [address] PCP - General Internal Medicine 06/09/[address] [address] 03/18/23February, Traci Sneed RN, BSN [address] [address] Nurse Navigator - Oncology Oncology 05/23/23
--- OUTSIDE RECORDS SUMMARY | 2024-03-20 09:36 | XMS_ITS | Continuity of Care Document ---
Author Organization [facility] Address [address] [place] [address] Phone Care Team Providers Care Chute Greaser Name Role Phone Adan ARCHULETA, PhD, Joo [...] OLIF Anterior Lumbar Interbody Fu charlotte - Jasonon Anterior Interbody Fusion - Additional L evel(s) [...] C, [address], [place], [place], [id number], [place] tel:[phone] [facility] Arthrodesis status 3 Adan Ge. [facility], [address], [place], [address], [place]. tel:[phone] Referring Provider: Joo Arellano, [facility] [address], [place], [address]. tel:[phone] Office/Outpat ient Visit,Est, Mod [facility], [address], [place], [place], [id number], [place] tel:[phone] [facility] Spinal stenosis, cervical region 1 Adan Ge. [facility], [address], [place], [address], [place]. tel:[phone] Referring Provider: Joo Arellano, [facility] [address], [place], [address]. tel:[phone] Office/Outpat ient Visit,Est, Mod [facility], [address], [place], [place], [id number], [place] tel:[phone] [facility] Arthrodesis status 0 Adan Ge. [facility], [address], [place], [address], [place]. tel: [phone] Referring Provider: Joo Arellano, [facility] [address], [place], [address]. tel:[phone] [facility], [address], [place], [id number], [place] tel:[phone] [facility] Arthrodesis status 0 Adan Ge. [facility] [place], [address], [place], [address], [place]. tel: [phone] Referring Provider: Joo Arellano, [facility] [address], [place], [address]. tel:[phone] [facility], [address], [place], [id number], [place] tel:[phone] [facility] Arthrodesis status 0 Adan Ge. [facility], [address], [place], [address], [place]. tel: [phone] [facility], [address], [place], [id number], [place] tel:[phone] [facility] No Information 0 Ramana Crane. [facility], [address], [place], [place], [id number] , [place]. tel: [phone] Referring Provider: Joo Arellano, [facility] [address], [place], [address]. tel:[phone] [facility], [address], [place], [id number], [place] tel:[phone] [facility] No Information 0 Adan Ge. [facility], [address], [facility] [place], [address], [place]. [phone] Referring Provider: Joo Arellano, [facility] [address], [facility] [place], [address]. tel:[phone] Office/Outpat ient Visit,Est, Mod [facility], [address], [place], [id number], [place] tel:[phone] [facility] Spinal stenosis, lumbar region with neurogenic claudication 0 Adan Ge. [facility], [address], [facility] [place], [address], [place]. [phone] Referring Provider: Joo Arellano, [facility] [address], [place], [address]. tel:[phone] Office/Outpat ient Visit,New, Mod [facility], [address], [facility] [place], [id number], [place] tel:[phone] [facility] Deforming dorsopathy, unspecified 0 Adan Ge. [facility], [address], [place], [address], [place]. [phone] Referring Provider: Joo Arellano, [facility] [address], [facility] [place], [address]. tel:[phone] Family History Family Member Type Diagnosis Age At Onset No Information Payers Payer name Insurance type Covered alliance party ID Sanjuanita cole(s) [facility] [id number] Medicare [facility] [id number] Social History Type Description Quantity Date [...]
--- OUTSIDE RECORDS SUMMARY | 2024-03-20 09:36 | XMS_ITS | Continuity of Care Document ---
Author Organization [facility] Address [address] [place] [address], [place] [address] Phone Care Team Providers Care Hydrographer Name Role Phone Jhonatan Jaramillo MD Unavailable [...] route every day 81 MG - Active Aspirin Low Dose 81 [...] Light 4 gram oral powder - Active tizanidine 4 mg capsule take 1 capsule by oral route 2 times every day 4 MG - Active gabapentin 600 mg tablet take 2 tablet by oral route 2 times every day 1200 MG - Active losartan 25 mg tablet [...] Bladder Scan Urinalysis, non-automated, w/scope Office/outpatient visit,[facility] 2013 Advance Directives Directive Yes / No Effective Date File Name No Information Encounters Encounter Description Practice Location Reason(s) For Visit Diagnoses Date Provider [facility], [address] [place] [address], [id number], tel:[phone] [facility] No Information Clint Israel. [address] [place] [address], [id number], [place]. tel:[phone] OFFICE/OUTPAT IENT VISIT, EST [facility], [address] [place] [address], [id number], [place] tel:[phone] [facility] Urinary frequency (chief complaint)B PH (chief complaint) HYPERTROPHY (BENIGN) OF PROSTATE WITH URINARY OBST Clint Israel. [address] [place] [address], [id number], [place]. tel:[phone] [facility], [address] [place] [address], [id number], tel:[phone] HIE Default Location CERVICAL SPONDYLOSISCERVICAL DISC DEGENNECK DISORDER/SYMPT NOSCOMN MGRN W NTRC MGR STDCHRONIC PAIN SYNDROMERadiculitis, Thoracic or LumbarSynovial cyst of lumbar spineMortons neuroma of left footHeadacheLUMB/LUMB OSAC DISC DEGENMYALGIA AND MYOSITIS NOSLUMBOSACRAL SPONDYLOSIS PROVIDER CHS. . OFFICE/OUTPAT IENT VISIT, EST [facility], [address] [place] [address], [id number], [place] tel:[phone] [facility] Urinary frequency (chief complaint)B PH (chief complaint) BPHUrinary frequency Clint Israel. [address] [place] [address], [id number], . tel:[phone] Office/outpat ient visit,[facility], [address] [place] [address] [place], [id number], [place] tel:[phone] [facility] BPH (chief complaint) BPHUrinary frequency Clint Israel. [address] [place] [address], [id number], [place]. tel:[phone] [facility], [address] [place] [address], [id number], tel:[phone] [facility] Presbycusis of both earsDeviated nasal septumREFRACTIVE ERRORHypertension, BenignSENILE NUCLEAR SCLEROSIS PROVIDER CHS. . [facility], [address] [place] [address], [id number], tel:[phone] [facility] No Information Roselia Magdaleno. [address] [place] [address], [id number], . tel:[phone] Family History Family Member Type Diagnosis Age At Onset Mother Problem (finding) 85 Father Problem (finding) 85 Problem (finding) Family history of cance r of colon Payers Payer name Insurance type Covered democrat ID Authoriza tion(s) Mainorm[employer]ros[employer] [facility] [id number] Social History Type Description Quantity Date Captured [...]
--- OUTSIDE RECORDS SUMMARY | 2024-03-20 09:37 | XMS_ITS | Encounter Summary ---
Author Organization [facility] Address [address] [place] [address] Care Team Providers Care Day Care Worker Name Role Phone Regina Vizcaino APRN SLICING MACHINE FEEDER Unavaila ble Rebeka Lomeli RN Unavailable [phone] Isrrael Mejia MD Primary Care Provider Candido Arzola MD Unavailable [phone] Jonelle Puckett MD Unavailable [phone] Burton Gastelum MD Unavailable [phone] Encounter Details Date Type Department Care Team (Late st Contact Info) Description 07/06/2018 [facility] [address] [place] [address] [address] [place] [address] Candido Arzola MD [address] [place] [address] Social History Tobacco Use Types Packs/Day Years Used Date Smoking Tobacco: Never Smokeless Tobacco: Never Alcohol Use Standard Drinks/Week Comments Yes 0 (1 standard drink = 0.6 oz pur e alcohol) 1-2 beers a month Sex and Gender Information Value Date Recorded Sex Assigned at Male 12/18/2021 3:52 PM AIR TRANSPORTATION PROVIDER Gender Identity Male 12/18/2021 3:52 PM AIR TRANSPORTATION PROVIDER Sexual Orientation Straight 12/18/2021 3: 52 PM AIR TRANSPORTATION PROVIDER documented as of this encounter Plan of Treatment Not on file documented as of this encounter Visit Diagnoses Not on filedocumented in this encounter Additional Health Concerns Assessment Noted Time PHQ-9 Depression Total Score: 9 02/11/20 18 7:37 AM CDT documented as of this encounter Care Teams Day Care Worker Relationship Specialty Start Date End Date Isrrael Mejia MD [facility] [address] [place] [address] PCP - General Emergency Medicine 09/27/16 Regina Vizcaino APRN SLICING MACHINE FEEDER [address] [facility] [id number] [place] [address] Nurse Practitioner Nurse Practitioner 06/23/16 Rebeka Lomeli RN Nurse Coordinator Neurology 07/28/16 04/17/19 Candido Arzola MD [facility] [address] [place] [address] Anesthesiology 08/15/17 Jonelle Puckett MD [facility] [address] [place] [address] Referring Physician 06/08/18 Burton Gastelum MD [facility] [address] [place] [address] Ophthalmology 06/08/18 documented as of this encounter
--- OUTSIDE RECORDS SUMMARY | 2024-03-20 09:37 | XMS_ITS | Encounter Summary ---
Author Organization [facility] Address [address] [place] [address] Care Team Providers Care Academic Support Coordinator Name Role Phone Regina Vizcaino APRN GLACING MACHINE TENDER Unavaila ble Bette Fowler RN Unavailable Rebeka Lomeli RN Unavailable [phone] Isrrael Mejia MD Primary Care Provider Candido Arzola MD Unavailable [phone] Jonelle Puckett MD Unavailable [phone] Burton Gastelum MD Unavailable [phone] Encounter Details Date Type Department Care Team (Late st Contact Info) Description 12/25/2017 [facility] [address] [place] [address] Candido Arzola MD [address] [place] [address] Social History Tobacco Use Types Packs/Day Years Used Date Smoking Tobacco: Never Smokeless Tobacco: Never Alcohol Use Standard Drinks/Week Comments Yes 0 (1 standard drink = 0.6 oz pur e alcohol) 1-2 beers a month Sex and Gender Information Value Date Recorded Sex Assigned at Male 12/18/2021 3:52 PM SEWING SUPERVISOR Gender Identity Male 12/18/2021 3:52 PM SEWING SUPERVISOR Sexual Orientation Straight 12/18/2021 3: 52 PM SEWING SUPERVISOR documented as of this encounter Plan of Treatment Not on file documented as of this encounter Visit Diagnoses Not on filedocumented in this encounter Care Teams Academic Support Coordinator Relationship Specialty Start Date End Date Isrrael Mejia MD [facility] [address] [place] [address] PCP - General Emergency Medicine 09/27/16 Regina Vizcaino APRN GLACING MACHINE TENDER [address] [facility] [place] [id number] [place] [address] Nurse Practitioner Nurse Practitioner 06/23/16 Bette Fowler, INDIRA Nurse Coordinator Neurology 07/26/16 06/10/18 Rebeka Lomeli RN Nurse Coordinator Neurology 07/28/16 04/17/19 Candido Arzola MD [facility] [address] [place] [address] Anesthesiology 08/15/17 Jonelle Puckett MD [facility] [address] [place] [address] Referring Physician 06/08/18 Burton Gastelum MD [facility] [address] [place] [address] Ophthalmology 06/08/18 documented as of this encounter
--- OUTSIDE RECORDS SUMMARY | 2024-03-20 09:37 | XMS_ITS | Encounter Summary ---
Author Organization [facility] Address [address] [place] [address] Care Team Providers Care Propellant Charge Loader Name Role Phone Regina Vizcaino APRN COMMUNITY BOARD MEMBER Unavaila ble Isrrael Mejia MD Primary Care Provider Candido Arzola MD Unavailable [phone] Jonelle Puckett MD Unavailable Burton Gastelum MD Unavailable [phone] Encounter Details Date Type Department Care Team (Late st Contact Info) Description 12/10/2019 [facility] [facility] [address] [place] [address] Candido Arzola MD [address] [place] [address] Social History Tobacco Use Types Packs/Day Years Used Date Smoking Tobacco: Never Smokeless Tobacco: Never Alcohol Use Standard Drinks/Week Comments Yes 0 (1 standard drink = 0.6 oz pur e alcohol) one drink per month PHQ-2 Answer Date Recorded PHQ-2 Score 4 11/26/2019 Sex and Gender Information Value Date Recorded Sex Assigned at Male 12/18/2021 3:52 PM COMMERCIAL REVIEW APPRAISER Gender Identity Male 12/18/2021 3:52 PM COMMERCIAL REVIEW APPRAISER Sexual Orientation Straight 12/18/2021 3: 52 PM COMMERCIAL REVIEW APPRAISER documented as of this encounter Plan of Treatment Not on file documented as of this encounter Visit Diagnoses Not on filedocumented in this encounter Additional Health Concerns Assessment Noted Time PHQ-9 Depression Total Score: 10 020 1:39 PM COMMERCIAL REVIEW APPRAISER documented as of this encounter Care Teams Propellant Charge Loader Relationship Specialty Start Date End Date Isrrael Mejia MD [facility] [address] [place] [address] PCP - General Emergency Medicine 09/27/16 Regina Vizcaino APRN COMMUNITY BOARD MEMBER [address] [facility] [place] [id number] [place] [address] Nurse Practitioner Nurse Practitioner 06/23/16 Candido Arzola MD [facility] [address] [place] [address] Anesthesiology 08/15/17 Jonelle Puckett MD [facility] [address] [place] [address] Referring Physician 06/08/18 Burton Gastelum MD [facility] [address] [place] [address] Ophthalmology 06/08/18 documented as of this encounter
--- OUTSIDE RECORDS SUMMARY | 2024-03-20 09:37 | XMS_ITS | Encounter Summary ---
Author Organization [facility] Address [address] [place] [address] Care Team Providers Care Reed Or Wind Instrument Tuner Name Role Phone Regina Vizcaino APRN FLIGHT/TRANSPORT NURSE Unavaila ble Bette Fowler RN Unavailable Rebeka Lomeli RN Unavailable [phone] Isrrael Mejia MD Primary Care Provider Candido Arzola MD Unavailable [phone] Jonelle Puckett MD Unavailable [phone] Burton Gastelum MD Unavailable [phone] Encounter Details Date Type Department Care Team (Late st Contact Info) Description 07/24/2017 [facility] [address] [place] [address] Candido Arzola MD [address] [place] [address] Social History Tobacco Use Types Packs/Day Years Used Date Smoking Tobacco: Never Smokeless Tobacco: Never Alcohol Use Standard Drinks/Week Comments Yes 0 (1 standard drink = 0.6 oz pur e alcohol) 1-2 beers a month Sex and Gender Information Value Date Recorded Sex Assigned at Male 12/18/2021 3:52 PM GEOTHERMAL OPERATIONS MANAGER Gender Identity Male 12/18/2021 3:52 PM GEOTHERMAL OPERATIONS MANAGER Sexual Orientation Straight 12/18/2021 3: 52 PM GEOTHERMAL OPERATIONS MANAGER documented as of this encounter Plan of Treatment Not on file documented as of this encounter Visit Diagnoses Not on filedocumented in this encounter Care Teams Reed Or Wind Instrument Tuner Relationship Specialty Start Date End Date Isrrael Mejia MD [facility] [address] [place] [address] PCP - General Emergency Medicine 09/27/16 Regina Vizcaino APRN FLIGHT/TRANSPORT NURSE [address] [facility] [id number] [place] [address] Nurse Practitioner Nurse Practitioner 06/23/16 Bette Fowler, INDIRA Nurse Coordinator Neurology 07/26/16 06/10/18 Rebeka Lomeli RN Nurse Coordinator Neurology 07/28/16 04/17/19 Candido Arzola MD [facility] N[facility] [address] [place] [address] Anesthesiology 08/15/17 Jonelle Puckett MD [facility] [address] [place] [address] Referring Physician 06/08/18 Burton Gastelum MD [facility] [address] [place] [address] Ophthalmology 06/08/18 documented as of this encounter
--- OUTSIDE RECORDS SUMMARY | 2024-03-20 09:37 | XMS_ITS | Encounter Summary ---
Author Organization [facility] Address [address] [place] [address] Care Team Providers Care Joinery Machinist Name Role Phone Regina Vizcaino APRN CAFETERIA OPERATOR Unavaila ble Bette Fowler RN Unavailable Rebeka Lomeli RN Unavailable [phone] Isrrael Mejia MD Primary Care Provider Candido Arzola MD Unavailable [phone] Jonelle Puckett MD Unavailable [phone] Burton Gastelum MD Unavailable [phone] Encounter Details Date Type Department Care Team (Late st Contact Info) Description 06/29/2017 [facility] [address] [place] [address] Candido Arzola MD [address] [place] [address] Social History Tobacco Use Types Packs/Day Years Used Date Smoking Tobacco: Never Smokeless Tobacco: Never Alcohol Use Standard Drinks/Week Comments Yes 0 (1 standard drink = 0.6 oz pur e alcohol) 1-2 beers a month Sex and Gender Information Value Date Recorded Sex Assigned at Male 12/18/2021 3:52 PM VICE PRESIDENT Gender Identity Male 12/18/2021 3:52 PM VICE PRESIDENT Sexual Orientation Straight 12/18/2021 3: 52 PM VICE PRESIDENT documented as of this encounter Plan of Treatment Not on file documented as of this encounter Visit Diagnoses Not on filedocumented in this encounter Care Teams Joinery Machinist Relationship Specialty Start Date End Date Isrrael Mejia MD [facility] [address] [place] [address] PCP - General Emergency Medicine 09/27/16 Regina Vizcaino APRN CAFETERIA OPERATOR [address] [facility] [id number] [place] [address] Nurse Practitioner Nurse Practitioner 06/23/16 Bette Fowler, INDIRA Nurse Coordinator Neurology 07/26/16 06/10/18 Rebeka Lomeli RN Nurse Coordinator Neurology 07/28/16 04/17/19 Candido Arzola MD [facility] [address] [place] [address] Anesthesiology 08/15/17 Jonelle Puckett MD [facility] [address] [place] [address] Referring Physician 06/08/18 Burton Gastelum MD [facility] [address] [place] [address] Ophthalmology 06/08/18 documented as of this encounter
--- OUTSIDE RECORDS SUMMARY | 2024-03-20 09:37 | XMS_ITS | Encounter Summary ---
Author Organization [facility] Address [address] [place] [address] Care Team Providers Care Geotechnicial Properties Technician Name Role Phone Regina Vizcaino APRN DRUG ABUSE PROGRAM COORDINATOR Unavaila ble Isrrael Mejia MD Primary Care Provider Candido Arzola MD Unavailable [phone] Jonelle Puckett MD Unavailable [phone] Burton Gastelum MD Unavailable Encounter Details Date Type Department Care Team (Late st Contact Info) Description 12/19/2019 [facility] [address] [place] [address] Candido Arzola MD [address] [place] [address] Social History Tobacco Use Types Packs/Day Years Used Date Smoking Tobacco: Never Smokeless Tobacco: Never Alcohol Use Standard Drinks/Week Comments Yes 0 (1 standard drink = 0.6 oz pur e alcohol) one drink per month PHQ-2 Answer Date Recorded PHQ-2 Score 4 11/26/2019 Sex and Gender Information Value Date Recorded Sex Assigned at Male 12/18/2021 3:52 PM LOGISTICS INTERN Gender Identity Male 12/18/2021 3:52 PM LOGISTICS INTERN Sexual Orientation Straight 12/18/2021 3: 52 PM LOGISTICS INTERN documented as of this encounter Plan of Treatment Not on file documented as of this encounter Visit Diagnoses Not on filedocumented in this encounter Additional Health Concerns Assessment Noted Time PHQ-9 Depression Total Score: 10 020 1:39 PM LOGISTICS INTERN documented as of this encounter Care Teams Geotechnicial Properties Technician Relationship Specialty Start Date End Date Isrrael Mejia MD [facility] [address] [place] [address] PCP - General Emergency Medicine 09/27/16 Regina Vizcaino APRN DRUG ABUSE PROGRAM COORDINATOR [address] [facility] [place] [id number] [place] [address] Nurse Practitioner Nurse Practitioner 06/23/16 Candido Arzola MD [facility] [address] [place] [address] Anesthesiology 08/15/17 Jonelle Puckett MD [facility] [address] [place] [address] Referring Physician 06/08/18 Burton Gastelum MD [facility] [address] [place] [address] Ophthalmology 06/08/18 documented as of this encounter
--- OUTSIDE RECORDS SUMMARY | 2024-03-20 09:37 | XMS_ITS | Encounter Summary ---
Author Organization [place] Address [address] [place] [address] Care Team Providers Care Software Development Advisor Name Role Phone Regina Vizcaino APRN FERRIS WHEEL OPERATOR Unavaila ble Bette Fowler RN Unavailable Rebeka Lomeli RN Unavailable [phone] Isrrael Mejia MD Primary Care Provider Candido Arzola MD Unavailable [phone] Jonelle Puckett MD Unavailable [phone] Burton Gastelum MD Unavailable [phone] Encounter Details Date Type Department Care Team (Late st Contact Info) Description 07/25/2017 [facility] [address] [place] [address] Candido Arzola MD [address] [place] [address] Social History Tobacco Use Types Packs/Day Years Used Date Smoking Tobacco: Never Smokeless Tobacco: Never Alcohol Use Standard Drinks/Week Comments Yes 0 (1 standard drink = 0.6 oz pur e alcohol) 1-2 beers a month Sex and Gender Information Value Date Recorded Sex Assigned at Male 12/18/2021 3:52 PM THEATRE ARTS PROFESSOR Gender Identity Male 12/18/2021 3:52 PM THEATRE ARTS PROFESSOR Sexual Orientation Straight 12/18/2021 3: 52 PM THEATRE ARTS PROFESSOR documented as of this encounter Plan of Treatment Not on file documented as of this encounter Visit Diagnoses Not on filedocumented in this encounter Care Teams Software Development Advisor Relationship Specialty Start Date End Date Isrrael Mejia MD [facility] [address] [place] [address] PCP - General Emergency Medicine 09/27/16 Regina Vizcaino APRN FERRIS WHEEL OPERATOR [address] [facility] [id number] [place] [address] Nurse Practitioner Nurse Practitioner 06/23/16 Bette Fowler, INDIRA Nurse Coordinator Neurology 07/26/16 06/10/18 Rebeka Lomeli RN Nurse Coordinator Neurology 07/28/16 04/17/19 Candido Arzola MD [facility] [address] [place] [address] Anesthesiology 08/15/17 Jonelle Puckett MD [facility] [address] [place] [address] Referring Physician 06/08/18 Burton Gastelum MD [facility] [address] [place] [address] Ophthalmology 06/08/18 documented as of this encounter
--- OUTSIDE RECORDS SUMMARY | 2024-03-20 09:37 | XMS_ITS | Clinical Summary ---
Author Organization [facility] Address [address] [place] [address] Care Team Providers Care Cable Television Access Coordinator Name Role Phone Regina Vizcaino APRN SOCIAL SERVICE AGENCY DIRECTOR Unavaila ble Isrrael Mejia MD Primary Care Provider Candido Arzola MD Unavailable [phone] Jonelle Puckett MD Unavailable [phone] Burton Gastelum MD Unavailable [phone] Allergies Active Allergy Reactions Criticality Noted Date Comments Amoxicillin Unknown 07/28/2016 Other reaction(s): Unknown Clavulanic Acid 06/01/2017 Other reaction(s): Unknown Onion Headache,Nausea 12/14/2022 Medications Medication Sig Dispensed Refills Start Date End Date Status gabapentin (NEURONTIN) 600 MG tablet Take 900 mg by mouth 3 times daily Active tiZANidine (ZANAFLEX) 2 MG tablet Take 4 mg by mouth nightly as needed for muscle spasms (for sleeping) Active psyllium (METAMUCIL/KONSYL) Packet Take 1 packet by mouth daily as needed for constipation Active Multiple Vitamin (MULTIVITAMIN ADULT PO) Take by mouth daily Active cholestyramine (QUESTRAN) 4 GM/DOSE powder Take 4 g by mouth 2 times daily as needed Active senna-docusate (SENOKOT-S/PERICOLA CE) 8.6-50 MG tabletIndications: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 Take 1 tablet (10 mg) by mouth every 6 hours as needed for itching or anxiety (with pain, moderate pain) 30 tablet 01/09/2023 Active apixaban ANTICOAGULANT (ELIQUIS) 5 MG tabletIndications:O rtho post-op DVT Prophylaxis Take 1 tablet (5 mg) by mouth 2 times daily 60 tablet 01/10/2023 Active Active Problems Problem Noted Date Diagnosed Date Prostate cancer 09/27/2016 Resolved Problems Problem Noted Date Diagnosed Date Resolved Date Cervicalgia 06/25/2018 09/28/2018 Tension headache 06/25/2018 09/28/2018 Family History Medical History Relation Comments Other Cancer Brother brain Colon Cancer Mother colon Relation Status Comments Brother Mother Social History Tobacco Use Types Packs/Day Years Used Date Smoking Tobacco: Never Smokeless Tobacco: Never Tobacco Cessation:Counseling Given: Not Answered Alcohol Use Standard Drinks/Week Comments Yes 0 (1 standard drink = 0.6 oz pur e alcohol) one drink per month PHQ-2 Answer Date Recorded PHQ-2 Score 4 11/26/2019 Adolescent Education Answer Date Record ed Getting School Help Needed Not on file 07/31 Sex and Gender Information Value Date Recorded Sex Assigned at Male 12/18/2021 3:52 PM BONER MEAT Gender Identity Male 12/18/2021 3:52 PM BONER MEAT Sexual Orientation Straight 12/18/2021 3: 52 PM BONER MEAT Last Filed Vital Signs Vital Sign Reading Time Taken Comments Blood Pressure 103/53 01/10/2023 7:49 AM CDT Pulse 62 01/10/2023 7:49 AM CDT Temperature 37.2 ??C (98.9 ??F) 01/10/2023 7:49 AM CD T Respiratory Rate 14 01/10/2023 7:49 AM CDT Oxygen Saturation 94% 01/10/2023 7:49 AM CDT Inhaled Oxygen Concentration - - Weight 87.5 kg (192 lb 12.8 oz) 01/09/2023 5:36 AM CDT Height 180 cm (5' 10.87) 01/09/2023 5:36 AM CDT Body Mass Index 26.99 01/09/2023 5:36 AM CDT Plan of Treatment Health Maintenance Due Date Last Done Comments ADVANCE CARE PLANNING 1950 ANNUAL REVIEW OF HM ORDERS 1949 CT COLONOGRAPHY 1949 FIT 1949 FLEX SIG 1949 sDNA (Cologuard) 1949 COLONOSCOPY 1959 COLORECTAL CANCER SCREENING 1959 HEPATITIS C SCREENING 1967 LIPID 1989 RSV VACCINE ( & 60+) (1 - 1-dose 60+ series) 2009 MEDICARE ANNUAL WELLNESS VISIT 2014 ZOSTER IMMUNIZATION (3 of 3) 08/11/2015 06/16/2015, 06/16/2015 FALL RISK ASSESSMENT 06/20/2019 06/20/2018 IPV IMMUNIZATION (2 of 3 - Adult catch-up series) 03/23/2023 02/23/2023 COVID-19 Vaccine ( season) 2023 07/18/2022, 07/18/2022, 02/02/2022, Additional history exists PHQ-2 (once per calendar year) 2023 11/26/2019, 11/26/2019, 02/12/2018, Additional history exists INFLUENZA VACCINE (Season Ended) 2024 07/18/2022, 07/18/2022, 07/13/2021, Additional history exists GLUCOSE 01/10/2026 01/10/2023, 12/28, 09/28/2016 DTAP/TDAP/TD IMMUNIZATION (3 - Td or Tdap) 02/23/2033 02/23/2023, 09/08/2016 Pneumococcal Vaccine: 65+ Years Completed 08/05/2020, 11/19/2015 MENINGITIS IMMUNIZATION Aged Out 04/21/2023, 02/20 No longer eligible based on patient's age to complete this topic HPV IMMUNIZATION Aged Out No longer e ligible based on patient's age to complete this topic RSV MONOCLONAL ANTIBODY Aged Out No l onger eligible based on patient's age to complete this topic Goals Goal Patient Goal Type Associated Problems Recent Progress Patient-Stated? Author Total Joint Replacement Hip Pathway Care Plan Total Joint Replacement Hip Pathway No Dinora [employer] Devices Implanted Type Area Division Plant Engineer Device Identifier Shelf Expiration Date Model / Serial / Lot Bone Cement Simplex Full Dose 6191-1-001 - [id number] Implanted:Qty: 2 on 01/09/2023 by Prasad Sousa MD at [facility] Cement, Bone Right: Hip PER ORTHOPEDICS [id number] 03/29/2025 6191-1-001 / / [id number] Bone Cement Restrictor Gavin Femoral 18.5mm [id number] - [id number] Implanted:Qty: 1 on 01/09/2023 by Prasad Sousa MD at [facility] Cement, Bone Right: Hip [employer]-R [id number] 09/15/2032 [id number] / / [id number] Imp Scr Zim 6.5x35mm Acet Cup Self Tap 68-5426-654-35 - [id number] Implanted:Qty: 1 on 01/09/2023 by Prasad Sousa MD at [facility] Metallic Hardware/An chor Right: Hip [employer] [id number] 09/03/20326250-065 -35 / / [id number] Screw Bone Self Tap 6.5 X 25 57-5111-390-25 - [id number] Implanted:Qty: 1 on 01/09/2023 by Prasad Sousa MD at [facility] Metallic Hardware/An chor Right: Hip [employer] [id number] 03/08/2031-6250-065 -25 / / [id number] Imp Shell Biom G7 Acetab Pps Vines Hole 58mm Sz G [id number] - [id number] Implanted:Qty: 1 on 01/09/2023 by Prasad Sousa MD at [facility] Total Joint Component/I nsert Right: Hip [employer] [id number] 01/12/2032 [id number] / / [id number] Liner G7 Dual Mobility 46mm G - [id number] Implanted:Qty: 1 on 01/09/2023 by Prasad Sousa MD at [facility] Total Joint Component/I nsert Right: Hip [employer] [id number] 09/30/2032 [id number] / / [id number] Imp Stem Femoral Zim Versys Heritage 11-8186-223-00 - [id number] Implanted:Qty: 1 on 01/09/2023 by Praasd Sousa MD at [facility] Total Joint Component/I nsert Right: Hip [employer] [id number] 07/09/20327857-013 - / / [id number] Imp Centralizer Distal Zim Versys [id number] Implanted:Qty: 1 on 01/09/2023 by Prasad Sousa MD at [facility] Total Joint Component/I nsert Right: Hip [employer] [id number] 11/01/2027-7859-011 - / / [id number] Bearing Hip 46mm 28mm G Vivacit-E Lum Strl Lf [id number] - [id number] Implanted:Qty: 1 on 01/09/2023 by Prasad Sousa MD at [facility] Total Joint Component/I nsert Right: Hip [employer] [id number] 10/06/2027 [id number] / / [id number] Biolox?? Head, 28/+7??, Taper12/14 Implanted:Qty: 1 on 01/09/2023 by Prasad Sousa MD at [facility] Right: Hip [id number] 09/22/2031 00-8777-028 -04 / / [id number] Procedures Procedure Name Priority Date/Time Associated Diagnosis Comments GLUCOSE Timed 01/10/2023 2:56 AM CDT from Last 3 Months or Most Recently Relevant to Health Maintenance Results * (ABNORMAL) Glucose (01/10/2023 2:56 AM CDT) Glucose 135(H) 70 - 99 mg/dL 01/10/2023 3:32 AM CDT [facility] Patient Fasting > 8hrs? Unknown 01/10/2023 3:32 AM CDT [facility] Blood STRUCTURE OF LEFT UPPER LIMB / Unknown Venipuncture / Unknown 01/10/2023 2:56 AM CDT 01/10/2023 3:12 AM CDT Huy Johnson MD LAB - BLOOD [facility] [address] Lab (1st floor, no room number) [place] [address] [phone] from Last 3 Months or Most Recently Relevant to Health Maintenance Additional Health Concerns Active Problems Noted Date Diagnosed Date 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 Advance Directives For more information, please contact: [phone] * Full Code (Latest Code Status on File) Date Activated Date Inactivated Comments 01/09/2023 10:52 AM 01/10/2023 12:37 PM All basic and advanced life-sustaining interventions are performed as appropriate Question Answer Comments Code status determined by: Unable to dis cuss and no AD/POLST on file; continue PREVIOUSLY ORDERED code status * Full Code Date Activated Date Inactivated Comments 09/27/2016 7:53 PM 09/28/2016 5:53 PM Care Teams Cable Television Access Coordinator Relationship Specialty Start Date End Date Isrrael Mejia MD [facility] [address] [place] [address] PCP - General Emergency Medicine 09/27/16 Regina Vizcaino APRN SOCIAL SERVICE AGENCY DIRECTOR [address] [place], [place] [address] [address] Nurse Practitioner Nurse Practitioner 06/23/16 Candido Arzola MD [facility] [address] [place] [address] Anesthesiology 08/15/17 Jonelle Puckett MD [facility] [address] [place] [address] Referring Physician 06/08/18 Burton Gastelum MD [facility] [address] [place] [address] Ophthalmology 06/08/18
--- OUTSIDE RECORDS SUMMARY | 2024-03-20 09:37 | XMS_ITS | Encounter Summary ---
Author Organization [facility] Address [address] [place] [address] Care Team Providers Care Senior Executive Compensation Analyst Name Role Phone Regina Vizcaino APRN SCIENCE CONSULTANT Unavaila ble Isrrael Mejia MD Primary Care Provider Candido Arzola MD Unavailable Jonelle Puckett MD Unavailable [phone] Burton Gastelum MD Unavailable [phone] Encounter Details Date Type Department Care Team (Late st Contact Info) Description 12/03/2019 MyC Medical Advice [facility] [address] [place] [address] Candido Arzola MD [address] [place] [address] Social History Tobacco Use Types Packs/Day Years Used Date Smoking Tobacco: Never Smokeless Tobacco: Never Alcohol Use Standard Drinks/Week Comments Yes 0 (1 standard drink = 0.6 oz pur e alcohol) one drink per month PHQ-2 Answer Date Recorded PHQ-2 Score 4 11/26/2019 Sex and Gender Information Value Date Recorded Sex Assigned at Male 12/18/2021 3:52 PM PACKING SUPERVISOR Gender Identity Male 12/18/2021 3:52 PM PACKING SUPERVISOR Sexual Orientation Straight 12/18/2021 3: 52 PM PACKING SUPERVISOR documented as of this encounter Plan of Treatment Not on file documented as of this encounter Visit Diagnoses Not on filedocumented in this encounter Additional Health Concerns Assessment Noted Time PHQ-9 Depression Total Score: 10 020 1:39 PM PACKING SUPERVISOR documented as of this encounter Care Teams Senior Executive Compensation Analyst Relationship Specialty Start Date End Date Isrrael Mejia MD [facility] [address] [place] [address] PCP - General Emergency Medicine 09/27/16 Regina Vizcaino APRN SCIENCE CONSULTANT [address] [facility] [id number] [place] [address] Nurse Practitioner Nurse Practitioner 06/23/16 Candido Arzola MD [facility] [address] [place] [address] Anesthesiology 08/15/17 Jonelle Puckett MD [facility] [address] [place] [address] Referring Physician 06/08/18 Burton Gastelum MD [facility] [address] [place] [address] Ophthalmology 06/08/18 documented as of this encounter
--- OUTSIDE RECORDS SUMMARY | 2024-03-20 09:37 | XMS_ITS | Encounter Summary ---
Author Organization [facility] Address [address] [place] [address]. [place] [address] Care Team Providers Care Cancellation Clerk Name Role Phone Regina Vizcaino APRN MANUFACTURING ENGINEER CHIEF Unavaila ble Rebeka Lomeli RN Unavailable [phone] Isrrael Mejia MD Primary Care Provider Candido Arzola MD Unavailable [phone] Jonelle Puckett MD Unavailable [phone] Burton Gastelum MD Unavailable [phone] Reason for Visit * Reason Onset Date Comments Call Back 06/25/2018 Occipital Nerve Block Injection Encounter Details Date Type Department Care Team (Late st Contact Info) Description 06/25/2018 Telephone [facility] [address] 9[facility] [address] [place] [id number] Burton Gastelum MD [address] [place] [id number] Call Back (Occipital Nerve Block Injection) Social History Tobacco Use Types Packs/Day Years Used Date Smoking Tobacco: Never Smokeless Tobacco: Never Alcohol Use Standard Drinks/Week Comments Yes 0 (1 standard drink = 0.6 oz pur e alcohol) 1-2 beers a month Sex and Gender Information Value Date Recorded Sex Assigned at Male 12/18/2021 3:52 PM CHIEF INFORMATION SECURITY OFFICER Gender Identity Male 12/18/2021 3:52 PM CHIEF INFORMATION SECURITY OFFICER Sexual Orientation Straight 12/18/2021 3: 52 PM CHIEF INFORMATION SECURITY OFFICER documented as of this encounter Miscellaneous Notes * Telephone Encounter - Leilani Yun - 06/25/2018 9:28 AM CDT [facility] Phone Message May a detailed message be left on voicemail: yes Reason for Call: Other: Patient decided to cancel 06/27 visit for Occipital Nerve Block Injection. Patient needs a call to reschedule as Injection Type is not listed as one Call Center can reschedule.Please follow-up with patient. Patient hoping to be seen late June. Action Taken: Message routed to: [facility] eye documented in this encounter Plan of Treatment Not on file documented as of this encounter Visit Diagnoses Not on filedocumented in this encounter Additional Health Concerns Assessment Noted Time PHQ-9 Depression Total Score: 9 02/11/20 18 7:37 AM CDT documented as of this encounter Care Teams Cancellation Clerk Relationship Specialty Start Date End Date Isrrael Mejia MD [facility] [address] [place] [address] PCP - General Emergency Medicine 09/27/16 Regina Vizcaino APRN MANUFACTURING ENGINEER CHIEF 9 [facility], [place] [address] Nurse Practitioner Nurse Practitioner 06/23/16 Rebeka Lomeli, INDIRA Nurse Coordinator Neurology 07/28/16 04/17/19 Candido Arzola MD [facility] [address] [place] [address] Anesthesiology 08/15/17 Jonelle Puckett MD [facility] [address] [place] [address] Referring Physician 06/08/18 Burton Gastelum MD [facility] [address] [place] [address] Ophthalmology 06/08/18 documented as of this encounter
--- OUTSIDE RECORDS SUMMARY | 2024-03-20 09:37 | XMS_ITS | Referral Summary ---
Author Organization [facility] Address [address] [place] [address] Care Team Providers Care Supervisor Electron Tube Processing Name Role Phone Regina Vizcaino APRN INFORMATION ENGINEER Unavaila ble Isrrael Mejia MD Primary Care Provider Candido Arzola MD Unavailable [phone] Jonelle Puckett MD Unavailable [phone] Burton Gastelum MD Unavailable [phone] Allergies Active Allergy Reactions Criticality Noted [...] Cervicalgia 06/25/2018 09/28/2018 Tension headache 06/25/2018 09/28/2018 Social History Tobacco Use Types Packs/Day Years [...] Sex Assigned at Male 12/18/2021 3:52 PM PSYCHIATRIC ASSISTANT Gender Identity Male 12/18/2021 3:52 PM PSYCHIATRIC ASSISTANT Sexual Orientation Straight 12/18/2021 3: 52 PM PSYCHIATRIC ASSISTANT Last Filed Vital Signs Vital Sign Reading [...] 01/09/2023 5:36 AM CDT Plan of Treatment Not on file Goals Goal Patient Goal Type Associated Problems Recent Progress Patient-Stated? Author Total Joint Replacement Hip Pathway Care Plan Total Joint Replacement Hip Pathway No Crawford [employer] M Medical Devices Implanted Type Area Cloud Administrator Device Identifier Shelf Expiration Date Model / Serial / Lot Bone Cement Simplex Full Dose 6191-1-001 - [id number] Implanted:Qty: 2 on 01/09/2023 by Prasad Sousa MD at [facility] Cement, Bone Right: Hip PER ORTHOPEDICS [id number] 03/29/2025 6191-1-001 / / [id number] Bone Cement Restrictor Gavin Femoral 18.5mm [id number] - [id number] Implanted:Qty: 1 on 01/09/2023 by Prasad Sousa MD at [facility] Cement, Bone Right: Hip [employer]-R [id number] 09/15/2032 [id number] / / [id number] Imp Scr Zim 6.5x35mm Acet Cup Self Tap 03-0250-105-35 - [id number] Implanted:Qty: 1 on 01/09/2023 by Prasad Sousa MD at [facility] Metallic Hardware/An chor Right: Hip [employer] [id number] 09/03/2032-6250-065 -35 / / [id number] Screw Bone Self Tap 6.5 X 25 06-9915-098-25 - [id number] Implanted:Qty: 1 on 01/09/2023 by Prasad Sousa MD at [facility] Metallic Hardware/An chor Right: Hip [employer] [id number] 03/08/20316250-065 -25 / / [id number] Imp Shell Biom G7 Acetab Pps Vines Hole 58mm Sz G [id number] - [id number] Implanted:Qty: 1 on 01/09/2023 by Prasad Sousa MD at [facility] Total Joint Component/I nsert Right: Hip [employer] [id number] 01/12/2032 [id number] / / [id number] Liner G7 Dual Mobility 46mm G - [id number] Implanted:Qty: 1 on 01/09/2023 by Prasad Sousa MD at [facility] Total Joint Component/I nsert Right: Hip [employer] [id number] 09/30/2032 [id number] / / [id number] Imp Stem Femoral Zim Versys Heritage 15-9699-257-00 - [id number] Implanted:Qty: 1 on 01/09/2023 by Prasad Sousa MD at [facility] Total Joint Component/I nsert Right: Hip [employer] [id number] 07/09/2032-7857-013 -00 / / [id number] Imp Centralizer Distal Zim Versys [id number] Implanted:Qty: 1 on 01/09/2023 by Prasad Sousa MD at [facility] Total Joint Component/I nsert Right: Hip [employer] [id number] 11/01/2027-7859-011 -00 / / [id number] Bearing Hip 46mm 28mm G Vivacit-E Lum Strl Lf [id number] - [id number] Implanted:Qty: 1 on 01/09/2023 by Prasad Sousa MD at [facility] Total Joint Component/I nsert Right: Hip [employer] [id number] 10/06/2027 [id number] / / [id number] Biolox?? Head, 28/+7??, Taper12/14 Implanted:Qty: 1 on 01/09/2023 by Prasad Sousa MD at [facility] Right: Hip [id number] 09/22/2031 00-8777-028 -04 [id number] Procedures Procedure Name Priority Date/Time Associated Diagnosis Comments GLUCOSE Timed 01/10/2023 2:56 AM CDT from Last 3 Months or Most Recently Relevant to Health Maintenance Results * (ABNORMAL) Glucose (01/10/2023 2:56 AM CDT) Glucose 135(H) 70 - 99 mg/dL 01/10/2023 3:32 AM CDT [facility] Patient Fasting > 8hrs? Unknown 01/10/2023 3:32 AM CDT LABORATORY Blood STRUCTURE OF LEFT UPPER LIMB / Unknown Venipuncture / Unknown 01/10/2023 2:56 AM CDT 01/10/2023 3:12 AM CDT Huy Johnson MD LAB - BLOOD [facility] Address City/State/ZIP Co de Phone Number [facility] Acute Care Lab [address] Lab (1st floor, no room number) [place] [address], [facility] [phone] from Last 3 Months or Most Recently Relevant to Health Maintenance Additional Health Concerns Active Problems Noted Date Diagnosed Date 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 Advance Directives For more information, please contact: [phone] * Full Code (Latest Code Status on [...] 7:53 PM 09/28/2016 5:53 PM Care Teams Supervisor Electron Tube Processing Relationship Specialty Start Date End Date Isrrael Mejia MD [facility] [address] [place] [address] PCP - General Emergency Medicine 09/27/16 Regina Vizcaino APRN INFORMATION ENGINEER [address] [place], [place] [address] [address] Nurse Practitioner Nurse Practitioner 06/23/16 Candido Arzola MD [facility] [address] [place] [address] Anesthesiology 08/15/17 Jonelle Puckett MD [facility] [address] [place] [address] Referring Physician 06/08/18 Burton Gastelum MD [facility] [address] [place] [address] Ophthalmology 06/08/18
--- OUTSIDE RECORDS SUMMARY | 2024-03-20 09:37 | XMS_ITS | Encounter Summary ---
Author Organization [place] Address [address] [place] [address] Care Team Providers Care General Claims Agent Name Role Phone Regina Vizcaino APRN REPRODUCTIVE SURGEON Unavaila ble Bette Fowler RN Unavailable Rebeka Lomeli RN Unavailable [phone] Isrrael Mejia MD Primary Care Provider Candido Arzola MD Unavailable [phone] Jonelle Puckett MD Unavailable [phone] Burton Gastelum MD Unavailable [phone] Encounter Details Date Type Department Care Team (Late st Contact Info) Description 03/06/2018 MyC Medical Advice Initial Department [facility] Social History Tobacco Use Types Packs/Day Years Used Date Smoking Tobacco: Never Smokeless Tobacco: Never Alcohol Use Standard Drinks/Week Comments Yes 0 (1 standard drink = 0.6 oz pur e alcohol) 1-2 beers a month Sex and Gender Information Value Date Recorded Sex Assigned at Male 12/18/2021 3:52 PM ELECTRONIC COMPONENTS ASSEMBLER Gender Identity Male 12/18/2021 3:52 PM ELECTRONIC COMPONENTS ASSEMBLER Sexual Orientation Straight 12/18/2021 3: 52 PM ELECTRONIC COMPONENTS ASSEMBLER documented as of this encounter Plan of Treatment Not on file documented as of this encounter Visit Diagnoses Not on filedocumented in this encounter Additional Health Concerns Assessment Noted Time PHQ-9 Depression Total Score: 9 02/11/20 18 7:37 AM CDT documented as of this encounter Care Teams General Claims Agent Relationship Specialty Start Date End Date Isrrael Mejia MD [facility] [address] [place] [address] PCP - General Emergency Medicine 09/27/16 Regina Vizcaino APRN REPRODUCTIVE SURGEON [address] [facility] [address] Nurse Practitioner Nurse Practitioner 06/23/16 Bette Fowler, RN Nurse Coordinator Neurology 07/26/16 06/10/18 Rebeka Lomeli, RN Nurse Coordinator Neurology 07/28/16 04/17/19 Candido Arzola MD [facility] [address] [place] [address] Anesthesiology 08/15/17 Jonelle Puckett MD [facility] [address] [place] [address] Referring Physician 06/08/18 Burton Gastelum MD [facility] [address] [place] [address] Ophthalmology 06/08/18 documented as of this encounter
[2024-03-20 09:53] LABS: Basophils Absolute Auto 0.09 K/uL (0.00-0.30); Basophils Percent Auto 1.5 % (0.0-3.0); Eosinophils Absolute Auto 0.19 K/uL (0.00-0.50); Eosinophils Percent Auto 3.1 % (0.0-7.0); Hematocrit 47.5 % (37.0-53.0); Hemoglobin* 15.1 gm/dL (13.5-17.5); Lymphocytes Absolute Auto 1.77 K/uL (0.90-2.90); Lymphocytes Percent Auto 29.1 % (20-44); Mean Corpuscular HGB Conc 32 gm/dL (32-36); Mean Corpuscular Hemoglobin 31 pg (26-34); Mean Corpuscular Volume 96 fL (80-100); Neutrophils Absolute Auto 3.48 K/uL (1.7-7.0); Neutrophils Percent Auto 57.3 % (42.0-72.0); Platelet Count* 384 K/uL (140-440); RDW Coefficient of Variation % 13.5 % (11.5-15.5); Red Blood Count 4.94 m/uL (4.30-5.90); White Blood Count* 6.08 K/uL (4.50-11.00)
[2024-03-20 09:57] LABS: Slide Review Reflex No
[2024-03-20 10:10] LABS: Albumin* 4.9 g/dL (3.3-5.0); Chloride* 105 mmol/L (96-114)
[2024-03-20 10:11] LABS: Potassium* 4.2 mmol/L (3.6-5.1); Sodium* 139 mmol/L (135-149)
[2024-03-20 10:13] LABS: Anion Gap 6 mEq/L (7-15); Bilirubin Total* 1.8 mg/dL (0.1-1.5); Carbon Dioxide* 28 mmol/L (20-32); Estimated Glomerular Filt Rate 79 ml/min
[2024-03-20 10:14] LABS: Alanine Aminotransferase* 27 U/L (4-50); Alkaline Phosphatase* 114 U/L (40-150); Aspartate Amino Transferase* 31 U/L (12-35); Blood Urea Nitrogen* 16 mg/dL (7-30); Calcium* 9.4 mg/dL (8.4-10.6); Glucose* 89 mg/dL (60-115); Total Protein* 8.6 g/dL (6.0-8.3)
[2024-03-23 10:09] LABS: Serotonin, Serum 232 ng/mL (50-220)
== END 2024-03-20 09:33 | disposition home or self-care (01) ==
LOC: LAB 09:33
PROVIDERS: PCP Internal Medicine; Visit Provider Internal Medicine Hematology & Oncology
DX: C7B.02 Secondary carcinoid tumors of liver (principal)
CPT/HCPCS: 36415; 80053; 84260; 85025; 86316

== ENCOUNTER 2024-04-01 09:14 | Outpatient (CLI) | payer MEDICARE, BC, SELFPAY ==
--- OUTSIDE RECORDS SUMMARY | 2024-04-01 09:17 | XMS_ITS | Data Portability ---
Author Organization [facility], [facility] Address [address] [facility] [address] [place] [address] Care Team Providers Care Marine Fireman Name Role Phone PREMBETO MONTOYA Primary Care [...] voided, per void, at night and will [place] back with him regarding the nocturia once [...] noted some occ drips; Nikita Foote MD [address] [place] [address],[address], [address], [facility] 03/17/2022 12:24:31 Problem Notes None recorded. Procedures Surgical History Date Name Laterality Status Provider Name and Address Organization Details Recorded Time 0 lumbar spinal fusion completed Nikita Foote MD [address] [place] [address],[address], [address], [facility] 03/17/2022 12:21:32 8 Colonoscopy completed Nikita Foote MD [address] [place] [address], [phone], [facility] 03/17/2022 12:20:07 Imaging Results None recorded. Procedure Notes None recorded. Medical Equipment None Reported. Allergies Allergen ID Allergen Name Allergen Category Reaction Reaction Severity Criticality Documentation Date Start Date Code Code System Note Provider Name and Address Organization Details Recorded Time 139484 amoxicill in medicatio n Not available Not available Not available 04/16/20202015 723 RxNorm Not Available [facility] 0 00:47:35 Medications Name Sig [...] Updated DateTime 05/13/2020 180.34 cm 27.2 kg/m2 92051.51 g Joyce Weaver [facility] 05/13/2020 10:07:37 Date Recorded Body height Body mass index (BMI) Body weight Provider Name and Address Organization Details Last Updated DateTime 03/17/2022 180.34 cm 27.2 kg/m2 79113.51 g Nikita Foote MD [address] [facility] [address] [place], [address] 03/17/2022 12:18:26 Social History Question Answer Notes LastModified by Organizat ion Details LastModified Time Tobacco Smoking Status Never Smoker Joyce mederos [facility] 05/13/2020 09:45:00 What Was The Date Of [...] pneumococcal polysaccharide PPV23 08/05/2020 completed Nena mederos [facility] 10/26/2020 16:18:41 Past Encounters Encounter ID Performer Location Encounter Start Date Encounter Closed Date Diagnosis/Indication Diagnosis SNOMED-CT Code [id number] [facility] [address] [place] [id number] 05/13/2020 09:31:49 05/14/2020 13:31:10 Malignant tumor of prostate 805535993 Nocturia [id number] Nikita Foote MD [facility] [address] [id number] 03/17/2022 11:47:05 03/18/2022 10:45:37 Malignant tumor of prostate 638709001 Nocturia 741282456 Skin tag [id number] Health Concerns Section Related Observation LastModified by Organization Detai ls LastModified Time None Recorded Concern Status LastModified by Organization Details LastModified Time None Recorded Advance Directives Directive None Recorded Payers Encounter Date Sequence Insurance Name Policy Number Policy Hay Covered Member ID Hay Member ID Guarantor Name 03/17/2022 1 [facility] [id number] Hector Nathan [id number] Hector Nathan 05/13/2020 1 [facility] [id number] Hector Nathan [id number] Hector Nathan Notes Date Note Type Note [...] Having back surgery in 30 days at [facility] This visit was conducted using [employer] video conferencing technology due to the COVID-19 [...] and coordinate their care. [place] [facility] 05/13/2020 12:11:08 03/17/2022 text/html HPI Notes: [...] of the penis. Nikita Foote MD [address] [facility], [place], [address], [facility] 03/17/2022 12:38:26
--- OUTSIDE RECORDS SUMMARY | 2024-04-01 09:17 | XMS_ITS | Clinical Summary ---
Author Organization [facility] Address [place], [place] [address] Care Team Providers Care Ticketing Clerk Name Role Phone Isrrael Mejia MD Primary Care Provider [facility] [place] Unavailable February, Traci Sneed RN, BSN Unavailable [phone] Allergies Active Allergy Reactions Criticality Noted [...] 03/28/2023 Delirium 06/24/2020 06/24/2020 Agitation 06/24/2020 06/24/2020 Immunizations Name Administration Dates Next Due COVID-19 vaccine (Moderna 100mcg/0.5mL) PF, MDV 02/02/2022,08/20/2021,01/12/2021, 0 21 COVID-19 vaccine (Moderna 50mcg/0.5mL) 12YO+ BIVALENT PF, MDV 07/18/2022 HIB PRP-OMP (PedvaxHIB) 02/23/2023 Family History [...] 1961 Hepatitis C screening for ag e 18-04/16/1967 Zoster (shingles) series for age 50+ (1 [...] 65+ 06/30/2024 Medical Devices Implanted Type Area Adult High School Instructor Device Identifier Shelf Expiration Date Model / Serial / Lot [id number] 1-4mm 60cc Medtronic Fine Canclls Freeze Dried Implanted:Qty: 1 on 06/22/2020 by Joo Arellano MD at [facility] Explanted:at [facility] (Quantity not on file) Spine Medtronic Spine/Ortho 11/06/2024 [id number]# / [id number] / Screw Lmbr Post 7.5x45mm Solera 5.5/6 Va Cocr - [id number] Implanted:Qty: 3 on 06/22/2020 by Joo Arellano MD at [facility] Spine Medtronic Spine/Ortho [id number] 45# / / Screw Lmbr Post 7.5x50mm Solera 5.5/6 Va Cocr - [id number] Implanted:Qty: 4 on 06/22/2020 by Joo Arellano MD at [facility] Spine Medtronic Spine/Ortho [id number] 50# / / Screw Lmbr Post 7.5x55mm Solera 5.5/6 Va Cocr - [id number] Implanted:Qty: 3 on 06/22/2020 by Joo Arellano MD at [facility] Spine Medtronic Spine/Ortho [id number] 55# / / Adan Lmbr 500x5.5mm Solera 5.5/6 Cvd Co Cr - [id number] Implanted:Qty: 1 on 06/22/2020 by Joo Arellano MD at [facility] Spine Medtronic Spine/Ortho [id number]# / / Screw Lmbr 8.5x90mm Cd Horizon - [id number] Implanted:Qty: 1 on 06/22/2020 by Joo Arellano MD at [facility] Spine Medtronic Spine/Ortho [id number] 90# / / [id number] 1-4mm 60cc Medtronic Fine Canclls Freeze Dried Implanted:Qty: 1 on 06/22/2020 by Joo Arellano MD at [facility] Explanted:at [facility] (Quantity not on file) Spine Medtronic Spine/Ortho 11/07/2024 [id number]# / [id number] / [id number] 1-4mm 90cc Medtronic Chips Canclls Freeze Dried Implanted:Qty: 1 on 06/22/2020 by Joo Arellano MD at [facility] Explanted:at [facility] (Quantity not on file) Spine Medtronic Spine/Ortho 10/28/2024 [id number]# / [id number] / [id number] 6cc Dixon Dbf Putty Dbm Implanted:Qty: 1 on 06/22/2020 by Joo Arellano MD at [facility] Explanted:at [facility] (Quantity not on file) N/A: Spine Medtronic Spine/Ortho 09/17/2021 [id number] / [id number] / Spacer Lmbr Lg 14mm 8deg Perimeter Alif Peek - [id number] Implanted:Qty: 1 on 06/22/2020 by Joo Arellano MD at [facility] Spine Medtronic Spine/Ortho 04/15/2027 [id number]# / / [id number] Washer 17mm - [id number] Implanted:Qty: 1 on 06/22/2020 by Joo Arellano MD at [facility] Spine Medtronic Spine/Ortho [id number]# / / Screw Lmbr Ant 6.5x20mm Pyramid Plus Va - [id number] Implanted:Qty: 1 on 06/22/2020 by Joo Arellano MD at [facility] Spine Medtronic Spine/Ortho [id number]# / / Spacer Lmbr [id number] 10deg Transcontinental - [id number] Implanted:Qty: 3 on 06/22/2020 by Joo Arellano MD at [facility] Spine [employer] 375.271# / / Set Screw Lmbr Ant 5.5mm Solera Break Off - [id number] Implanted:Qty: 11 on 06/22/2020 by Joo Arellano MD at [facility] Spine Medtronic Spine/Ortho [id number]# / / Adhesion Barrier 5x6in Seprafilm Absorb - [id number] Implanted:Qty: 1 on 03/14/2023 by Wilber Zhang MBBS at [facility] N/A: Abdomen [employer] Inc 04/30/2025 [id number] / / [id number] Adhesion Barrier 3x5in Seprafilm Absorb Procedure Packs - [id number] Implanted:Qty: 2 on 03/14/2023 by Wilber Zhang MBBS at [facility] N/A: Abdomen [employer] 07/26/2025 [id number] / / [id number] Mesh Ventral 60 Seamguard Endo Meri Tri Blk - [id number] Implanted:Qty: 1 on 03/14/2023 by Wilber Zhang MBBS at [facility] N/A: Abdomen [employer] 01/17/2025 [id number] / / [id number] Advance Directives * Full Code (Latest Code [...] Code Status Discussion: Not Discussed Care Teams Ticketing Clerk Relationship Specialty Start Date End Date Isrrael Mejia MD [address] [place] [address] PCP - General Internal Medicine 06/09/[address] [address] 03/18/23February, Traci Sneed RN, BSN [address] [id number] Nurse Navigator - Oncology Oncology 05/23/23
--- OUTSIDE RECORDS SUMMARY | 2024-04-01 09:18 | XMS_ITS | Encounter Summary ---
Author Organization [place] Address [address] [place] [address] Care Team Providers Care Puffer Tender Name Role Phone Regina Vizcaino APRN HOT WALKER Unavaila ble Bette Fowler RN Unavailable Rebeka Lomeli RN Unavailable [phone] Isrrael Mejia MD Primary Care Provider Candido Arzola MD Unavailable [phone] Jonelle Puckett MD Unavailable [phone] Burton Gastelum MD Unavailable [phone] Encounter Details Date Type Department Care Team (Late st Contact Info) Description 03/06/2018 MyC Medical Advice Initial Department [facility] Social History Tobacco Use Types Packs/Day Years Used Date Smoking Tobacco: Never Smokeless Tobacco: Never Alcohol Use Standard Drinks/Week Comments Yes 0 (1 standard drink = 0.6 oz pur e alcohol) 1-2 beers a month Sex and Gender Information Value Date Recorded Sex Assigned at Male 12/18/2021 3:52 PM BIOMEDICAL INSTRUMENT TECHNICIAN Gender Identity Male 12/18/2021 3:52 PM BIOMEDICAL INSTRUMENT TECHNICIAN Sexual Orientation Straight 12/18/2021 3: 52 PM BIOMEDICAL INSTRUMENT TECHNICIAN documented as of this encounter Plan of Treatment Not on file documented as of this encounter Visit Diagnoses Not on filedocumented in this encounter Additional Health Concerns Assessment Noted Time PHQ-9 Depression Total Score: 9 02/11/20 18 7:37 AM CDT documented as of this encounter Care Teams Puffer Tender Relationship Specialty Start Date End Date Isrrael Mejia MD [facility] [address] [place] [address] PCP - General Emergency Medicine 09/27/16 Regina Vizcaino APRN HOT WALKER [address] [facility] [address] Nurse Practitioner Nurse Practitioner 06/23/16 Bette Fowler, RN Nurse Coordinator Neurology 07/26/16 06/10/18 Rebeka Lomeli, RN Nurse Coordinator Neurology 07/28/16 04/17/19 Candido Arzola MD [facility] [address] [place] [address] Anesthesiology 08/15/17 Jonelle Puckett MD [facility] [address] [place] [address] Referring Physician 06/08/18 Burton Gastelum MD [facility] [address] [place] [address] Ophthalmology 06/08/18 documented as of this encounter
--- OUTSIDE RECORDS SUMMARY | 2024-04-01 09:18 | XMS_ITS | Encounter Summary ---
Author Organization [facility] Address [address] [place] [address] Care Team Providers Care Jack Winder Name Role Phone Regina Vizcaino APRN ELECTRICAL ESTIMATOR Unavaila ble Bette Fowler RN Unavailable Rebeka Lomeli RN Unavailable [phone] Isrrael Mejia MD Primary Care Provider Candido Arzola MD Unavailable [phone] Jonelle Puckett MD Unavailable [phone] Burton Gastelum MD Unavailable [phone] Encounter Details Date Type Department Care Team (Late st Contact Info) Description 12/25/2017 [facility] [address] [place] [address] Candido Arzola MD [address] [place] [address] Social History Tobacco Use Types Packs/Day Years Used Date Smoking Tobacco: Never Smokeless Tobacco: Never Alcohol Use Standard Drinks/Week Comments Yes 0 (1 standard drink = 0.6 oz pur e alcohol) 1-2 beers a month Sex and Gender Information Value Date Recorded Sex Assigned at Male 12/18/2021 3:52 PM ORGANIC LAB WORKER Gender Identity Male 12/18/2021 3:52 PM ORGANIC LAB WORKER Sexual Orientation Straight 12/18/2021 3: 52 PM ORGANIC LAB WORKER documented as of this encounter Plan of Treatment Not on file documented as of this encounter Visit Diagnoses Not on filedocumented in this encounter Care Teams Jack Winder Relationship Specialty Start Date End Date Isrrael Mejia MD [facility] [address] [place] [address] PCP - General Emergency Medicine 09/27/16 Regina Vizcaino APRN ELECTRICAL ESTIMATOR [address] [facility] [id number] [place] [address] Nurse Practitioner Nurse Practitioner 06/23/16 Bette Fowler, INDIRA Nurse Coordinator Neurology 07/26/16 06/10/18 Rebeka Lomeli RN Nurse Coordinator Neurology 07/28/16 04/17/19 Candido Arzola MD [facility] [address] [place] [address] Anesthesiology 08/15/17 Jonelle Puckett MD [facility] [address] [place] [address] Referring Physician 06/08/18 Burton Gastelum MD [facility] [address] [place] [address] Ophthalmology 06/08/18 documented as of this encounter
--- OUTSIDE RECORDS SUMMARY | 2024-04-01 09:18 | XMS_ITS | Encounter Summary ---
Author Organization [place] [facility] Address [address] [place] [address] Care Team Providers Care Bonderite Operator Name Role Phone Regina Vizcaino APRN SUPERVISOR CONTINGENTS Unavaila ble Isrrael Mejia MD Primary Care Provider Candido Arzola MD Unavailable [phone] Jonelle Puckett MD Unavailable [phone] Burton Gastelum MD Unavailable [phone] Encounter Details Date Type Department Care Team (Late st Contact Info) Description 12/03/2019 MyC Medical Advice [facility] [address] [place] [address] Candido Arzola MD [address] [place] [address] Social History Tobacco Use Types Packs/Day Years Used Date Smoking Tobacco: Never Smokeless Tobacco: Never Alcohol Use Standard Drinks/Week Comments Yes 0 (1 standard drink = 0.6 oz pur e alcohol) one drink per month PHQ-2 Answer Date Recorded PHQ-2 Score 4 11/26/2019 Sex and Gender Information Value Date Recorded Sex Assigned at Male 12/18/2021 3:52 PM CORPORATE BOND TRADER Gender Identity Male 12/18/2021 3:52 PM CORPORATE BOND TRADER Sexual Orientation Straight 12/18/2021 3: 52 PM CORPORATE BOND TRADER documented as of this encounter Plan of Treatment Not on file documented as of this encounter Visit Diagnoses Not on filedocumented in this encounter Additional Health Concerns Assessment Noted Time PHQ-9 Depression Total Score: 10 020 1:39 PM CORPORATE BOND TRADER documented as of this encounter Care Teams Bonderite Operator Relationship Specialty Start Date End Date Isrrael Mejia MD [facility] [address] [place] [address] PCP - General Emergency Medicine 09/27/16 Regina Vizcaino APRN SUPERVISOR CONTINGENTS [address] [facility] [id number] [address] Nurse Practitioner Nurse Practitioner 06/23/16 Candido Arzola MD [facility] [address] [place] [address] Anesthesiology 08/15/17 Jonelle Puckett MD [facility] [address] [place] [address] Referring Physician 06/08/18 Burton Gastelum MD [facility] [address] [place] [address] Ophthalmology 06/08/18 documented as of this encounter
--- OUTSIDE RECORDS SUMMARY | 2024-04-01 09:18 | XMS_ITS | Encounter Summary ---
Author Organization [facility] Address [address] [place] [address] Care Team Providers Care Siebel Administrator Name Role Phone Regina Vizcaino APRN CALCINE FURNACE TENDER Unavaila ble Isrrael Mejia MD Primary Care Provider Candido Arzola MD Unavailable [phone] Jonelle Puckett MD Unavailable Burton Gastelum MD Unavailable [phone] Encounter Details Date Type Department Care Team (Late st Contact Info) Description 12/19/2019 [facility] [address] [place] [address] Candido Arzola MD [address] [place] [address] Social History Tobacco Use Types Packs/Day Years Used Date Smoking Tobacco: Never Smokeless Tobacco: Never Alcohol Use Standard Drinks/Week Comments Yes 0 (1 standard drink = 0.6 oz pur e alcohol) one drink per month PHQ-2 Answer Date Recorded PHQ-2 Score 4 11/26/2019 Sex and Gender Information Value Date Recorded Sex Assigned at Male 12/18/2021 3:52 PM HEAD OF HOUSEKEEPING Gender Identity Male 12/18/2021 3:52 PM HEAD OF HOUSEKEEPING Sexual Orientation Straight 12/18/2021 3: 52 PM HEAD OF HOUSEKEEPING documented as of this encounter Plan of Treatment Not on file documented as of this encounter Visit Diagnoses Not on filedocumented in this encounter Additional Health Concerns Assessment Noted Time PHQ-9 Depression Total Score: 10 020 1:39 PM HEAD OF HOUSEKEEPING documented as of this encounter Care Teams Siebel Administrator Relationship Specialty Start Date End Date Isrrael Mejia MD [facility] [address] [place] [address] PCP - General Emergency Medicine 09/27/16 Regina Vizcaino APRN CALCINE FURNACE TENDER [address] [facility] [id number] [place] [address] Nurse Practitioner Nurse Practitioner 06/23/16 Candido Arzola MD [facility] [address] [place] [address] Anesthesiology 08/15/17 Jonelle Puckett MD [facility] [address] [place] [address] Referring Physician 06/08/18 Burton Gastelum MD [facility] [address] [place] [address] Ophthalmology 06/08/18 documented as of this encounter
--- OUTSIDE RECORDS SUMMARY | 2024-04-01 09:18 | XMS_ITS | Encounter Summary ---
Author Organization [facility] Address [address] [place] [address] Care Team Providers Care Model And Mold Maker Name Role Phone Regina Vizcaino APRN FRONT FACER Unavaila ble Bette Fowler RN Unavailable Rebeka Lomeli RN Unavailable [phone] Isrrael Mejia MD Primary Care Provider Candido Arzola MD Unavailable [phone] Jonelle Puckett MD Unavailable [phone] Burton Gastelum MD Unavailable [phone] Encounter Details Date Type Department Care Team (Late st Contact Info) Description 06/29/2017 [facility] [address] [place] [address] Candido Arzola MD [address] [place] [address] Social History Tobacco Use Types Packs/Day Years Used Date Smoking Tobacco: Never Smokeless Tobacco: Never Alcohol Use Standard Drinks/Week Comments Yes 0 (1 standard drink = 0.6 oz pur e alcohol) 1-2 beers a month Sex and Gender Information Value Date Recorded Sex Assigned at Male 12/18/2021 3:52 PM BRIDGE WELDER Gender Identity Male 12/18/2021 3:52 PM BRIDGE WELDER Sexual Orientation Straight 12/18/2021 3: 52 PM BRIDGE WELDER documented as of this encounter Plan of Treatment Not on file documented as of this encounter Visit Diagnoses Not on filedocumented in this encounter Care Teams Model And Mold Maker Relationship Specialty Start Date End Date Isrrael Mejia MD [facility] [address] [place] [address] PCP - General Emergency Medicine 09/27/16 Regina Vizcaino APRN FRONT FACER 909 [facility] [id number] [place] [address] Nurse Practitioner Nurse Practitioner 06/23/16 Bette Fowler, INDIRA Nurse Coordinator Neurology 07/26/16 06/10/18 Rebeka Lomeli RN Nurse Coordinator Neurology 07/28/16 04/17/19 Candido Arzola MD [facility] [address] [place] [address] Anesthesiology 08/15/17 Jonelle Puckett MD [facility] [address] [place] [address] Referring Physician 06/08/18 Burton Gastelum MD [facility] [address] [place] [address] Ophthalmology 06/08/18 documented as of this encounter
--- OUTSIDE RECORDS SUMMARY | 2024-04-01 09:18 | XMS_ITS | Encounter Summary ---
Author Organization [place] Address [address] [place] [address] Care Team Providers Care Tile Ditcher Name Role Phone Regina Vizcaino APRN CONDOMINIUM ASSOCIATION MANAGER Unavaila ble Bette Fowler RN Unavailable Rebeka Lomeli RN Unavailable [phone] Isrrael Mejia MD Primary Care Provider Candido Arzola MD Unavailable [phone] Jonelle Puckett MD Unavailable [phone] Burton Gastelum MD Unavailable [phone] Encounter Details Date Type Department Care Team (Late st Contact Info) Description 07/24/2017 [facility] [address] [place] [address] Candido Arzola MD [address] [place] [address] Social History Tobacco Use Types Packs/Day Years Used Date Smoking Tobacco: Never Smokeless Tobacco: Never Alcohol Use Standard Drinks/Week Comments Yes 0 (1 standard drink = 0.6 oz pur e alcohol) 1-2 beers a month Sex and Gender Information Value Date Recorded Sex Assigned at Male 12/18/2021 3:52 PM RADIO INSTALLER AUTOMOBILE Gender Identity Male 12/18/2021 3:52 PM RADIO INSTALLER AUTOMOBILE Sexual Orientation Straight 12/18/2021 3: 52 PM RADIO INSTALLER AUTOMOBILE documented as of this encounter Plan of Treatment Not on file documented as of this encounter Visit Diagnoses Not on filedocumented in this encounter Care Teams Tile Ditcher Relationship Specialty Start Date End Date Isrrael Mejia MD FORMERLY NAMED [facility] [address] [place] [address] PCP - General Emergency Medicine 09/27/16 Regina Vizcaino APRN CONDOMINIUM ASSOCIATION MANAGER 909 [facility] [id number] [place] [address] Nurse Practitioner Nurse Practitioner 06/23/16 Bette Fowler, INDIRA Nurse Coordinator Neurology 07/26/16 06/10/18 Rebeka Lomeli RN Nurse Coordinator Neurology 07/28/16 04/17/19 Candido Arzola MD FORMERLY NAMED [facility] [address] [place] [address] Anesthesiology 08/15/17 Jonelle Puckett MD [facility] [address] [place] [address] Referring Physician 06/08/18 Burton Gastelum MD [facility] [address] [place] [address] Ophthalmology 06/08/18 documented as of this encounter
--- OUTSIDE RECORDS SUMMARY | 2024-04-01 09:18 | XMS_ITS | Encounter Summary ---
Author Organization [place] Address [address] [place] [address] Care Team Providers Care Nurse'S Assistant Name Role Phone Regina Vizcaino APRN MEDICATION NURSE Unavaila ble Rebeka Lomeli RN Unavailable [phone] Isrrael Mejia MD Primary Care Provider Candido Arzola MD Unavailable [phone] Jonelle Puckett MD Unavailable [phone] Burton Gastelum MD Unavailable [phone] Encounter Details Date Type Department Care Team (Late st Contact Info) Description 07/06/2018 [facility] [facility] [place] [address] [place] [address] [address] [place] [address] Candido Arzola MD [address] [place] [address] Social History Tobacco Use Types Packs/Day Years Used Date Smoking Tobacco: Never Smokeless Tobacco: Never Alcohol Use Standard Drinks/Week Comments Yes 0 (1 standard drink = 0.6 oz pur e alcohol) 1-2 beers a month Sex and Gender Information Value Date Recorded Sex Assigned at Male 12/18/2021 3:52 PM LIQUIFIED NATURAL GAS SPECIALIST Gender Identity Male 12/18/2021 3:52 PM LIQUIFIED NATURAL GAS SPECIALIST Sexual Orientation Straight 12/18/2021 3: 52 PM LIQUIFIED NATURAL GAS SPECIALIST documented as of this encounter Plan of Treatment Not on file documented as of this encounter Visit Diagnoses Not on filedocumented in this encounter Additional Health Concerns Assessment Noted Time PHQ-9 Depression Total Score: 9 02/11/20 18 7:37 AM CDT documented as of this encounter Care Teams Nurse'S Assistant Relationship Specialty Start Date End Date Isrrael Mejia MD [facility] [address] [place] [address] PCP - General Emergency Medicine 09/27/16 Regina Vizcaino APRN MEDICATION NURSE 909 [facility] [id number] [place] [address] Nurse Practitioner Nurse Practitioner 06/23/16 Rebeka Lomeli RN Nurse Coordinator Neurology 07/28/16 04/17/19 Candido Arzola MD [facility] [address] [place] [address] Anesthesiology 08/15/17 Jonelle Puckett MD [facility] [address] [place] [address] Referring Physician 06/08/18 Burton Gastelum MD [facility] [address] [place] [address] Ophthalmology 06/08/18 documented as of this encounter
--- OUTSIDE RECORDS SUMMARY | 2024-04-01 09:18 | XMS_ITS | Encounter Summary ---
Author Organization [place] Address [address] [place] [address] Care Team Providers Care Adjunct Faculty For Medical Terminology Name Role Phone Regina Vizcaino APRN ACQUISITION COST ESTIMATOR Unavaila ble Bette Fowler RN Unavailable Rebeka Lomeli RN Unavailable [phone] Isrrael Mejia MD Primary Care Provider Candido Arzola MD Unavailable [phone] Jonelle Puckett MD Unavailable [phone] Burton Gastelum MD Unavailable [phone] Encounter Details Date Type Department Care Team (Late st Contact Info) Description 07/25/2017 [facility] [address] [place] [address] Candido Arzola MD [address] [place] [address] Social History Tobacco Use Types Packs/Day Years Used Date Smoking Tobacco: Never Smokeless Tobacco: Never Alcohol Use Standard Drinks/Week Comments Yes 0 (1 standard drink = 0.6 oz pur e alcohol) 1-2 beers a month Sex and Gender Information Value Date Recorded Sex Assigned at Male 12/18/2021 3:52 PM PROFESSIONAL ORGANIZER Gender Identity Male 12/18/2021 3:52 PM PROFESSIONAL ORGANIZER Sexual Orientation Straight 12/18/2021 3: 52 PM PROFESSIONAL ORGANIZER documented as of this encounter Plan of Treatment Not on file documented as of this encounter Visit Diagnoses Not on filedocumented in this encounter Care Teams Adjunct Faculty For Medical Terminology Relationship Specialty Start Date End Date Isrrael Mejia MD [facility] [address] [place] [address] PCP - General Emergency Medicine 09/27/16 Regina Vizcaino APRN ACQUISITION COST ESTIMATOR 909 [facility] [id number] [place] [address] Nurse Practitioner Nurse Practitioner 06/23/16 Bette Fowler, INDIRA Nurse Coordinator Neurology 07/26/16 06/10/18 Rebeka Lomeli RN Nurse Coordinator Neurology 07/28/16 04/17/19 Candido Arzola MD [facility] [address] [place] [address] Anesthesiology 08/15/17 Jonelle Puckett MD [facility] [address] [place] [address] Referring Physician 06/08/18 Burton Gastelum MD [facility] [address] [place] [address] Ophthalmology 06/08/18 documented as of this encounter
--- OUTSIDE RECORDS SUMMARY | 2024-04-01 09:18 | XMS_ITS | Clinical Summary ---
Author Organization [facility] Address [address] [place] [address] Care Team Providers Care Hospitality Host Name Role Phone Regina Vizcaino APRN ADJUSTER PIANO ACTION Unavaila ble Isrrael Mejia MD Primary Care Provider Candido Arzola MD Unavailable [phone] Jonelle Puckett MD Unavailable [phone] Burton Gastelum MD Unavailable [phone] Allergies Active Allergy Reactions Criticality Noted [...] Sex Assigned at Male 12/18/2021 3:52 PM WOODWORKING MACHINE OFFBEARER Gender Identity Male 12/18/2021 3:52 PM WOODWORKING MACHINE OFFBEARER Sexual Orientation Straight 12/18/2021 3: 52 PM WOODWORKING MACHINE OFFBEARER Last Filed Vital Signs Vital Sign Reading [...] Dinora [employer] Medical Devices Implanted Type Area Residential Mental Health Worker Device Identifier Shelf Expiration Date Model / Serial / Lot Bone Cement Simplex Full Dose 6191-1-001 - [id number] Implanted:Qty: 2 on 01/09/2023 by Prasad Sousa MD at [facility] Cement, Bone Right: Hip PER ORTHOPEDICS [id number] 03/29/2025 6191-1-001 / / [id number] Bone Cement Restrictor Gavin Femoral 18.5mm [id number] - [id number] Implanted:Qty: 1 on 01/09/2023 by Prasad Sousa MD at [facility] Cement, Bone Right: Hip [employer]-R [id number] 09/15/2032 [id number] / / [id number] Imp Scr Zim 6.5x35mm Acet Cup Self Tap 09-2436-213-35 - [id number] Implanted:Qty: 1 on 01/09/2023 by Prasad Sousa MD at [facility] Metallic Hardware/An chor Right: Hip [employer] [id number] 09/03/20326250-065 -35 / / [id number] Screw Bone Self Tap 6.5 X 25 11-2902-050-25 - [id number] Implanted:Qty: 1 on 01/09/2023 by Prasad Sousa MD at [facility] Metallic Hardware/An chor Right: Hip [employer] [id number] 03/08/2031-6250-065 -25 / / [id number] Imp Shell Biom G7 Acetab Pps Vines Hole 58mm Sz G [id number] - [id number] Implanted:Qty: 1 on 01/09/2023 by Prasad Sousa MD at [facility] Total Joint Component/I nsert Right: Hip [employer] [id number] 01/12/2032 [id number] / / [id number] Liner G7 Dual Mobility 46mm G - [id number] Implanted:Qty: 1 on 01/09/2023 by Prasad Sousa MD at [facility] Total Joint Component/I nsert Right: Hip [employer] [id number] 09/30/2032 [id number] / / [id number] Imp Stem Femoral Zim Versys Heritage 00-8647-268-00 - [id number] Implanted:Qty: 1 on 01/09/2023 by Prasad Sousa MD at [facility] Total Joint Component/I nsert Right: Hip [employer] [id number] 07/09/20327857-013 - / / [id number] Imp Centralizer Distal Zim Versys [id number] Implanted:Qty: 1 on 01/09/2023 by Prasad Sousa MD at [facility] Total Joint Component/I nsert Right: Hip [employer] [id number] 11/01/2027-7859-011 - / / [id number] Bearing Hip 46mm 28mm G Vivacit-E Lum Strl Lf [id number] - [id number] Implanted:Qty: 1 on 01/09/2023 by Prasad Sousa MD at [facility] Total Joint Component/I nsert Right: Hip [employer] [id number] 10/06/2027 [id number] / / [id number] Biolox?? 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 Advance Directives For more information, please contact: [phone] * Full Code (Latest Code Status on [...] 7:53 PM 09/28/2016 5:53 PM Care Teams Hospitality Host Relationship Specialty Start Date End Date Israrel Mejia MD [facility] [address] [place] [address] PCP - General Emergency Medicine 09/27/16 Regina Vizcaino APRN ADJUSTER [employer] [address] [place] [address] [address] Nurse Practitioner Nurse Practitioner 06/23/16 Candido Arzola MD [facility] [address] [place] [address] Anesthesiology 08/15/17 Jonelle Puckett MD [facility] [address] [place] [address] Referring Physician 06/08/18 Burton Gastelum MD [facility] [address] [place] [address] Ophthalmology 06/08/18
--- OUTSIDE RECORDS SUMMARY | 2024-04-01 09:18 | XMS_ITS | Encounter Summary ---
Author Organization [place] Address [address] [place] [address]. [place] [address] Care Team Providers Care Supervisor Files Name Role Phone Regina Vizcaino APRN FIRE SYSTEMS INSPECTOR Unavaila ble Rebeka Lomeli RN Unavailable [phone] Isrrael Mejia MD Primary Care Provider Candido Arzola MD Unavailable [phone] Jonelle Puckett MD Unavailable [phone] Burton Gastelum MD Unavailable [phone] Reason for Visit * Reason Onset Date Comments Call Back 06/25/2018 Occipital Nerve Block Injection Encounter Details Date Type Department Care Team (Late st Contact Info) Description 06/25/2018 Telephone [facility] [address] 9[facility] [address] [place] [phone] Burton Gastelum MD [address] [place] [id number] Call Back (Occipital Nerve Block Injection) Social History Tobacco Use Types Packs/Day Years Used Date Smoking Tobacco: Never Smokeless Tobacco: Never Alcohol Use Standard Drinks/Week Comments Yes 0 (1 standard drink = 0.6 oz pur e alcohol) 1-2 beers a month Sex and Gender Information Value Date Recorded Sex Assigned at Male 12/18/2021 3:52 PM ENTERTAINMENT CENTRE MANAGER Gender Identity Male 12/18/2021 3:52 PM ENTERTAINMENT CENTRE MANAGER Sexual Orientation Straight 12/18/2021 3: 52 PM ENTERTAINMENT CENTRE MANAGER documented as of this encounter Miscellaneous Notes [...] documented as of this encounter Care Teams Supervisor Files Relationship Specialty Start Date End Date Isrrael Mejia MD [facility] [address] [place] [address] PCP - General Emergency Medicine 09/27/16 Regina Vizcaino APRN FIRE SYSTEMS INSPECTOR 9 [facility] [address] Nurse Practitioner Nurse Practitioner 06/23/16 Rebeka Lomeli, INDIRA Nurse Coordinator Neurology 07/28/16 04/17/19 Candido Arzola MD [facility] [address] [place] [address] Anesthesiology 08/15/17 Jonelle Puckett MD [facility] [address] [place] [address] Referring Physician 06/08/18 Burton Gastelum MD [facility] [address] [place] [address] Ophthalmology 06/08/18 documented as of this encounter
--- OUTSIDE RECORDS SUMMARY | 2024-04-01 09:18 | XMS_ITS | Encounter Summary ---
Author Organization [place] Address [address] [place] [address] Care Team Providers Care Metal Cut Off Saw Tender Name Role Phone Regina Vizcaino APRN SKEIN STRAIGHTENER Unavaila ble Isrrael Mejia MD Primary Care Provider Candido Arzola MD Unavailable [phone] Jonelle Puckett MD Unavailable [phone] Burton Gastelum MD Unavailable [phone] Encounter Details Date Type Department Care Team (Late st Contact Info) Description 12/10/2019 [facility] Adv[facility] [address] [place] [address] Candido Arzola MD [address] [place] [address] Social History Tobacco Use Types Packs/Day Years Used Date Smoking Tobacco: Never Smokeless Tobacco: Never Alcohol Use Standard Drinks/Week Comments Yes 0 (1 standard drink = 0.6 oz pur e alcohol) one drink per month PHQ-2 Answer Date Recorded PHQ-2 Score 4 11/26/2019 Sex and Gender Information Value Date Recorded Sex Assigned at Male 12/18/2021 3:52 PM INSULATION BLANKET MAKER Gender Identity Male 12/18/2021 3:52 PM INSULATION BLANKET MAKER Sexual Orientation Straight 12/18/2021 3: 52 PM INSULATION BLANKET MAKER documented as of this encounter Plan of Treatment Not on file documented as of this encounter Visit Diagnoses Not on filedocumented in this encounter Additional Health Concerns Assessment Noted Time PHQ-9 Depression Total Score: 10 020 1:39 PM INSULATION BLANKET MAKER documented as of this encounter Care Teams Metal Cut Off Saw Tender Relationship Specialty Start Date End Date Isrrael Mejia MD [facility] [address] [place] [address] PCP - General Emergency Medicine 09/27/16 Regina Vizcaino APRN SKEIN STRAIGHTENER 909 [facility] [id number] [place] [address] Nurse Practitioner Nurse Practitioner 06/23/16 Candido Arzola MD [facility] [address] [place] [address] Anesthesiology 08/15/17 Jonelle Puckett MD [facility] [address] [place] [address] Referring Physician 06/08/18 Burton Gastelum MD [facility] [address] [place] [address] Ophthalmology 06/08/18 documented as of this encounter
--- OUTSIDE RECORDS SUMMARY | 2024-04-01 09:18 | XMS_ITS | Referral Summary ---
Author Organization [place] Address [address] [place] [address] Care Team Providers Care Pullman Car Clerk Name Role Phone Regina Vizcaino APRN JOB PRESS OPERATOR Unavaila ble Isrrael Mejia MD Primary Care Provider Candido Arzola MD Unavailable [phone] Jonelle Puckett MD Unavailable [phone] Burton Gastelum MD Unavailable [phone] Allergies Active Allergy Reactions Criticality Noted [...] Sex Assigned at Male 12/18/2021 3:52 PM POWER SCREWDRIVER OPERATOR Gender Identity Male 12/18/2021 3:52 PM POWER SCREWDRIVER OPERATOR Sexual Orientation Straight 12/18/2021 3: 52 PM POWER SCREWDRIVER OPERATOR Last Filed Vital Signs Vital Sign Reading [...] Dinora M Medical Devices Implanted Type Area Aggregate Conveyor Operator Device Identifier Shelf Expiration Date Model / Serial / Lot Bone Cement Simplex Full Dose 6191-1-001 - [id number] Implanted:Qty: 2 on 01/09/2023 by Prasad Sousa MD at [facility] Cement, Bone Right: Hip PER ORTHOPEDICS [id number] 03/29/2025 6191-1-001 / / [id number] Bone Cement Restrictor Gavin Femoral 18.5mm [id number] - [id number] Implanted:Qty: 1 on 01/09/2023 by Prasad Sousa MD at [facility] Cement, Bone Right: Hip [employer]-R [id number] 09/15/2032 [id number] / / [id number] Imp Scr Zim 6.5x35mm Acet Cup Self Tap 90-5109-527-35 - [id number] Implanted:Qty: 1 on 01/09/2023 by Prasad Sousa MD at [facility] Metallic Hardware/An chor Right: Hip [employer] [id number] 09/03/2032-6250-065 -35 / / [id number] Screw Bone Self Tap 6.5 X 25 27-6774-212-25 - [id number] Implanted:Qty: 1 on 01/09/2023 by Prasad Sousa MD at [facility] Metallic Hardware/An chor Right: Hip [employer] [id number] 03/08/20316250-065 -25 / / [id number] Imp Shell Biom G7 Acetab Pps Vines Hole 58mm Sz G [id number] - [id number] Implanted:Qty: 1 on 01/09/2023 by Prasad Sousa MD at [facility] Total Joint Component/I nsert Right: Hip [employer] [id number] 01/12/2032 [id number] / / [id number] Liner G7 Dual Mobility 46mm G - [id number] Implanted:Qty: 1 on 01/09/2023 by Prasad Sousa MD at [facility] Total Joint Component/I nsert Right: Hip [employer] [id number] 09/30/2032 [id number] / / [id number] Imp Stem Femoral Zim Versys Heritage 54-5725-506-00 - [id number] Implanted:Qty: 1 on 01/09/2023 by Prasad Sousa MD at [facility] Total Joint Component/I nsert Right: Hip [employer] [id number] 07/09/2032-7857-013 -00 / / [id number] Imp Centralizer Distal Zim Versys [id number] Implanted:Qty: 1 on 01/09/2023 by Prasad Sousa MD at [facility] Total Joint Component/I nsert Right: Hip [employer] [id number] 11/01/2027-7859-011 -00 / / [id number] Bearing Hip 46mm 28mm G Vivacit-E Lum Strl Lf [id number] - [id number] Implanted:Qty: 1 on 01/09/2023 by Prasad Sousa MD at [facility] Total Joint Component/I nsert Right: Hip [employer] [id number] 10/06/2027 [id number] / / [id number] Biolox?? Head, 28/+7??, Taper12/14 Implanted:Qty: 1 on 01/09/2023 by Prasad Sousa MD at [facility] Right: Hip [id number] 09/22/2031 00-8777-028 -04 [id number] Procedures Procedure Name Priority Date/Time Associated Diagnosis [...] Johnson MD LAB - BLOOD [facility] Organization Address City/State/ZIP Co de Phone Number [facility] Acute Care Lab [address] Lab (1st floor, no room number) [place] [address], [facility] [phone] from Last 3 Months or Most Recently Relevant to Health Maintenance Additional Health Concerns Active Problems Noted Date Diagnosed Date 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 Advance Directives For more information, please contact: [phone] * Full Code (Latest Code Status on [...] 7:53 PM 09/28/2016 5:53 PM Care Teams Pullman Car Clerk Relationship Specialty Start Date End Date Isrrael Mejia MD [facility] [address] [place] [address] PCP - General Emergency Medicine 09/27/16 Regina Vizcaino APRN JOB PRESS OPERATOR [address] [place] [address] [address] Nurse Practitioner Nurse Practitioner 06/23/16 Candido Arzola MD [facility] [address] [place] [address] Anesthesiology 08/15/17 Jonelle Puckett MD [facility] [address] [place] [address] Referring Physician 06/08/18 Burton Gastelum MD [facility] [address] [place] [address] Ophthalmology 06/08/18
--- NOTE | 2024-04-01 10:00 | CRLHL7_ITS ---
For Patients: As a result of the Century Cures Act, medical imaging exams and procedure reports are released immediately into your electronic medical record. You may view this report before your referring provider. If you have questions, please contact your health care provider. 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 Right hemicolectomy. TECHNIQUE: Intravenous contrast enhanced CT of the chest, pelvis. 85 mL Isovue 370 intravenous contrast was administered. COMPARISON: 09/06/2023. FINDINGS: Chest: Mild atherosclerotic changes of the thoracic aorta aneurysm. Coronary artery calcifications are present. No significant pericardial effusion. No incidental acute pulmonary embolism. No enlarged mediastinal or hilar lymph nodes. No enlarged axillary lymph nodes. Mild subpleural atelectasis within the lungs. No lung consolidation. No suspicious lung nodule. No pleural effusion or pneumothorax. Degenerative changes of the thoracic spine. Probable bone island within T6. Abdomen and pelvis: Postsurgical changes of focal hepatic resections. The area of low density within the superior liver adjacent to surgical clips on image number 135 series 2 has decreased in size as compared to the prior examination now measuring approximately 1.7 cm compared to 2.3 cm previously when measured in a comparable manner. Subtle area of low-density adjacent to surgical clips along the posterior margin of the liver on image number 151 of series 2 is stable. No new or enlarging liver lesion. Prior cholecystectomy. No biliary ductal dilatation. Spleen is absent. The adrenal glands are normal. There is no focal pancreatic abnormality. There are a few renal cysts as before. No hydronephrosis. No obstructive calculus. Urinary bladder is nondistended. Findings of prostatectomy, without mass in the prostatectomy bed. Postsurgical changes of right hemicolectomy. No mass at the resection margin is apparent. There is no obstruction. No small bowel wall thickening seen. No new or enlarging mesenteric mass. No abdominal aortic aneurysm. Ovoid low-density lesion along the right pelvic sidewall on image number 240 of series 3 measures 1.3 cm in short axis compared to 1.5 centimeters in short axis previously, slightly decreased in size. Considerations include decrease in size of lymph node, decreased in size of small seroma or decreased in size a small lymphocele. No new or enlarging lymph nodes. Small bilateral fat containing inguinal hernias are unchanged. Right total hip arthroplasty. Degenerative changes of the left hip. Findings of L2 through iliac level fusion. 1.2 centimeter lytic lesion within L1 on sagittal image number 104 of series 10 is unchanged. IMPRESSION: 1. Postsurgical changes of partial hepatic resections. Decrease in size of area of low-density within the superior liver adjacent to surgical clips which may reflect evolution of postsurgical change. No new or enlarged liver lesion. 2. Postsurgical changes of right hemicolectomy. No mass at the resection margin. 3. Postsurgical changes of prostatectomy. No mass within the prostatectomy bed. 4. Ovoid low-density lesion along the right pelvic sidewall has decreased in size. Considerations include decrease in size of small lymph node, small seroma or small lymphocele. No new or enlarging lymph nodes. 5. Stable 1.2 cm lytic lesion within L1. No new or enlarging osseous lesion. Please note that all CT scans at this facility use dose modulation, iterative reconstruction, and/or weight-based dosing when appropriate to reduce radiation dose to as low as reasonably achievable. Dictated by Geo Hedrick MD @ 04/02/2024 6:51:54 AM (Electronically Signed)
== END 2024-04-01 09:15 | disposition home or self-care (01) ==
PROVIDERS: PCP Internal Medicine; Visit Provider Internal Medicine Hematology & Oncology
DX: C7B.02 Secondary carcinoid tumors of liver (principal); M89.9 Disorder of bone, unspecified
CPT/HCPCS: 71260; 74177; Q9967

== ENCOUNTER 2024-06-06 10:30 | Outpatient (RCR) | payer MEDICARE, BC, SELFPAY | END 2024-10-04 23:59 | disposition home or self-care (01) | PROVIDERS: PCP Internal Medicine; Visit Provider Orthopaedic Surgery | DX: M16.12 Unilateral primary osteoarthritis, left hip (principal); Z98.890 Other specified postprocedural states; M25.552 Pain in left hip; M25.652 Stiffness of left hip, not elsewhere classified; R29.3 Abnormal posture; Z51.89 Encounter for other specified aftercare | CPT/HCPCS: 97110; 97140; 97162; 97530 ==

== ENCOUNTER 2024-09-19 11:59 | Outpatient (CLI) | payer MEDICARE, BC, SELFPAY ==
[2024-09-19 11:37] LABS: Albumin* 4.6 g/dL (3.3-5.0); Chloride* 102 mmol/L (96-114)
[2024-09-19 11:38] LABS: Potassium* 5.1 mmol/L (3.6-5.1); Sodium* 138 mmol/L (135-149)
[2024-09-19 11:40] LABS: Anion Gap 9 mEq/L (7-15); Bilirubin Total* 1.2 mg/dL (0.1-1.5); Carbon Dioxide* 27 mmol/L (20-32); Creatinine* 1.1 mg/dL (0.5-1.5); Estimated Glomerular Filt Rate 70 ml/min; Total Protein* 7.9 g/dL (6.0-8.3)
[2024-09-19 11:41] LABS: Alanine Aminotransferase* 23 U/L (4-50); Alkaline Phosphatase* 111 U/L (40-150); Aspartate Amino Transferase* 29 U/L (12-35); Blood Urea Nitrogen* 18 mg/dL (7-30); Calcium* 9.8 mg/dL (8.4-10.6); Glucose* 99 mg/dL (60-115)
[2024-09-19 12:04] LABS: Basophils Absolute Auto 0.08 K/uL (0.00-0.30); Eosinophils Absolute Auto 0.18 K/uL (0.00-0.50); Eosinophils Percent Auto 2.3 % (0.0-7.0); Hematocrit 45.6 % (37.0-53.0); Hemoglobin* 14.7 gm/dL (13.5-17.5); Immature Granulocytes Abs Auto 0.01 K/uL (0.00-0.30); Immature Granulocytes Pct Auto 0.1 %; Lymphocytes Absolute Auto 2.02 K/uL (0.90-2.90); Lymphocytes Percent Auto 25.5 % (20-44); Mean Corpuscular HGB Conc 32 gm/dL (32-36); Mean Corpuscular Hemoglobin 31 pg (26-34); Mean Corpuscular Volume 97 fL (80-100); Monocytes Percent Auto 7.1 % (0.0-11.0); Neutrophils Absolute Auto 5.07 K/uL (1.7-7.0); Platelet Count* 256 K/uL (140-440); RDW Coefficient of Variation % 13.2 % (11.5-15.5); Red Blood Count 4.71 m/uL (4.30-5.90); White Blood Count* 7.92 K/uL (4.50-11.00)
[2024-09-19 12:10] LABS: Slide Review Reflex No
--- OUTSIDE RECORDS SUMMARY | 2024-09-23 12:47 | XMS_ITS | Clinical Summary ---
Author Organization [employer] [facility] Address [place], [place] [address] Care Team Providers Care Poured Pipe Maker Name Role Phone Isrrael Mejia MD Primary Care Provider [facility], [place] Unavailable [phone] February, Traci Sneed RN, BSN Unavailable [phone] Allergies Active Allergy Reactions Criticality Noted [...] 03/31/2023 Left bundle branch block (LBBB) 06/26/2020 Overview (06/26/2020): Intermittent HTN (hypertension) 06/24/2020 Flat back syndrome [...] 78 03/30/2023 12:30 PM CDT Temperature 36.4 C (97.6 F) 03/30/2023 12:30 PM CDT Respiratory Rate 18 03/30/2023 12:3 [...] 1994 Medicare Wellness for age 65+ 2014 BMI (ht and wt on same day) for age 18+ 03/30/2024 03/30/2023, 03/20/2023, 02/09/2023, Additional history exists RSV vaccine for adults or (1 - 1-dose 75+ series) 2024 COVID-19 vaccine series ( season) 2024 07/18/2022, 02/02/2022, 08/20/2021, Additional history exists Influenza for age 65+ 06/30/2024 Medical Devices Implanted Type Area Food Mobile Driver Device Identifier Shelf Expiration Date Model / Serial / Lot [id number] 1-4mm 60cc Medtronic Fine Canclls Freeze Dried Implanted:Qty: 1 on 06/22/2020 by Joo Arellano MD at [facility] Explanted:at [facility] (Quantity not on file) Spine Medtronic Spine/Ortho 11/06/2024 [id number] / [id number] / Screw Lmbr Post 7.5x45mm Solera 5.5/6 Va Cocr - [id number] Implanted:Qty: 3 on 06/22/2020 by Joo Arellano MD at [facility] Spine Medtronic Spine/Ortho [id number] 45# / / Screw Lmbr Post 7.5x50mm Solera 5.5/6 Va Cocr - [id number] Implanted:Qty: 4 on 06/22/2020 by Joo Arellano MD at [facility] Spine Medtronic Spine/Ortho [id number] 50# / / Screw Lmbr Post 7.5x55mm Solera 5.5/6 Va Cocr - [id number] Implanted:Qty: 3 on 06/22/2020 by Joo Arellano MD at [facility] Spine Medtronic Spine/Ortho [id number] 55# / / Adan Lmbr 500x5.5mm Solera 5.5/6 Cvd Co Cr - [id number] Implanted:Qty: 1 on 06/22/2020 by Joo Arellano MD at [facility] Spine Medtronic Spine/Ortho [id number] 0# / / Screw Lmbr 8.5x90mm Cd Horizon - [id number] Implanted:Qty: 1 on 06/22/2020 by Joo Arellano MD at [facility] Spine Medtronic Spine/Ortho [id number] 90# / / [id number] 1-4mm 60cc Medtronic Fine Canclls Freeze Dried Implanted:Qty: 1 on 06/22/2020 by Joo Arellano MD at [facility] Explanted:at [facility] (Quantity not on file) Spine Medtronic Spine/Ortho 11/07/2024 [id number]# / [id number] / [id number] 1-4mm 90cc Medtronic Chips Canclls Freeze Dried Implanted:Qty: 1 on 06/22/2020 by Joo Arellano MD at [facility] Explanted:at [facility] (Quantity not on file) Spine Medtronic Spine/Ortho 10/28/2024 [id number]# / [id number] / [id number] 6cc Fairburn Dbf Putty Dbm Implanted:Qty: 1 on 06/22/2020 by Joo Arellano MD at [facility] Explanted:at [facility] (Quantity not on file) N/A: Spine Medtronic Spine/Ortho 09/17/2021 [id number] / [id number] / Spacer Lmbr Lg 14mm 8deg Perimeter Alif Peek - [id number] Implanted:Qty: 1 on 06/22/2020 by Joo Arellano MD at [facility] Spine Medtronic Spine/Ortho 04/15/2027 [id number]# / / 26JG Washer 17mm - [id number] Implanted:Qty: 1 on 06/22/2020 by Joo Arellano MD at [facility] Spine Medtronic Spine/Ortho [id number]# / / Screw Lmbr Ant 6.5x20mm Pyramid Plus Va - [id number] Implanted:Qty: 1 on 06/22/2020 by Joo Arellano MD at [facility] Spine Medtronic Spine/Ortho [id number]# / / Spacer Lmbr Md 88al23zsp 10deg [employer]ental - [id number] Implanted:Qty: 3 on 06/22/2020 by Joo Arellano MD at [facility] Spine [employer] 375.271# / / Set Screw Lmbr Ant 5.5mm Solera Break Off - [id number] Implanted:Qty: 11 on 06/22/2020 by Joo Arellano MD at [facility] Spine Medtronic Spine/Ortho [id number]# / / Adhesion Barrier 5x6in Seprafilm Absorb - [id number] Implanted:Qty: 1 on 03/14/2023 by Wilber Zhang MBBS at [facility] N/A: Abdomen [employer] Inc 04/30/2025 [id number] / / [id number] Adhesion Barrier 3x5in Seprafilm Absorb Procedure Packs - [id number] Implanted:Qty: 2 on 03/14/2023 by Wilber Zhang MBBS at [facility] N/A: Abdomen [employer] 07/26/2025 [id number] / / [id number] Mesh Ventral 60 Seamguard Endo Meri Tri Blk - [id number] Implanted:Qty: 1 on 03/14/2023 by Wilber Zhang MBBS at [facility] N/A: Abdomen [employer] 01/17/2025 [id number] / / [id number] Advance Directives * Full Code (Latest Code [...] Code Status Discussion: Not Discussed Care Teams Poured Pipe Maker Relationship Specialty Start Date End Date Isrrael Mejia MD [address] [place] [address] PCP - General Internal Medicine 06/09/[address] [address] 03/18/23February, Traci Sneed RN, BSN [address] [phone] Nurse Navigator - Oncology Oncology 05/23/23
--- OUTSIDE RECORDS SUMMARY | 2024-09-23 12:48 | XMS_ITS | Referral Summary ---
Author Organization [facility] Address [address] [place] [address] Care Team Providers Care Cheesemaking Laborer Name Role Phone Regina Vizcaino APRN METHODS TIME ANALYST Unavaila ble Isrrael Mejia MD Primary Care Provider Candido Arzola MD Unavailable [phone] Jonelle Puckett MD Unavailable Burton Gastelum MD Unavailable [phone] Allergies Active Allergy Reactions Criticality Noted Date Comments Amoxicillin Unknown 07/28/2016 Other reaction(s): Unknown Clavulanic Acid 06/01/2017 Other reaction(s): Unknown Onion Headache,Nausea 12/14/2022 Medications gabapentin (NEURONTIN) 600 MG tablet Take 900 mg by mouth 3 times daily Active tiZANidine (ZANAFLEX) 2 MG tablet Take 4 mg by mouth nightly as needed for muscle spasms (for sleeping) Active psyllium (METAMUCIL/KONSYL ) Packet Take 1 packet by mouth daily as needed for constipation Active Multiple Vitamin (MULTIVITAMIN ADULT PO) Take by mouth daily Active cholestyramine (QUESTRAN) 4 GM/DOSE powder Take 4 g by mouth 2 times daily as needed Active senna-docusate (SENOKOT-S/FREDERIC LACE) 8.6-50 MG tabletIndications :Status post total replacement of right hip Take 1-2 tablets by mouth 2 times daily Take while on oral narcotics to prevent or treat constipation. 30 tablet 01/10/20 23 Active acetaminophen (TYLENOL) 325 MG tabletIndications :Status post total replacement of right hip Take 2 tablets (650 mg) by mouth every 4 hours as needed for other (mild pain) May take regular strength over the counter (325mg) Acetaminophen, when rx runs out. 100 tablet 01/10/20 Active oxyCODONE (ROXICODONE) 5 MG tabletIndications :Status post total replacement of right hip Take 1-2 tablets (5-10 mg) by mouth every 4 hours as needed for moderate to severe pain or severe pain (7-10) Begin to wean on POD3 25 tablet 01/10/20 Active hydrOXYzine (ATARAX) 10 MG tabletIndications :Status post total replacement of right hip Take 1 tablet (10 mg) by mouth every 6 hours as needed for itching or anxiety (with pain, moderate pain) 30 tablet 01/10/20 Active apixaban ANTICOAGULANT (ELIQUIS) 5 MG tabletIndications :Ortho post-op DVT Prophylaxis Take 1 tablet (5 mg) by mouth 2 times daily 60 tablet 01/11/20 Active Active Problems Problem Noted Date Diagnosed [...] Sex Assigned at Male 12/18/2021 3:52 PM GROUP ROOMS COORDINATOR Legal Sex Male 3:33 AM GROUP ROOMS COORDINATOR Gender Identity Male 12/18/2021 3:52 PM GROUP ROOMS COORDINATOR Sexual Orientation Straight 12/18/2021 3: 52 PM GROUP ROOMS COORDINATOR Last Filed Vital Signs Vital Sign Reading Time Taken Comments Blood Pressure 103/53 01/10/2023 7:49 AM CDT Pulse 62 01/10/2023 7:49 AM CDT Temperature 37.2 C (98.9 F) 01/10/2023 7:49 AM CDT Respiratory Rate 14 01/10/2023 7:49 AM CDT [...] Plan Total Joint Replacement Hip Pathway No Debora Crawfordarinjose Alvarez Medical Devices Implanted Type Area Family Services Manager Device Identifier Shelf Expiration Date Model / Serial / Lot Bone Cement Simplex Full Dose 6191-1-001 - [id number] Implanted:Qty: 2 on 01/09/2023 by Prasad Sousa MD at [facility] Cement, Bone Right: Hip PER ORTHOPEDICS [id number] 03/29/2025 6191-1-001 / / [id number] Bone Cement Restrictor Gavin Femoral 18.5mm [id number] - [id number] Implanted:Qty: 1 on 01/09/2023 by Prasad Sousa MD at [facility] Cement, Bone Right: Hip BLOCK & NEPHEW INC-R [id number] 09/15/2032 [id number] / / [id number] Imp Scr Zim 6.5x35mm Acet Cup Self Tap 72-9274-312-35 - [id number] Implanted:Qty: 1 on 01/09/2023 by Prasad Sousa MD at [facility] Metallic Hardware/An chor Right: Hip BRY[employer] [id number] 09/03/2032-6250-065 -35 / / [id number] Screw Bone Self Tap 6.5 X 25 13-8500-492-25 - [id number] Implanted:Qty: 1 on 01/09/2023 by Prasad Sousa MD at [facility] Metallic Hardware/An chor Right: Hip [employer] [id number] 03/08/2031625-065 -25 / / [id number] Imp Shell Biom G7 Acetab Pps Vines Hole 58mm Sz G [id number] - [id number] Implanted:Qty: 1 on 01/09/2023 by Prasad Sousa MD at [facility] Total Joint Component/I nsert Right: Hip [employer] [id number] 01/12/2032 [id number] / / [id number] Liner G7 Dual Mobility 46mm G - [id number] Implanted:Qty: 1 on 01/09/2023 by Prasad Sousa MD at [facility] Total Joint Component/I nsert Right: Hip [employer] [id number] 09/30/2032 [id number] / / [id number] Imp Stem Femoral Zim Versys Heritage 32-5610-021- - [id number] Implanted:Qty: 1 on 01/09/2023 by Prasad Sousa MD at [facility] Total Joint Component/I nsert Right: Hip [employer] [id number] 07/09/2032-7857-013 - / / [id number] Imp Centralizer Distal Zim Versys - [id number] Implanted:Qty: 1 on 01/09/2023 by Prasad Sousa MD at [facility] Total Joint Component/I nsert Right: Hip [employer] [id number] 11/01/2027-7859-011 -00 / / [id number] Bearing Hip 46mm 28mm G Vivacit-E Lum Strl Lf [id number] - [id number] Implanted:Qty: 1 on 01/09/2023 by Prasad Sousa MD at [facility] Total Joint Component/I nsert Right: Hip [employer] [id number] 10/06/2027 [id number] / / [id number] Biolox Head, 28/+7 , Taper12/14 Implanted:Qty: 1 on 01/09/2023 by Prasad Sousa MD at [facility] Right: Hip [id number] 09/22/2031 00-8777-028 -04 / [id number] Procedures Procedure Name Priority Date/Time Associated Diagnosis Comments GLUCOSE Routine 01/10/2023 7:48 AM CDT from Last 3 Months or Most Recently Relevant to Health Maintenance Results * (ABNORMAL) Glucose (01/10/2023 7:48 AM CDT) Glucose 110(H) 70 - 99 mg/dL 01/10/2023 8:36 AM CDT LABORATORY Patient Fasting > 8hrs? Yes 01/10/2023 8:36 AM CDT LABORATORY Blood STRUCTURE OF LEFT UPPER LIMB / Unknown Venipuncture / Unknown 01/10/2023 7:48 AM CDT 01/10/2023 8:10 AM CDT Prasad Sousa MD LAB - BLOOD ORDERABLES F inal Result [facility] [address] [facility] (1st floor, no room number) [place] [address], [facility] [phone] from Last 3 Months or Most Recently Relevant to Health Maintenance Additional Health Concerns Active Problems Noted Date Diagnosed Date 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 Insurance MEDICARE [facility] [place] MEDICARE [facility] [place] [facility] MEDICARE MEDICARE Advance Directives For more information, please contact: [phone] * Full Code (Latest Code Status on [...] 7:53 PM 09/28/2016 5:53 PM Care Teams Cheesemaking Laborer Relationship Specialty Start Date End Date Isrrael Mejia MD [facility] [address] [place] [address] PCP - General Emergency Medicine 09/27/16 Regnia Vizcaino APRN METHODS TIME ANALYST [address] [place] [id number] [address] Nurse Practitioner Nurse Practitioner 06/23/16 Candido Arzola MD [facility] [address] [place] [address] Anesthesiology 08/15/17 Jonelle Puckett MD [facility] [address] [place] [address] Referring Physician 06/08/18 Burton Gastelum MD [facility] [address] [place] [address] Ophthalmology 06/08/18
--- OUTSIDE RECORDS SUMMARY | 2024-09-23 12:48 | XMS_ITS | Encounter Summary ---
Author Organization [facility] Address [address] [place] [address] Care Team Providers Care Checkman Name Role Phone Regina Vizcaino APRN CONTROL OPERATOR FLOW COAT Unavaila ble Isrrael Mejia MD Primary Care Provider Candido Arzola MD Unavailable [phone] Jonelle Puckett MD Unavailable [phone] Burton Gastelum MD Unavailable [phone] Encounter Details Date Type Department Care Team (Late st Contact Info) Description 12/19/2019 [facility] Medical Advice [facility] [address] [place] [id number] Candido Arzola MD [address] [place] [address] Social History Tobacco Use Types Packs/Day Years Used Date Smoking Tobacco: Never Smokeless Tobacco: Never Alcohol Use Standard Drinks/Week Comments Yes 0 (1 standard drink = 0.6 oz pur e alcohol) one drink per month PHQ-2 Answer Date Recorded PHQ-2 Score 4 11/26/2019 Sex and Gender Information Value Date Recorded Sex Assigned at Male 12/18/2021 3:52 PM LOOM DOFFER Legal Sex Male 3:33 AM LOOM DOFFER Gender Identity Male 12/18/2021 3:52 PM LOOM DOFFER Sexual Orientation Straight 12/18/2021 3: 52 PM LOOM DOFFER documented as of this encounter Plan of Treatment Not on file documented as of this encounter Visit Diagnoses Not on filedocumented in this encounter Additional Health Concerns Assessment Noted Time PHQ-9 Depression Total Score: 10 020 1:39 PM LOOM DOFFER documented as of this encounter Care Teams Checkman Relationship Specialty Start Date End Date Isrrael Mejia MD [facility] [address] [place] [address] PCP - General Emergency Medicine 09/27/16 Regina Vizcaino APRN CONTROL OPERATOR FLOW COAT [address] [id number] [place] [address] Nurse Practitioner Nurse Practitioner 06/23/16 Candido Arzola MD [facility] [address] [place] [address] Anesthesiology 08/15/17 Jonelle Puckett MD [facility] [address] [place] [address] Referring Physician 06/08/18 Burton Gastelum MD [facility] [address] [place] [address] Ophthalmology 06/08/18 documented as of this encounter
--- OUTSIDE RECORDS SUMMARY | 2024-09-23 12:48 | XMS_ITS | Clinical Summary ---
Author Organization [facility] Address [address] [place] [address] Care Team Providers Care Traveling Secretary Name Role Phone Regina Vizcaino APRN WEB APPLICATION DEVELOPER Unavaila ble Isrrael Mejia MD Primary Care Provider Candido Arzola MD Unavailable [phone] Jonelle Puckett MD Unavailable [phone] Burton Gastelum MD Unavailable [phone] Allergies Active Allergy Reactions Criticality Noted [...] Sex Assigned at Male 12/18/2021 3:52 PM INFRASTRUCTURE DIRECTOR Legal Sex Male 3:33 AM INFRASTRUCTURE DIRECTOR Gender Identity Male 12/18/2021 3:52 PM INFRASTRUCTURE DIRECTOR Sexual Orientation Straight 12/18/2021 3: 52 PM INFRASTRUCTURE DIRECTOR Last Filed Vital Signs Vital Sign Reading [...] 1959 HEPATITIS C SCREENING 1967 LIPID 1989 MEDICARE ANNUAL WELLNESS VISIT 2014 ZOSTER IMMUNIZATION (2 of 3) 08/11/2015 06/16/2015 FALL RISK ASSESSMENT 06/20/2019 06/20/2018 PHQ-2 (once per calendar year) 2023 11/26/2019, 11/26/2019, 02/12/2018, Additional history exists RSV VACCINE (1 - 1-dose 75+ series) 2024 COVID-19 Vaccine ( season) 2024 07/18/2022, 02/02/2022, 08/20/2021, Additional history exists INFLUENZA VACCINE (#1) 2024 , 07/18/2022, 07/13/2021, Additional history exists GLUCOSE 01/10/2026 [...] Dinora Crawford Medical Devices Implanted Type Area Laborer Car Barn Device Identifier Shelf Expiration Date Model / Serial / Lot Bone Cement Simplex Full Dose 6191-1-001 - [id number] Implanted:Qty: 2 on 01/09/2023 by Prasad Sousa MD at [facility] Cement, Bone Right: Hip PER ORTHOPEDICS [id number] 03/29/2025 6191-1-001 / / [id number] Bone Cement Restrictor Gavin Femoral 18.5mm 693539 - [id number] Implanted:Qty: 1 on 01/09/2023 by Prasad Sousa MD at [facility] Cement, Bone Right: Hip BLOCK [employer] INC-R [id number] 09/15/2032 [id number] / / [id number] Imp Scr Zim 6.5x35mm Acet Cup Self Tap 17-8353-037-35 - [id number] Implanted:Qty: 1 on 01/09/2023 by Prasad Sousa MD at [facility] Metallic Hardware/An chor Right: Hip [employer] [id number] 09/03/2032-6250-065 -35 / / [id number] Screw Bone Self Tap 6.5 X 25 62-2639-939-25 - [id number] Implanted:Qty: 1 on 01/09/2023 by Prasad Sousa MD at [facility] Metallic Hardware/An chor Right: Hip [employer] [id number] 03/08/2031-6250-065 -25 / / [id number] Imp Shell Biom G7 Acetab Pps Vines Hole 58mm Sz G [id number] - [id number] Implanted:Qty: 1 on 01/09/2023 by Prasad Sousa MD at [facility] Total Joint Component/I nsert Right: Hip [employer] [id number] 01/12/2032 792617815 / / [id number] Liner G7 Dual Mobility 46mm G - [id number] Implanted:Qty: 1 on 01/09/2023 by Prasad Sousa MD at [facility] Total Joint Component/I nsert Right: Hip [employer] [id number] 09/30/2032 [id number] / / [id number] Imp Stem Femoral Zim Versys Heritage 41-8529-120-00 - [id number] Implanted:Qty: 1 on 01/09/2023 by Prasad Sousa MD at [facility] Total Joint Component/I nsert Right: Hip [employer] [id number] 07/09/2032-7857-013 -00 / [id number] Imp Centralizer Distal Zim Versys [id number] Implanted:Qty: 1 on 01/09/2023 by Prasad Sousa MD at [facility] Total Joint Component/I nsert Right: Hip [employer] [id number] 11/01/2027-7859-011 -00 / / [id number] Bearing Hip 46mm 28mm G Vivacit-E Lum Strl Lf [id number] - [id number] Implanted:Qty: 1 on 01/09/2023 by Prasad Sousa MD at [facility] Total Joint Component/I nsert Right: Hip [employer] [id number] 10/06/2027 [id number] / / [id number] Biolox Head, 28/+7 , Taper/14 Implanted:Qty: 1 on 01/09/2023 by Prasad Sousa MD at [facility] Right: Hip [id number] 09/22/2031 00-8777-028 -04 / / [id number] Procedures Procedure Name Priority Date/Time Associated Diagnosis Comments GLUCOSE Routine 01/10/2023 7:48 AM CDT from Last 3 Months or Most Recently Relevant to Health Maintenance Results * (ABNORMAL) Glucose (01/10/2023 7:48 AM CDT) Glucose 110(H) 70 - 99 mg/dL 01/10/2023 8:36 AM CDT [facility] LABORATORY Patient Fasting > 8hrs? Yes 01/10/2023 8:36 AM CDT [facility] LABORATORY Blood STRUCTURE OF LEFT UPPER LIMB / Unknown Venipuncture / Unknown 01/10/2023 7:48 AM CDT 01/10/2023 8:10 AM CDT us Prasad Sousa MD LAB - BLOOD ORDERABLES F inal Result LABORATORY [facility] [address] (1st floor, no room number) [place] [address], [facility] [phone] from Last 3 Months or Most Recently Relevant to Health Maintenance Additional Health Concerns Active Problems Noted Date Diagnosed Date 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 Insurance MEDICARE [facility] [place] MEDICARE [facility] [place] [facility] [place] MEDICARE MEDICARE Advance Directives For more information, please contact: [phone] * Full Code (Latest Code Status on [...] 7:53 PM 09/28/2016 5:53 PM Care Teams Traveling Secretary Relationship Specialty Start Date End Date Isrrael Mejia MD [facility] [address] [place] [address] PCP - General Emergency Medicine 09/27/16 Regina Vizcaino APRN WEB APPLICATION DEVELOPER [address] [place], [place] [address] [address] Nurse Practitioner Nurse Practitioner 06/23/16 Candido Arzola MD [facility] [address] [place] [address] Anesthesiology 08/15/17 Jonelle Puckett MD [facility] [address] [place] [address] Referring Physician 06/08/18 Burton Gastelum MD [facility] [address] [place] [address] Ophthalmology 06/08/18
--- OUTSIDE RECORDS SUMMARY | 2024-09-23 12:48 | XMS_ITS | Continuity of Care Document ---
Author Organization [facility] Address [address] [place] [address], [place] [address] Phone Care Team Providers Care Seismic Engineer Name Role Phone Jhonatan Jaramillo MD [...] Bladder Scan Urinalysis, non-automated, w/scope Office/outpatient visit,new, [facility] 2013 Advance Directives Directive Yes / No Effective Date File Name No Information Encounters Encounter Description Practice Location Reason(s) For Visit Diagnoses Date Provider [facility], [address] [place] [address], [id number], tel:[phone] [facility] No Information Clint Israel. [address] [place] [address], [id number], [place]. tel:[phone] OFFICE/OUTPAT IENT VISIT, EST [facility], [address] [place] [address], [id number], [place] tel:[phone] [facility] Urinary frequency (chief complaint)B PH (chief complaint) HYPERTROPHY (BENIGN) OF PROSTATE WITH URINARY OBST Clint Israel. [address] [place] [address], [id number], [place]. tel:[phone] [facility], [address] [place] [address], [id number], tel:[phone] HIE Default Location CERVICAL SPONDYLOSISCERVICAL DISC DEGENNECK DISORDER/SYMPT NOSCOMN MGRN W NTRC MGR STDCHRONIC PAIN SYNDROMERadiculitis, Thoracic or LumbarSynovial cyst of lumbar spineMortons neuroma of left footHeadacheLUMB/LUMB OSAC DISC DEGENMYALGIA AND MYOSITIS NOSLUMBOSACRAL SPONDYLOSIS PROVIDER [facility]. . OFFICE/OUTPAT IENT VISIT, EST [facility], [address] [place] [address], [id number], [place] tel:[phone] [facility] Urinary frequency (chief complaint)B PH (chief complaint) BPHUrinary frequency Clint Israel. [address] [place] [address], [id number], [place]. tel:[phone] Office/outpat ient visit,[facility], [facility], [address] [place] [address] [place], [id number], [place] tel:[phone] [facility] BPH (chief complaint) BPHUrinary frequency Clint Israel. [address] [place] [address], [id number], [place]. tel:[phone] [facility], [address] [place] [address], [id number], tel:[phone] [facility] Deviated nasal septumPresbycusis of both earsHypertension, BenignREFRACTIVE ERRORSENILE NUCLEAR SCLEROSIS PROVIDER [facility]. . [facility], [address] [place] [address] [place], [id number], tel:[phone] [facility] No Information Roselia Magdaleno. [address] [place] [address], [id number], . tel:[phone] Family History Family Member Type Diagnosis Age At Onset Mother Problem (finding) 85 Problem (finding) Family history of cance r of colon Father Problem (finding) 85 Payers Payer name Insurance type Covered republican ID Authoriza tion(s) Mainormiroslava [facility] [id number] Social History Type Description Quantity Date Captured [...] in 6 months Related to Urinary frequency Sep-24-2014 PARQ discussion held . Patient to follow-up in 1 week for a cystoscopy. Related to Urinary frequency Assessments Type Assessment Date No Information
--- OUTSIDE RECORDS SUMMARY | 2024-09-23 12:48 | XMS_ITS | Continuity of Care Document ---
Author Organization [facility] Address [address] [place] [address] Phone Care Team Providers Care Lead Radiologic Technologist Name Role Phone Adan ARCHULETA, PhD, Joo [...] C, [address], [place], [place], [id number], [place] tel:[phone] [facility] Arthrodesis status 3 Adan Ge. [facility], [address], [place], [address], [place]. tel:[phone] Referring Provider: Joo Arellano, [facility] [address], [place], [address]. tel:[phone] Office/Outpat ient Visit,Est, Mod [facility], [address], [place], [place], [id number], [place] tel:[phone] [facility] Spinal stenosis, cervical region 1 Adan Ge. [facility], [address], [place], [address], [place]. tel:[phone] Referring Provider: Joo Arellano, [facility] [address], [place], [address]. tel:[phone] Office/Outpat ient Visit,Est, Mod [facility], [address], [place], [place], [id number], [place] tel:[phone] [facility] Arthrodesis status 0 Adan Ge. [facility], [address], [place], [address], [place]. tel: [phone] Referring Provider: Joo Arellano, [facility] [address], [place], [address]. tel:[phone] [facility], [address], [place], [place], [id number], [place] tel:[phone] [facility] Arthrodesis status 0 Adan Ge. [facility], [address], [place], [address], [place]. tel: [phone] Referring Provider: Joo Arellano, [facility] [address], [place], [address]. tel:[phone] [facility], [address], [place], [id number], [place] tel:[phone] [facility] Arthrodesis status 0 Adan Ge. [facility], [address], [place], [address], [place]. tel: [phone] [facility], [address], [place], [id number], [place] tel:[phone] [facility] No Information 0 Ramana Crane. [facility], [address], [place], [place], [id number] , [place]. tel: [phone] Referring Provider: Joo Arellano, [facility] [address], [place], [address]. tel:[phone] [facility], [address], [place], [place], [id number], [place] tel:[phone] [facility] No Information 0 Adan Ge. [facility], [address], [place], [address], [place]. [phone] Referring Provider: Joo Arellano, [facility] [address], [facility] [place], [address]. tel:[phone] Office/Outpat ient Visit,Est, Mod [facility], [address], [place], [id number], [place] tel:[phone] [facility] Spinal stenosis, lumbar region with neurogenic claudication 0 Adan Ge. [facility], [address], [place], [address], [place]. [phone] Referring Provider: Joo Arellano, [facility] [address], [facility] [place], [address]. tel:[phone] Office/Outpat ient Visit,New, Mod [facility], [address], [facility] [place], [id number], [place] tel:[phone] [facility] Deforming dorsopathy, unspecified 0 Adan Ge. [facility], [address], [place], [address], [place]. [phone] Referring Provider: Joo Arellano, [facility] [address], [facility] [place], [address]. tel:[phone] Family History Family Member Type Diagnosis Age At Onset No Information Payers Payer name Insurance type Covered constitution party ID Sanjuanita cole(s) [facility] [id number] Medicare [facility] [id number] 1 Social History Type Description Quantity Date [...]
--- OUTSIDE RECORDS SUMMARY | 2024-09-23 12:49 | XMS_ITS | Encounter Summary ---
Author Organization [facility] Address [address] [place] [address] Care Team Providers Care Film Writer Name Role Phone Regina Vizcaino APRN EQUIP MAINT ENG Unavaila ble Bette Fowler RN Unavailable Rebeka Lomeli RN Unavailable [phone] Isrrael Mejia MD Primary Care Provider Candido Arzola MD Unavailable [phone] Jonelle Puckett MD Unavailable [phone] Burton Gastelum MD Unavailable [phone] Encounter Details Date Type Department Care Team (Late st Contact Info) Description 12/25/2017 [facility] Medical Advice [facility] [address] [place] [address] Candido Arzola MD [address] [place] [id number] Social History Tobacco Use Types Packs/Day Years Used Date Smoking Tobacco: Never Smokeless Tobacco: Never Alcohol Use Standard Drinks/Week Comments Yes 0 (1 standard drink = 0.6 oz pur e alcohol) 1-2 beers a month Sex and Gender Information Value Date Recorded Sex Assigned at Male 12/18/2021 3:52 PM SCROLL SHEAR OPERATOR Legal Sex Male 3:33 AM SCROLL SHEAR OPERATOR Gender Identity Male 12/18/2021 3:52 PM SCROLL SHEAR OPERATOR Sexual Orientation Straight 12/18/2021 3: 52 PM SCROLL SHEAR OPERATOR documented as of this encounter Plan of Treatment Not on file documented as of this encounter Visit Diagnoses Not on filedocumented in this encounter Care Teams Film Writer Relationship Specialty Start Date End Date Isrrael Mejia MD [facility] [address] [place] [address] PCP - General Emergency Medicine 09/27/16 Regina Vizcaino, MINISTERIO EQUIP MAINT ENG [address] [facility] [id number] [address] Nurse Practitioner Nurse Practitioner 06/23/16 Bette Fowler, INDIRA Nurse Coordinator Neurology 07/26/16 06/10/18 Rebeka Lomeli RN Nurse Coordinator Neurology 07/28/16 04/17/19 Candido Arzola MD [facility] [address] [place] [address] Anesthesiology 08/15/17 Jonelle Puckett MD [facility] [address] [place] [address] Referring Physician 06/08/18 Burton Gastelum MD [facility] [address] [place] [address] Ophthalmology 06/08/18 documented as of this encounter
--- OUTSIDE RECORDS SUMMARY | 2024-09-23 12:49 | XMS_ITS | Encounter Summary ---
Author Organization [facility] Address [address] [place] [address] Care Team Providers Care Supervisory Air Intercept Controller Name Role Phone Kenna Choi M.D. Primary Care Provider [phone] Reason for Visit * Reason Comments Skin Check * Appointment Request (Routine) - Closed Specialty Diagnoses / Procedures Referred By Contac t Referred To Contact Dermatology Referral ID Status Reason Start Date Expiration Date Visits Re quested Visits Authorized [id number] Closed 02/28/2024 02/27/2025 1 1 Encounter Details Date Type Department Care Team (Late st Contact Info) Description 08/26/2024 11:00 AM CDT Office Visit Department of Dermatology in [address] [address] Julio Cesar Epps M.D. [address] [place] [address] Keratosis Actinic (Primary Dx); Nevi Multiple; Keratosis Seborrheic; Cancer Skin Squamous Cell Personal History Discharge Disposition: Home or Self Care Social History Tobacco Use Types Packs/Day Years Used Date Smoking Tobacco: Never Smokeless Tobacco: Never Alcohol Use Standard Drinks/Week Comments Yes 2 (1 standard drink = 0.6 oz pur e alcohol) [facility] Utilities Answer Date Recorded In the past 12 months has th e electric, gas, oil, or water company threatened to shut off services in your home? No 08/19/2024 Exercise Vital Sign Answer Date Recorde d On average, how many days pe r week do you engage in moderate to strenuous exercise (like a brisk walk)? 3 days 08/19/2024 On average, how many minutes do you engage in exercise at this level? 40 min 08/19/2024 Hunger Vital Sign Answer Date Recorded Within the past 12 months, y ou worried that your food would run out before you got the money to buy more. Never true 08/19/20 Within the past 12 months, t he food you bought just didn't last and you didn't have money to get more. Never true 08/19/2024 PRAPARE - Transportation Answer Date Re corded In the past 12 months, has l ack of transportation kept you from medical appointments or from getting medications? No 07/31 In the past 12 months, has l ack of transportation kept you from meetings, work, or from getting things needed for daily living? No 08/19/2024 Nutrition Answer Date Recorded On average, how many serving s of fruits and vegetables do you eat per day (serving size is equal to 1 cup or approximately the size of a tennis ball)? 0-2 08/19/2024 Dental Answer Date Recorded Dental: Regular Dentist Yes 08/19/20 Employment Answer Date Recorded Employment status Retired 08/19/2024 Housing Stability Answer Date Recorded What is your living situation today? I have a [facility] place to live 08/19/2024 Sex and Gender Information Value Date Recorded Sex Assigned at Male 08/19/2024 3:40 PM CDT Legal Sex Male 11:33 PM SECURITY PATROL DRIVER Gender Identity Male 08/19/2024 3:40 PM CDT Sexual Orientation Straight 08/19/2024 3: 40 PM CDT documented as of this encounter Consult Notes * Julio Cesar Epps M.D. - 08/26/2024 11:00 AM CDT CHIEF COMPLAINT/REASON FOR VISIT History of nonmelanoma skin cancer History of severely atypical nevus HISTORY OF PRESENT ILLNESS Mr. Hector Nathan is a pleasant 74 y.o. male who presents today for a full skin cancer screening examination. 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 The patient denies a personal or family history of melanoma. I last evaluated Mr. Nathan on 04/19/2021, at which time there was no clinical evidence of recurrence of skin cancer. An actinic keratosis on the left upper forehead was treated with liquid nitrogen cryotherapy. All remaining skin findings were benign in nature and required no treatment. 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 Originally, his carcinoid occurred in 1996, and part of his colon was removed. Today, he reports that on December 28, 2023, he had a skin lesion removed by shave excision at a clinic in [place], which was a severely atypical nevus left triceps. Mr. Nathan reports some scabby lesions on the scalp sometimes. Allergies Allergen Reactions Amoxicillin Other (see comments) Clavulanic Acid Other (see comments) Other reaction(s): Unknown PAST DERMATOLOGIC HISTORY Left upper arm: squamous cell carcinoma arising in actinic keratosis, status post curettage and cryotherapy on 01/08/18, at [facility] by Dr. 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 Eyes: No scleral injection or icterus. No eyelid abnormalities. Lymph: No lower extremity edema. Skin: I have examined the scalp, face, neck, chest, abdomen, back, buttocks, bilateral upper extremities, and bilateral lower extremities. Involving the left upper arm is a well-healed surgical scar without evidence of repigmentation, nodularity, or tenderness on exam. Examination of the shave excision scar on the left triceps reveals a slightly hypertrophic scar with no recurrence of the severely atypical nevus. Examination of the right quaker (x3), right sideburn (x2), right forehead (x1), left forehead (x1),and left medial cheek (x3) are red macules with overlying adherent scale. Examination of the bilateral upper extremities are multiple benign-appearing nevi. Examination of the trunk and extremities are waxy brown, stuck-on appearing papules consistent withseborrheic keratoses. Examination of the right axilla reveals skin colored to light brown pedunculated papules. No suspicious lesions for skin cancer on today's exam. IMPRESSION/REPORT/PLAN #1 Right quaker, right sideburn, right forehead, left forehead, left medial cheek: Actinic keratoses x10 Actinic keratoses are pre-cancerous skin growths caused by sun exposure. Treatment is recommended. A total of 10 actinic keratoses were treated with liquid nitrogen. CONSENT Discussed the risks, benefits, alternatives, and the necessity of other members of the healthcare team participating in the procedure. All questions answered and consent given. PROCEDURE INFORMATION Given the precancerous nature of this lesion(s), treatment is medically indicated. After discussionof the risks, benefits and alternatives to treatment with cryotherapy, informed consent was obtained. We treated a total of 10 lesion(s) with two 10-second freeze-thaw cycles of liquid nitrogen cryotherapy. The patient tolerated the procedure well. Aftercare instructions were provided in written and verbal form to the patient. Should any of these lesions recur, the patient should return for biopsy or further evaluation. Follow up in 1-2 months for recheck if these areas do not complete resolve. #2 Left upper arm: History of squamous cell carcinoma arising in actinic keratosis, status post curettage and cryotherapy on 01/08/18 at [facility], no recurrence Examination today reveals no clinical evidence of recurrence of non-melanoma skin cancer. Follow upimmediately if changes are noticed during monthly self examination. Otherwise followup in 6-12 months. Sun protection and sun avoidance were reviewed with the patient. Educational materials were provided regarding skin self-examination, the warning signs and symptoms of skin cancer, and the proper useof sunscreens. I would recommend a full skin cancer screening examination with an appropriately trained clinician every year or sooner for any concerns. #3 Left triceps: History of severely atypical nevus, no evidence of recurrence The ABCDE criteria for melanoma was reviewed with the patient. None of the patient's nevi reach theclinical threshold for biopsy. I recommend continued sun protection, self-skin examinations, and observation. Should any of the patient's nevi change in size, color, texture, or shape or develop symptoms such as itching or bleeding, I recommend an immediate return visit for reassessment. #4 Face, trunk, and extremities: Multiple benign appearing nevi and lentigines The ABCDE criteria for melanoma was reviewed with the patient. None of the patient's nevi reach theclinical threshold for biopsy. I recommend continued sun protection, self-skin examinations, and observation. Should any of the patient's nevi change in size, color, texture, or shape or develop symptoms such as itching or bleeding, I recommend an immediate return visit for reassessment. #5 Trunk and extremities: Occasional seborrheic keratoses The benign nature of the skin lesion(s) was discussed with the patient. No treatment is required. Irecommend continued observation. Should symptoms or changes develop related to this condition, I would recommend a return visit for reassessment. PATIENT EDUCATION Ready to learn. No apparent learning barriers were identified. Learning preferences include listening. Explained diagnosis and treatment plan; patient/guardian of patient expressed understanding of the content. This document serves as a record of services personally performed by Dr. Epps. It was created ontheir behalf by Nicole South, a trained medical laboratory technical officer. The creation of this record is based on the scribe remotely listening to the visit and the provider's statements to them. This document has beenchecked and approved by the attending provider. Scribed for Julio Cesar Epps M.D. by Nicole South, on 08/26/2024, 11:05 AM CDT. documented in this encounter Plan of Treatment Not on file documented as of this encounter Visit Diagnoses Diagnosis Keratosis Actinic- Primary Nevi Multiple Keratosis Seborrheic Cancer Skin Squamous Cell Personal History documented in this encounter Care Teams Supervisory Air Intercept Controller Relationship Specialty Start Date End Date Kenna Choi M.D. PCP - General 04/13/17 documented as of this encounter
--- OUTSIDE RECORDS SUMMARY | 2024-09-23 12:49 | XMS_ITS | Encounter Summary ---
Author Organization [facility] Address [address] [place] [address] Care Team Providers Care Patient Financial Rep Name Role Phone Regina Vizcaino APRN CHIEF EXECUTIVE Unavaila ble Bette Fowler RN Unavailable Rebeka Lomeli RN Unavailable [phone] Isrrael Mejia MD Primary Care Provider Candido Arzola MD Unavailable [phone] Jonelle Puckett MD Unavailable [phone] Burton Gastelum MD Unavailable [phone] Encounter Details Date Type Department Care Team (Late st Contact Info) Description 06/29/2017 [facility] Medical Advice [facility] [address] [place] [address] Candido Arzola MD [address] [place] [id number] Social History Tobacco Use Types Packs/Day Years Used Date Smoking Tobacco: Never Smokeless Tobacco: Never Alcohol Use Standard Drinks/Week Comments Yes 0 (1 standard drink = 0.6 oz pur e alcohol) 1-2 beers a month Sex and Gender Information Value Date Recorded Sex Assigned at Male 12/18/2021 3:52 PM PAYROLL SERVICES ANALYST Legal Sex Male 3:33 AM PAYROLL SERVICES ANALYST Gender Identity Male 12/18/2021 3:52 PM PAYROLL SERVICES ANALYST Sexual Orientation Straight 12/18/2021 3: 52 PM PAYROLL SERVICES ANALYST documented as of this encounter Plan of Treatment Not on file documented as of this encounter Visit Diagnoses Not on filedocumented in this encounter Care Teams Patient Financial Rep Relationship Specialty Start Date End Date Isrrael Mejia MD [facility] [address] [place] [address] PCP - General Emergency Medicine 09/27/16 Regina Vizcaino, MINISTERIO CHIEF EXECUTIVE [address] [facility] [id number] [place] [address] Nurse Practitioner Nurse Practitioner 06/23/16 Bette Fowler, INDIRA Nurse Coordinator Neurology 07/26/16 06/10/18 Rebeka Lomeli RN Nurse Coordinator Neurology 07/28/16 04/17/19 Candido Arzola MD [facility] [address] [place] [address] Anesthesiology 08/15/17 Jonelle Puckett MD [facility] [address] [place] [address] Referring Physician 06/08/18 Burton Gastelum MD [facility] [address] [place] [address] Ophthalmology 06/08/18 documented as of this encounter
--- OUTSIDE RECORDS SUMMARY | 2024-09-23 12:49 | XMS_ITS | Encounter Summary ---
Author Organization [facility] Address [address] [place] [address] Care Team Providers Care Malted Milk Mixer Name Role Phone Regina Vizcaino APRN FIRESETTER Unavaila ble Bette Fowler RN Unavailable Rebeka Lomeli RN Unavailable [phone] Isrrael Mejia MD Primary Care Provider Candido Arzola MD Unavailable [phone] Jonelle Puckett MD Unavailable [phone] Burton Gastelum MD Unavailable [phone] Encounter Details Date Type Department Care Team (Late st Contact Info) Description 07/24/2017 [facility] Medical Advice [facility] [address] [place] [phone] Candido Arzola MD [address] [place] [address] [id number] Social History Tobacco Use Types Packs/Day Years Used Date Smoking Tobacco: Never Smokeless Tobacco: Never Alcohol Use Standard Drinks/Week Comments Yes 0 (1 standard drink = 0.6 oz pur e alcohol) 1-2 beers a month Sex and Gender Information Value Date Recorded Sex Assigned at Male 12/18/2021 3:52 PM SENIOR HARDWARE ENGINEER Legal Sex Male 3:33 AM SENIOR HARDWARE ENGINEER Gender Identity Male 12/18/2021 3:52 PM SENIOR HARDWARE ENGINEER Sexual Orientation Straight 12/18/2021 3: 52 PM SENIOR HARDWARE ENGINEER documented as of this encounter Plan of Treatment Not on file documented as of this encounter Visit Diagnoses Not on filedocumented in this encounter Care Teams Malted Milk Mixer Relationship Specialty Start Date End Date Isrrael Mejia MD [facility] [address] [place] [address] PCP - General Emergency Medicine 09/27/16 Regina Vizcaino, MINISTERIO FIRESETTER [address] [facility] [id number] [place] [address] Nurse Practitioner Nurse Practitioner 06/23/16 Bette Fowler, INDIRA Nurse Coordinator Neurology 07/26/16 06/10/18 Rebeka Lomeli RN Nurse Coordinator Neurology 07/28/16 04/17/19 Candido Arzola MD [facility] [address] [place] [address] Anesthesiology 08/15/17 Jonelle Puckett MD [facility] [address] [place] [address] Referring Physician 06/08/18 Burton Gastelum MD [facility] [address] [place] [address] Ophthalmology 06/08/18 documented as of this encounter
--- OUTSIDE RECORDS SUMMARY | 2024-09-23 12:49 | XMS_ITS | Encounter Summary ---
Author Organization [facility] Address [address] [place] [address]. [place] [address] Care Team Providers Care Travel Consultant Name Role Phone Regina Vizcaino APRN LABEL DRIER Unavaila ble Rebeka Lomeli RN Unavailable [phone] Isrrael Mejia MD Primary Care Provider Candido Arzola MD Unavailable [phone] Jonelle Puckett MD Unavailable [phone] Burton Gastelum MD Unavailable [phone] Reason for Visit * Reason Onset Date Comments Call Back 06/25/2018 Occipital Nerve Block Injection Encounter Details Date Type Department Care Team (Late st Contact Info) Description 06/25/2018 Telephone [place] [id number] [facility] [address] [place] [phone] Burton Gastelum MD [address] [place] [address], CLINIC [address] [place] [address] Call Back (Occipital Nerve Block Injection) Social History Tobacco Use Types Packs/Day Years Used Date Smoking Tobacco: Never Smokeless Tobacco: Never Alcohol Use Standard Drinks/Week Comments Yes 0 (1 standard drink = 0.6 oz pur e alcohol) 1-2 beers a month Sex and Gender Information Value Date Recorded Sex Assigned at Male 12/18/2021 3:52 PM INTERACTIVE ACCOUNT MANAGER Legal Sex Male 3:33 AM INTERACTIVE ACCOUNT MANAGER Gender Identity Male 12/18/2021 3:52 PM INTERACTIVE ACCOUNT MANAGER Sexual Orientation Straight 12/18/2021 3: 52 PM INTERACTIVE ACCOUNT MANAGER documented as of this encounter Miscellaneous [...] documented as of this encounter Care Teams Travel Consultant Relationship Specialty Start Date End Date Isrrael Mejia MD [facility] [address] [place] [address] PCP - General Emergency Medicine 09/27/16 Regina Vizcaino APRN LABEL DRIER [address] [place] [address] [place] [address] Nurse Practitioner Nurse Practitioner 06/23/16 Rebeka Lomeli, INDIRA Nurse Coordinator Neurology 07/28/16 04/17/19 Candido Arzola MD [facility] [address] [place] [address] Anesthesiology 08/15/17 Jonelle Puckett MD [facility] [address] [place] [address] Referring Physician 06/08/18 Burton Gastelum MD [facility] [address] [place] [address] Ophthalmology 06/08/18 documented as of this encounter
--- OUTSIDE RECORDS SUMMARY | 2024-09-23 12:49 | XMS_ITS | Referral Summary ---
Author Organization [facility] Address [address] [place] [address] Care Team Providers Care Resident Buyer Name Role Phone Kenna Choi M.D. Primary Care Provider Source Comments Patient records contain information from all sites at [facility]. For routine questions regarding patient records, call [phone] during business hours, M-F 8:00 AM - 5:00 PM Central Time. Record requests for emergency care only can be directed to [phone] at any time.[facility] Encounters Date Type Department Care Team Description 08/26/2024 11:00 AM CDT Office Visit Department of Dermatology in [address] [phone] Julio Cesar Epps M.D. Keratosis Actinic (Primary Dx); Nevi Multiple; Keratosis Seborrheic; Cancer Skin Squamous Cell Personal History Discharge Disposition: Home or Self Care from Last 3 Months Allergies Active Allergy Reactions Criticality Noted Date Comments Amoxicillin Other (see comments) 07/10/2009 Clavulanic Acid Other (see comments) 06/01/2017 Other reaction(s): Unknown Medications cholestyramine, bulk, powder Take by mouth daily. 07/10/2009 Active gabapentin (for_NEURONTIN) 600 mg tablet Take 1.5 tablets by mouth 3 (three) times a day. 07/10/2009 Active propranolol (for_INDERAL) 40 mg tablet Take by mouth 2 (two) times a day. 07/10/2009 Active tiZANidine (Zanaflex) 4 mg tablet Take 4 mg by mouth at bedtime. 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 Never true 08/19/20 24 Within the past 12 months, t he [...] your living situation today? I have a [facility] place to live 08/19/2024 Sex and Gender Information Value Date Recorded Sex Assigned at Male 08/19/2024 3:40 PM CDT Legal Sex Male 11:33 PM DEHYDRATOR OPERATOR Gender Identity Male 08/19/2024 3:40 PM CDT Sexual Orientation Straight 08/19/2024 3: 40 PM CDT Last Filed Vital Signs Vital Sign Reading Time Taken Comments Blood Pressure 110/60 08/23/2019 2:27 PM CDT Pulse 80 08/23/2019 2:27 PM CDT Temperature 35.9 C (96.6 F) 08/23/2019 2:27 PM CDT Respiratory Rate 20 01/31/2017 2:57 PM CDT Oxygen Saturation - - Inhaled Oxygen Concentration - - Weight 91.9 kg (202 lb 9.6 oz) 08/23/2019 2:27 P M CDT Height 180 cm (5' 10.87) 01/31/2017 2:57 PM CDT Body Mass Index 28.36 01/31/2017 2:57 PM CDT Plan of Treatment Not on file Medical Devices Implanted Type Area Movable Bulkhead Installer Device Identifier Shelf Expiration Date Model / Serial / Lot Hip Implant-12/29/19 23 Implanted:030 10/2022 (Quantity not on file) Hip Implant Right: Hip Spine Implant-05/30/20 22 Implanted:10/2021 (Quantity not on file) Spine Implant Back Procedures Procedure Name Priority Date/Time Associated Diagnosis Comments COMPREHENSIVE METABOLIC PANEL, S/P Routine 08/23/2019 9:00 AM CDT Carcinoid Syndrome (HCC) from Last 3 Months or Most Recently Relevant to Health Maintenance Results * (ABNORMAL) Comprehensive Metabolic Panel (08/23/2019 9:00 AM CDT) Potassium, S 4.7 3.6 - 5.2 mmol/L 08/23/2019 9:54 AM CDT MKTO Sodium, S 137 135 - 145 mmol/L 08/23/2019 9:54 AM CDT MKTO Chloride, S 100 98 - 107 mmol/L 08/23/2019 9:54 AM CDT MKTO Bicarbonate, S 30(H) 22 - 29 mmol/L 08/23/2019 9:54 AM CDT MKTO Anion Gap 7 7 - 15 08/23/2019 9:54 AM CDT MK[facility] BUN (Blood Urea Nitrogen), S 14 8 - 24 mg/dL 08/23/2019 9:54 AM CDT MKTO Creatinine 1.06 0.74 - 1.35 mg/dL 08/23/2019 9:54 AM CDT MKTO eGFR-Non Black/ 71 >=60 mL/min/BS A 08/23/2019 9:54 AM CDT MKTO Comment: ----ADDITIONAL INFORMATION---- Estimated GFR calculated using the 2009 CKD_EPI creatinine equation. eGFR-Black/ 82 >=60 mL/min/BS A 08/23/2019 9:54 AM CDT MKTO Comment: ----ADDITIONAL INFORMATION---- Estimated GFR calculated using the 2009 CKD_EPI creatinine equation. Calcium, Total, S 9.8 8.8 - 10.2 mg/dL 08/23/2019 9:54 AM CDT MKTO Glucose, S 98 70 - 140 mg/dL 08/23/2019 9:54 AM CDT MKTO Protein, Total, S 7.4 6.3 - 7.9 g/dL 08/23/2019 9:54 AM CDT MKTO Albumin, S 4.4 3.5 - 5.0 g/dL 08/23/2019 9:54 AM CDT MKTO Aspartate Aminotransferase (AST), S 22 8 - 48 U/L 08/23/2019 9:54 AM CDT MKTO Alkaline Phosphatase, S 108 40 - 129 U/L 08/23/2019 9:54 AM CDT MKTO Alanine Aminotransferase (ALT), S 23 7 - 55 U/L 08/23/2019 9:54 AM CDT MKTO Bilirubin, Total, S 1.1 <=1.2 mg/dL 08/23/2019 9:54 AM CDT MKTO Blood (Blood, Venous) 08/23/2019 9:00 AM CDT 08/23/2019 9:06 AM CDT us Jt Phelps M.D. LAB BLOOD ADD-ON Final Re sult [facility] [address] [place] [address], [place] MKTO [facility] [address] [place] [address] from Last 3 Months or Most Recently Relevant to Health Maintenance Insurance MEDICARE [facility] Care Teams Resident Buyer Relationship Specialty Start Date End Date Kenna Choi M.D. PCP - General 04/13/17
--- OUTSIDE RECORDS SUMMARY | 2024-09-23 12:49 | XMS_ITS | Encounter Summary ---
Author Organization [facility] Address [address] [place] [address] Care Team Providers Care Sld Teacher Name Role Phone Regina Vizcaino APRN YOUTH DEVELOPMENT PROFESSIONAL Unavaila ble Rebeka Lomeli RN Unavailable [phone] Isrrael Mejia MD Primary Care Provider Candido Arzola MD Unavailable [phone] Jonelle Puckett MD Unavailable [phone] Burton Gastelum MD Unavailable [phone] Encounter Details Date Type Department Care Team (Late st Contact Info) Description 07/06/2018 [facility] Medical [facility] [address] [place] [address] [address] [place] [address] Candido Arzola MD [address] [place] [address] Social History Tobacco Use Types Packs/Day Years Used Date Smoking Tobacco: Never Smokeless Tobacco: Never Alcohol Use Standard Drinks/Week Comments Yes 0 (1 standard drink = 0.6 oz pur e alcohol) 1-2 beers a month Sex and Gender Information Value Date Recorded Sex Assigned at Male 12/18/2021 3:52 PM INTERMODAL CUSTOMER SERVICE Legal Sex Male 3:33 AM INTERMODAL CUSTOMER SERVICE Gender Identity Male 12/18/2021 3:52 PM INTERMODAL CUSTOMER SERVICE Sexual Orientation Straight 12/18/2021 3: 52 PM INTERMODAL CUSTOMER SERVICE documented as of this encounter Plan of Treatment Not on file documented as of this encounter Visit Diagnoses Not on filedocumented in this encounter Additional Health Concerns Assessment Noted Time PHQ-9 Depression Total Score: 9 02/11/20 18 7:37 AM CDT documented as of this encounter Care Teams Sld Teacher Relationship Specialty Start Date End Date Isrrael Mejia MD [facility] [address] [place] [address] PCP - General Emergency Medicine 09/27/16 Regina Vizcaino APRN YOUTH DEVELOPMENT PROFESSIONAL [address] [facility], [place] [address] Nurse Practitioner Nurse Practitioner 06/23/16 Rebeka Lomeli RN Nurse Coordinator Neurology 07/28/16 04/17/19 Candido Arzola MD [facility] [address] [place] [address] Anesthesiology 08/15/17 Jonelle Puckett MD [facility] [address] [place] [address] Referring Physician 06/08/18 Burton Gastelum MD [facility] [address] [place] [address] Ophthalmology 06/08/18 documented as of this encounter
--- OUTSIDE RECORDS SUMMARY | 2024-09-23 12:49 | XMS_ITS ---
Author Organization [facility] Address [address] [place] [address] Care Team Providers Care Road Grader Operator Name Role Phone Unavailable Unavailable Unavailable Surgery Details Not on file Complications Check Surgery Details section. Procedure Estimated Blood Loss Check Surgery Details section. Procedure Findings Check Surgery Details section. Procedure Specimens Taken Check Surgery Details section.
--- OUTSIDE RECORDS SUMMARY | 2024-09-23 12:49 | XMS_ITS | Clinical Summary ---
Author Organization [facility] Address [address] [place] [address] Care Team Providers Care Manager Interface Name Role Phone Kenna Choi M.D. Primary Care Provider [phone] Source Comments Patient records contain information from all sites at [facility]. For routine questions regarding patient records, call [phone] during business hours, M-F 8:00 AM - 5:00 PM Central Time. 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 Keratosis Actinic (Primary Dx); Nevi Multiple; Keratosis Seborrheic; Cancer Skin Squamous Cell Personal History Discharge Disposition: Home or Self Care from Last 3 Months Immunizations Name Administration Dates Next Due Influenza, Unspecified 08/19/2015 PCV13 11/19/2015 Family History Medical History Relation Name Comments Brain cancer Brother Colon cancer Mother Relation Name Status Comments Brother Mother Social History Tobacco Use Types Packs/Day Years Used Date Smoking Tobacco: Never Smokeless Tobacco: Never Alcohol Use Standard Drinks/Week Comments Yes 2 (1 standard drink = 0.6 oz pur e alcohol) [facility] Utilities Answer Date Recorded In the past 12 months has [employer], [employer], oil, or water [employer] threatened to shut off services in your [...] Date Recorded Dental: Regular Dentist Yes 08/19/20 24 Employment Answer Date Recorded Employment status Retired 08/19/2024 Housing Stability Answer Date Recorded What is your living situation today? I have a [facility] place to live 08/19/2024 Sex and Gender Information Value Date Recorded Sex Assigned at Male 08/19/2024 3:40 PM CDT Legal Sex Male 11:33 PM BUSINESS RELATIONSHIP MANAGER Gender Identity Male 08/19/2024 3:40 PM CDT [...] 01/31/2017 2:57 PM CDT Plan of Treatment Health Maintenance Due Date Last Done Comments CT Colonography 1949 Cologuard 1950 Colonoscopy 1950 Colorectal Cancer Surveillance 1950 Hepatitis C Screening 1950 Office Visit for Blood Press ure Check / Re-check 1950 Zoster Vaccines (2 of 3) 08/11/2015 06/16/2015 IPV Vaccines (2 of 3 - Adult catch-up series) 03/23/2023 02/23/2023 Depression Screening (Annual PHQ-2) 10/30/2023 Fall Risk Screen (Annual) 10/30/2023 Fasting Glucose for Diabetes Screening 03/30/2026 03/30/2023, 03/18/2023, 03/17/2023, Additional history exists DTaP,Tdap,and Td Vaccines (3 - Td or Tdap) 02/23/2033 02/23/2023, 09/08/2016 Pneumococcal vaccine (65+ years) Completed 08/05/20, 11/19/2015 RSV vaccine - (32-3 6 weeks) or 60+ years Completed 08/07/2023 COVID-19 Vaccine Completed 08/02/2024, , 07/27/2023, Additional history exists Influenza Vaccine Completed 08/02/2024, , 07/18/2022, Additional history exists Medical Devices Implanted Type Area Respiratory Support Technician Device Identifier Shelf Expiration Date Model / Serial / Lot Hip Implant-12/29/19 23 Implanted:10/2022 (Quantity not on file) Hip Implant Right: [...] M.D. LAB BLOOD ADD-ON Final Re sult [facility] [address] [place] [address], [facility] MKTO [facility] [address] [place] [address] from Last 3 Months or Most Recently Relevant to Health Maintenance Insurance MEDICARE [facility] Care Teams Manager Interface Relationship Specialty Start Date End Date Kenna Choi M.D. PCP - General 04/13/17
--- OUTSIDE RECORDS SUMMARY | 2024-09-23 12:49 | XMS_ITS | Encounter Summary ---
Author Organization [facility] Address [address] [place] [address] Care Team Providers Care Curriculum Advisory Teacher Name Role Phone Regina Vizcaino APRN LINE ASSEMBLER Unavaila ble Isrrael Mejia MD Primary Care Provider Candido Arzola MD Unavailable [phone] Jonelle Puckett MD Unavailable Burton Gastelum MD Unavailable [phone] Encounter Details Date Type Department Care Team (Late st Contact Info) Description 12/10/2019 [facility] Medical Advice [facility] [address] [place] [address] Candido Arzola MD [address] [place] [address] Social History Tobacco Use Types Packs/Day Years Used Date Smoking Tobacco: Never Smokeless Tobacco: Never Alcohol Use Standard Drinks/Week Comments Yes 0 (1 standard drink = 0.6 oz pur e alcohol) one drink per month PHQ-2 Answer Date Recorded PHQ-2 Score 4 11/26/2019 Sex and Gender Information Value Date Recorded Sex Assigned at Male 12/18/2021 3:52 PM NUTRITION PROGRAM INSTRUCTOR Legal Sex Male 3:33 AM NUTRITION PROGRAM INSTRUCTOR Gender Identity Male 12/18/2021 3:52 PM NUTRITION PROGRAM INSTRUCTOR Sexual Orientation Straight 12/18/2021 3: 52 PM NUTRITION PROGRAM INSTRUCTOR documented as of this encounter Plan of Treatment Not on file documented as of this encounter Visit Diagnoses Not on filedocumented in this encounter Additional Health Concerns Assessment Noted Time PHQ-9 Depression Total Score: 10 020 1:39 PM NUTRITION PROGRAM INSTRUCTOR documented as of this encounter Care Teams Curriculum Advisory Teacher Relationship Specialty Start Date End Date Isrrael Mejia MD [facility] [address] [place] [address] PCP - General Emergency Medicine 09/27/16 Regina Vizcaino APRN LINE ASSEMBLER 9 [id number] [address] Nurse Practitioner Nurse Practitioner 06/23/16 Candido Arzola MD [facility] [address] [place] [address] Anesthesiology 08/15/17 Jonelle Puckett MD [facility] [address] [place] [address] Referring Physician 06/08/18 Burton Gastelum MD [facility] [address] [place] [address] Ophthalmology 06/08/18 documented as of this encounter
--- OUTSIDE RECORDS SUMMARY | 2024-09-23 12:49 | XMS_ITS | Encounter Summary ---
Author Organization [facility] Address [address] [place] [address] Care Team Providers Care Door To Door Salesman Name Role Phone Regina Vizcaino APRN ENVIRONMENTAL HEALTH INSPECTOR Unavaila ble Isrrael Mejia MD Primary Care Provider Candido Arzola MD Unavailable [phone] Jonelle Puckett MD Unavailable Burton Gastelum MD Unavailable [phone] Encounter Details Date Type Department Care Team (Late st Contact Info) Description 12/03/2019 [facility] Medical Advice [facility] [address] [place] [phone] Candido Arzola MD [address] [place] [address] Social History Tobacco Use Types Packs/Day Years Used Date Smoking Tobacco: Never Smokeless Tobacco: Never Alcohol Use Standard Drinks/Week Comments Yes 0 (1 standard drink = 0.6 oz pur e alcohol) one drink per month PHQ-2 Answer Date Recorded PHQ-2 Score 4 11/26/2019 Sex and Gender Information Value Date Recorded Sex Assigned at Male 12/18/2021 3:52 PM CORPORATE RELATIONS DIRECTOR Legal Sex Male 3:33 AM CORPORATE RELATIONS DIRECTOR Gender Identity Male 12/18/2021 3:52 PM CORPORATE RELATIONS DIRECTOR Sexual Orientation Straight 12/18/2021 3: 52 PM CORPORATE RELATIONS DIRECTOR documented as of this encounter Plan of Treatment Not on file documented as of this encounter Visit Diagnoses Not on filedocumented in this encounter Additional Health Concerns Assessment Noted Time PHQ-9 Depression Total Score: 10 020 1:39 PM CORPORATE RELATIONS DIRECTOR documented as of this encounter Care Teams Door To Door Salesman Relationship Specialty Start Date End Date Isrrael Mejia MD [facility] [address] [place] [address] PCP - General Emergency Medicine 09/27/16 Regina Vizcaino APRN ENVIRONMENTAL HEALTH INSPECTOR 9 [id number] [address] Nurse Practitioner Nurse Practitioner 06/23/16 Candido Arzola MD [facility] [address] [place] [address] Anesthesiology 08/15/17 Jonelle Puckett MD [facility] [address] [place] [address] Referring Physician 06/08/18 Burton Gastelum MD [facility] [address] [place] [address] Ophthalmology 06/08/18 documented as of this encounter
--- OUTSIDE RECORDS SUMMARY | 2024-09-23 12:49 | XMS_ITS | Encounter Summary ---
Author Organization [facility] Address [address] [place] [address] Care Team Providers Care Beach Patrol Lieutenant Name Role Phone Regina Vizcaino APRN FINANCE AND ADMINISTRATION MANAGER Unavaila ble Bette Fowler RN Unavailable Rebeka Lomeli RN Unavailable [phone] Isrrael Mejia MD Primary Care Provider Candido Arzola MD Unavailable [phone] Jonelle Puckett MD Unavailable [phone] Burton Gastelum MD Unavailable [phone] Encounter Details Date Type Department Care Team (Late st Contact Info) Description 07/25/2017 [facility] Medical Advice [facility] [address] [place] [address] Candido Arzola MD [address] [place] [phone] Social History Tobacco Use Types Packs/Day Years Used Date Smoking Tobacco: Never Smokeless Tobacco: Never Alcohol Use Standard Drinks/Week Comments Yes 0 (1 standard drink = 0.6 oz pur e alcohol) 1-2 beers a month Sex and Gender Information Value Date Recorded Sex Assigned at Male 12/18/2021 3:52 PM SEWER INSPECTOR Legal Sex Male 3:33 AM SEWER INSPECTOR Gender Identity Male 12/18/2021 3:52 PM SEWER INSPECTOR Sexual Orientation Straight 12/18/2021 3: 52 PM SEWER INSPECTOR documented as of this encounter Plan of Treatment Not on file documented as of this encounter Visit Diagnoses Not on filedocumented in this encounter Care Teams Beach Patrol Lieutenant Relationship Specialty Start Date End Date Isrrael Mejia MD [facility] [address] [place] [address] PCP - General Emergency Medicine 09/27/16 Regina Vizcaino, MINISTERIO FINANCE AND ADMINISTRATION MANAGER [address] [facility] [id number] [place] [address] Nurse Practitioner Nurse Practitioner 06/23/16 Bette Fowler, INDIRA Nurse Coordinator Neurology 07/26/16 06/10/18 Rebeka Lomeli RN Nurse Coordinator Neurology 07/28/16 04/17/19 Candido Arzola MD [facility] [address] [place] [address] Anesthesiology 08/15/17 Jonelle Puckett MD [facility] [address] [place] [address] Referring Physician 06/08/18 Burton Gastelum MD [facility] [address] [place] [address] Ophthalmology 06/08/18 documented as of this encounter
--- OUTSIDE RECORDS SUMMARY | 2024-09-23 12:49 | XMS_ITS | Encounter Summary ---
Author Organization [facility] Address [address] [place] [address] Care Team Providers Care English Language Learner Teacher Name Role Phone Regina Vizcaino APRN CRIB TENDER Unavaila ble Bette Fowler RN Unavailable Rebeka Lomeli RN Unavailable [phone] Isrrael Mejia MD Primary Care Provider Candido Arzola MD Unavailable [phone] Jonelle Puckett MD Unavailable [phone] Burton Gastelum MD Unavailable [phone] Encounter Details Date Type Department Care Team (Late st Contact Info) Description 03/06/2018 MyC Medical Advice Initial Department [facility] Social History Tobacco Use Types Packs/Day Years Used Date Smoking Tobacco: Never Smokeless Tobacco: Never Alcohol Use Standard Drinks/Week Comments Yes 0 (1 standard drink = 0.6 oz pur e alcohol) 1-2 beers a month Sex and Gender Information Value Date Recorded Sex Assigned at Male 12/18/2021 3:52 PM RAG PRODUCTION WORKER Legal Sex Male 3:33 AM RAG PRODUCTION WORKER Gender Identity Male 12/18/2021 3:52 PM RAG PRODUCTION WORKER Sexual Orientation Straight 12/18/2021 3: 52 PM RAG PRODUCTION WORKER documented as of this encounter Plan of Treatment Not on file documented as of this encounter Visit Diagnoses Not on filedocumented in this encounter Additional Health Concerns Assessment Noted Time PHQ-9 Depression Total Score: 9 02/11/20 18 7:37 AM CDT documented as of this encounter Care Teams English Language Learner Teacher Relationship Specialty Start Date End Date Isrrael Mejia MD [facility] [address] [place] [address] PCP - General Emergency Medicine 09/27/16 Regina Vizcaino APRN CRIB TENDER 9 [facility] [id number] [place] [address] Nurse Practitioner Nurse Practitioner 06/23/16 Bette Fowler, RN Nurse Coordinator Neurology 07/26/16 06/10/18 Rebeka Lomeli, RN Nurse Coordinator Neurology 07/28/16 04/17/19 Candido Arzola MD [facility] [address] [place] [address] Anesthesiology 08/15/17 Jonelle Puckett MD [facility] [address] [place] [address] Referring Physician 06/08/18 Burton Gastelum MD [facility] [address] [place] [address] Ophthalmology 06/08/18 documented as of this encounter
== END 2024-09-19 12:00 | disposition home or self-care (01) ==
LOC: LAB 09-23 12:46
PROVIDERS: PCP Internal Medicine; Visit Provider Internal Medicine Hematology & Oncology
DX: C78.02 Secondary malignant neoplasm of left lung (principal)
CPT/HCPCS: 36415; 80053; 84260; 85025; 86316

== ENCOUNTER 2024-10-01 09:21 | Outpatient (CLI) | payer MEDICARE, BC, SELFPAY ==
--- OUTSIDE RECORDS SUMMARY | 2024-10-01 09:24 | XMS_ITS | Clinical Summary ---
Author Organization [facility] Address [address] [place] [address] Care Team Providers Care Ammonia Nitrate Operator Name Role Phone Regina Vizcaino APRN OFFBEARER SEWER PIPE Unavaila ble Isrrael Mejia MD Primary Care Provider Candido Arzola MD Unavailable [phone] Jonelle Puckett MD Unavailable [phone] Burton Gastelum MD Unavailable Allergies Active Allergy Reactions Criticality Noted Date [...] Sex Assigned at Male 12/18/2021 3:52 PM GRAPHITE MILL OPERATOR Legal Sex Male 3:33 AM GRAPHITE MILL OPERATOR Gender Identity Male 12/18/2021 3:52 PM GRAPHITE MILL OPERATOR Sexual Orientation Straight 12/18/2021 3: 52 PM GRAPHITE MILL OPERATOR Last Filed Vital Signs Vital Sign [...] Dinora Crawford Medical Devices Implanted Type Area Registered Veterinary Technician Device Identifier Shelf Expiration Date Model / Serial / Lot Bone Cement Simplex Full Dose 6191-1-001 - [id number] Implanted:Qty: 2 on 01/09/2023 by Prasad Sousa MD at [facility] Cement, Bone Right: Hip PER ORTHOPEDICS [id number] 03/29/2025 6191-1-001 / / [id number] Bone Cement Restrictor Gavin Femoral 18.5mm [id number] - [id number] Implanted:Qty: 1 on 01/09/2023 by Prasad Sousa MD at [facility] Cement, Bone Right: Hip BLOCK [employer] INC-R [id number] 09/15/2032 [id number] / / [id number] Imp Scr Zim 6.5x35mm Acet Cup Self Tap 07-8087-264-35 - [id number] Implanted:Qty: 1 on 01/09/2023 by Prasad Sousa MD at [facility] Metallic Hardware/An chor Right: Hip [employer] [id number] 09/03/2032-6250-065 -35 / / [id number] Screw Bone Self Tap 6.5 X 25 34-6042-826-25 - [id number] Implanted:Qty: 1 on 01/09/2023 by Prasad Sousa MD at [facility] Metallic Hardware/An chor Right: Hip [employer] [id number] 03/08/2031-6250-065 -25 / / [id number] Imp Shell Biom G7 Acetab Pps Vines Hole 58mm Sz G [id number] - [id number] Implanted:Qty: 1 on 01/09/2023 by Prasad Sousa MD at [facility] Total Joint Component/I nsert Right: Hip [employer] [id number] 01/12/2032 [id number] / / [id number] Liner G7 Dual Mobility 46mm G - [id number] Implanted:Qty: 1 on 01/09/2023 by Prasad Sousa MD at [facility] Total Joint Component/I nsert Right: Hip [employer] [id number] 09/30/2032 [id number] / / [id number] Imp Stem Femoral Zim Versys Heritage 15-0695-117-00 - [id number] Implanted:Qty: 1 on 01/09/2023 by Prasad Sousa MD at [facility] Total Joint Component/I nsert Right: Hip [employer] [id number] 07/09/2032-7857-013 -00 / [id number] Imp Centralizer Distal Zim Versys [id number] Implanted:Qty: 1 on 01/09/2023 by Prasad Sousa MD at [facility] Total Joint Component/I nsert Right: Hip [employer] [id number] 11/01/2027-7859-011 -00 / / [id number] Bearing Hip 46mm 28mm G Vivacit-E Lum Strl Lf [id number] - [id number] Implanted:Qty: 1 on 01/09/2023 by Prasad Sousa MD at [facility] Total Joint Component/I nsert Right: Hip [employer] [id number] 10/06/2027 [id number] / / [id number] Biolox Head, 28/+7 , Taper/14 Implanted:Qty: 1 on 01/09/2023 by Prasad Sousa MD at [facility] Right: Hip [id number] 09/22/2031 00-8777-028 -04 / / [id number] Procedures Procedure Name Priority Date/Time Associated Diagnosis [...] - BLOOD ORDERABLES F inal Result LABORATORY [facility] Lab [address] (1st floor, no room number) [place] [address], [facility] [phone] from Last 3 Months or Most Recently Relevant to Health Maintenance Additional Health Concerns Active Problems Noted Date Diagnosed Date 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 Insurance MEDICARE [facility] [place] MEDICARE [facility] BLUE [facility] BLUE MEDICARE MEDICARE Advance Directives For more information, please contact: [phone] * Full Code (Latest Code Status on [...] 7:53 PM 09/28/2016 5:53 PM Care Teams Ammonia Nitrate Operator Relationship Specialty Start Date End Date Isrrael Mejia MD [facility] [address] [place] [address] PCP - General Emergency Medicine 09/27/16 Regina Vizcaino APRN OFFBEARER SEWER PIPE [address] [place] [address] [address] Nurse Practitioner Nurse Practitioner 06/23/16 Candido Arzola MD [facility] [address] [place] [address] Anesthesiology 08/15/17 Jonelle Puckett MD [facility] [address] [place] [address] Referring Physician 06/08/18 Burton Gastelum MD [facility] [address] [place] [address] Ophthalmology 06/08/18
--- OUTSIDE RECORDS SUMMARY | 2024-10-01 09:24 | XMS_ITS | Clinical Summary ---
Author Organization [facility] Address [place], [place] [address] Care Team Providers Care Forest Examiner Name Role Phone Isrrael Mejia MD Primary Care Provider [facility] [place] Unavailable [phone] February, Traci Sneed RN, BSN Unavailable [phone] Allergies Active Allergy Reactions Criticality Noted [...] 65+ 06/30/2024 Medical Devices Implanted Type Area First Assistant Manager Device Identifier Shelf Expiration Date Model / Serial / Lot [id number] 1-4mm 60cc Medtronic Fine Canclls Freeze Dried Implanted:Qty: 1 on 06/22/2020 by Joo Arellano MD at [facility] Explanted:at [facility] (Quantity not on file) Spine Medtronic Spine/Ortho 11/06/2024 [id number]# / [id number] / Screw Lmbr Post 7.5x45mm Solera 5.5/6 Va Cocr - [id number] Implanted:Qty: 3 on 06/22/2020 by Joo Arellano MD at [facility] Spine Medtronic Spine/Ortho [id number] 45# / / Screw Lmbr Post 7.5x50mm Solera 5.5/6 Va Cocr - [id number] Implanted:Qty: 4 on 06/22/2020 by Joo Arellano MD at [facility] Spine Medtronic Spine/Ortho [id number] 50# / / Screw Lmbr Post 7.5x55mm Solera 5.5/6 Va Cocr - [id number] Implanted:Qty: 3 on 06/22/2020 by Joo Arellano MD at [facility] Spine Medtronic Spine/Ortho [id number] 55# / / Adan Lmbr 500x5.5mm Solera 5.5/6 Cvd Co Cr - [id number] Implanted:Qty: 1 on 06/22/2020 by Joo Arellano MD at [facility] Spine Medtronic Spine/Ortho [id number] 0# / / Screw Lmbr 8.5x90mm Cd Horizon - [id number] Implanted:Qty: 1 on 06/22/2020 by Joo Arellano MD at [facility] Spine Medtronic Spine/Ortho [id number] 90# / / [id number] 1-4mm 60cc Medtronic Fine Canclls Freeze Dried Implanted:Qty: 1 on 06/22/2020 by Joo Arellano MD at [facility] Explanted:at [facility] (Quantity not on file) Spine Medtronic Spine/Ortho 11/07/2024 [id number]# / [id number] / [id number] 1-4mm 90cc Medtronic Chips Canclls Freeze Dried Implanted:Qty: 1 on 06/22/2020 by Joo Arellano MD at [facility] Explanted:at [facility] (Quantity not on file) Spine Medtronic Spine/Ortho 10/28/2024 [id number]# / [id number] / [id number] 6cc Cullman Dbf Putty Dbm Implanted:Qty: 1 on 06/22/2020 by Joo Arellano MD at [facility] Explanted:at [facility] (Quantity not on file) N/A: Spine Medtronic Spine/Ortho 09/17/2021 [id number]# / [id number] / Spacer Lmbr Lg 14mm 8deg Perimeter Alif Peek - [id number] Implanted:Qty: 1 on 06/22/2020 by Joo Arellano MD at [facility] Spine Medtronic Spine/Ortho 04/15/2027 [id number]# / / 26JG Washer 17mm - [id number] Implanted:Qty: 1 on 06/22/2020 by Joo Arellano MD at [facility] Spine Medtronic Spine/Ortho [id number]# / / Screw Lmbr Ant 6.5x20mm Pyramid Plus Va - [id number] Implanted:Qty: 1 on 06/22/2020 by Joo Arellano MD at [facility] Spine Medtronic Spine/Ortho [id number]# / / Spacer Lmbr Md 26cu00iwg 10deg Transcontinental - [id number] Implanted:Qty: 3 on 06/22/2020 by Joo Arellano MD at [facility] Spine [employer] Inc 375.271# / / Set Screw Lmbr Ant 5.5mm Solera Break Off - [id number] Implanted:Qty: 11 on 06/22/2020 by Joo Arellano MD at [facility] Spine Medtronic Spine/Ortho [id number]# / / Adhesion Barrier 5x6in Seprafilm Absorb - [id number] Implanted:Qty: 1 on 03/14/2023 by Wilber Zhang MBBS at [facility] N/A: Abdomen [employer] International Inc 04/30/2025 [id number] / / [id number] Adhesion Barrier 3x5in Seprafilm Absorb Procedure Packs - [id number] Implanted:Qty: 2 on 03/14/2023 by Wilber Zhang MBBS at [facility] N/A: Abdomen [employer] Inc 07/26/2025 [id number] / / [id number] Mesh Ventral 60 Seamguard Endo Meri Tri Blk - [id number] Implanted:Qty: 1 on 03/14/2023 by Wilber Zhang MBBS at [facility] N/A: Abdomen [employer] 01/17/2025 [id number] / / [id number] Advance Directives * Full Code (Latest Code [...] Code Status Discussion: Not Discussed Care Teams Forest Examiner Relationship Specialty Start Date End Date Isrrael Mejia MD [address] [place] [address] PCP - General Internal Medicine 06/09/[address] [address] 03/18/23February, Traci Sneed RN, BSN [address] [id number] Nurse Navigator - Oncology Oncology 05/23/23
--- OUTSIDE RECORDS SUMMARY | 2024-10-01 09:25 | XMS_ITS | Encounter Summary ---
Author Organization [facility] Address [address] [place] [address] Care Team Providers Care Chief Clerk Shelter Name Role Phone Regina Vizcaino APRN ADVERTISING LAYOUT WORKER Unavaila ble Isrrael Mejia MD Primary Care Provider Candido Arzola MD Unavailable [phone] Jonelle Puckett MD Unavailable Burton Gastelum MD Unavailable [phone] Encounter Details Date Type Department Care Team (Late st Contact Info) Description 12/10/2019 [facility] [place] Adv[place] [facility] [address] [place] [address] Candido Arzola MD [address] [place] [address] Social History Tobacco Use Types Packs/Day Years Used Date Smoking Tobacco: Never Smokeless Tobacco: Never Alcohol Use Standard Drinks/Week Comments Yes 0 (1 standard drink = 0.6 oz pur e alcohol) one drink per month PHQ-2 Answer Date Recorded PHQ-2 Score 4 11/26/2019 Sex and Gender Information Value Date Recorded Sex Assigned at Male 12/18/2021 3:52 PM GRAIN CLEANER Legal Sex Male 3:33 AM GRAIN CLEANER Gender Identity Male 12/18/2021 3:52 PM GRAIN CLEANER Sexual Orientation Straight 12/18/2021 3: 52 PM GRAIN CLEANER documented as of this encounter Plan of Treatment Not on file documented as of this encounter Visit Diagnoses Not on filedocumented in this encounter Additional Health Concerns Assessment Noted Time PHQ-9 Depression Total Score: 10 020 1:39 PM GRAIN CLEANER documented as of this encounter Care Teams Chief Clerk Shelter Relationship Specialty Start Date End Date Isrrael Mejia MD [facility] [address] [place] [address] PCP - General Emergency Medicine 09/27/16 Regina Vizcaino APRN ADVERTISING LAYOUT WORKER 9 [id number] [place] [address] Nurse Practitioner Nurse Practitioner 06/23/16 Candido Arzola MD [facility] 3[facility] [address] [place] [address] Anesthesiology 08/15/17 Jonelle Puckett MD [facility] [address] [place] [address] Referring Physician 06/08/18 Burton Gastelum MD [facility] [address] [place] [address] Ophthalmology 06/08/18 documented as of this encounter
--- OUTSIDE RECORDS SUMMARY | 2024-10-01 09:25 | XMS_ITS | Encounter Summary ---
Author Organization [facility] Address [address] [place] [address] Care Team Providers Care General Operator Name Role Phone Regina Vizcaino APRN ORGANIZATIONAL DEVELOPMENT MANAGER Unavaila ble Bette Fowler RN Unavailable Rebeka Lomeli RN Unavailable [phone] Isrrael Mejia MD Primary Care Provider Candido Arzola MD Unavailable [phone] Jonelle Puckett MD Unavailable [phone] Burton Gastelum MD Unavailable [phone] Encounter Details Date Type Department Care Team (Late st Contact Info) Description 03/06/2018 MyC Medical Advice Initial Department [facility] Social History Tobacco Use Types Packs/Day Years Used Date Smoking Tobacco: Never Smokeless Tobacco: Never Alcohol Use Standard Drinks/Week Comments Yes 0 (1 standard drink = 0.6 oz pur e alcohol) 1-2 beers a month Sex and Gender Information Value Date Recorded Sex Assigned at Male 12/18/2021 3:52 PM VEIN ACCESS TECHNICIAN Legal Sex Male 3:33 AM VEIN ACCESS TECHNICIAN Gender Identity Male 12/18/2021 3:52 PM VEIN ACCESS TECHNICIAN Sexual Orientation Straight 12/18/2021 3: 52 PM VEIN ACCESS TECHNICIAN documented as of this encounter Plan of Treatment Not on file documented as of this encounter Visit Diagnoses Not on filedocumented in this encounter Additional Health Concerns Assessment Noted Time PHQ-9 Depression Total Score: 9 02/11/20 18 7:37 AM CDT documented as of this encounter Care Teams General Operator Relationship Specialty Start Date End Date Isrrael Mejia MD [facility] [address] [place] [address] PCP - General Emergency Medicine 09/27/16 Regina Vizcaino APRN ORGANIZATIONAL DEVELOPMENT MANAGER 9 [facility] [id number] [place] [address] Nurse Practitioner Nurse Practitioner 06/23/16 Bette Fowler, RN Nurse Coordinator Neurology 07/26/16 06/10/18 Rebeka Lomeli, RN Nurse Coordinator Neurology 07/28/16 04/17/19 Candido Arzola MD [facility] [address] [place] [address] Anesthesiology 08/15/17 Jonelle Puckett MD [facility] [address] [place] [address] Referring Physician 06/08/18 Burton Gastelum MD [facility] [address] [place] [address] Ophthalmology 06/08/18 documented as of this encounter
--- OUTSIDE RECORDS SUMMARY | 2024-10-01 09:25 | XMS_ITS ---
Author Organization [facility] Address [address] [place] [address] Care Team Providers Care Produce Team Member Name Role Phone Unavailable Unavailable Unavailable Surgery Details Not on file Complications Check Surgery Details section. Procedure Estimated Blood Loss Check Surgery Details section. Procedure Findings Check Surgery Details section. Procedure Specimens Taken Check Surgery Details section.
--- OUTSIDE RECORDS SUMMARY | 2024-10-01 09:25 | XMS_ITS | Encounter Summary ---
Author Organization [facility] Address [address] [place] [address] Care Team Providers Care Air Traffic Supervisor Name Role Phone Regina Vizcaino APRN SUPERVISOR ALTERATION WORKROOM Unavaila ble Isrrael Mejia MD Primary Care Provider Candido Arzola MD Unavailable [phone] Jonelle Puckett MD Unavailable Burton Gastelum MD Unavailable [phone] Encounter Details Date Type Department Care Team (Late st Contact Info) Description 12/19/2019 [facility] Medical Advice [facility] [address] [place] [phone] Candido Arzola MD [address] [place] [address] Social History Tobacco Use Types Packs/Day Years Used Date Smoking Tobacco: Never Smokeless Tobacco: Never Alcohol Use Standard Drinks/Week Comments Yes 0 (1 standard drink = 0.6 oz pur e alcohol) one drink per month PHQ-2 Answer Date Recorded PHQ-2 Score 4 11/26/2019 Sex and Gender Information Value Date Recorded Sex Assigned at Male 12/18/2021 3:52 PM SOLAR ENERGY SYSTEMS ENGINEER Legal Sex Male 3:33 AM SOLAR ENERGY SYSTEMS ENGINEER Gender Identity Male 12/18/2021 3:52 PM SOLAR ENERGY SYSTEMS ENGINEER Sexual Orientation Straight 12/18/2021 3: 52 PM SOLAR ENERGY SYSTEMS ENGINEER documented as of this encounter Plan of Treatment Not on file documented as of this encounter Visit Diagnoses Not on filedocumented in this encounter Additional Health Concerns Assessment Noted Time PHQ-9 Depression Total Score: 10 020 1:39 PM SOLAR ENERGY SYSTEMS ENGINEER documented as of this encounter Care Teams Air Traffic Supervisor Relationship Specialty Start Date End Date Isrrael Mejia MD [facility] [address] [place] [address] PCP - General Emergency Medicine 09/27/16 Regina Vizcaino APRN SUPERVISOR ALTERATION WORKROOM 9 [id number] [place] [address] Nurse Practitioner Nurse Practitioner 06/23/16 Candido Arzola MD [facility] [address] [place] [address] Anesthesiology 08/15/17 Jonelle Puckett MD [facility] [address] [place] [address] Referring Physician 06/08/18 Burton Gastelum MD [facility] [address] [place] [address] Ophthalmology 06/08/18 documented as of this encounter
--- OUTSIDE RECORDS SUMMARY | 2024-10-01 09:25 | XMS_ITS | Referral Summary ---
Author Organization [facility] Address [address] [place] [address] Care Team Providers Care Parts Lister Name Role Phone Regina Vizcaino APRN ORACLE PL SQL DEVELOPER Unavaila ble Isrrael Mejia MD Primary Care Provider Candido Arzola MD Unavailable [phone] Jonelle Puckett MD Unavailable [phone] Burton Gastelum MD Unavailable [phone] Allergies Active Allergy Reactions Criticality Noted [...] Sex Assigned at Male 12/18/2021 3:52 PM CLAY TEMPERER Legal Sex Male 3:33 AM CLAY TEMPERER Gender Identity Male 12/18/2021 3:52 PM CLAY TEMPERER Sexual Orientation Straight 12/18/2021 3: 52 PM CLAY TEMPERER Last Filed Vital Signs Vital Sign Reading [...] Crawfordarinjose Alvarez Medical Devices Implanted Type Area Metal Tile Lather Device Identifier Shelf Expiration Date Model / Serial / Lot Bone Cement Simplex Full Dose 6191-1-001 - [id number] Implanted:Qty: 2 on 01/09/2023 by Prasad Sousa MD at [facility] Cement, Bone Right: Hip PER ORTHOPEDICS [id number] 03/29/2025 6191-1-001 / / [id number] Bone Cement Restrictor Gavin Femoral 18.5mm [id number] - [id number] Implanted:Qty: 1 on 01/09/2023 by Prasad Sousa MD at [facility] Cement, Bone Right: Hip [employer]-R [id number] 09/15/2032 [id number] / / [id number] Imp Scr Zim 6.5x35mm Acet Cup Self Tap 22-3303-590-35 - [id number] Implanted:Qty: 1 on 01/09/2023 by Prasad Sousa MD at [facility] Metallic Hardware/An chor Right: Hip [employer] [id number] 09/03/2032-6250-065 -35 / / [id number] Screw Bone Self Tap 6.5 X 25 50-1194-313-25 - [id number] Implanted:Qty: 1 on 01/09/2023 by Prasad Sousa MD at [facility] Metallic Hardware/An chor Right: Hip [employer] [id number] 03/08/2031625-065 -25 / / [id number] Imp Shell Biom G7 Acetab Pps Vines Hole 58mm Sz G [id number] - [id number] Implanted:Qty: 1 on 01/09/2023 by Prasad Sousa MD at [facility] Total Joint Component/I nsert Right: Hip [employer] [id number] 01/12/2032 [id number] / / [id number] Liner G7 Dual Mobility 46mm G - [id number] Implanted:Qty: 1 on 01/09/2023 by Prasad Sousa MD at [facility] Total Joint Component/I nsert Right: Hip [employer] [id number] 09/30/2032 [id number] / / [id number] Imp Stem Femoral Zim Versys Heritage 90-6674-638- - [id number] Implanted:Qty: 1 on 01/09/2023 by Prasad Sousa MD at [facility] Total Joint Component/I nsert Right: Hip [employer] [id number] 07/09/2032-7857-013 - / / [id number] Imp Centralizer Distal Zim Versys - [id number] Implanted:Qty: 1 on 01/09/2023 by Prasad Sousa MD at [facility] Total Joint Component/I nsert Right: Hip [employer] [id number] 11/01/2027-7859-011 -00 / / [id number] Bearing Hip 46mm 28mm G Vivacit-E Lum Strl Lf [id number] - [id number] Implanted:Qty: 1 on 01/09/2023 by Prasad Sousa MD at [facility] Total Joint Component/I nsert Right: Hip [employer] [id number] 10/06/2027 [id number] / / [id number] Biolox Head, 28/+7 , Taper12/14 Implanted:Qty: 1 on 01/09/2023 by Prasad Sousa MD at [facility] Right: Hip [id number] 09/22/2031 00-8777-028 -04 / [id number] Procedures Procedure Name Priority Date/Time Associated Diagnosis [...] LAB - BLOOD ORDERABLES F inal Result [facility] [address] [facility] (1st floor, no room number) [place] [address], [facility] [phone] from Last 3 Months or Most Recently Relevant to Health Maintenance Additional Health Concerns Active Problems Noted Date Diagnosed Date 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 Insurance MEDICARE [facility] [place] [employer] MEDICARE [facility] [place] [employer] [facility] [place] [employer] MEDICARE MEDICARE Advance Directives For more information, please contact: [phone] * Full Code (Latest Code Status on [...] 7:53 PM 09/28/2016 5:53 PM Care Teams Parts Lister Relationship Specialty Start Date End Date Isrrael Mejia MD [facility] [address] [place] [address] PCP - General Emergency Medicine 09/27/16 Regina Vizcaino APRN ORACLE PL SQL DEVELOPER [address] [place] [address] [address] Nurse Practitioner Nurse Practitioner 06/23/16 Candido Arzola MD [facility] [address] [place] [address] Anesthesiology 08/15/17 Jonelle Puckett MD [facility] [address] [place] [address] Referring Physician 06/08/18 Burton Gastelum MD [facility] [address] [place] [address] Ophthalmology 06/08/18
--- OUTSIDE RECORDS SUMMARY | 2024-10-01 09:25 | XMS_ITS | Encounter Summary ---
Author Organization [facility] Address [address] [place] [address] Care Team Providers Care Separator Tender Name Role Phone Regina Vizcaino APRN DIRECTOR OF OPERATIONS HOME HEALTH Unavaila ble Isrrael Mejia MD Primary Care Provider Candido Arzola MD Unavailable [phone] Jonelle Puckett MD Unavailable Burton Gastelum MD Unavailable [phone] Encounter Details Date Type Department Care Team (Late st Contact Info) Description 12/03/2019 [facility] Medical Advice [facility] [address] [place] [address] Candido Arzola MD [address] [place] [address] Social History Tobacco Use Types Packs/Day Years Used Date Smoking Tobacco: Never Smokeless Tobacco: Never Alcohol Use Standard Drinks/Week Comments Yes 0 (1 standard drink = 0.6 oz pur e alcohol) one drink per month PHQ-2 Answer Date Recorded PHQ-2 Score 4 11/26/2019 Sex and Gender Information Value Date Recorded Sex Assigned at Male 12/18/2021 3:52 PM TRUCK PACKER Legal Sex Male 3:33 AM TRUCK PACKER Gender Identity Male 12/18/2021 3:52 PM TRUCK PACKER Sexual Orientation Straight 12/18/2021 3: 52 PM TRUCK PACKER documented as of this encounter Plan of Treatment Not on file documented as of this encounter Visit Diagnoses Not on filedocumented in this encounter Additional Health Concerns Assessment Noted Time PHQ-9 Depression Total Score: 10 020 1:39 PM TRUCK PACKER documented as of this encounter Care Teams Separator Tender Relationship Specialty Start Date End Date Isrrael Mejia MD [facility] [address] [place] [address] PCP - General Emergency Medicine 09/27/16 Regina Vizcaino APRN DIRECTOR OF OPERATIONS HOME HEALTH [address] [facility] [place] [address] Nurse Practitioner Nurse Practitioner 06/23/16 Candido Arzola MD [facility] [address] [place] [address] Anesthesiology 08/15/17 Jonelle Puckett MD [facility] [address] [place] [address] Referring Physician 06/08/18 Burton Gastelum MD [facility] [address] [place] [address] Ophthalmology 06/08/18 documented as of this encounter
--- OUTSIDE RECORDS SUMMARY | 2024-10-01 09:25 | XMS_ITS | Encounter Summary ---
Author Organization [facility] Address [address] [place] [address] Care Team Providers Care Construction Site Manager Name Role Phone Regina Vizcaino APRN CONTINUOUS MINING MACHINE LODE MINER Unavaila ble Bette Fowler RN Unavailable Rebeka Lomeli RN Unavailable [phone] Isrrael Mejia MD Primary Care Provider Candido Arzola MD Unavailable [phone] Jonelle Puckett MD Unavailable [phone] Burton Gastelum MD Unavailable [phone] Encounter Details Date Type Department Care Team (Late st Contact Info) Description 07/24/2017 [facility] [place] [facility] [address] [place] [address] Candido Arzola MD [address] [place] [id number] Social History Tobacco Use Types Packs/Day Years Used Date Smoking Tobacco: Never Smokeless Tobacco: Never Alcohol Use Standard Drinks/Week Comments Yes 0 (1 standard drink = 0.6 oz pur e alcohol) 1-2 beers a month Sex and Gender Information Value Date Recorded Sex Assigned at Male 12/18/2021 3:52 PM DUBBING MACHINE OPERATOR Legal Sex Male 3:33 AM DUBBING MACHINE OPERATOR Gender Identity Male 12/18/2021 3:52 PM DUBBING MACHINE OPERATOR Sexual Orientation Straight 12/18/2021 3: 52 PM DUBBING MACHINE OPERATOR documented as of this encounter Plan of Treatment Not on file documented as of this encounter Visit Diagnoses Not on filedocumented in this encounter Care Teams Construction Site Manager Relationship Specialty Start Date End Date Isrrael Mejia MD [facility] [address] [place] [address] PCP - General Emergency Medicine 09/27/16 Regina Vizcaino, MINISTERIO CONTINUOUS MINING MACHINE LODE MINER [address] [facility] [id number] [place] [address] Nurse Practitioner Nurse Practitioner 06/23/16 Bette Fowler, INDIRA Nurse Coordinator Neurology 07/26/16 06/10/18 Rebeka Lomeli RN Nurse Coordinator Neurology 07/28/16 04/17/19 Candido Arzola MD [facility] [address] [place] [address] Anesthesiology 08/15/17 Jonelle Puckett MD [facility] [address] [place] [address] Referring Physician 06/08/18 Burton Gastelum MD [facility] [address] [place] [address] Ophthalmology 06/08/18 documented as of this encounter
--- OUTSIDE RECORDS SUMMARY | 2024-10-01 09:25 | XMS_ITS | Encounter Summary ---
Author Organization [facility] Address [address] [place] [address] Care Team Providers Care Quality System Manager Name Role Phone Kenna Choi M.D. Primary Care Provider [phone] Reason for Visit * Reason Comments Skin Check * Appointment Request (Routine) - Closed Specialty Diagnoses / Procedures Referred By Contac t Referred To Contact Dermatology Referral ID Status Reason Start Date Expiration Date Visits Re quested Visits Authorized [id number] Closed 02/28/2024 02/27/2025 1 1 Encounter Details Date Type Department Care Team (Late st Contact Info) Description 08/26/2024 11:00 AM CDT Office Visit Department of Dermatology in [address] [address] Julio Cesar Epps M.D. [address] [place] [phone] Keratosis Actinic (Primary Dx); Nevi Multiple; Keratosis Seborrheic; Cancer Skin Squamous Cell Personal History Discharge Disposition: Home or Self Care Social History Tobacco Use Types Packs/Day Years Used Date Smoking Tobacco: Never Smokeless Tobacco: Never Alcohol Use Standard Drinks/Week Comments Yes 2 (1 standard drink = 0.6 oz pur e alcohol) [facility] Utilities Answer Date Recorded In the [...] your living situation today? I have a [facility] place to live 08/19/2024 Sex and Gender Information Value Date Recorded Sex Assigned at Male 08/19/2024 3:40 PM CDT Legal Sex Male 11:33 PM OFFLINE EDITOR Gender Identity Male 08/19/2024 3:40 PM CDT [...] status post curettage and cryotherapy, 01/08/2018 at [facility]. The patient denies a personal or family [...] by shave excision at a clinic in [place], which was a severely atypical nevus left triceps. Mr. Nathan reports some scabby lesions on the scalp sometimes. 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 by Dr. Epps Left triceps, severely atypical nevus, removed in [facility], 12/28/2023 Negative for melanoma Carcinoid tumor 27+ [...] severely atypical nevus. Examination of the right buddhism (x3), right sideburn (x2), right forehead (x1), [...] cancer on today's exam. IMPRESSION/REPORT/PLAN #1 Right buddhism, right sideburn, right forehead, left forehead, left [...] post curettage and cryotherapy on 01/08/18 at [facility], no recurrence Examination today reveals no clinical [...] behalf by Nicole South, a trained medical grade shoemaker. The creation of this record is based [...] History documented in this encounter Care Teams Quality System Manager Relationship Specialty Start Date End Date Kenna Choi M.D. PCP - General 04/13/17 documented as of this encounter
--- OUTSIDE RECORDS SUMMARY | 2024-10-01 09:25 | XMS_ITS | Encounter Summary ---
Author Organization [facility] Address [address] [place] [address] Care Team Providers Care Synthetic Gem Press Operator Name Role Phone Regina Vizcaino APRN NEONATAL DOCTOR Unavaila ble Rebeka Lomeli RN Unavailable [phone] Isrrael Mejia MD Primary Care Provider Candido Arzola MD Unavailable [phone] Jonelle Puckett MD Unavailable [phone] Burton Gastelum MD Unavailable [phone] Reason for Visit * Reason Onset Date Comments Call Back 06/25/2018 Occipital Nerve Block Injection Encounter Details Date Type Department Care Team (Late st Contact Info) Description 06/25/2018 Telephone [place] [id number] [facility] [address] [place] [phone] Burton Gastelum MD [address] [place] [address], CLINIC [address] [place] [address] Call Back (Occipital Nerve Block Injection) Social History Tobacco Use Types Packs/Day Years Used Date Smoking Tobacco: Never Smokeless Tobacco: Never Alcohol Use Standard Drinks/Week Comments Yes 0 (1 standard drink = 0.6 oz pur e alcohol) 1-2 beers a month Sex and Gender Information Value Date Recorded Sex Assigned at Male 12/18/2021 3:52 PM REAL ESTATE LEGAL ASSISTANT Legal Sex Male 3:33 AM REAL ESTATE LEGAL ASSISTANT Gender Identity Male 12/18/2021 3:52 PM REAL ESTATE LEGAL ASSISTANT Sexual Orientation Straight 12/18/2021 3: 52 PM REAL ESTATE LEGAL ASSISTANT documented as of this encounter Miscellaneous Notes [...] documented as of this encounter Care Teams Synthetic Gem Press Operator Relationship Specialty Start Date End Date Isrrael Mejia MD [facility] [address] [place] [address] PCP - General Emergency Medicine 09/27/16 Regina Vizcaino APRN NEONATAL DOCTOR [address] [place] [address] [place] [address] Nurse Practitioner Nurse Practitioner 06/23/16 Rebeka Lomeli, INDIRA Nurse Coordinator Neurology 07/28/16 04/17/19 Candido Arzola MD [facility] [address] [place] [address] Anesthesiology 08/15/17 Jonelle Puckett MD [facility] [address] [place] [address] Referring Physician 06/08/18 Burton Gastelum MD [facility] [address] [place] [address] Ophthalmology 06/08/18 documented as of this encounter
--- OUTSIDE RECORDS SUMMARY | 2024-10-01 09:25 | XMS_ITS | Encounter Summary ---
Author Organization [facility] Address [address] [place] [address] Care Team Providers Care Manufacturing Recruiter Name Role Phone Regina Vizcaino APRN CREW MEMBER Unavaila ble Rebeka Lomeli RN Unavailable [phone] Isrrael Mejia MD Primary Care Provider Candido Arzola MD Unavailable [phone] Jonelle Puckett MD Unavailable [phone] Burton Gastelum MD Unavailable [phone] Encounter Details Date Type Department Care Team (Late st Contact Info) Description 07/06/2018 [facility] [address] [place] [address] [address] [place] [address] Candido Arzola MD [address] [place] [address] Social History Tobacco Use Types Packs/Day Years Used Date Smoking Tobacco: Never Smokeless Tobacco: Never Alcohol Use Standard Drinks/Week Comments Yes 0 (1 standard drink = 0.6 oz pur e alcohol) 1-2 beers a month Sex and Gender Information Value Date Recorded Sex Assigned at Male 12/18/2021 3:52 PM TIMBER SUPERVISOR Legal Sex Male 3:33 AM TIMBER SUPERVISOR Gender Identity Male 12/18/2021 3:52 PM TIMBER SUPERVISOR Sexual Orientation Straight 12/18/2021 3: 52 PM TIMBER SUPERVISOR documented as of this encounter Plan of Treatment Not on file documented as of this encounter Visit Diagnoses Not on filedocumented in this encounter Additional Health Concerns Assessment Noted Time PHQ-9 Depression Total Score: 9 02/11/20 18 7:37 AM CDT documented as of this encounter Care Teams Manufacturing Recruiter Relationship Specialty Start Date End Date Isrrael Mejia MD [facility] [address] [place] [address] PCP - General Emergency Medicine 09/27/16 Regina Vizcaino APRN CREW MEMBER [address] [facility], [place] [address] Nurse Practitioner Nurse Practitioner 06/23/16 Rebeka Lomeli RN Nurse Coordinator Neurology 07/28/16 04/17/19 Candido Arzola MD [facility] [address] [place] [address] Anesthesiology 08/15/17 Jonelle Puckett MD [facility] [address] [place] [address] Referring Physician 06/08/18 Burton Gastelum MD [facility] [address] [place] [address] Ophthalmology 06/08/18 documented as of this encounter
--- OUTSIDE RECORDS SUMMARY | 2024-10-01 09:25 | XMS_ITS | Encounter Summary ---
Author Organization [facility] Address [address] [place] [address] Care Team Providers Care Lead Security Officer Name Role Phone Regina Vizcaino APRN LIGHT TRUCK DRIVER Unavaila ble Bette Fowler RN Unavailable Rebeka Lomeli RN Unavailable [phone] Isrrael Mejia MD Primary Care Provider Candido Arzola MD Unavailable [phone] Jonelle Puckett MD Unavailable [phone] Burton Gastelum MD Unavailable [phone] Encounter Details Date Type Department Care Team (Late st Contact Info) Description 06/29/2017 [facility] Medical Advice [facility] [address] [place] [address] Candido Arzola MD [address] [place] [address] [id number] Social History Tobacco Use Types Packs/Day Years Used Date Smoking Tobacco: Never Smokeless Tobacco: Never Alcohol Use Standard Drinks/Week Comments Yes 0 (1 standard drink = 0.6 oz pur e alcohol) 1-2 beers a month Sex and Gender Information Value Date Recorded Sex Assigned at Male 12/18/2021 3:52 PM PRINTING PRESS MACHINE OPERATOR Legal Sex Male 3:33 AM PRINTING PRESS MACHINE OPERATOR Gender Identity Male 12/18/2021 3:52 PM PRINTING PRESS MACHINE OPERATOR Sexual Orientation Straight 12/18/2021 3: 52 PM PRINTING PRESS MACHINE OPERATOR documented as of this encounter Plan of Treatment Not on file documented as of this encounter Visit Diagnoses Not on filedocumented in this encounter Care Teams Lead Security Officer Relationship Specialty Start Date End Date Isrrael Mejia MD [facility] [address] [place] [address] PCP - General Emergency Medicine 09/27/16 Regina Vizcaino, MINISTERIO LIGHT TRUCK DRIVER [address] [facility] [id number] [place] [address] Nurse Practitioner Nurse Practitioner 06/23/16 Bette Fowler, INDIRA Nurse Coordinator Neurology 07/26/16 06/10/18 Rebeka Lomeli RN Nurse Coordinator Neurology 07/28/16 04/17/19 Candido Arzola MD [facility] [address] [place] [address] Anesthesiology 08/15/17 Jonelle Puckett MD [facility] [address] [place] [address] Referring Physician 06/08/18 Burton Gastelum MD [facility] [address] [place] [address] Ophthalmology 06/08/18 documented as of this encounter
--- OUTSIDE RECORDS SUMMARY | 2024-10-01 09:25 | XMS_ITS | Referral Summary ---
Author Organization [facility] Address [address] [place] [address] Care Team Providers Care Tufting Machine Operator Single Needle Name Role Phone Kenna Choi M.D. Primary Care Provider [phone] Source Comments Patient records contain information from all sites at [facility]. For routine questions regarding patient records, call [phone] during business hours, M-F 8:00 AM - 5:00 PM Central Time. Record requests for emergency care only can be directed to [phone] at any time.[facility] Encounters Date Type Department Care Team Description 08/26/2024 11:00 AM CDT Office Visit Department of Dermatology in [address] [phone] Julio Cesar Epps M.D. Keratosis Actinic (Primary [...] drink = 0.6 oz pur e alcohol) [facility] Utilities Answer Date Recorded In the past 12 months has e [employer], gas, oil, or water [email or web address] threatened to shut off services in your [...] your living situation today? I have a [facility] place to live 08/19/2024 Sex and Gender Information Value Date Recorded Sex Assigned at Male 08/19/2024 3:40 PM CDT Legal Sex Male 11:33 PM ARMATURE COIL WINDER Gender Identity Male 08/19/2024 3:40 PM CDT [...] on file Medical Devices Implanted Type Area Property Management Coordinator Device Identifier Shelf Expiration Date Model / [...] M.D. LAB BLOOD ADD-ON Final Re sult [facility] [address] [place] [address], [place] [facility] [place] [address] [place] [address] from Last 3 Months or Most Recently Relevant to Health Maintenance Insurance MEDICARE [facility] Care Teams Tufting Machine Operator Single Needle Relationship Specialty Start Date End Date Kenna Choi M.D. PCP - General 04/13/17
--- OUTSIDE RECORDS SUMMARY | 2024-10-01 09:25 | XMS_ITS | Encounter Summary ---
Author Organization [facility] Address [address] [place] [address] Care Team Providers Care Forestry Engineer Name Role Phone Regina Vizcaino APRN TRIMMER AND BORER MACHINE OPERATOR Unavaila ble Bette Fowler RN Unavailable Rebeka Lomeli RN Unavailable [phone] Isrrael Mejia MD Primary Care Provider Candido Arzola MD Unavailable Jonelle Puckett MD Unavailable [phone] Burton Gastelum MD Unavailable [phone] Encounter Details Date Type Department Care Team (Late st Contact Info) Description 07/25/2017 [facility] Medical Advice [facility] [address] [place] [address] Candido Arzola MD [address] [place] [address] [id number] Social History Tobacco Use Types Packs/Day Years Used Date Smoking Tobacco: Never Smokeless Tobacco: Never Alcohol Use Standard Drinks/Week Comments Yes 0 (1 standard drink = 0.6 oz pur e alcohol) 1-2 beers a month Sex and Gender Information Value Date Recorded Sex Assigned at Male 12/18/2021 3:52 PM PLANER OFF BEARER Legal Sex Male 3:33 AM PLANER OFF BEARER Gender Identity Male 12/18/2021 3:52 PM PLANER OFF BEARER Sexual Orientation Straight 12/18/2021 3: 52 PM PLANER OFF BEARER documented as of this encounter Plan of Treatment Not on file documented as of this encounter Visit Diagnoses Not on filedocumented in this encounter Care Teams Forestry Engineer Relationship Specialty Start Date End Date Isrrael Mejia MD [facility] [address] [place] [address] PCP - General Emergency Medicine 09/27/16 Regina Vizcaino, MINISTERIO TRIMMER AND BORER MACHINE OPERATOR [address] [facility] [id number] [place] [address] Nurse Practitioner Nurse Practitioner 06/23/16 Bette Fowler, INDIRA Nurse Coordinator Neurology 07/26/16 06/10/18 Rebeka Lomeli RN Nurse Coordinator Neurology 07/28/16 04/17/19 Candido Arzola MD [facility] [address] [place] [address] Anesthesiology 08/15/17 Jonelle Puckett MD [facility] [address] [place] [address] Referring Physician 06/08/18 Burton Gastelum MD [facility] [address] [place] [address] Ophthalmology 06/08/18 documented as of this encounter
--- OUTSIDE RECORDS SUMMARY | 2024-10-01 09:25 | XMS_ITS | Clinical Summary ---
Author Organization [facility] Address [address] [place] [address] Care Team Providers Care Dietician Name Role Phone Kenna Choi M.D. Primary Care Provider [phone] Source Comments Patient records contain information from all sites at [facility]. For routine questions regarding patient records, call [phone] during business hours, M-F 8:00 AM - 5:00 PM Central Time. Record requests for emergency care only can be directed to [phone] at any time.[facility] Allergies Active Allergy Reactions Criticality Noted Date [...] CDT Office Visit Department of Dermatology in [address] [address] Julio Cesar Epps M.D. Keratosis Actinic (Primary [...] drink = 0.6 oz pur e alcohol) [facility] Utilities Answer Date Recorded In the past 12 months has Remote Assistant, [employer], oil, or water [employer] threatened to shut off services in your [...] living situation today? I have a [facility] place to live 08/19/2024 Sex and Gender Information Value Date Recorded Sex Assigned at Male 08/19/2024 3:40 PM CDT Legal Sex Male 11:33 PM COMPTOMETER OPERATOR Gender Identity Male 08/19/2024 3:40 PM [...] history exists Medical Devices Implanted Type Area Engine Designer Device Identifier Shelf Expiration Date Model / [...] M.D. LAB BLOOD ADD-ON Final Re sult [facility] [address] [place] [address], [facility] MKTO [facility] [place] [address] [place] [address] from Last 3 Months or Most Recently Relevant to Health Maintenance Insurance MEDICARE [facility] [place] [place] [address] Care Teams Dietician Relationship Specialty Start Date End Date Kenna Choi M.D. PCP - General 04/13/17
--- OUTSIDE RECORDS SUMMARY | 2024-10-01 09:25 | XMS_ITS | Encounter Summary ---
Author Organization [facility] Address [address] [place] [address] Care Team Providers Care Polysomnographic Technician Name Role Phone Regina Vizcaino APRN SERVER SERVICE ASSISTANT Unavaila ble Bette Fowler RN Unavailable Rebeka Lomeli RN Unavailable [phone] Isrrael Mejia MD Primary Care Provider Candido Arzola MD Unavailable [phone] Jonelle Puckett MD Unavailable [phone] Burton Gastelum MD Unavailable [phone] Encounter Details Date Type Department Care Team (Late st Contact Info) Description 12/25/2017 MyC Medical Advice [facility] [address] [place] [id number] Candido Arzola MD [address] [place] [phone] Social History Tobacco Use Types Packs/Day Years Used Date Smoking Tobacco: Never Smokeless Tobacco: Never Alcohol Use Standard Drinks/Week Comments Yes 0 (1 standard drink = 0.6 oz pur e alcohol) 1-2 beers a month Sex and Gender Information Value Date Recorded Sex Assigned at Male 12/18/2021 3:52 PM PYTHON PROGRAMMER Legal Sex Male 3:33 AM PYTHON PROGRAMMER Gender Identity Male 12/18/2021 3:52 PM PYTHON PROGRAMMER Sexual Orientation Straight 12/18/2021 3: 52 PM PYTHON PROGRAMMER documented as of this encounter Plan of Treatment Not on file documented as of this encounter Visit Diagnoses Not on filedocumented in this encounter Care Teams Polysomnographic Technician Relationship Specialty Start Date End Date Isrrael Mejia MD [facility] [address] [place] [address] PCP - General Emergency Medicine 09/27/16 Regina Vizcaino, MINISTERIO SERVER SERVICE ASSISTANT [address] [facility] [id number] [place] [address] Nurse Practitioner Nurse Practitioner 06/23/16 Bette Fowler, INDIRA Nurse Coordinator Neurology 07/26/16 06/10/18 Rebeka Lomeli RN Nurse Coordinator Neurology 07/28/16 04/17/19 Candido Arzola MD [facility] [address] [place] [address] Anesthesiology 08/15/17 Jonelle Puckett MD [facility] [address] [place] [address] Referring Physician 06/08/18 Burton Gastelum MD [facility] [address] [place] [address] Ophthalmology 06/08/18 documented as of this encounter
--- NOTE | 2024-10-01 10:00 | CRLHL7_ITS ---
For Patients: As a result of the Century Cures Act, medical imaging exams and procedure reports are released immediately into your electronic medical record. You may view this report before your referring provider. If you have questions, please contact your health care provider. INDICATION: Metastatic carcinoid tumor. TECHNIQUE: CT chest, abdomen and pelvis acquired with 96 cc Isovue 370 IV contrast. COMPARISON: CT scan of the chest, abdomen and pelvis 04/01/2024. FINDINGS: CHEST: Lower neck and chest wall: Unremarkable thyroid. No chest wall mass or axillary lymphadenopathy. Mediastinum and rachel: No mediastinal or hilar lymphadenopathy. Heart and vasculature: Unremarkable heart and thoracic aorta. Lungs: Clear. No pulmonary mass or consolidation. Pleura: Normal. No pleural mass, pleural effusion or pneumothorax. Bones: Densely sclerotic focus within the T6 vertebral body, unchanged, consistent with bone island. No acute fracture or suspicious bone lesion. ABDOMEN AND PELVIS: Liver: Stable clips within the dome of the liver and interval decrease in associated low density postoperative collection, now measuring 1.0 cm, adjacent to the clips. No new hepatic mass or intrahepatic duct dilatation. Gallbladder and bile ducts: Status post cholecystectomy. Pancreas: Unremarkable. No mass or inflammation. Spleen: Status post splenectomy. Adrenal glands: Normal in size. No nodules. Kidneys, ureters and urinary bladder: Bilateral renal cysts, unchanged. No renal stone or hydronephrosis. GI tract: Right hemicolectomy. Otherwise unremarkable small bowel and colon. Normal stomach. Vasculature: Unremarkable. Lymph nodes: Oval-shaped low-density right pelvic sidewall lesion with short axis of 1.3 cm, unchanged. No other evidence of lymphadenopathy. Peritoneum: Unremarkable. No sign of mass or infiltration. No free air or significant free fluid. Pelvis: Status post prostatectomy. Abdominal wall: Unremarkable. No mass or bowel containing hernia. Bones: Unchanged spinal fusion from L2-S1. Advanced degenerative disc disease at L1-L2. 1.2 cm lucent lesion within the L1 vertebral body, unchanged. No new osseous lesions. Osteoarthritis of the left hip. Right hip prosthesis incompletely visualized but unchanged as seen. IMPRESSION: 1. No local recurrent or metastatic disease identified within the chest, abdomen or pelvis. 2. Resolving postoperative collection within the dome of the liver. 3. Stable postsurgical changes from previous right hemicolectomy and prostatectomy. 4. Unchanged right pelvic sidewall low-density nodule with a short axis diameter of 1.3 cm. 5. Stable 1.2 cm lucent lesion within the L1 vertebral body. Please note that all CT scans at this facility use dose modulation, iterative reconstruction, and/or weight-based dosing when appropriate to reduce radiation dose to as low as reasonably achievable. Dictated by Adam Cabrera MD @ 10/01/2024 4:35:14 PM (Electronically Signed)
== END 2024-10-01 09:22 | disposition home or self-care (01) ==
LOC: CT 09:22
PROVIDERS: PCP Internal Medicine; Visit Provider Internal Medicine Hematology & Oncology
DX: C78.02 Secondary malignant neoplasm of left lung (principal); M89.9 Disorder of bone, unspecified
CPT/HCPCS: 71260; 74177; Q9967

== ENCOUNTER 2025-04-02 10:36 | Outpatient (CLI) | payer MEDICARE, BC, SELFPAY ==
[2025-04-02 12:04] LABS: Hemoglobin A1C* 5.8 % (0-5.6)
[2025-04-02 12:40] LABS: Vitamin B12* 763 pg/mL (243-894)
[2025-04-02 13:29] LABS: Erythrocyte SedimentationRate* 10 mm/hr (2-15)
[2025-04-03 12:45] LABS: Folate, Serum >22.3 ng/mL (>=5.9)
[2025-04-04 01:21] LABS: Anti-Nuclear Ab(ANA)IgG ELISA None Detected (None Detected)
[2025-04-07 03:38] LABS: MMA Vitamin B12 Status 0.18 umol/L (0.00-0.40)
== END 2025-04-02 10:37 | disposition home or self-care (01) ==
LOC: LAB 10:41
PROVIDERS: PCP Internal Medicine; Visit Provider Psychiatry & Neurology Neurology
DX: R20.2 Paresthesia of skin (principal); M79.2 Neuralgia and neuritis, unspecified
CPT/HCPCS: 36415; 82607; 82746; 83036; 83921; 84443; 85651; 86038; 86334

== ENCOUNTER 2025-04-04 08:38 | Outpatient (RCR) | payer MEDICARE, BC, SELFPAY | END 2025-07-04 18:07 | disposition home or self-care (01) | PROVIDERS: PCP Internal Medicine; Visit Provider Orthopaedic Surgery | DX: Z47.1 Aftercare following joint replacement surgery (principal); M77.8 Other enthesopathies, not elsewhere classified; Z51.89 Encounter for other specified aftercare | CPT/HCPCS: 97110; 97161 ==

== ENCOUNTER 2025-04-23 11:09 | Outpatient (CLI) | payer MEDICARE, BC, SELFPAY ==
--- OUTSIDE RECORDS SUMMARY | 2025-03-27 10:14 | XMS_ITS ---
Author Organization [facility] Address [address] [place] [address] , [address] [place] [address] Phone Care Team Providers Care Warehouse Picker Name Role Phone Karan HUERTAS APRN,DENISSE, Celeste Alvarez Unavailable + Conditions or Problems Problem Name Problem Code Onset Date Status Entry Date Provider Comment Standard Description Annotate Unspecified idiopathic peripheral neuropathy G60.9 (ICD-10-C M) Active Celeste Russo DNP, APRN, CNP Hereditary and idiopathic neuropathy, unspecified Medications No information available. Medications Administered No information available. Allergies, Adverse Reactions, Alerts No information available. Results Date Name Value Unit Range Flag Description Office Visit: Office Visit f ax MEDS REVIEW Done Documenta tion of current medications (procedure) Plan of Care Type Date Detail Appointment 01:30 PM Celeste barnard DNP,MINISTERIO,DENISSE, [address] [facility], [address], [place], [address], Pending order Follow up Pending order Follow up Pending order YOSSI Pending order ESR (Sedimentati on Rate) Pending order Folate (Folic Ac id) Serum Pending order Hemoglobin A1C Pending order Immunofixation S anisha w/Electrophoresis Pending order TSH Pending order Vitamin B12 Pending order Methylmalonic Ac id Serum (MMA) Procedures No information available. Vital Signs Date Name Value Unit Description Height 72 [in_us] height E&M Immunizations No information available. Advance Directives No information available.
[2025-04-23 12:28] LABS: Estimated Glomerular Filt Rate 78 ml/min
[2025-04-23 12:51] LABS: Basophils Absolute Auto 0.08 K/uL (0.00-0.30); Basophils Percent Auto 1.3 % (0.0-3.0); Eosinophils Absolute Auto 0.18 K/uL (0.00-0.50); Hematocrit 43.8 % (37.0-53.0); Hemoglobin* 14.1 gm/dL (13.5-17.5); Lymphocytes Absolute Auto 2.03 K/uL (0.90-2.90); Lymphocytes Percent Auto 33.7 % (20-44); Mean Corpuscular HGB Conc 32 gm/dL (32-36); Mean Corpuscular Hemoglobin 31 pg (26-34); Mean Corpuscular Volume 96 fL (80-100); Neutrophils Absolute Auto 3.13 K/uL (1.7-7.0); Platelet Count* 410 K/uL (140-440); RDW Coefficient of Variation % 13.6 % (11.5-15.5); Red Blood Count 4.57 m/uL (4.30-5.90); White Blood Count* 6.02 K/uL (4.50-11.00)
[2025-04-23 13:00] LABS: Slide Review Reflex No
[2025-04-23 13:25] LABS: Albumin* 4.3 g/dL (3.3-5.0); Chloride* 102 mmol/L (96-114); Potassium* 5.1 mmol/L (3.6-5.1); Sodium* 137 mmol/L (135-149)
[2025-04-23 13:27] LABS: Anion Gap 7 mEq/L (7-15); Bilirubin Total* 1.5 mg/dL (0.1-1.5); Blood Urea Nitrogen* 16 mg/dL (7-30); Carbon Dioxide* 28 mmol/L (20-32); Estimated Glomerular Filt Rate 78 ml/min
[2025-04-23 13:28] LABS: Alanine Aminotransferase* 21 U/L (4-50); Alkaline Phosphatase* 111 U/L (40-150); Aspartate Amino Transferase* 31 U/L (12-35); Calcium* 9.9 mg/dL (8.4-10.6); Glucose* 90 mg/dL (60-115); Total Protein* 7.4 g/dL (6.0-8.3)
--- OUTSIDE RECORDS SUMMARY | 2025-04-24 00:12 | XMS_ITS | Clinical Summary ---
Author Organization [facility] Address [address] [place] [address] Care Team Providers Care Filtration Operator Name Role Phone Isrrael Mejia MD Primary Care Provider [facility] [place] Unavailable [phone] February, Traci Sneed RN, BSN Unavailable Unavailable Allergies Active Allergy Reactions Criticality Noted Date Comments Amoxicillin *Unknown - Childhood Rxn,Other - Describe In Comment Field,*Unknown - Follow up needed High 07/10/2009 ##No similarities in side chains, very low to no risk of cross-sensitivity to ANCEF. ANW Antimicrobial Stewardship Team 07/2019 Other reaction(s): Unknown Clavulanic Acid Other - Describe In Comment Field 06/01/2017 Other reaction(s): Unknown Other reaction(s): Unknown Medications gabapentin (NEURONTIN) 600 mg tablet Take 900 mg by mouth three times daily. Active cholestyramine-asp artame (CHOLESTYRAMINE LIGHT) 4 gram powder Take 4 [...] Active acetaminophen (TYLENOL EXTRA STRGTH) 500 mg tabletIndications: Metastatic malignant neuroendocrine tumor to liver (HC) Take 2 Tablets (1,000 mg) by mouth every 6 hours if needed for Pain. Max acetaminophen dose: 4000mg in 24 hrs. Use home supply. OTC medication. 0 03/16/20 23 Active traMADoL (ULTRAM) 50 mg tabletIndications: Spinal stenosis of lumbar region with radiculopathy Take 1 Tablet (50 mg) by mouth 3 times daily if needed for Pain. Don't take if using oxycodone 03/17/20 23 Active propranoloL (INDERAL) 10 mg tabletIndications: HTN (hypertension) Take 1 Tablet (10 mg) by mouth two times daily. 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 30 Tablet 3 3:38 PM CDT 03/17/20 23 Active ondansetron (ZOFRAN ODT) 4 mg disintegrating tabletIndications: Nausea and vomiting, unspecified vomiting type Place 1 Tablet (4 mg) on the tongue every 8 hours if needed for Nausea/Vomiting. 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 Gender Identity Not on file Sexual Orientation [...] Health Maintenance Due Date Last Done Comments Tdap 1960 Depression screening for age 12+ 1961 Hepatitis C screening for age 18-79 1967 Pneumococcal series for age 50+ (1 of 2 - PCV) 1968 Zoster (shingles) series for age 50+ (1 of 2) 1968 Tetanus booster 1969 Medicare Wellness for age 65+ 2014 BMI (ht and wt on same day) for age 18+ 03/30/2024 03/30/2023, 03/20/2023, 02/09/2023, Additional history exists RSV vaccine for adults or (1 - 1-dose 75+ series) 2024 COVID-19 vaccine series ( season) 2024 07/18/2022, 02/02/2022, 08/20/2021, Additional history exists Influenza Vaccine (Season Ended) 2025 Hepatitis B series for 19+ Aged Out N o longer eligible based on patient's age to complete this topic Medical Devices Implanted Type Area Manager Media Device Identifier Shelf Expiration Date Model / Serial / Lot [id number] 1-4mm 60cc Playdom Fine Canclls Freeze Dried Implanted:Qty: 1 on 06/22/2020 by Joo Arellano MD at [facility] Explanted:at [facility] (Quantity not on file) Spine Medtronic Spine/Ortho 11/06/2024 [id number]# / [id number] / Screw Lmbr Post 7.5x45mm Solera 5.5/6 [facility] Cocr - [id number] Implanted:Qty: 3 on 06/22/2020 by Joo Arellano MD at [facility] Spine Medtronic Spine/Ortho [id number] 45# / / Screw Lmbr Post 7.5x50mm Solera 5.5/6 Va Cocr - [id number] Implanted:Qty: 4 on 06/22/2020 by Joo Arellano MD at [facility] Spine Medtronic Spine/Ortho [id number] 50# / / Screw Lmbr Post 7.5x55mm Solera 5.5/6 Va Cocr - [id number] Implanted:Qty: 3 on 06/22/2020 by Joo Arellano MD at [facility] Spine Medtronic Spine/Ortho [id number] 55# / / Adan Lmbr 500x5.5mm Solera 5.5/6 Cvd Co Cr - [id number] Implanted:Qty: 1 on 06/22/2020 by Joo Arellano MD at [facility] Spine Medtronic Spine/Ortho [id number]# / / Screw Lmbr 8.5x90mm Cd Horizon - [id number] Implanted:Qty: 1 on 06/22/2020 by Joo Arellano MD at [facility] Spine Medtronic Spine/Ortho [id number] 90# / / [id number] 1-4mm 60cc Medtronic Fine Canclls Freeze Dried Implanted:Qty: 1 on 06/22/2020 by Joo Arellano MD at [facility] Explanted:at [facility] (Quantity not on file) Spine Medtronic Spine/Ortho 11/07/2024 [id number]# / [id number] / [id number] 1-4mm 90cc Medtronic Chips Canclls Freeze Dried Implanted:Qty: 1 on 06/22/2020 by Joo Arellano MD at [facility] Explanted:at [facility] (Quantity not on file) Spine Medtronic Spine/Ortho 10/28/2024 [id number]# / [id number] / [id number] 6cc Loíza Dbf Putty Dbm Implanted:Qty: 1 on 06/22/2020 by Joo Arellano MD at [facility] Explanted:at [facility] (Quantity not on file) N/A: Spine Medtronic Spine/Ortho 09/17/2021 [id number] / [id number] / Spacer Lmbr Lg 14mm 8deg Perimeter Alif Peek - [id number] Implanted:Qty: 1 on 06/22/2020 by Joo Arellano MD at [facility] Spine [employer]tronic Spine/Ortho 04/15/2027 [id number]# / / 26JG Washer 17mm - [id number] Implanted:Qty: 1 on 06/22/2020 by Joo Arellano MD at [facility] Spine Medtronic Spine/Ortho [id number]# / / Screw Lmbr Ant 6.5x20mm Pyramid Plus Va - [id number] Implanted:Qty: 1 on 06/22/2020 by Joo Arellano MD at [facility] Spine Medtronic Spine/Ortho [id number] / / Spacer Lmbr Md [id number] 10deg [employer] - [id number] Implanted:Qty: 3 on 06/22/2020 by Joo Arellano MD at [facility] Spine [employer] [id number]# / / Set Screw Lmbr Ant 5.5mm Solera Break Off - [id number] Implanted:Qty: 11 on 06/22/2020 by Joo Arellano MD at [facility] Spine Medtronic Spine/Ortho [id number]# / / Adhesion Barrier 5x6in Seprafilm Absorb - [id number] Implanted:Qty: 1 on 03/14/2023 by Wilber Zhang MBBS at [facility] N/A: Abdomen [employer] 04/30/2025 [id number] / / [id number] Adhesion Barrier 3x5in Seprafilm Absorb Procedure Packs - [id number] Implanted:Qty: 2 on 03/14/2023 by Wilber Zhang MBBS at [facility] N/A: Abdomen [employer] 07/26/2025 [id number] / / [id number] Mesh Ventral 60 Seamguard Endo Meri Tri Blk - [id number] Implanted:Qty: 1 on 03/14/2023 by Wilber Zhagn MBBS at [facility] N/A: Abdomen [employer] 01/17/2025 [id number] / / [id number] [place] [address] BLUE CROSS DIOMEDE BLUE MR PB ONLY MEDICARE PART A HB ONLY BLUE CROSS DIOMEDE BLUE HB ONLY [place]ICARE [place] [address] BLUE CROSS DIOMEDE BLUE MR PB ONLY HC MEDICARE PPS BLUE CROSS DIOMEDE BLUE HB ONLY Advance Directives * Full Code (Latest Code [...] Code Status Discussion: Not Discussed Care Teams Filtration Operator Relationship Specialty Start Date End Date Isrrael Mejia MD [address] [place] [address] PCP - General Internal Medicine 06/09/20 [facility] [address] [address] 03/18/23February, Traci Sneed RN, BSN [address] [address] Nurse Navigator - Oncology Oncology 05/23/23
--- OUTSIDE RECORDS SUMMARY | 2025-04-24 00:13 | XMS_ITS | Clinical Summary ---
Author Organization [facility] Address [address] [facility] , [address] [place] [address] Phone Care Team Providers Care Table Tender Sludge Name Role Phone 1CareTeamNurse-MA, 1CareTeamNurse-MA Unavailable Unavailable Conditions or Problems Problem Name Problem Code Onset Date Status Entry Date Provider Comment Standard Description Annotate Unspecified idiopathic peripheral neuropathy G60.9 (ICD-10-CM ) 03/27 Active 03/27 Celeste Russo DNP,FREELANCE ART DIRECTOR,CN P Hereditary and idiopathic neuropathy, unspecified Lumbar radiculopath y, left - L3 vs L5 350403291 (SNOMED CT) 01/07 Active 01/07 Tico Kincaid MD Lumbar radiculopathy Occipital neuralgia 55364455 (SNOMED CT) Resolved Tico Kincaid MD Cervico-occipi jane neuralgia Cervical spondylosis, severe M47.812 (ICD-10-CM ) Resolved Tico Kincaid MD Spondylosis without myelopathy or radiculopathy, cervical region Chronic neck pain 37724197 (SNOMED CT) Resolved Tico Kincaid MD Neck pain History of knee surgery unknown Resolved Tico Kincaid MD unknown History of tonsillectom y unknown Resolved Tico Kincaid MD unknown Hypertension 41876893 (SNOMED CT) Resolved Tico Kincaid MD Hypertensive disorder Malignant neoplasm of prostate 226393637 (SNOMED CT) Resolved Tico Kincaid MD Malignant neoplasm of prostate Paresthesia, foot Lt 190166920 (SNOMED CT) 01/07 Active 01/07 Tico Kincaid MD Paresthesia of foot Neuropathic pain - Lt foot 656234149 (SNOMED CT) 01/07 Active 01/07 Tico Kincaid MD Neuropathic pain CHRONIC MIGRAINE W/O AURA W/O INTRACTABLE W/O SM G43.709 (ICD-10-CM ) 02/26 Active 02/26 José Luis Boss MD Chronic migraine without aura, not intractable, without status migrainosus Chronic daily headaches 52821339 (SNOMED CT) Active Alberto Milner MD Headache Chronic neck pain 19879818 (SNOMED CT) Removed Alberto Milner MD Neck pain Cervical spondylosis, severe M47.812 (ICD-10-CM ) Removed Alberto Milner MD Spondylosis without myelopathy or radiculopathy, cervical region Occipital neuralgia 48537958 (SNOMED CT) Removed Alberto Milner MD Cervico-occipi jane neuralgia Malignant neoplasm of prostate 133843720 (SNOMED CT) Removed Alberto Milner MD Malignant neoplasm of prostate Hypertension 41288117 (SNOMED CT) Removed Alberto Milner MD Hypertensive disorder History of tonsillectom y unknown Removed Alberto Milner MD unknown History of knee surgery unknown Removed Alberto Milner MD unknown Chronic low back pain 689939177 (SNOMED CT) Active Alberto Milner MD Low back pain 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 Alberto Milner MD Carcinoid tumor Medications Medication Instructions Start Date Stop Date Generic Name ND Provider TRAMADOL HCL 50 MG TABS tablet by mouth once a day as needed 01/07 tramadol 16136042557 Tico Kincaid MD PROPRANOLOL HCL 40 MG TABS Take 1 tablet by mouth twice a day propranolol 40764808952 Tico Kincaid MD HYDROCODONE-ACETA MINOPHEN 5-325 MG TABS tablet by mouth once a day as needed 01/07 hydrocodone-acet aminophen 16981571976 Tico Kincaid MD GABAPENTIN 600 MG TABS Take 1.5 tablet by mouth three times a day gabapentin 95316420860 Tico Kincaid MD CHOLESTYRAMINE 4 GM PACK once a day cholestyramine (with sugar) 15998734428 Tico Kincaid MD RIZATRIPTAN BENZOATE 10 MG TBDP 1 tablet by mouth once a day 01/07 rizatriptan 16651715278 Tico Kincaid MD OXYCODONE HCL 5 MG CAPS capsule by mouth four times a day as needed 01/07 oxycodone 30108394139 Tico Kincaid MD TIZANIDINE HCL 4 MG TABS tablet by mouth tizanidine 60793152040 Tico Kincaid MD LIDOCAINE 5 % PTCH 01/07 lidocaine 97959374943 Tico Kincaid MD NORTRIPTYLINE HCL 10 MG CAPS Week #1 take 1 pill in PM. Week #2 and on take 2 ills in PM 02/26 NORTRIPTYLINE HCL 68231804354 José Luis Boss MD NORTRIPTYLINE HCL 10 MG CAPS Week #1 take 1 pill in PM. Week #2 and on take 2 ills in PM 02/26 NORTRIPTYLINE HCL 31255444961 José Luis Boss MD RIZATRIPTAN BENZOATE 10 MG TBDP 1 at onset of KAUR, MR at 2 hrs, max 2/d and 10d/mo. 01/07 RIZATRIPTAN BENZOATE 44354729234 Alberto Milner MD HYOSCYAMINE SULFATE Every 4 Hours as needed Hyoscyamine Sulfate 85355511363 Alberto Milner MD INDOMETHACIN 50 MG CAPS Three Times A Day as needed Indomethacin 55135099719 Alberto Milner MD METHOCARBAMOL 500 MG TABS Four Times Daily as needed Methocarbamol 40443424501 Alberto Milner MD DICYCLOMINE HCL 10 MG CAPS Four Times Daily Dicyclomine Hcl 84515199724 Alberto Milner MD AMITRIPTYLINE HCL 10 MG TABS Bedtime as needed Amitriptyline Hcl 54281833901 Alberto Milner MD TAMSULOSIN HCL Daily as needed TAMSULOSIN HCL Alberto Milner MD LIDOCAINE 5 % PTCH 01/07 LIDOCAINE 77428149032 Alberto Milner MD TIZANIDINE HCL 4 MG TABS 01/07 TIZANIDINE HCL 39787184324 Alberto Milner MD PROPRANOLOL HCL 40 MG TABS TK 1 T PO BID 01/07 PROPRANOLOL HCL 25709420088 Alberto Milner MD TIZANIDINE HCL 4 MG TABS Twice A Day Tizanidine Hcl 27144865934 Alberto Milner MD PROPRANOLOL HCL 40 MG TABS Twice A Day Propranolol Hcl 01487731538 Alberto Milner MD GABAPENTIN 600 MG TABS TK 1 AND 10/31 TS PO TID 01/07 GABAPENTIN 82467356715 Alberto Milner MD GABAPENTIN 600 MG TABS Three Times A Day Gabapentin 07921809888 Alberto Milner MD TRAMADOL HCL 50 MG TABS Daily as needed 01/07 Tramadol Hcl 85899573619 System Maintenance TIZANIDINE HCL 4 MG TABS Twice A Day Tizanidine Hcl 18480842485 System Maintenance Tamsulosin Hcl Daily as needed Tamsulosin Hcl System Maintenance PROPRANOLOL HCL 40 MG TABS Twice A Day 02/11 Propranolol Hcl 65525762894 System Maintenance OXYCODONE HCL 5 MG CAPS Four Times Daily as needed 01/07 Oxycodone Hcl 13165650384 System Maintenance METHOCARBAMOL 500 MG TABS Four Times Daily as needed Methocarbamol 69854689405 System Maintenance INDOMETHACIN 50 MG CAPS Three Times A Day as needed 02/11 Indomethacin 10549312028 System Maintenance Hyoscyamine Sulfate Every 4 Hours as needed Hyoscyamine Sulfate 64777311776 System Maintenance HYDROCODONE-ACETA MINOPHEN 5-325 MG TABS Daily as needed 01/07 Hydrocodone-Acet aminophen 85990656179 System Maintenance GABAPENTIN 600 MG TABS Three Times A Day Gabapentin 74269346915 System Maintenance DICYCLOMINE HCL 10 MG CAPS Four Times Daily 04/04 Dicyclomine Hcl 43273144867 System Maintenance CHOLESTYRAMINE 4 GM PACK Daily 04/04 Cholestyramine 21762364676 System Maintenance AMITRIPTYLINE HCL 10 MG TABS Bedtime as needed Amitriptyline Hcl 70181069957 System Maintenance Medications Administered No information available. 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 Internal Other: Verbal Autho rization/Emergency Contact - OBS VERBAL_EMER DONE Verbal au thorization and emergency contact Internal Other: Authorizatio n - OBS [id number] Yes GE use only - for Link[employer] import when terms are not otherwise specified Internal Other: Authorizatio n AUTHBENEFIT Yes Authoriza tion: Assignment of Benefits and Payment Agreement [email or web address] Yes Authorizat ion: Authorization for [facility] to leave messages, voicemail, send text messages, send emails AUTHRELHCARE Yes Authoriz ation: Release/Retrieval of Information to/from Healthcare Facilities, Pharmacy Benefit Payers and Providers ROIAUTHOTHER Yes Authoriz ation: Release of Information - Authorize Others/Insurance - Payment and Healthcare Operations [email or web address] Yes Authoriza tion: Release of Information - Authorize [facility] - Payment and Healthcare Operations AUTHPRIVPRAC Yes Authoriz ation: Notice of privacy practices HIECONSENT Yes Consent To Release information to the Health Information Exchange (HIE) Office Visit: Office Visit f ax MEDS REVIEW Done Documenta tion of current medications (procedure) Plan of Care Type Date Detail Appointment 01:30 PM Celeste montanol DNP,FREELANCE ART DIRECTOR,[facility], [address] [place] [address], [address], [place], [address], Pending order Follow up Pending order Follow up Pending order Follow up with N eurologist or JOE Pending order YOSSI Pending order ESR (Sedimentati on Rate) Pending order Folate (Folic Ac id) Serum Pending order Hemoglobin A1C Pending order Immunofixation S anisha w/Electrophoresis Pending order TSH Pending order Vitamin B12 Pending order Methylmalonic Ac id Serum (MMA) Pending order EMG bilateral lo w ext Pending order Patient Instruct ions Pending order Follow up Pending Order exclud ed from report: Pending order Botox Injection Pending order Botox Injection Pending Order exclud ed from report: Pending order Follow up Pending order Physical Therapy Pending order Botox Injection Pending order Follow up Pending order Patient Instruct ions Pending order MRI-Brain W/O Patient education Medications Procedures Code Procedure Name Date Entry Date ORDERS Follow up with Neurologist or JOE ORDERS EMG bilateral low ext 01/07 CPT-45989 Nerve Conduction 7-8 studies CPT-38126 EMG with NCS (5+ muscles) - 2 limbs 02/04 [facility]-[id number] Documentation of current medicatio ns ORDERS Patient Instructions ORDERS Physical Therapy ORDERS Follow up ORDERS Botox Injection CPT-U2939VT Botox Waste CPT-J0585 Botox 2 vials CPT-18814 Chem - Face/Neck - Migraine or Headache 2 ORDERS Botox Injection CPT-J0585 Botox 2 vials CPT-16738 Chem - Face/Neck - Migraine or Headache 2 ORDERS Follow up ORDERS Patient Instructions [id number] MRI-Brain W/O [facility]-[id number] Documentation of current medicatio ns Vital Signs Date Name Value Unit Description Height 72 [in_us] height E&M Heart Rate 66 /min pulse rate BMI (Body Mass Index) 27.09 kg/m2 Bod y Mass Index (Ratio) BP Diastolic 75 mm[Hg] blood pressu re, diastolic BP Systolic 110 mm[Hg] blood pressur e, systolic Weight Measured 199 [lb_av] weight E& M Weight Measured 199 [lb_av] weight E& M Immunizations No information available. Advance Directives No information available.
--- OUTSIDE RECORDS SUMMARY | 2025-04-24 00:13 | XMS_ITS | Encounter Summary ---
Author Organization [facility] Address [address] [place] [address] Care Team Providers Care Food Dehydrator Operator Name Role Phone Regina Vizcaino APRN JANITORIAL ACCOUNT MANAGER Unavaila ble Bette Fowler RN Unavailable Rebeka Lomeli RN Unavailable [phone] Isrrael Mejia MD Primary Care Provider Candido Arzola MD Unavailable [phone] Jonelle Puckett MD Unavailable [phone] Burton Gastelum MD Unavailable [phone] Encounter Details Date Type Department Care Team (Late st Contact Info) Description 06/29/2017 [facility] Medical Advice [facility] [address] [place] [address] Candido Arzola MD [address] [place] [address] [id number] Social History Tobacco Use Types Packs/Day Years Used Date Smoking Tobacco: Never Smokeless Tobacco: Never Alcohol Use Standard Drinks/Week Comments Yes 0 (1 standard drink = 0.6 oz pur e alcohol) 1-2 beers a month Sex and Gender Information Value Date Recorded Sex Assigned at Male 12/18/2021 3:52 PM PIPE PULLER Legal Sex Male 3:33 AM PIPE PULLER Gender Identity Male 12/18/2021 3:52 PM PIPE PULLER Sexual Orientation Straight 12/18/2021 3: 52 PM PIPE PULLER documented as of this encounter Plan of Treatment Not on file documented as of this encounter Visit Diagnoses Not on filedocumented in this encounter Care Teams Food Dehydrator Operator Relationship Specialty Start Date End Date Isrrael Mejia MD [facility] [place] 2[facility] [address] [place] [address] PCP - General Emergency Medicine 09/27/16 Regina Vizcaino, MINISTERIO JANITORIAL ACCOUNT MANAGER [address] [facility] [id number] [place] [address] Nurse Practitioner Nurse Practitioner 06/23/16 Bette Fowler, INDIRA Nurse Coordinator Neurology 07/26/16 06/10/18 Rebeka Lomeli RN Nurse Coordinator Neurology 07/28/16 04/17/19 Candido Arzola MD [facility] [place] [address] [place] [address] Anesthesiology 08/15/17 Jonelle Puckett MD [facility] [address] [place] [address] Referring Physician 06/08/18 Burton Gastelum MD [facility] [address] [place] [address] Ophthalmology 06/08/18 documented as of this encounter
--- OUTSIDE RECORDS SUMMARY | 2025-04-24 00:13 | XMS_ITS | Encounter Summary ---
Author Organization [facility] Address [address] [place] [address] Care Team Providers Care Fringe Maker Name Role Phone Regina Vizcaino APRN ENVIRONMENTAL AUDITOR Unavaila ble Bette Fowler RN Unavailable Rebeka Lomeli RN Unavailable [phone] Isrrael Mejia MD Primary Care Provider Candido Arzola MD Unavailable [phone] Jonelle Puckett MD Unavailable [phone] Burton Gastelum MD Unavailable Encounter Details Date Type Department Care Team (Late st Contact Info) Description 03/06/2018 [facility] Medical Advice Initial Department [facility] Social History Tobacco Use Types Packs/Day Years Used Date Smoking Tobacco: Never Smokeless Tobacco: Never Alcohol Use Standard Drinks/Week Comments Yes 0 (1 standard drink = 0.6 oz pur e alcohol) 1-2 beers a month Sex and Gender Information Value Date Recorded Sex Assigned at Male 12/18/2021 3:52 PM LABORER OPERATOR Legal Sex Male 3:33 AM LABORER OPERATOR Gender Identity Male 12/18/2021 3:52 PM LABORER OPERATOR Sexual Orientation Straight 12/18/2021 3: 52 PM LABORER OPERATOR documented as of this encounter Plan of Treatment Not on file documented as of this encounter Visit Diagnoses Not on filedocumented in this encounter Additional Health Concerns Assessment Noted Time PHQ-9 Depression Total Score: 9 02/11/20 18 7:37 AM CDT documented as of this encounter Care Teams Fringe Maker Relationship Specialty Start Date End Date Isrrael Mejia MD [facility] [address] [place] [address] PCP - General Emergency Medicine 09/27/16 Regina Vizcaino APRN ENVIRONMENTAL AUDITOR [facility] [id number] [place] [address] Nurse Practitioner Nurse Practitioner 06/23/16 Bette Fowler, RN Nurse Coordinator Neurology 07/26/16 06/10/18 Rebeka Lomeli, RN Nurse Coordinator Neurology 07/28/16 04/17/19 Candido Arzola MD [facility] [address] [place] [address] Anesthesiology 08/15/17 Jonelle Puckett MD [facility] [address] [place] [address] Referring Physician 06/08/18 Burton Gastelum MD [facility] [address] [place] [address] Ophthalmology 06/08/18 documented as of this encounter
--- OUTSIDE RECORDS SUMMARY | 2025-04-24 00:13 | XMS_ITS | Encounter Summary ---
Author Organization [facility] Address [address] [place] [address] Care Team Providers Care Spinning Frame Fixer Name Role Phone Regina Vizcaino APRN PLATFORM POWER TECHNICIAN Unavaila ble Isrrael Mejia MD Primary Care Provider Candido Arzola MD Unavailable [phone] Jonelle Puckett MD Unavailable Burton Gastelum MD Unavailable [phone] Encounter Details Date Type Department Care Team (Late st Contact Info) Description 12/19/2019 [facility] Medical Advice [facility] [address] [place] [address] Candido Arzola MD [address] [place] [address] Social History Tobacco Use Types Packs/Day Years Used Date Smoking Tobacco: Never Smokeless Tobacco: Never Alcohol Use Standard Drinks/Week Comments Yes 0 (1 standard drink = 0.6 oz pur e alcohol) one drink per month PHQ-2 Answer Date Recorded PHQ-2 Score 4 11/26/2019 Sex and Gender Information Value Date Recorded Sex Assigned at Male 12/18/2021 3:52 PM ED TEACHER Legal Sex Male 3:33 AM ED TEACHER Gender Identity Male 12/18/2021 3:52 PM ED TEACHER Sexual Orientation Straight 12/18/2021 3: 52 PM ED TEACHER documented as of this encounter Plan of Treatment Not on file documented as of this encounter Visit Diagnoses Not on filedocumented in this encounter Additional Health Concerns Assessment Noted Time PHQ-9 Depression Total Score: 10 020 1:39 PM ED TEACHER documented as of this encounter Care Teams Spinning Frame Fixer Relationship Specialty Start Date End Date Isrrael Mejia MD [facility] [address] [place] [address] PCP - General Emergency Medicine 09/27/16 Regina Vizcaino APRN PLATFORM POWER TECHNICIAN [address] [id number] [place] [address] Nurse Practitioner Nurse Practitioner 06/23/16 Candido Arzola MD [facility] [address] [place] [address] Anesthesiology 08/15/17 Jonelle Puckett MD [facility] [address] [place] [address] Referring Physician 06/08/18 Burton Gastelum MD [facility] [address] [place] [address] Ophthalmology 06/08/18 documented as of this encounter
--- OUTSIDE RECORDS SUMMARY | 2025-04-24 00:13 | XMS_ITS | Clinical Summary ---
Author Organization [facility] Address [address] [place] [address] Care Team Providers Care Square Shear Operator Name Role Phone Kenna Choi M.D. Primary Care Provider [phone] Source Comments Patient records contain information from all sites at [facility]. For routine questions regarding patient records, call [phone] during business hours, M-F 8:00 AM - 5:00 PM Central Time. 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 Immunizations Immunization Administration Dates Next Due Influenza, Unspecified 08/19/2015 PCV13 11/19/2015 Family History Medical History Relation Name Comments Brain cancer Brother Colon cancer Mother Relation Name Status Comments Brother Mother Social History Tobacco Use Types Packs/Day Years Used Date Smoking Tobacco: Never Smokeless Tobacco: Never Alcohol Use Standard Drinks/Week Comments Yes 2 (1 standard drink = 0.6 oz pur e alcohol) [facility] Utilities Answer Date Recorded In the past 12 months has e [employer], gas, oil, or water [employer] threatened to shut off services in your home? No 08/19/2024 Hunger Vital Sign Answer Date Recorded [...] things needed for daily living? No 08/19/2024 Housing Stability Answer Date Recorded What is your living situation today? [facility] 08/19/2024 Sex and Gender Information Value Date Recorded Sex Assigned at Male 08/19/2024 3:40 PM CDT Legal Sex Male 11:33 PM PEANUT BLANCHER Gender Identity Male 08/19/2024 3:40 PM CDT [...] Health Maintenance Due Date Last Done Comments Hepatitis C Screening 1950 Office Visit for Blood Press ure Check / Re-check 1950 Zoster Vaccines (2 of 3) 08/11/2015 06/16/2015 IPV Vaccines (2 of 3 - Adult catch-up series) 03/23/2023 02/23/2023 Depression Screening (Annual PHQ-2) 10/30/2024 Fall Risk Screen (Annual) 10/30/2024 COVID-19 Vaccine (2023- 5 season) 2025 08/02/2024, 01/12/2024, 07/27/2023, Additional history exists DTaP,Tdap,and Td Vaccines (3 - Td or Tdap) 02/23/2033 02/23/2023, 09/08/2016 Pneumococcal vaccine (50+ years) Completed 08/05/20, 11/19/2015 RSV vaccine - (32-3 6 weeks) or 60+ years Completed 08/07/2023 Influenza Vaccine Completed 08/02/2024, , 07/18/2022, Additional history exists Medical Devices Implanted Type Area Orthophotography Technician Device Identifier Shelf Expiration Date Model / Serial / Lot Hip Implant-12/29/19 23 Implanted:10/2022 (Quantity not on file) Hip Implant Right: Hip Spine Implant-05/30/20 22 Implanted:10/2021 (Quantity not on file) Spine Implant Back Insurance MEDICARE [facility] Care Teams Square Shear Operator Relationship Specialty Start Date End Date Kenna Choi M.D. PCP - General 04/13/17
--- OUTSIDE RECORDS SUMMARY | 2025-04-24 00:13 | XMS_ITS | Encounter Summary ---
Author Organization [facility] Address [address] [place] [address] Care Team Providers Care Crown Blocker Name Role Phone Regina Vizcaino APRN MANAGER FREELANCE Unavaila ble Bette Fowler RN Unavailable Rebeka Lomeli RN Unavailable [phone] Isrrael Mejia MD Primary Care Provider Candido Arzola MD Unavailable [phone] Jonelle Puckett MD Unavailable [phone] Burton Gastelum MD Unavailable [phone] Encounter Details Date Type Department Care Team (Late st Contact Info) Description 07/24/2017 [facility] Medical Advice [facility] [address] [place] [address] Candido Arzola MD [address] [place] [address] [id number] Social History Tobacco Use Types Packs/Day Years Used Date Smoking Tobacco: Never Smokeless Tobacco: Never Alcohol Use Standard Drinks/Week Comments Yes 0 (1 standard drink = 0.6 oz pur e alcohol) 1-2 beers a month Sex and Gender Information Value Date Recorded Sex Assigned at Male 12/18/2021 3:52 PM PIPE BUFFER Legal Sex Male 3:33 AM PIPE BUFFER Gender Identity Male 12/18/2021 3:52 PM PIPE BUFFER Sexual Orientation Straight 12/18/2021 3: 52 PM PIPE BUFFER documented as of this encounter Plan of Treatment Not on file documented as of this encounter Visit Diagnoses Not on filedocumented in this encounter Care Teams Crown Blocker Relationship Specialty Start Date End Date Isrrael Mejia MD [facility] [address] [place] [address] PCP - General Emergency Medicine 09/27/16 Regina Vizcaino, MINISTERIO MANAGER FREELANCE [address] [facility] [id number] [place] [address] Nurse Practitioner Nurse Practitioner 06/23/16 Bette Fowler, INDIRA Nurse Coordinator Neurology 07/26/16 06/10/18 Rebeka Lomeli RN Nurse Coordinator Neurology 07/28/16 04/17/19 Candido Arzola MD [facility] [address] [place] [address] Anesthesiology 08/15/17 Jonelle Puckett MD [facility] [address] [place] [address] Referring Physician 06/08/18 Burton Gastelum MD [facility] [address] [place] [address] Ophthalmology 06/08/18 documented as of this encounter
--- OUTSIDE RECORDS SUMMARY | 2025-04-24 00:13 | XMS_ITS ---
Author Name [facility], [address] Address [address] [place] [address] [facility] Address [address] [place] [address] Allergies and Adverse Reactions Plan Reason for Visit Encounters Immunizations Diagnostic Results Medications Problems Vital Signs Notes Section
--- OUTSIDE RECORDS SUMMARY | 2025-04-24 00:13 | XMS_ITS | Encounter Summary ---
Author Organization [facility] Address [address] [place] [address] Care Team Providers Care Vegetable Loader Name Role Phone Regina Vizcaino APRN LOG ROPER Unavaila ble Isrrael Mejia MD Primary Care Provider Candido Arzola MD Unavailable [phone] Jonelle Puckett MD Unavailable Burton Gastelum MD Unavailable [phone] Encounter Details Date Type Department Care Team (Late st Contact Info) Description 12/10/2019 [facility] [address] [place] [address] Candido Arzola MD [address] [place] [address] Social History Tobacco Use Types Packs/Day Years Used Date Smoking Tobacco: Never Smokeless Tobacco: Never Alcohol Use Standard Drinks/Week Comments Yes 0 (1 standard drink = 0.6 oz pur e alcohol) one drink per month PHQ-2 Answer Date Recorded PHQ-2 Score 4 11/26/2019 Sex and Gender Information Value Date Recorded Sex Assigned at Male 12/18/2021 3:52 PM MODEL ENGINE MECHANIC Legal Sex Male 3:33 AM MODEL ENGINE MECHANIC Gender Identity Male 12/18/2021 3:52 PM MODEL ENGINE MECHANIC Sexual Orientation Straight 12/18/2021 3: 52 PM MODEL ENGINE MECHANIC documented as of this encounter Plan of Treatment Not on file documented as of this encounter Visit Diagnoses Not on filedocumented in this encounter Additional Health Concerns Assessment Noted Time PHQ-9 Depression Total Score: 10 020 1:39 PM MODEL ENGINE MECHANIC documented as of this encounter Care Teams Vegetable Loader Relationship Specialty Start Date End Date Isrrael Mejia MD [facility] [address] [place] [address] PCP - General Emergency Medicine 09/27/16 Regina Vizcaino APRN LOG ROPER [address] [facility] [place] [address] Nurse Practitioner Nurse Practitioner 06/23/16 Candido Arzola MD [facility] [address] [place] [address] Anesthesiology 08/15/17 Jonelle Puckett MD [facility] [address] [place] [address] Referring Physician 06/08/18 Burton Gastelum MD [facility] [address] [place] [address] Ophthalmology 06/08/18 documented as of this encounter
--- OUTSIDE RECORDS SUMMARY | 2025-04-24 00:13 | XMS_ITS | Encounter Summary ---
Author Organization [place] [facility] Address [address] [place] [address] Care Team Providers Care Audio Visual Coordinator Name Role Phone Regina Vizcaino APRN LOOSELEAF BINDER COVERER Unavaila ble Bette Fowler RN Unavailable Rebeka Lomeli RN Unavailable [phone] Isrrael Mejia MD Primary Care Provider Candido Arzola MD Unavailable [phone] Jonelle Puckett MD Unavailable [phone] Burton Gastelum MD Unavailable [phone] Encounter Details Date Type Department Care Team (Late st Contact Info) Description 12/25/2017 [facility] [place] [facility] [address] [place] [address] Candido Arzola MD [address] [place] [address] Social History Tobacco Use Types Packs/Day Years Used Date Smoking Tobacco: Never Smokeless Tobacco: Never Alcohol Use Standard Drinks/Week Comments Yes 0 (1 standard drink = 0.6 oz pur e alcohol) 1-2 beers a month Sex and Gender Information Value Date Recorded Sex Assigned at Male 12/18/2021 3:52 PM BODY RECALL INSTRUCTOR Legal Sex Male 3:33 AM BODY RECALL INSTRUCTOR Gender Identity Male 12/18/2021 3:52 PM BODY RECALL INSTRUCTOR Sexual Orientation Straight 12/18/2021 3: 52 PM BODY RECALL INSTRUCTOR documented as of this encounter Plan of Treatment Not on file documented as of this encounter Visit Diagnoses Not on filedocumented in this encounter Care Teams Audio Visual Coordinator Relationship Specialty Start Date End Date Isrrael Mejia MD [facility] [address] [place] [address] PCP - General Emergency Medicine 09/27/16 Regina Vizcaino, MINISTERIO LOOSELEAF BINDER COVERER [address] [facility] [place] [id number] [place] [address] Nurse Practitioner Nurse Practitioner 06/23/16 Bette Fowler, INDIRA Nurse Coordinator Neurology 07/26/16 06/10/18 Rebeka Lomeli RN Nurse Coordinator Neurology 07/28/16 04/17/19 Candido Arzola MD [facility] [address] [place] [address] Anesthesiology 08/15/17 Jonelle Puckett MD [facility] [address] [place] [address] Referring Physician 06/08/18 Burton Gastelum MD [facility] [address] [place] [address] Ophthalmology 06/08/18 documented as of this encounter
--- OUTSIDE RECORDS SUMMARY | 2025-04-24 00:13 | XMS_ITS | Encounter Summary ---
Author Organization [facility] Address [address] [place] [address] Care Team Providers Care Software Program Manager Name Role Phone Regina Vizcaino APRN SAFETY LAMP KEEPER Unavaila ble Isrrael Mejia MD Primary Care Provider Candido Arzola MD Unavailable [phone] Jonelle Puckett MD Unavailable Burton Gastelum MD Unavailable [phone] Encounter Details Date Type Department Care Team (Late st Contact Info) Description 12/03/2019 [facility] [place] [facility] [address] [place] [address] Candido Arzola MD [address] [place] [address] Social History Tobacco Use Types Packs/Day Years Used Date Smoking Tobacco: Never Smokeless Tobacco: Never Alcohol Use Standard Drinks/Week Comments Yes 0 (1 standard drink = 0.6 oz pur e alcohol) one drink per month PHQ-2 Answer Date Recorded PHQ-2 Score 4 11/26/2019 Sex and Gender Information Value Date Recorded Sex Assigned at Male 12/18/2021 3:52 PM MANAGER INPATIENT Legal Sex Male 3:33 AM MANAGER INPATIENT Gender Identity Male 12/18/2021 3:52 PM MANAGER INPATIENT Sexual Orientation Straight 12/18/2021 3: 52 PM MANAGER INPATIENT documented as of this encounter Plan of Treatment Not on file documented as of this encounter Visit Diagnoses Not on filedocumented in this encounter Additional Health Concerns Assessment Noted Time PHQ-9 Depression Total Score: 10 020 1:39 PM MANAGER INPATIENT documented as of this encounter Care Teams Software Program Manager Relationship Specialty Start Date End Date Isrrael Mejia MD [facility] [address] [place] [address] PCP - General Emergency Medicine 09/27/16 Regina Vizcaino APRN SAFETY LAMP KEEPER 9 [facility] [place] [address] Nurse Practitioner Nurse Practitioner 06/23/16 Candido Arzola MD [facility] [address] [place] [address] Anesthesiology 08/15/17 Jonelle Puckett MD [facility] [address] [place] [address] Referring Physician 06/08/18 Burton Gastelum MD [facility] [address] [place] [address] Ophthalmology 06/08/18 documented as of this encounter
--- OUTSIDE RECORDS SUMMARY | 2025-04-24 00:13 | XMS_ITS | Encounter Summary ---
Author Organization [facility] Address [address] [place] [address] Care Team Providers Care Garment Inspector Name Role Phone Regina Vizcaino APRN HEATING MECHANIC Unavaila ble Bette Fowler RN Unavailable Rebeka Lomeli RN Unavailable [phone] Isrrael Mejia MD Primary Care Provider Candido Arzola MD Unavailable [phone] Jonelle Puckett MD Unavailable [phone] Burton Gastelum MD Unavailable [phone] Encounter Details Date Type Department Care Team (Late st Contact Info) Description 07/25/2017 [facility] Medical Advice [facility] [address] [place] [phone] Candido Arzola MD [address] [place] [id number] Social History Tobacco Use Types Packs/Day Years Used Date Smoking Tobacco: Never Smokeless Tobacco: Never Alcohol Use Standard Drinks/Week Comments Yes 0 (1 standard drink = 0.6 oz pur e alcohol) 1-2 beers a month Sex and Gender Information Value Date Recorded Sex Assigned at Male 12/18/2021 3:52 PM CHEMISTRY QUALITY CONTROL ANALYST Legal Sex Male 3:33 AM CHEMISTRY QUALITY CONTROL ANALYST Gender Identity Male 12/18/2021 3:52 PM CHEMISTRY QUALITY CONTROL ANALYST Sexual Orientation Straight 12/18/2021 3: 52 PM CHEMISTRY QUALITY CONTROL ANALYST documented as of this encounter Plan of Treatment Not on file documented as of this encounter Visit Diagnoses Not on filedocumented in this encounter Care Teams Garment Inspector Relationship Specialty Start Date End Date Isrrael Mejia MD [facility] [address] [place] [address] PCP - General Emergency Medicine 09/27/16 Regina Vizcaino, MINISTERIO HEATING MECHANIC [address] [facility] [id number] [place] [address] Nurse Practitioner Nurse Practitioner 06/23/16 Bette Fowler, INDIRA Nurse Coordinator Neurology 07/26/16 06/10/18 Rebeka Lomeli RN Nurse Coordinator Neurology 07/28/16 04/17/19 Candido Arzola MD [facility] [address] [place] [address] Anesthesiology 08/15/17 Jonelle Puckett MD [facility] [address] [place] [address] Referring Physician 06/08/18 Burton Gastelum MD [facility] [address] [place] [address] Ophthalmology 06/08/18 documented as of this encounter
--- OUTSIDE RECORDS SUMMARY | 2025-04-24 00:14 | XMS_ITS | Encounter Summary ---
Author Organization [facility] Address [address] [place] [address] Care Team Providers Care Drafting Layout Man Name Role Phone Regina Vizcaino APRN FLEET ADMINISTRATIVE ASSISTANT Unavaila ble Rebeka Lomeli RN Unavailable [phone] Isrrael Mejia MD Primary Care Provider Candido Arzola MD Unavailable [phone] Jonelle Puckett MD Unavailable [phone] Burton Gastelum MD Unavailable [phone] Encounter Details Date Type Department Care Team (Late st Contact Info) Description 07/06/2018 [facility] [address] [place] [address] [address] [place] [address] Candido Arzola MD [address] [place] [address] Social History Tobacco Use Types Packs/Day Years Used Date Smoking Tobacco: Never Smokeless Tobacco: Never Alcohol Use Standard Drinks/Week Comments Yes 0 (1 standard drink = 0.6 oz pur e alcohol) 1-2 beers a month Sex and Gender Information Value Date Recorded Sex Assigned at Male 12/18/2021 3:52 PM MOLDER OPERATOR Legal Sex Male 3:33 AM MOLDER OPERATOR Gender Identity Male 12/18/2021 3:52 PM MOLDER OPERATOR Sexual Orientation Straight 12/18/2021 3: 52 PM MOLDER OPERATOR documented as of this encounter Plan of Treatment Not on file documented as of this encounter Visit Diagnoses Not on filedocumented in this encounter Additional Health Concerns Assessment Noted Time PHQ-9 Depression Total Score: 9 02/11/20 18 7:37 AM CDT documented as of this encounter Care Teams Drafting Layout Man Relationship Specialty Start Date End Date Isrrael Mejia MD [facility] [address] [place] [address] PCP - General Emergency Medicine 09/27/16 Regina Vizcaino APRN FLEET ADMINISTRATIVE ASSISTANT [address] [facility], [place] [address] Nurse Practitioner Nurse Practitioner 06/23/16 Rebeka Lomeli RN Nurse Coordinator Neurology 07/28/16 04/17/19 Candido Arzola MD [facility] [address] [place] [address] Anesthesiology 08/15/17 Jonelle Puckett MD [facility] [address] [place] [address] Referring Physician 06/08/18 Burton Gastelum MD [facility] [address] [place] [address] Ophthalmology 06/08/18 documented as of this encounter
--- OUTSIDE RECORDS SUMMARY | 2025-04-24 00:14 | XMS_ITS | CCD ---
Author Name [facility], [address] Address [address] [place] [address] [facility] Address [address] [place] [address] Care Team Providers Care Lead Coater Name Role Phone Shaan ARCHULETA, Bereket Barba Unavailable Allergies and Adverse Reactions Care Plan Reason for Visit Encounters Immunizations Diagnostic Results Medications Problems Procedures Social History Visits Vital Signs Notes Section
--- OUTSIDE RECORDS SUMMARY | 2025-04-24 00:14 | XMS_ITS | Clinical Summary ---
Author Organization [facility] Address [address] [place] [address] Care Team Providers Care Military Science Teacher Name Role Phone Regina Vizcaino APRN WHALE TRAINER Unavaila ble Isrrael Mejia MD Primary Care Provider Candido Arzola MD Unavailable Jonelle Puckett MD Unavailable [phone] Burton Gastelum MD Unavailable [phone] Allergies Active Allergy Reactions Criticality Noted [...] Sex Assigned at Male 12/18/2021 3:52 PM RESIDENTIAL FIELD MANAGER Legal Sex Male 3:33 AM RESIDENTIAL FIELD MANAGER Gender Identity Male 12/18/2021 3:52 PM RESIDENTIAL FIELD MANAGER Sexual Orientation Straight 12/18/2021 3: 52 PM RESIDENTIAL FIELD MANAGER Last Filed Vital Signs Vital Sign Reading [...] 1949 ANNUAL REVIEW OF HM ORDERS 1949 HEPATITIS C SCREENING 1967 LIPID 1989 MEDICARE ANNUAL WELLNESS VISIT 2014 ZOSTER VACCINE (2 of 3) 08/11/2015 06/16/2015 FALL RISK ASSESSMENT 06/20/2019 06/20/2018 RSV VACCINE (1 - 1-dose 75+ series) 2024 COVID-19 VACCINE ( season) 2024 07/18/2022, 02/02/2022, 08/20/2021, Additional history exists PHQ-2 (once per calendar year) 2024 11/26/2019, 11/26/2019, 02/12/2018, Additional history exists INFLUENZA VACCINE (Season Ended) 2025 07/18/2022, 07/18/2022, 07/13/2021, Additional history exists DIABETES SCREENING 01/10/2026 01/10/2023, 0 01/10/2023, 09/28/2016 DTAP/TDAP/TD VACCINE (3 - Td or Tdap) 02/23/2033 02/23/2023, 09/08/2016 PNEUMOCOCCAL VACCINE 50+ YEARS Completed 08/05/2020, 11/19/2015 MENINGITIS VACCINE Aged Out 04/21/2023, 02/20/2023 No longer eligible based on patient's age to complete this topic HPV VACCINE Aged Out No longer eligi ble based on patient's age to complete this topic Goals Goal Patient Goal Type Associated Problems Recent Progress Patient-Stated? Author Total Joint Replacement Hip Pathway Care Plan Total Joint Replacement Hip Pathway No [employer] Implanted Type Area Alum Plant Supervisor Device Identifier Shelf Expiration Date Model / Serial / Lot Bone Cement Simplex Full Dose 6191-1-001 - [id number] Implanted:Qty: 2 on 01/09/2023 by Prasad Sousa MD at [facility] Cement, Bone Right: Hip PER ORTHOPED[employer] [id number] 03/29/2025 6191-1-001 / / [id number] Bone Cement Restrictor Gavin Femoral 18.5mm [id number] - [id number] Implanted:Qty: 1 on 01/09/2023 by Prasad Sousa MD at [facility] Cement, Bone Right: Hip [employer]-R [id number] 09/15/2032 [id number] / / [id number] Imp Scr Zim 6.5x35mm Acet Cup Self Tap [id number] - [id number] Implanted:Qty: 1 on 01/09/2023 by Prasad Sousa MD at [facility] Metallic Hardware/An chor Right: Hip [employer] [id number] 09/03/2032-6250-065 -35 / / [id number] Screw Bone Self Tap 6.5 X 25 [id number] - [id number] Implanted:Qty: 1 on 01/09/2023 by Prasad Sousa MD at [facility] Metallic Hardware/An chor Right: Hip [employer] [id number] 03/08/20316250-065 -25 / / [id number] Imp Shell Biom G7 Acetab Pps Vines Hole 58mm Sz G [id number] - [id number] Implanted:Qty: 1 on 01/09/2023 by Prasad Sousa MD at [facility] Total Joint Component/I nsert Right: Hip [employer] [id number] 01/12/2032 [id number] / / [id number] Liner G7 Dual Mobility 46mm G - [id number] Implanted:Qty: 1 on 01/09/2023 by Prasad Sousa MD at [facility] Total Joint Component/I nsert Right: Hip [employer] [id number] 09/30/2032 [id number] / / [id number] Imp Stem Femoral Zim Versys Heritage 49-1517-847- [id number] Implanted:Qty: 1 on 01/09/2023 by Prasad Sousa MD at [facility] Total Joint Component/I nsert Right: Hip [employer] [id number] 07/09/20327857-013 - [id number] Imp Centralizer Distal Zim Versys [id number] Implanted:Qty: 1 on 01/09/2023 by Praasd Sousa MD at [facility] Total Joint Component/I nsert Right: Hip [employer] [id number] 11/01/2027-7859-011 - / [id number] Bearing Hip 46mm 28mm G Vivacit-E Lum Strl Lf [id number] - [id number] Implanted:Qty: 1 on 01/09/2023 by Prasad Sousa MD at [facility] Total Joint Component/I nsert Right: Hip [employer] [id number] 10/06/2027 [id number] / [id number] Biolox Head, 28/+7 , Taper12/14 Implanted:Qty: 1 on 01/09/2023 by Prasad Sousa MD at [facility] Right: Hip [id number] 09/22/2031 00-8777-028 -04 / [id number] Procedures Procedure Name Priority Date/Time Associated Diagnosis Comments GLUCOSE Routine 01/10/2023 7:48 AM CDT from Last 3 Months or Most Recently Relevant to Health Maintenance Results * (ABNORMAL) Glucose (01/10/2023 7:48 AM CDT) [facility] Glucose 110(H) 70 - 99 mg/dL 01/10/2023 8:36 AM CDT [facility] Patient Fasting > 8hrs? Yes 01/10/2023 8:36 AM CDT [facility] Blood STRUCTURE OF LEFT UPPER LIMB / Unknown Venipuncture / Unknown 01/10/2023 7:48 AM CDT 01/10/2023 8:10 AM CDT us Prasad Sousa MD LAB - BLOOD ORDERABLES F inal Result [facility] [address] Lab (1st floor, no room number) [place] [address], [facility] [phone] from Last 3 Months or Most Recently Relevant to Health Maintenance Additional Health Concerns Active Problems Noted Date Diagnosed Date 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 Insurance MEDICARE [facility] [address] MEDICARE [facility] BLUE [facility] BLUE MEDICARE MEDICARE Advance Directives For more information, please contact: [phone] * Full Code (Latest Code Status on [...] 7:53 PM 09/28/2016 5:53 PM Care Teams Military Science Teacher Relationship Specialty Start Date End Date Isrrael Mejia MD [facility] [address] [place] [address] PCP - General Emergency Medicine 09/27/16 Regina Vizcaino APRN WHALE TRAINER [address] [place] [address] [address] Nurse Practitioner Nurse Practitioner 06/23/16 Candido Arzola MD [facility] [address] [place] [address] Anesthesiology 08/15/17 Jonelle Puckett MD [facility] [address] [place] [address] Referring Physician 06/08/18 Burton Gastelum MD [facility] [address] [place] [address] Ophthalmology 06/08/18
[2025-04-28 15:19] LABS: Serotonin, Serum 168 ng/mL (50-220)
== END 2025-04-23 11:10 | disposition home or self-care (01) ==
LOC: LAB 11:25
PROVIDERS: PCP Internal Medicine; Visit Provider Internal Medicine Hematology & Oncology
DX: C7B.02 Secondary carcinoid tumors of liver (principal)
CPT/HCPCS: 36415; 80053; 82565; 84260; 85025; 86316

== ENCOUNTER 2025-04-29 10:19 | Outpatient (CLI) | payer MEDICARE, BC, SELFPAY | END 2025-04-29 10:20 | disposition home or self-care (01) | LOC: NFLDREF 10:20 | PROVIDERS: PCP Internal Medicine; Visit Provider Internal Medicine | DX: R35.0 Frequency of micturition (principal); Z12.5 Encounter for screening for malignant neoplasm of prostate | CPT/HCPCS: G0103 ==

== ENCOUNTER 2025-05-07 09:27 | Outpatient (CLI) | payer MEDICARE, BC, SELFPAY ==
--- NOTE | 2025-05-07 10:00 | CRLHL7_ITS ---
For Patients: As a result of the Century Cures Act, medical imaging exams and procedure reports are released immediately into your electronic medical record. You may view this report before your referring provider. If you have questions, please contact your health care provider. Indication: Metastatic carcinoid tumor Technique: Postcontrast CT chest, abdomen and pelvis. Oral water. 95 cc Isovue 370 intravenous contrast. Please note that all CT scans at this facility use dose modulation, iterative reconstruction, and/or weight-based dosing when appropriate to reduce radiation dose to as low as reasonably achievable. Comparison: 10/01/2024 Findings: In the chest the visualized thyroid is within normal limits. No mediastinal, hilar or axillary adenopathy. No pleural or pericardial effusion. Mild scarring within the dependent lungs unchanged. No suspicious pulmonary nodule. No fracture or suspicious osseous lesion. In the abdomen, postoperative changes to the liver again noted. Surgical clips are stable. No suspicious intrahepatic mass. Gallbladder is absent. No biliary obstruction. Normal pancreas. Spleen is absent. Normal adrenal glands. Small simple left renal cysts are unchanged. Exophytic cyst arises from the lower pole of the right kidney, unchanged. No hydronephrosis. No retroperitoneal adenopathy. No hiatal hernia. In the pelvis, bilateral hip replacement hardware noted. No bowel obstruction, free air, free fluid or abscess. Postop changes to the right colon again noted. No bowel wall thickening. Similar lymph node along the right external iliac chain measuring 18 millimeters, series 11, image 123. Postop changes to the lumbar spine with severe degenerative disc disease above the fusion at L1-2. Stable circumscribed low-density structure within L1. Impression: Stable right pelvic lymph node. Stable circumscribed lucency within L1, unchanged since 03/22/2023 No new findings. Please note that all CT scans at this facility use dose modulation, iterative reconstruction, and/or weight-based dosing when appropriate to reduce radiation dose to as low as reasonably achievable. Dictated by Bob Crooks MD @ 05/07/2025 12:32:16 PM (Electronically Signed)
== END 2025-05-07 09:28 | disposition home or self-care (01) ==
LOC: CT 09:27
PROVIDERS: PCP Internal Medicine; Visit Provider Internal Medicine Hematology & Oncology
DX: D3A.00 Benign carcinoid tumor of unspecified site (principal); R59.0 Localized enlarged lymph nodes
CPT/HCPCS: 71260; 74177; Q9967

== ENCOUNTER 2025-10-06 10:17 | Emergency (ER) | payer MEDICARE, BC, SELFPAY ==
[2025-10-06] VITALS (20 sets, daily range): BP systolic 121–159; BP diastolic 47–95; PULSE 54–69; RESP 10–25; TEMP 36.3; O2SAT 94–99; BMI 28.3
--- NOTE | 2025-10-06 10:43 | CRLHL7_ITS ---
For Patients: As a result of the Century Cures Act, medical imaging exams and procedure reports are released immediately into your electronic medical record. You may view this report before your referring provider. If you have questions, please contact your health care provider. Indication: Intermittent chest pain Technique: Chest 2 views Comparison: Chest x-ray 03/22/2023 Findings/Impression: Cardiovascular and mediastinum: Normal heart size with mild aortic tortuosity and atherosclerotic calcification. Lungs and pleural spaces: No pleural effusion or pneumothorax. Basilar discoid atelectasis. Bones and soft tissues: Status post spinal surgery, partially included on the exam. Dictated by Godwin Post MD @ 10/06/2025 11:39:23 AM (Electronically Signed)
--- NOTE | 2025-10-06 10:43 | ED.CHESTPAIN ---
HPI - Chest Pain General Date Seen: 10/06/25 Chief Complaint: Chest Pain Stated Complaint: Chest pressure Time Seen by Provider: 10/06/25 10:43 Source: patient, RN notes reviewed and old records reviewed Mode of arrival: ambulatory Limitations: no limitations History of Present Illness HPI narrative: Hector is a 75-year-old gentleman with history of carcinoid tumor and history of liver resection, hypertension as well as prostate cancer in remission who comes to the emergency room for intermittent chest pain over the last 10 days. Patient notes that the pain does not seem to be related to activity or to eating. He describes the discomfort as a pressure on his anterior chest. It does not radiate into his arms or into his back. Patient notes that 13 years ago he had similar type symptoms that were more severe at which time he underwent an angiogram and no blockages were found. He has not undergone stress test or any further imaging since that time. He does note longstanding history of hypertension and is currently on propranolol. Notes occasionally his pressure will bottom out and it did happen once this past week. He has been instructed to use a salt tablets to help prevent this. Hector has not had a cough cold congestion illness. Denies any Related Data Home Medications ?Medication ?Instructions ?Recorded ?Confirmed loperamide 2 mg capsule (Imodium 2 - 4 mg PO PRN 03/23/23 10/06/25 A-D) propranolol 40 mg tablet 40 mg PO BID 10/06/25 10/06/25 Previous Rx's ?Medication ?Instructions ?Recorded metronidazole 0.75 % topical cream 1 applic topical QHS #45 grams 12/14/23 (MetroCream) triamcinolone acetonide 0.1 % 1 applic topical BID #80 grams 12/14/23 topical cream gabapentin 600 mg tablet 900 mg (1.5 x 600 mg) PO TID 03/04/25 Occipital Neuralgia #405 tabs tizanidine 4 mg tablet 4 mg PO QHS PRN muscle spasticity 03/12/25 #90 tabs cholestyramine (with sugar) 4 gram 1 ea PO DAILY #368.76 grams 06/04/25 oral powder Allergies Allergy/AdvReac Type Severity Reaction Status Date / Time amoxicillin Allergy Intermediate Unknown Verified 10/06/25 15:31 Review of Systems Status of ROS Reports: 10 or more systems reviewed and unremarkable except as noted in History and below [facility] Medical History (Updated 10/06/25 @ 16:57 by Malia Partida MD) Atypical chest pain ?R07.89 - Other chest pain (ICD-10) Knee pain ?M25.569 - Pain in unspecified knee (ICD-10) Neuropathy ?G62.9 - Polyneuropathy, unspecified (ICD-10) Rosacea (04/03/17) ?L71.9 - Rosacea, unspecified (ICD-10) Hemorrhoid ?K64.9 - Unspecified hemorrhoids (ICD-10) Carcinoid tumor (1997) ?D3A.00 - Benign carcinoid tumor of unspecified site (ICD-10) Hypertension (1979) ?I10 - Essential (primary) hypertension (ICD-10) Chronic headaches ?R51.9 - Headache, unspecified (ICD-10) ?G89.29 - Other chronic pain (ICD-10) Occipital neuralgia (2002) ?M54.81 - Occipital neuralgia (ICD-10) Chronic low back pain ?M54.50 - Low back pain, unspecified (ICD-10) ?G89.29 - Other chronic pain (ICD-10) Renal cyst ?N28.1 - Cyst of kidney, acquired (ICD-10) Malignant neoplasm of prostate (2015) ?C61 - Malignant neoplasm of prostate (ICD-10) Surgical History H/O resection of liver ?Z90.49 - Acquired absence of other specified parts of digestive tract (ICD-10) 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) History of cholecystectomy ?Z90.49 - Acquired absence of other specified parts of digestive tract (ICD-10) History of hip replacement ?Z96.649 - Presence of unspecified artificial hip joint (ICD-10) History of right hemicolectomy (1997) ?Z90.49 - Acquired absence of other specified parts of digestive tract (ICD-10) History of SCC (squamous cell carcinoma) of skin (2017) ?Z85.828 - Personal history of other malignant neoplasm of skin (ICD-10) History of robot-assisted laparoscopic radical prostatectomy (09/27/16) ?Z90.79 - Acquired absence of other genital organ(s) (ICD-10) History of tonsillectomy ?Z90.89 - Acquired absence of other organs (ICD-10) History of knee surgery (1980) ?Z98.890 - Other specified postprocedural states (ICD-10) Social History Narrative: 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 Lives with locally. Nonsmoker, rare ETOH. What is your current living situation?: I presently have a place to live Problems where you live: no known problems In the past 12 months, utilities in danger of being shut off: no In past 12 months, lack of transportation kept you from medical appts, meetings, work, or getting things needed for daily living: no In the past 12 mos, have been you worried that your food would run out before you had money to buy more?: never true In the past 12 mos, the food you bought just didn't last and you didn't have money to buy more?: never true Smoking Status: Never smoker How often do you have a drink containing alcohol: monthly or less How many standard drinks containing alcohol do you have on a typical day: 1 or 2 How often do you have six or more drinks on one occasion: Never AUDIT-C Alcohol total score: 1 Non-prescribed substance use: denies use Caffeine: Yes (3-4 xweek) How often does anyone, including family, friends and others, physically hurt you: never How often does anyone, including family, friends and others, insult or talk down to you: never How often does anyone, including family, friends and others, threaten you with harm: never How often does anyone, including family, friends and others, scream or curse at you: never Exam Narrative Exam Narrative: Alert and oriented. Note acute distress. Mentation and speech is normal. Const Vital Signs, click to edit/add: Vital Signs - 24 hr 10/06/25 10:26 10/06/25 12:14 10/06/25 12:15 Temperature 97.4 F L Pulse Rate 54 L 54 L Pulse Rate [Pulse Oximeter] 66 Respiratory Rate 18 15 10 L Blood Pressure 144/73 H Blood Pressure [Right Upper Arm] 121/70 Pulse Oximetry 98 97 98 Oxygen Delivery Method Room Air Room Air 10/06/25 12:30 10/06/25 12:32 12/08/25 12:33 Temperature Pulse Rate 56 L 56 L 60 Pulse Rate [Pulse Oximeter] Respiratory Rate 23 17 Blood Pressure 132/72 Blood Pressure [Right Upper Arm] Pulse Oximetry 97 97 97 Oxygen Delivery Method 10/06/25 12:45 10/06/25 13:00 10/06/25 13:02 Temperature Pulse Rate 57 L 57 L 58 L Pulse Rate [Pulse Oximeter] Respiratory Rate 17 12 17 Blood Pressure 130/77 Blood Pressure [Right Upper Arm] Pulse Oximetry 96 96 97 Oxygen Delivery Method Room Air 10/06/25 13:15 10/06/25 13:30 10/06/25 13:31 Temperature Pulse Rate 56 L 59 L 56 L Pulse Rate [Pulse Oximeter] Respiratory Rate 12 16 16 Blood Pressure 130/72 Blood Pressure [Right Upper Arm] Pulse Oximetry 94 94 96 Oxygen Delivery Method 10/06/25 13:45 10/06/25 14:00 10/06/25 14:01 Temperature Pulse Rate 57 L 55 L 55 L Pulse Rate [Pulse Oximeter] Respiratory Rate 10 L 12 Blood Pressure 132/74 Blood Pressure [Right Upper Arm] Pulse Oximetry 97 99 98 Oxygen Delivery Method Room Air 10/06/25 14:15 10/06/25 14:30 10/06/25 14:32 Temperature Pulse Rate 58 L 59 L 59 L Pulse Rate [Pulse Oximeter] Respiratory Rate 25 H 16 Blood Pressure 159/47 H Blood Pressure [Right Upper Arm] Pulse Oximetry 98 98 94 Oxygen Delivery Method 10/06/25 14:45 Temperature Pulse Rate 55 L Pulse Rate [Pulse Oximeter] Respiratory Rate 17 Blood Pressure Blood Pressure [Right Upper Arm] Pulse Oximetry 99 Oxygen Delivery Method Course Course ED Course: Differential diagnosis includes but is not limited to angina, acute coronary syndrome, pneumonia, GERD, anxiety. At this time will place IV and obtain CBC, comprehensive, DD dimer, point of care troponin. Reevaluation(s) Reevaluation #1: Patient has remained stable in the ER with no signs of ectopy or arrhythmia. Consultations Consultation #1: I did have the pleasure of speaking to [place] [facility] dyslexia teacher Dr. Matthews. At this time I have no objective findings to indicate acute coronary syndrome. Two high sensitivity troponins have been negative. Chest abdomen and pelvic CT is negative. At this time it is recommended the patient have ZIO patch as well as stress echo. Vital Signs Vital signs: Initial Vital Signs Temperature 97.4 F L 10/06/25 10:26 Temperature Source Temporal Artery Scan 10/06/25 10:26 Pulse Rate 66 10/06/25 10:26 Respiratory Rate 18 10/06/25 10:26 Blood Pressure 121/70 10/06/25 10:26 Blood Pressure Mean 87 10/06/25 10:26 Blood Pressure Position Sitting 10/06/25 10:26 Pulse Oximetry 98 10/06/25 10:26 Oxygen Delivery Method Room Air 10/06/25 10:26 Vital Signs Temperature 97.4 F L 10/06/25 10:26 Pulse Rate 66 10/06/25 10:26 Respiratory Rate 18 10/06/25 10:26 Blood Pressure 121/70 10/06/25 10:26 Pulse Oximetry 98 10/06/25 10:26 Oxygen Delivery Method Room Air 10/06/25 10:26 Temperature 97.4 F L 10/06/25 10:26 Pulse Rate 55 L 10/06/25 14:45 Respiratory Rate 17 10/06/25 14:45 Blood Pressure 159/47 H 10/06/25 14:32 Pulse Oximetry 99 10/06/25 14:45 Oxygen Delivery Method Room Air 10/06/25 14:01 MDM - Chest Pain MDM Narrative Medical decision making narrative: 1. Atypical chest pain-patient has 2 sets of negative cardiac enzymes, EKG that is unchanged from 2022. He has been experiencing intermittent chest pain over the past 10 days he does have some mild discomfort with inspiration but no active shortness of breath. Occasionally been lightheaded but no syncope. Patient is going to start on ZIO patch today and is being set up for a stress echo tomorrow. Will give him a dose of aspirin prior to his departure. 2. History of carcinoid tumor-patient was noted to have an abdominal CT scheduled for 2 weeks. We decided to go ahead and do a chest abdomen pelvis today to limit radiation as well as contrast administration. Fortunately no evidence of pneumonia or other abnormality. 3. Disposition-home at this time. Seek medical attention for worsening symptoms and return to the ER for worsening chest pain shortness of breath high fever. Otherwise expect a phone call tomorrow to confirm a 1400 hours appointment for stress echo. Patient has a follow-up scheduled with Dr. Reisterr next week Monday. Medical Records Data Attestation: I reviewed the patient's medical records. Lab Data Attestation: I reviewed the patient's lab results. Labs: Lab Results 10/06/25 10/06/25 10/06/25 Range/Units 11:08 11:15 14:33 WBC 7.47 (4.50-11.00) K/uL RBC 4.67 (4.30-5.90) m/uL Hgb 14.6 (13.5-17.5) gm/dL Hct 45.7 (37.0-53.0) % MCV 98 (80-100) fL MCH 31 (26-34) pg MCHC 32 (32-36) gm/dL RDW Coeff of Annika 13.1 (11.5-15.5) % Plt Count 400 (140-440) K/uL Neut % (Auto) 61.2 (42.0-72.0) % Lymph % (Auto) 26.4 (20-44) % Schley % (Auto) 7.4 (0.0-11.0) % Eos % (Auto) 3.7 (0.0-7.0) % Baso % (Auto) 0.9 (0.0-3.0) % Neut # (Auto) 4.57 (1.7-7.0) K/uL Lymph # (Auto) 1.97 (0.90-2.90) K/uL Schley # (Auto) 0.60 (0.00-0.90) K/UL Eos # (Auto) 0.28 (0.00-0.50) K/uL Baso # (Auto) 0.07 (0.00-0.30) K/uL Abs Immat Gran (auto) 0.03 (0.00-0.30) K/uL Imm/Tot Granulo (auto) 0.4 % D-Dimer Quant (PE/DVT) 0.49 (0.00-0.50) ug/ml Sodium 138 (135-149) mmol/L Potassium 5.0 (3.6-5.1) mmol/L Chloride 100 (96-114) mmol/L Carbon Dioxide 28 (20-32) mmol/L Anion Gap 10 (7-15) mEq/L BUN 18 (7-30) mg/dL Creatinine 0.9 (0.5-1.5) mg/dL Estimated Creat Clear 66.93 Estimated GFR 89 ml/min Glucose 105 (60-115) mg/dL Calcium 9.8 (8.4-10.6) mg/dL Total Bilirubin 1.7 H (0.1-1.5) mg/dL AST 37 H (12-35) U/L ALT 23 (4-50) U/L Alkaline Phosphatase 106 (40-150) U/L POC Troponin I High Sensi 3.4 3.6 (2.9-28.0) pg/mL NT-Pro-B Natriuret Pep 39 (See Note) pg/mL Total Protein 8.0 (6.0-8.3) g/dL Albumin 4.6 (3.3-5.0) g/dL Lab Acknowledgement Test Added Imaging Data Chest x-ray: Attestation: I have reviewed the pertinent imaging results. My impression: I do not note any acute findings. Guidance of widened mediastinum or infiltrate. Radiologist's impression: Cardiovascular and mediastinum: Normal heart size with mild aortic tortuosity and atherosclerotic calcification. Lungs and pleural spaces: No pleural effusion or pneumothorax. Basilar discoid atelectasis. Bones and soft tissues: Status post spinal surgery, partially included on the exam. ECG Data Attestation: I personally reviewed and interpreted this ECG as follows: ECG interpretation date: 10/06/25 Interpretation: EKG by my review shows sinus rhythm at a rate of 61. Wide QRS complexes noted throughout. DE interval 222 showing first-degree AV block. This EKG is unchanged from 2022. Discharge Plan Discharge Clinical Impression: Atypical chest pain Patient Disposition: Home, Self-Care Condition: Improved Additional Instructions: Expect that we will be doing a stress echo tomorrow at 2pm If you do not hear from us by 1100 hours please call the following number to inquire [phone] Seek medical attention/return to the ER for worsening chest pain, fainting, worsening symptoms. Prescriptions: No Action metronidazole [MetroCream] 0.75 % cream 1 applic topical QHS Qty: 45 2RF triamcinolone acetonide 0.1 % cream 1 applic topical BID Qty: 80 2RF loperamide [Imodium A-D] 2 mg capsule 2 - 4 mg PO PRN Rx Instructions: take 2 capsule by oral route after 1st loose stool, followed by 1 capsule after each subsequent loose stool not to exceed 16 mg/day propranolol 40 mg tablet 40 mg PO BID gabapentin 600 mg tablet 900 mg PO TID Qty: 405 3RF tizanidine 4 mg tablet 4 mg PO QHS PRN (Reason: muscle spasticity) Qty: 90 2RF Rx Instructions: Need the Manufacturing company to be Dr. Curry cholestyramine (with sugar) 4 gram powder 1 ea PO DAILY Qty: 368.76 3RF Follow Up/Referrals: Isrrael Mejia MD [Primary Care Provider, Internal Medicine] Stand Alone Forms: [facility] Info Instructions
[2025-10-06 11:25] LABS: Hematocrit* 45.7 % (37.0-53.0); Hemoglobin* 14.6 gm/dL (13.5-17.5); Immature Granulocytes Abs Auto 0.03 K/uL (0.00-0.30); Immature Granulocytes Pct Auto 0.4 %; Lymphocytes Absolute Auto 1.97 K/uL (0.90-2.90); Mean Corpuscular HGB Conc 32 gm/dL (32-36); Mean Corpuscular Hemoglobin 31 pg (26-34); Mean Corpuscular Volume 98 fL (80-100); RDW Coefficient of Variation % 13.1 % (11.5-15.5); Red Blood Count* 4.67 m/uL (4.30-5.90); White Blood Count* 7.47 K/uL (4.50-11.00)
[2025-10-06 11:34] LABS: Slide Review Reflex No
[2025-10-06 11:37] LABS: Albumin* 4.6 g/dL (3.3-5.0); Chloride* 100 mmol/L (96-114); Potassium* 5.0 mmol/L (3.6-5.1); Sodium* 138 mmol/L (135-149)
[2025-10-06 11:40] LABS: Alanine Aminotransferase* 23 U/L (4-50); Alkaline Phosphatase* 106 U/L (40-150); Anion Gap 10 mEq/L (7-15); Aspartate Amino Transferase* 37 U/L (12-35); Bilirubin Total* 1.7 mg/dL (0.1-1.5); Blood Urea Nitrogen* 18 mg/dL (7-30); Carbon Dioxide* 28 mmol/L (20-32); Creatinine* 0.9 mg/dL (0.5-1.5); Est. Creatinine Clearance* 66.93; Estimated Glomerular Filt Rate 89 ml/min; Total Protein* 8.0 g/dL (6.0-8.3)
[2025-10-06 11:41] LABS: Calcium* 9.8 mg/dL (8.4-10.6); Glucose* 105 mg/dL (60-115)
[2025-10-06 11:42] LABS: D Dimer Quantitative* 0.49 ug/ml (0.00-0.50)
[2025-10-06 12:00] LABS: NT Pro B Type NatriureticPept* 39 pg/mL (See Note)
--- NOTE | 2025-10-06 14:31 | CRLHL7_ITS ---
For Patients: As a result of the 21st Century Cures Act, medical imaging exams and procedure reports are released immediately into your electronic medical record. You may view this report before your referring provider. If you have questions, please contact your health care provider. INDICATION: Intermittent chest and abdominal pain, history of carcinoid. TECHNIQUE: CT chest, abdomen and pelvis following administration of 99 cc Isovue 370 IV contrast. COMPARISON: CT chest, abdomen, and pelvis 05/07/2025. FINDINGS: CHEST: Lungs: No focal consolidation, pulmonary mass, or worrisome pulmonary nodule.Scattered scarring/atelectasis. Airways: Airways are clear. No endobronchial lesion. No bronchiectasis. Pleura: No pleural effusion or pneumothorax. Cardiovascular structures: Heart size is normal.No pericardial effusion. Three vessel aortic arch. Thoracic aorta and main pulmonary artery are normal in caliber. Minimal coronary atherosclerosis. Mediastinum and rachel: No mass or adenopathy. Visualized portions of the thyroid are within normal limits. Chest wall and axilla: No mass or adenopathy. ABDOMEN AND PELVIS: Liver: Stable postoperative changes of the liver. No worrisome hepatic lesion. Non-cirrhotic morphology. Biliary: No intrahepatic or extrahepatic biliary duct dilatation. Gallbladder is surgically absent. Pancreas: No focal masses. No pancreatic duct dilatation. Spleen: Absent. Adrenal glands: Unremarkable. Kidneys: Kidneys enhance symmetrically. No hydronephrosis or hydroureter. No renal calculi. No worrisome lesion. Unchanged simple bilateral renal cysts. GI tract: Postoperative changes of the right colon. No abnormal wall thickening or visualized mass. No finding to suggest small or large bowel obstruction. Vascular structures: No abdominal aortic aneurysm. Patent portal venous system. Lymph nodes: Stable m 1.8 x 0.9 cm right external iliac lymph node (series 4, image 119). No new or enlarging lymphadenopathy. Peritoneum/Retroperitoneum: No free air or significant free fluid. Pelvic Organs: Limited assessment of the pelvis due to beam hardening artifact from bilateral hip arthroplasties. Urinary bladder and prostate not well assessed. Bones and superficial soft tissues: Intact instrumentation hardware in the lumbar spine and right iliac bone. Incompletely assessed total bilateral hip arthroplasties, visualized portions of the hardware are intact without evidence of loosening or failure. No acute fractures. No worrisome bone lesions. Stable lucency in the L1 vertebral body, stability over time suggests benign etiology. Moderate degenerative changes of the thoracolumbar spine. Soft tissues: Small fat containing bilateral inguinal hernias. Unchanged left posterolateral abdominal wall hernia versus intramuscular lipoma. IMPRESSION: 1. Stable exam compared to 05/07/2025. No acute abnormalities. Multifocal postsurgical changes redemonstrated. 2. Stable right external iliac lymph node. No new or enlarging lymphadenopathy. Please note that all CT scans at this facility use dose modulation, iterative reconstruction, and/or weight-based dosing when appropriate to reduce radiation dose to as low as reasonably achievable. Dictated by Burton Jefferson MD @ 10/06/2025 3:54:20 PM (Electronically Signed)
[2025-10-06] MEDS: ASPIRIN 81 MG TAB.CHEW 324 MG PO (17:41)
== END 2025-10-06 19:46 | disposition home or self-care (01) ==
PROVIDERS: Emergency Provider Family Medicine; PCP Internal Medicine
DX: R07.9 Chest pain, unspecified (principal)
CPT/HCPCS: 36415; 71046; 71260; 74177; 80053; 83880; 84484; 85025; 85379; 93246; 99285; A9270; Q9967

== ENCOUNTER 2025-10-07 13:17 | Outpatient (CLI) | payer MEDICARE, BC, SELFPAY ==
[2025-10-07] MEDS: PERFLUTREN LIPID MICROSPHERES 2 ML VIAL IVP (14:25)
[2025-10-07 14:53] VITALS: BP 112/78; PULSE 58; RESP 20; O2SAT 98
--- NOTE | 2025-10-07 15:49 | W.ED.CHARTNO ---
ED Chart Note Chart Note Details Date: 10/07/25 Details: Patient had been scheduled for a treadmill stress echo. The preliminary echo images show diminished EF in the 40% range, regional is a. His EF had been in the 70% range prior. That property maintenance technician called Cardiology and sent images. They agreed that this patient should not proceed with cardiac stress testing. They are arranging to have him see Cardiology. He is advised of this. He is advised for no strenuous activity which does include shoveling snow. His pre EKG was done, shows sinus bradycardia at 58 beats per minute. His EKG had definite intra conduction delay, looking back this is a patient that is known to have left bundle branch block that I documented on a prior EKG from April of 2023. Thus, if patient requires further stress testing, should not be a stress echo.
== END 2025-10-07 13:18 | disposition home or self-care (01) ==
PROVIDERS: PCP Internal Medicine; Visit Provider Family Medicine
DX: R07.89 Other chest pain (principal)
CPT/HCPCS: 93016; 93308; 93321; 93325; 93351; Q9957